=== PATIENT | male | born 1960 | race Caucasian/White ===

== ENCOUNTER 2023-11-17 15:07 | Outpatient (RCR) | payer MEDICARE, OTHER, SELFPAY | END 2023-12-16 15:54 | disposition home or self-care (01) | LOC: PT 15:07 | PROVIDERS: PCP Internal Medicine; Visit Provider Internal Medicine | DX: M54.50 Low back pain, unspecified (principal) | CPT/HCPCS: 97010; 97110; 97140; 97162; G0283 ==

== ENCOUNTER 2024-07-07 17:44 | Emergency (ER) | payer MEDICARE, OTHER, SELFPAY ==
[2024-07-07] VITALS (8 sets, daily range): BP systolic 131–182; BP diastolic 61–103; PULSE 93–104; TEMP 36.4; O2SAT 96; BMI 30.3
--- OUTSIDE RECORDS SUMMARY | 2024-07-07 17:51 | XMS_ITS | CCD ---
Author Organization [facility] CliniSynm Care Team Providers Care Range Ecologist Name Role Phone SHELTON FLORES (INSIDE WIREMAN) Unavailable Unavailabl e DEVAN GOODRICH Unavailable Unavailable DEVAN GOODRICH Unavailable Unavailable DEVAN GOODRICH Unavailable Unavailable Sarah Oneil Unavailable Cornel Avila Unavailable MD Haley Samson Primary Care Provider [phone] MD Cornel Avila Attending Provider MD Haley Samson Primary Care Provider [phone] MD Cornel Avila Attending Provider FAWWAD, DE LEON H Admitting Unavailable FAWWAD, DE LEON H Attending Unavailable FAWWAD, DE LEON H Primary Care Unavailable FAWWAD, DE LEON H Primary Care Unavailable FAWWAD, DE LEON H Attending Unavailable FAWWAD, DE LEON H Consulting Unavailable FAWWAD, DE LEON H Admitting Unavailable FAWWAD, DE LEON H Attending Unavailable FAWWAD, DE LEON H Consulting Unavailable FAWWAD, DE LEON H Primary Care Unavailable FAWWAD, DE LEON H Admitting Unavailable FAWWAD, DE LEON H Attending Unavailable FAWWAD, DE LEON H Consulting Unavailable FAWWAD, DE LEON H Admitting Unavailable FAWWAD, DE LEON H Primary Care Unavailable FAWWAD, DE LEON H Consulting Unavailable FAWWAD, DE LEON H Primary Care Unavailable FAWWAD, DE LEON H Admitting Unavailable FAWWAD, DE LEON H Attending Unavailable FAWWAD, DE LEON H Primary Care Unavailable DR HARIKA LAUREANO V Consulting Unavailable FAWWAD, DE LEON H Admitting Unavailable FAWWAD, DE LEON H Attending Unavailable MALI, DE LEON H Consulting Unavailable FAWWAD, DE LEON H Admitting Unavailable FAWWAD, DE LEON H Attending Unavailable FAWWAPrasanth, DE LEON H Primary Care Unavailable WEST, DR HARIKA Pulido Consulting Unavailable MALI, H Consulting Unavailable MD Haley Samson Primary Care Provider MD Haley Samosn Attending Provider MD Haley Samson Primary Care Provider MD Haley Samson Attending Provider Cassidy Salazar Unavailable Shaikh Samson MD Primary Care Provider DANNY Salazar Attending Provider MD Haley Samson Primary Care Provider DANNY Salazar Attending Provider MD Haley Samson Primary Care Provider DANNY Salazar Attending Provider MD Haley Samson Attending Provider DANNY Morales Primary Care Provider DANNY Morales Attending Provider DANNY Morales Referring Provider DANNY Hernandez Attending Provider Shaikh Samson MD Primary Care Provider DANNY Morales Primary Care Provider DANNY Morales Attending Provider DANNY Morales Referring Provider DANNY Hernandez Attending Provider DO Debi Beltre L Attending Provider [phone] Mikeyrbacher Robyn DELGADO Primary Care Provider Robyn Moarles APRN Attending Provider Trinityacher Robyn DELGADO Referring Provider Karo Hernandez APRN Attending Provider Ly DO, Debi Cisneros Attending Provider SHAIKH SAMSON Attending Unavailable OSMAN ALVARADO Attending Unavailable OSMAN ALVARADO Attending Unavailable LENNY MALLORY Attending Unavailable Trinityacher DANNY, Robyn Primary Care Provider Devan Bob APRN Emergency Provider [phone] Robyn Morales Primary Care Unavailable Robyn Morales Attending Unavailable Robyn Morales Admitting Unavailable Ly, Debi L Admitting Unavailable Ly, Debi L Attending Unavailable Trinityacher, Robyn Primary Care Unavailable Ly, Debi L Admitting Unavailable Ly, Debi L Attending Unavailable Mikeyrbacher, Robyn Primary Care Unavailable Rohrbacher, Robyn Primary Care Unavailable Ly, Debi L Admitting Unavailable Ly, Debi L Attending Unavailable Devan Bob Admitting Unavailable Devan Bob Attending Unavailable Mikeyrbacher, Robyn Primary Care Unavailable Cassidy Salazar Attending Unavailable Shaikh Samson Primary Care Unavailable Cassidy Salazar Admitting Unavailable Shaikh Samson Admitting Unavailable Shaikh Samson Primary Care Unavailable Shaikh Samson Attending Unavailable Trinityacher, Robyn Primary Care Unavailable Robyn Morales Attending Unavailable Robyn Morales Admitting Unavailable Medications Current Medications Medication Drug Class(es) Dates Sig (Normalized) Sig (Original) 3 ML insulin glargine-yfgn 100 UNT/ML Pen Injector (6 sources) Insulin Glargine-yfgn 100 UNIT/ML INJECT 20 UNITS SUBCUTANEOUSLY NIGHTLY Subcutaneous for 75 Days Active aspirin 81 mg delayed release oral tablet (20 sources) Platelet Aggregation Inhibitor, Nonsteroidal Anti-inflammatory Drug Start: 11-03-2021 Aspirin (Alis Low Dose Aspirin) 81 mg Tablet,Delayed Release (Dr/Ec) Active 81 MG PO Daily November 02, 2021 11:00pm atorvastatin 40 mg oral tablet (20 sources) HMG-CoA Reductase Inhibitor Start: 09-16-2020 End: 06-05-2024 take 1 tablet by mouth once daily Atorvastatin 40 mg tablet Active 40 MG PO Daily 90 June 05, 2024 1:59pm azithromycin 250 mg oral tablet (1 source) Macrolide Antimicrobial Start: 06-29-2024 Azithromycin 250 mg tablet Active 0 PO daily 6 June 29, 2024 12:00am Take 2 on day 1 and then take 1 for the next 4 days (days 2-5) Blood-Glucose Meter (Onetouch Ultra2 Meter) misc (18 sources) Start: 08-10-2023 Blood-Glucose Meter (Onetouch Ultra2 Meter) misc Active EACH .ROUTE .MEDSUPPLY August 10, 2023 12:00am As directed Start: 08-10-2023 Blood-Glucose Meter (Onetouch Ultra2 Meter) misc Active EACH .ROUTE .MEDSUPPLY August 10, 2023 1:00am As directed cephalexin 500 mg oral capsule (20 sources) Cephalosporin Antibacterial Start: 02-24-2024 End: 03-05-2024 take 1 capsule by mouth in the morning, then take 1 capsule by mouth in the evening, then take 1 capsule by mouth at bedtime, then take 1 capsule by mouth three times daily cephalexin (Keflex) 500 MG capsule Indications: Paronychia, toe, left Take 1 capsule (500 mg) by mouth in the morning and 1 capsule (500 mg) in the evening and 1 capsule (500 mg) before bedtime. Do all this for 10 days. Take one tablet by mouth three times daily. 30 capsule 02/24/2024 03/05/2024 Active Start: 11-18-2021 End: 07-28-2023 take 1 capsule by mouth three times daily Cephalexin 500 mg capsule Discontinued 500 MG PO Three times daily November 17, 2021 11:00pm July 28, 2023 1:35pm Co Q 10 (1 source) CoQ10 (2 sources) CoQ10 Active diclofenac sodium 0.01 mg/mg topical gel (1 source) Nonsteroidal Anti-inflammatory Drug Start: fluticasone propionate 0.05 mg/actuat metered dose nasal spray (20 sources) Corticosteroid Start: take 1 spray(s) nasal route twice daily Fluticasone Propionate 50 mcg/actuation spray,suspension Active 0 .ROUTE .COMPLEX 48 June 19, 2024 7:46am USE 1 SPRAY IN EACH NOSTRIL TWICE A DAY Start: 05-24-2024 take 1 spray(s) nasa l route twice daily fluticasone (Flonase) 50 MCG/ACT nasal spray USE 1 SPRAY IN EACH NOSTRIL TWICE A DAY 05/24/2024 Active Start: 07-28-2023 End: 06-19-2024 Fluticasone Propionate 50 mcg/actuation spray,suspension Discontinued 1 SPRAY INTRANASAL Twice daily May 24, 2024 12:59pm June 19, 2024 7:46am Start: 06-23-2023 take 1 spray(s) nasa l route twice daily Fluticasone Propionate 50 MCG/ACT 1 spray in each nostril Nasally bid for 30 days Jun, Active glipiZIDE 10 mg oral tablet (20 sources) Sulfonylurea Start: 02-07-2024 End: 06-02-2024 take 2 tablets by mouth once daily in the morning, then take 1 tablet by mouth in the evening Glipizide 10 mg tablet Active 0 PO Daily 120 90 June 02, 2024 8:10am orally daily; 2 tablets in AM and 1 tablet in PM Start: 01-19-2024 End: 02-07-2024 take 2 tablets by mouth twice daily in the morning, then take 1 tablet by mouth twice daily in the evening Glipizide 10 mg tablet Discontinued 0 PO Twice daily January 19, 2024 2:48pm February 07, 2024 3:38pm 2 tablets in AM and 1 tablet in PM orally twice daily; Start: 10-13-2023 End: 02-07-2024 take 1 tablet by mouth twice daily Glipizide 10 mg tablet Discontinued 10 MG PO Twice daily October 27, 2023 11:55am January 19, 2024 2:49pm Start: 09-16-2020 End: 10-27-2023 take 1 tablet by mouth once daily Glipizide 10 mg tablet Discontinued 10 MG PO Daily September 15, 2020 11:00pm October 27, 2023 11:56am hydroCHLOROthiazide 12.5 mg / losartan potassium 50 mg oral tablet (20 sources) Thiazide Diuretic, Angiotensin 2 Receptor Reggie Start: 03-10-2024 take 1 tablet by mouth once daily Losartan-Hydrochlorothiazide 50-12.5 mg tablet Active 0 .ROUTE .COMPLEX March 10, 2024 9:20am TAKE 1 TABLET BY MOUTH EVERY DAY Start: 07-28-2023 End: 03-10-2024 take 1 tablet by mouth once daily Losartan-Hydrochlorothiazide 50-12.5 mg tablet Discontinued 1 TAB PO Daily August 11, 2023 10:11am March 10, 2024 9:20am Start: 09-23-2022 take 1 tablet by aristeo th in the morning losartan-hydroCHLOROthiazide (Hyzaar) 50-12.5 MG tablet Take 1 tablet by mouth in the morning. 09/23/2022 Active take 1 tablet by aristeo th every twenty-four hours Losartan Potassium-HCTZ 50-12.5 MG 1 tab let Orally Once a day for 90 days Active 12 hr hyoscyamine sulfate 0.375 mg extended release oral tablet (1 source) Start: 12-30-2020 take 1 tablet by mouth every twelve hours ibuprofen 800 mg oral tablet (4 sources) Nonsteroidal Anti-inflammatory Drug Start: 05-11-2024 take 1 tablet by mouth three times daily as needed for pain Ibuprofen 800 mg tablet Active 800 MG PO Three times daily as needed for pain May 11, 2024 10:53am Start: 03-19-2021 3 ml insulin glargine 100 unt/ml pen injector (20 sources) Insulin Analog Start: 06-05-2024 Insulin Glargi ne (Lantus Solostar U-100 Insulin) 100 unit/mL (3 mL) insulin pen Active 30 UNIT SUBCUT Daily at bedtime June 05, 2024 1:51pm Start: 11-10-2023 End: 05-08-2024 insulin glargine (Lantus Deborah oStar) 100 UNIT/ML pen Indications: Type 2 diabetes mellitus without complication, without long-term current use of insulin ([facility]) Inject 30 Units under the skin at bedtime 27 mL 1 11/10/2023 Active Start: 10-27-2023 End: 06-05-2024 Insulin Glargine (Lantus Deborah ostar U-100 Insulin) 100 unit/mL (3 mL) insulin pen Discontinued 30 UNIT SUBCUT Daily at bedtime October 27, 2023 11:55am June 05, 2024 1:51pm FreeTextSig: INJECT 25 UNITS SUBCUTANEOUSLY NIGHTLY Subcutaneous; Note: Source Status: Taking; Refills: 1; Qty: 15 Milliliter; Provider: Mali De Leon Start: 07-28-2023 End: 10-27-2023 Insulin Glargine (Lantus Deborah ostar U-100 Insulin) 100 unit/mL (3 mL) insulin pen Discontinued 25 UNIT SUBCUT Daily July 28, 2023 12:00am October 27, 2023 11:56am FreeTextSig: INJECT 25 UNITS SUBCUTANEOUSLY NIGHTLY Subcutaneous; Note: Source Status: Taking; Refills: 1; Qty: 15 Milliliter; Provider: Mali De Leon Start: 07-26-2023 End: 10-24-2023 insulin glargine (Lantus Deborah oStar) 100 UNIT/ML pen Indications: Type 2 diabetes mellitus without complication, without long-term current use of insulin ([facility]) Inject 25 Units under the skin at bedtime 23 mL 0 07/26/2023 10/24/2023 Active Start: 03-22-2023 End: 07-26-2023 Lantus SoloStar 100 UNIT/ML pen Inject 30 Units under the skin at bedtime 0 03/22/2023 07/26/2023 Discontinued (Reorder) Lantus SoloStar 100 UNIT/ML INJECT 25 UNITS SUBCUTANEOUSLY NIGHTLY Subcutaneous for 60 days Active Insulin Glargine-yfgn 100 UNIT/ML (1 source) Insulin Glargine -yfgn 100 UNIT/ML INJECT 20 UNITS SUBCUTANEOUSLY NIGHTLY Subcutaneous for 75 Days Active loperamide hydrochloride 2 mg oral tablet (1 source) Opioid Agonist Start: 1 osmotic 24 hr metFORMIN hydrochloride 1000 mg extended release oral tablet (20 sources) Biguanide Start: 4 take 1 tablet by mouth twice daily Metformin 1,000 mg tablet extended release 24hr Active 1000 MG PO Twice daily May 30, 2024 12:00am Start: 12-15-2023 End: 05-30-2024 take 1 tablet by mouth twice daily Metformin 1,000 mg tablet Discontinued 1000 MG PO Twice daily May 26, 2024 10:18am May 30, 2024 10:36am Start: 10-27-2023 End: 12-15-2023 take 2 tablets by mouth twice daily Metformin 500 mg tablet Discontinued 1000 MG PO Twice daily October 27, 2023 11:54am December 15, 2023 2:06pm Start: 10-27-2023 End: 12-15-2023 take 1000 mg by mouth twice daily Metformin Discontinued 1000 MG PO Twice daily October 27, 2023 11:54am December 15, 2023 2:06pm Start: 10-13-2023 End: 04-10-2024 take 1 tablet by mouth once metFORMIN (Glucophage) 100 0 MG tablet Indications: Type 2 diabetes mellitus without complication, with long-term current use of insulin ([facility]) Take 1 tablet (1,000 mg) by mouth every 12 (twelve) hours 180 tablet 1 10/13/2023 Active Start: 09-16-2020 End: 10-27-2023 take 1 tablet by mouth twice daily Metformin 500 mg tablet Discontinued 500 MG PO Twice daily September 15, 2020 11:00pm October 27, 2023 11:56am metFORMIN HCl 50 0 MG TAKE 1 TABLET BY MOUTH EVERY 12 HOURS Oral bid for 90 days Active Multivitamin preparation (20 sources) Start: 07-28-2023 take 1 tablet by mouth once daily Multivitamin Active 1 TAB PO Daily July 28, 2023 1:00am Start: 07-28-2023 take 1 tablet by aristeo once daily Multivitamin Active 1 TAB PO Daily July 28, 2023 12:00am Multivitamin Act ting Multivitamin tablet (2 sources) Start: 07-28-2023 take 1 tablet by mouth once daily Multivitamin tablet Active 1 TAB PO Daily July 28, 2023 12:00am omeprazole 40 mg delayed release oral capsule (20 sources) Proton Pump Inhibitor Start: 04-12-2024 take 1 capsule by mouth once daily Omeprazole 40 mg capsule,delayed release(DR/EC) Active 40 MG PO Daily April 11, 2024 11:00pm Start: 03-19-2023 take 1 tablet by aristeo th in the morning Omeprazole 20 MG tablet delayed-release Take 1 tablet by mouth in the morning. 03/19/2023 Active Start: 09-16-2020 End: 05-09-2024 take 1 capsule by mouth once daily Omeprazole 20 mg capsule,delayed release(DR/EC) Discontinued 20 MG PO Daily March 28, 2024 10:42am May 09, 2024 12:28pm One A Day Mens VitaCraves (1 source) Semaglutide (1 source) Start: 06-29-2024 Semaglutide (O zempic) 0.25 mg or 0.5 mg (2 mg/3 mL) pen injector Active 0.25 MG SUBCUT every week June 29, 2024 12:00am for 4 weeks ubidecarenone 200 mg oral ca psule (20 sources) Start: 11-03-2021 Coenzyme Q10 ( Co Q-10) 200 mg Capsule Active 200 MG PO Daily November 02, 2021 11:00pm Vitamin D3 (1 source) Completed/Discontinued Medications Medication Drug Class(es) Dates Sig (Normalized) Sig (Original) acetaminophen 325 mg oral tablet (20 sources) Start: 11-03-2021 End: 07-28-2023 take 2 tablets by mouth every six hours as needed for pain Acetaminophen (Tylenol) 325 mg Tablet Discontinued 650 MG PO Q6H as needed for Pain, Mild November 02, 2021 11:00pm July 28, 2023 1:34pm cholecalciferol 0.025 mg oral capsule (20 sources) Vitamin D Start: 11-03-2021 End: 07-28-2023 take 1 capsule by mouth once daily Cholecalciferol (Vitamin D3) (Vitamin D3) 25 mcg (1,000 unit) Capsule Discontinued 25 MCG PO Daily November 02, 2021 11:00pm July 28, 2023 1:35pm cyclobenzaprine hydrochloride 10 mg oral tablet (20 sources) Muscle Relaxant Start: 11-18-2021 End: 07-28-2023 take 1 tablet by mouth three times daily as needed for muscle spasms Cyclobenzaprine 10 mg tablet Discontinued 10 MG PO Three times daily as needed for back spasms 40 November 17, 2021 11:00pm July 28, 2023 1:35pm dapagliflozin 10 mg oral tablet (20 sources) Sodium-Glucose Cotransporter 2 Inhibitor Start: 09-16-2020 End: 07-28-2023 Dapagliflozin Propanediol (Farxiga) 10 mg tablet Discontinued 10 MG PO Daily September 15, 2020 11:00pm July 28, 2023 1:35pm Instructed per anesthesia guidelines to stop 3 days prior to surgery dicyclomine hydrochloride 20 mg oral tablet (20 sources) Anticholinergic Start: 09-16-2020 End: 11-03-2021 take 1 tablet by mouth once daily Dicyclomine 20 mg tablet Discontinued 20 MG PO Daily September 15, 2020 11:00pm November 03, 2021 10:29am doxycycline monohydrate 100 mg oral capsule (4 sources) Tetracycline-class Drug Start: 06-05-2024 End: 06-29-2024 take 1 capsule by mouth twice daily Doxycycline Monohydrate 100 mg capsule Discontinued 100 MG PO Twice daily 14 June 05, 2024 12:00am June 29, 2024 2:04pm Start: 05-30-2024 End: 06-06-2024 doxycycline (Vibramycin) 100 MG capsule Indications: Cellulitis, penis Take 1 capsule (100 mg) by mouth in the morning and 1 capsule (100 mg) before bedtime. Do all this for 7 days. Take with at least 8 ounces (large glass) of water, do not lie down for 30 minutes after. 14 capsule 05/30/2024 06/06/2024 Start: 01-31-2021 take 1 capsule by [facility] every twelve hours fexofenadine hydrochloride 180 mg oral tablet (20 sources) Histamine-1 Receptor Antagonist Start: 03-19-2023 End: 05-31-2024 take 1 tablet by mouth once daily Fexofenadine 180 mg tablet Discontinued 180 MG PO Daily August 11, 2023 10:10am March 28, 2024 10:43am gabapentin 100 mg oral capsule (9 sources) Anti-epileptic Agent Gabapentin 100 MG Not Available Oral for 30 Days Not-Taking/PRN Insulin Glargine-Yfgn (20 sources) Start: 11-03-2021 End: 07-28-2023 Insulin Glargine-Yfgn 100 unit/mL (3 mL) insulin pen Discontinued 20 UNIT SUBCUT Bedtime November 02, 2021 11:00pm July 28, 2023 1:36pm Start: 11-03-2021 End: 07-28-2023 inject 20 [IU] by subcutaneous injection at bedtime Insulin Glargine-Yfgn Discontinued 20 UNIT SUBCUT Bedtime November 03, 2021 12:00am July 28, 2023 2:36pm Start: 11-03-2021 End: 07-28-2023 inject 20 [IU] by subcutaneous injection at bedtime Insulin Glargine-Yfgn Discontinued 20 UNIT SUBCUT Bedtime November 02, 2021 11:00pm July 28, 2023 1:36pm Start: 11-03-2021 inject 20 [IU] by miramontes bcutaneous injection at bedtime Insulin Glargine-Yfgn Active 20 UNIT SUBCUT Bedtime November 02, 2021 11:00pm Start: 11-03-2021 inject 20 [IU] by miramontes bcutaneous injection at bedtime Insulin Glargine-Yfgn Active 20 UNIT SUBCUT Bedtime November 03, 2021 12:00am insulin glargine-yfgn 100 unit/ml solution pen-injector (2 sources) Insulin Glargine -yfgn 100 UNIT/ML INJECT 20 UNITS SUBCUTANEOUSLY NIGHTLY Subcutaneous for 75 Days Not-Taking/PRN lisinopril 10 mg oral tablet (20 sources) Angiotensin Converting Enzyme Inhibitor Start: 09-17-19 End: 07-28-19 take 1 tablet by mouth once daily Lisinopril 10 mg tablet Discontinued 10 MG PO Daily September 15, 2020 11:00pm July 28, 2023 1:36pm loratadine 10 mg oral tablet (20 sources) Start: 11-03-2021 End: 07-28-2023 Loratadine 10 mg Tablet Discontinued 10 MG PO As Directed November 02, 2021 11:00pm July 28, 2023 1:43pm losartin (3 sources) losartin Not-Leandro ing/PRN losartin Active 24 hr nicotine 0.875 mg/hr transdermal system (20 sources) Cholinergic Nicotinic Agonist Start: 07-28-2023 End: 09-01-2023 apply 1 dose transdermal route once daily Nicotine Discontinued 1 PATCH TRANSDERML Daily July 28, 2023 12:00am September 01, 2023 9:36am FreeTextSi patch to skin Transdermal Once a day; Note: Source Status: Start; Refills: 0; Provider: Martin Benjamin Start: 06-25-2023 Nicotine Step 1 21 MG/24HR 1 patch to skin Transdermal Once a day for 30 days Jun, Active Start: 05-26-2023 nicotine polac rilex (Commit) 4 MG lozenge Indications: Tobacco dependency Dissolve 1 lozenge (4 mg) in the mouth every 2 (two) hours if needed for smoking cessation 30 lozenge 1 05/26/2023 Active Start: 05-26-2023 End: 09-01-2023 apply 1 dose transdermal route every twenty-four hours Nicotine 21 mg/24 hr patch 24 hour Discontinued 1 PATCH TRANSDERML Daily July 28, 2023 12:00am September 01, 2023 9:36am FreeTextSi patch to skin Transdermal Once a day; Note: Source Status: Start; Refills: 0; Provider: Martin Benjamin ondansetron 4 mg oral tablet (20 sources) Serotonin-3 Receptor Antagonist Start: 09-16-2020 End: 11-03-2021 take 1 tablet by mouth every six hours as needed for nausea Ondansetron Hcl 4 mg tablet Discontinued 4 MG PO Q6H as needed for Nausea September 15, 2020 11:00pm November 03, 2021 10:28am oxyCODONE hydrochloride 5 mg oral tablet (20 sources) Opioid Agonist Start: 11-18-2021 End: 07-28-2023 take 5-10 mg by mouth every six hours as needed for pain Oxycodone 5 mg Tablet Discontinued 5 - 10 MG PO Q6H as needed for Pain 30 8 November 18, 2021 July 28, 2023 1:37pm pantoprazole 40 mg delayed release oral tablet (20 sources) Proton Pump Inhibitor Start: 09-16-2020 End: 11-03-2021 take 1 tablet by mouth once daily Pantoprazole 40 mg tablet,delayed release (DR/EC) Discontinued 40 MG PO Daily September 15, 2020 11:00pm November 03, 2021 10:29am varenicline 1 mg oral tablet (20 sources) Partial Cholinergic Nicotinic Agonist Start: 09-01-2023 End: 05-30-2024 take 1 tablet by mouth once daily Varenicline Tartrate 1 mg tablet Discontinued 1 MG PO Daily 30 October 11, 2023 1:25pm December 15, 2023 2:02pm Start: 07-28-2023 End: 09-01-2023 take 1 tablet by mouth twice daily Varenicline Tartrate 1 mg tablet Discontinued 1 MG PO Twice daily 60 July 28, 2023 3:28pm September 01, 2023 9:21am Varenicline Tart rate 1 MG half tab once daily for three days, half tab twice daily for four days, then 1 tab twice daily Orally Twice a day for 30 days Ok to dispense Chantix starter pack if available and covered by insurance Active Problems Active Problems Problem Classification Problem Date Documented Da te Episodic/Chronic Abdominal pain (20 sources) Epigastric pain; Translations: [Epigastric pain] Onset: 4 11-06-2020 Episodic Comment on above: Problem List clean-u p per request of Phys. EHR Cmte Coagulation and hemorrhagic disorders (20 sources) Platelet count below reference range; Translations: [Thrombocytopenia, unspecified] 02-22-2024 Chronic Diabetes mellitus with complications (20 sources) Type II diabetes mellitus uncontrolled; Translations: [Uncontrolled type 2 diabetes mellitus] 07-28-2023 Chronic Diabetes mellitus without complication (20 sources) Type 2 diabetes mellitus without complications; Translations: [Type 2 diabetes mellitus without complication] Onset: Chronic Disorders of lipid metabolism (20 sources) Hyperlipidemia, unspecified; Translations: [Hyperlipidemia] Onset: 2 05-26-2023 Chronic Esophageal disorders (20 sources) Gastroesophageal reflux disease; Translations: [Gastro-esophageal reflux disease without esophagitis] 01-13-2024 Chronic Essential hypertension (20 sources) Essential (primary) hypertension; Translations: [Essential hypertension] Onset: 4 05-26-2023 Chronic Fracture of lower limb (2 sources) Fracture of phalanx of foot; Translations: [Unspecified fracture of unspecified toe(s), initial encounter for closed fracture] Onset: 4 05-19-2024 Episodic Inflammatory conditions of male genital organs (4 sources) Cellulitis of penis; Translations: [Cellulitis of corpus cavernosum and penis] 05-30-2024 Chronic Mood disorders (11 sources) Single episode of major depression in full remission; Translations: [Major depressive disorder, single episode, in full remission] Onset: 3 05-26-2023 Chronic Mycoses (2 sources) Onychomycosis; Translations: [Tinea unguium] 02-24-2024 Episodic Nausea and vomiting (20 sources) Vomiting; Translations: [Vomiting, unspecified] Onset: 4 11-06-2020 Episodic Comment on above: Problem List clean-u p per request of Phys. EHR Cmte Noninfectious gastroenteritis (20 sources) Enterocolitis; Translations: [Noninfective gastroenteritis and colitis, unspecified] 09-16-2020 Episodic Comment on above: Problem List clean-u p per request of Phys. EHR Cmte Other bone disease and musculoskeletal deformities (7 sources) Lesion of lumbar spine; Translations: [Disorder of bone, unspecified] 03-06-2024 Episodic Other connective tissue disease (4 sources) Pain of toe of left foot; Translations: [Pain in left toe(s)] 02-24-2024 Episodic Other gastrointestinal disorders (10 sources) Diarrhea; Translations: [Diarrhea, unspecified] Episodic Other liver diseases (20 sources) Lesion of liver; Translations: [Liver disease, unspecified] 12-13-2023 Chronic Other liver diseases (4 sources) Steatosis of liver; Translations: [Fatty (change of) liver, not elsewhere classified] 04-12-2024 Chronic Comment on above: Problem List clean-u p per request of Phys. EHR Cmte Other liver diseases (4 sources) Fatty (change of) liver, not elsewhere classified; Translations: [Other chronic nonalcoholic liver disease] Onset: 4 04-12-2024 Chronic Other nervous system disorders (12 sources) Paresthesia; Translations: [Paresthesia of skin] 01-12-2024 Episodic Other screening for suspected conditions (not mental disorders or infectious disease) (20 sources) CT of abdomen abnormal; Translations: [Abnormal findings on diagnostic imaging of other abdominal regions, including retroperitoneum] Onset: 4 09-16-2020 Episodic Comment on above: Problem List clean-u p per request of Phys. EHR Cmte Other skin disorders (4 sources) Ingrowing nail; Translations: [Ingrowing nail] 02-24-2024 Episodic Residual codes; unclassified (20 sources) Other specified personal risk factors, not elsewhere classified; Translations: [Other specified personal history presenting hazards to health] Episodic Residual codes; unclassified (7 sources) At risk of disease; Translations: [Other specified personal risk factors, not elsewhere classified] 07-28-2023 Episodic Residual codes; unclassified (13 sources) Cardiovascular event risk; Translations: [Other specified personal risk factors, not elsewhere classified] 07-28-2023 Episodic Screening and history of mental health and substance abuse codes (18 sources) Ex-smoker; Translations: [Personal history of nicotine dependence] 01-13-2024 Episodic Skin and subcutaneous tissue infections (5 sources) Local infection of the skin and subcutaneous tissue, unspecified; Translations: [Paronychia of toe of left foot] Onset: 1 Resolved: 1 Episodic Spondylosis; intervertebral disc disorders; other back problems (20 sources) Cervical spondylosis without myelopathy; Translations: [Spondylosis without myelopathy or radiculopathy, cervical region] Onset: 2 05-26-2023 Chronic Spondylosis; intervertebral disc disorders; other back problems (20 sources) Cervical disc disorder at C5-C6 level with radiculopathy; Translations: [Cervical disc disorder at C6-C7 level with radiculopathy] Onset: 2 Resolved: 2 Episodic Comment on above: Problem List clean-u p per request of Phys. EHR Cmte Substance-related disorders (20 sources) Tobacco user; Translations: [Nicotine dependence, cigarettes, uncomplicated] Onset: 3 Chronic Unclassified (1 source) Unknown / UNK(Unknown) Onset: 8 Unclassified (3 sources) CONTACT W/AND (SUSP) EXPOS COVID-19; Translations: [CONTACT W/AND (SUSP) EXPOS COVID-19] Onset: 2 Unclassified (1 source) Low back pain, unspecified; Translations: [Low back pain, unspecified] Onset: 4 Past or Other Problems Problem Classification Problem Date Documented Da te Episodic/Chronic Coagulation and hemorrhagic disorders (1 source) Other secondary thrombocytopenia; Translations: [Other secondary thrombocytopenia] Onset: 07-05-2017 Episodic E Codes: Natural/environment (1 source) Bitten by dog, subsequent encounter Onset: 04-16-2021 Resolved: 04-16-2021 Episodic Other connective tissue disease (1 source) Pain in left arm; Translations: [PAIN IN LEFT ARM] Onset: 08-26-2021 Episodic Other connective tissue disease (1 source) Abnormal posture; Translations: [ABNORMAL POSTURE] Onset: 08-26-2021 Episodic Other nervous system disorders (9 sources) Paresthesia of skin; Translations: [Disturbance of skin sensation] Onset: 03-04-2024 01-12-2024 Episodic Unclassified (1 source) CONTACT W/AND (SUSP) EXPOS COVID-19; Translations: [CONTACT W/AND (SUSP) EXPOS COVID-19] Onset: 06-05-2022 Results Test Name Value Interpretation Reference Range Facility Glucose Glucometer (BldC) [M ass/Vol]Ordered By: Debi Beltre on 05-18-2024 Glucose [Mass/Vol] Capillary blood gluc ose measurement by glucometer (mass/volume) [facility] Comment on above: Random Glucose Refer ence Range is dependent on time and content of last meal. Glucose of more than 200 mg/dL in a nonstressed, ambulatory subject supports the diagnosis of Diabetes Mellitus. Glucose Poct Glucometerson 1 07-19-2023 Commemt1 Glu2: Cleaned Meter Normal [facility] Comment on above: Result Comment: PERF ORMED BY: [facility] [address] [place] [address] PATHOLOGIST CHOCOLATE TEMPERER RITA DEGROOT M.D. Performed By: #### G CONNORLS #### Point of Care testing , Glucose [Mass/Vol] 198 mg/dL Normal [facility] Comment on above: Result Comment: [place] Glucose Reference Range is dependent on time and content of last meal. Glucose of more than 200 mg/dL in a nonstressed, ambulatory subject supports the diagnosis of Diabetes Mellitus. Performed By: #### G LULS #### Point of Care testing , Joe 05-18-2024 L --- Specimen: [id number] Received: 05/18/24 Status: JANNET Cummings Num: [id number] Spec Type: Surgical Subm Dr: Debi Beltre DO Tissues: A Small Intestine - Biopsy/Polyp (SMALL BOWEL R/O CELIAC) B GASTRIC FOR HP (GASTRIC R/O H PYLORI) C Colon Biopsy (VIVIENNE RT COLON BX R/O MICRO) D Colon Biopsy (RANDOM LT COLON BX R/O MICRO) Procedures: ALESSIO/Azalia, Gross/Micro L4/4, H PYLORI Age/ Patient Sex Location Account Attending Physician Lew Obregon/[facility] [id number] Debi Beltre DO SPEC NUM: [id number] RECD: 05/18/24 STATUS: JANNET CUMMINGS NUM: [id number] RICARDO: 05/18/[address]: Debi Beltre DO ENTERED: 05/18/24-1036 [facility] DR: SPEC TYPE: Surgical DEPT: S ENTERED BY: [id number] RECV BY: [id number] ORDERED: HE/8, Gross/Micro L4/4, H PYLORI ORDERED: HE/8, Gross/Micro L4/4, H PYLORI Pathological Diagnosis A. Small bowel, biopsy: - Small bowel mucosa with a small lymphoid aggregate. - No evidence of celiac disease identified. B. Stomach, biopsy: - Antral and oxyntic-type gastric mucosa with reactive gastritis. - No Helicobacter pylori microorganisms identified with immunohistochemical stain. C. Colon, right, random biopsy: - Benign colonic mucosa with no significant histopathology - No evidence of chronic, active or microscopic colitis identified. D. Colon, left, random biopsy: - Benign colonic mucosa with no significant histopathology - No evidence of chronic, active or microscopic colitis identified. Clinical Information Abdominal pain, nausea, diarrhea, rule out celiac, H. pylori, rule out microscopic colitis. Specimen: [id number] Received: 05/18/24 Status: JANNET Cummings Num: [id number] Spec Type: Surgical Subm Dr: Debi Beltre DO Tissues: A Small Intestine - Biopsy/Polyp (SMALL BOWEL R/O CELIAC) B GASTRIC FOR HP (GASTRIC R/O H PYLORI) C Colon Biopsy (VIVIENNE RT COLON BX R/O MICRO) D Colon Biopsy (RANDOM LT COLON BX R/O MICRO) Procedures: HE/8, Gross/Micro L4/4, H PYLORI Patient: Lew Obregon [id number] (Continued) Specimen: [id number] Received: 05/18/24 (Continued) Signed (signature on file) Jeramie Gonzalez MD 05/19/24 1534 Specimen: [id number] Received: 05/18/24 Status: JANNET Cummings Num: [id number] Spec Type: Surgical Subm Dr: Debi Beltre DO Tissues: A Small Intestine - Biopsy/Polyp (SMALL BOWEL R/O CELIAC) B GASTRIC FOR HP (GASTRIC R/O H PYLORI) C Colon Biopsy (VIVIENNE RT COLON BX R/O MICRO) D Colon Biopsy (RANDOM LT COLON BX R/O MICRO) Procedures: HE/Azalia, Gross/Micro L4/4, H PYLORI Patient: Lew Obregon [id number] (Continued) Specimen: [id number] Received: 05/18/24 (Continued) Gross Description Part A is received in formalin labeled with the patients name, date of , and small bowel BX are two kulkarni-summers, focally erythematous, friable, 0.3 cm in greatest dimension each tissue bits. The specimen is entirely submitted in a single cassette. (1, ns, [id number] A) JG Part B is received in formalin labeled with the patients name, date of , and gastric BX are two kulkarni-summers, focally erythematous, friable, 0.3 and 0.5 cm in greatest dimension tissue bits. The specimen is entirely submitted in a single cassette. (1, ns, [id number] B) JG Part C is received in formalin labeled with the patients name, date of , and random right colon BX are five kulkarni-summers, focally erythematous, friable, 0.2 to 0.3 cm in greatest dimension tissue bits. The specimen is entirely submitted in a single cassette. (1, ns, [id number] C) JG Part D is received in formalin labeled with the patients name, date of , and random left colon BX are three kulkarni-summers, focally erythematous, friable, 0.2, 0.3 and 0.3 cm in greatest dimension tissue bits. The specimen is entirely submitted in a single cassette. (1, ns, [id number] D) Microscopic Description A-D: Microscopic examination is performed. CPT Codes 21662 x4, 45332 (more content not included)... Normal [facility] No Panel InformationOrdered By: Debi Ly on 05-18-2024 Bedside Glucose Comment Glu2: cleaned meter [facility] XR foot LT min 3V*on 024 XR foot LT min 3V* [facility] [address] [address] XRay Report Signed Patient: Lew Obregon MR#: [id number] : 1960 Acct:[id number] Age/Sex: 64 / M ADM Date: 05/11/24 Loc: ER Room: Type: [facility] ER Attending Dr: Copies to: Devan Bob APRN Ordering Provider: Devan Bob APRN Date of Service: 05/11/24 XR/XR foot LT min 3V*: Extremity Injury, Lower LEFT FOOT - 3 VIEWS CLINICAL DATA: Patient dropped a cart onto left foot yesterday. Bruising at the distal first toe. COMPARISON: None AP, lateral and oblique views were obtained. A nondisplaced fracture is visualized at the distal shaft of the distal phalanx of the first toe. There is no additional fracture or dislocation. Calcaneal spurs are noted. There are no significant soft tissue abnormalities. XR/XR foot LT min 3V* IMPRESSION: NONDISPLACED FRACTURE AT THE DISTAL PHALANX OF THE FIRST TOE. Impression dictated by: Carmencita Hernandez M.D.05/11/2024 11:33 AM Dictation Location: [place] [address] Transcribed By: [facility] 05/11/24 1133 Dictated By: Carmencita Hernandez MD 05/11/24 1130 Signed By: 05/11/24 1133 Normal [facility] NM hepatobiliary w pharmon 1 06-26-2023 NM hepatobiliary w pharm [facility] [address] [address] Nuclear Medicine Report Signed Patient: Lew Obregon MR#: [id number] : 1960 Acct:[id number] Age/Sex: 64 / M ADM Date: 04/26/24 Loc: [place] [facility]: [facility]: Debi Beltre DO Copies to: DO Howard Small II, MD Ordering Provider: Debi Beltre DO Date of Service: 04/26/24 NM/NM hepatobiliary w pharm: R10.9 - Unspecified abdominal pain NM hepatobiliary w pharm 04/26/2024 6:50 AM SIGN AND SYMPTOMS: Right upper quadrant pain with nausea PROTOCOL: Following IV administration of Tc-99m mebrofenin 1 hour of dynamic imaging of gallbladder and liver. Following IV administration of CCK, 30 minutes of dynamic imaging obtained. RADIOPHARMACEUTICAL: 6.2 mCi of intravenous technetium 99m mebrofenin COMPARISON: 02/16/2024 and 10/07/2020 FINDINGS: Normal hepatic transit time. Prompt excretion into the small bowel. Prompt excretion into the gallbladder. There is a similar gallbladder ejection fraction at 86.8%. NM/NM hepatobiliary w pharm IMPRESSION: No evidence of acute cholecystitis. Normal gallbladder ejection fraction at 86.8%. Impression dictated by: Howard Cordero M.D.04/26/2024 10:19 AM Dictation Location: [place] [address] Transcribed By: DEACON 04/26/24 1019 Dictated By: Howard Cordero II, MD 04/26/24 1017 Signed By: 04/26/24 1019 Normal [facility] Alanine aminotransferase [En zymatic activity/volume] in Serum or PlasmaOrdered By: Karo Hernandez on 03-15-2024 ALT [Catalytic activity/Vol] 31 U/L Normal [facility] Comment on above: Performed By: #### C BC, CMP ####[facility] [place] [id number] [facility] ALT [Catalytic activity/Vol] Alanine aminotransferase [Enzymatic activity/volume] in Serum or Plasma [facility] Albumin [Mass/volume] in Ser um or Plasma by Bromocresol green (BCG) dye binding methoOrdered By: Karo Hernandez on 03-15-2024 Albumin BCG dye [Mass/Vol] 4.5 g/dL 3.5-5.7 [facility] Albumin BCG dye [Mass/Vol] Albumin [Mass/volume] in Serum or Plasma by Bromocresol green (BCG) dye binding metho 3.5-5.7 [facility] Alkaline phosphatase [Enzyma tic activity/volume] in Serum or PlasmaOrdered By: Karo Hernandez on 03-15-2024 ALP [Catalytic activity/Vol] 60 U/L Normal [facility] Comment on above: Performed By: #### C BC, CMP ####[address] ALP [Catalytic activity/Vol] Alkaline phosphatase [Enzymatic activity/volume] in Serum or Plasma [facility] Aspartate aminotransferase [ Enzymatic activity/volume] in Serum or PlasmaOrdered By: Karo Venturasergio on 03-15-2024 AST [Catalytic activity/Vol] 21 U/L Normal [facility] Comment on above: Performed By: #### C BC, CMP ####[address] AST [Catalytic activity/Vol] Aspartate aminotransferase [Enzymatic activity/volume] in Serum or Plasma [facility] Automated basophil %Ordered By: Karo Venturasergio on 03-15-2024 Basophils/100 WBC (Bld) 0.5 % Normal . [facility] Comment on above: Performed By: #### C BC, CMP #### [address] Automated basophil countOrde red By: Karo Venturasergio on 03-15-2024 Basophils (Bld) [#/Vol] 0.0 10*3/uL Normal 0.0-0.2 [facility] Comment on above: Result Comment: PERF ORMED BY: [place] [address] PATHOLOGIST CHOCOLATE TEMPERER RONI MASON M.D. Performed By: #### C BC, CMP #### [address] Automated blood monocyte cou ntOrdered By: Karo Venturasergio on 03-15-2024 Monocytes (Bld) [#/Vol] 0.5 10*3/uL Normal 0.0-0.8 [facility] Comment on above: Performed By: #### C BC, CMP #### [address] Automated eosinophil %Ordere d By: Karo David on 03-15-2024 Eosinophils/100 WBC (Bld) 2.2 % Normal . [facility] Comment on above: Performed By: #### C BC, CMP #### [address] Automated eosinophil countOr dered By: Karo David on 03-15-2024 Eosinophils (Bld) [#/Vol] 0.1 10*3/uL Normal 0.0-0.45 [facility] Comment on above: Performed By: #### C BC, CMP #### [address] Automated monocyte %Ordered By: Karo David on 03-15-2024 Monocytes/100 WBC (Bld) 8.9 % Normal . [facility] Comment on above: Performed By: #### C BC, CMP #### [address] Automated neutrophil %Ordere d By: Karo David on 03-15-2024 Neutrophils/100 WBC (Bld) 65.0 % Normal . [facility] Comment on above: Performed By: #### C BC, CMP #### [address] Basophils Auto (Bld) [#/Vol] Ordered By: Karo Hernandez on 03-15-2024 Basophils (Bld) [#/Vol] Automated basoph il count 0.0-0.2 [facility] Basophils/100 WBC Auto (Bld) Ordered By: Karo Hernandez on 03-15-2024 Basophils/100 WBC (Bld) Automated basophil % . [facility] Bilirubin.total [Mass/volume ] in Serum or PlasmaOrdered By: Karo Hernandez on 03-15-2024 Bilirubin [Mass/Vol] 1.0 mg/dL Normal 0.3-1.0 [facility] Comment on above: Performed By: #### C BC, CMP ####[facility] [id number] [place] [address] [facility] Bilirubin [Mass/Vol] Bilirubin.total [Mass/volume] in Serum or Plasma 0.3-1.0 [facility] CBC W Auto Differential pane l (Bld)on 03-15-2024 Basophils (Bld) [#/Vol] 0.0 10*3/uL 0.0 - 0.2 10*3/uL [facility] Basophils/100 WBC Manual cnt (Syn fld) 0.5 % . [facility] Eosinophils (Bld) [#/Vol] 0.1 10*3/uL 0.0 - 0.45 10*3/uL [facility] Eosinophils/100 WBC Manual cnt (Syn fld) 2.2 % . [facility] Erythrocyte distribution width (RBC) [Ratio] 13.6 % 12.0 - 14.8 % [facility] Hematocrit (Bld) [Volume fraction] 41.8 % 38.8 - 50.0 % [facility] Hemoglobin (Bld) [Mass/Vol] 14.1 g/dL 13.0 - 17.0 g/dL [facility] Interpretation and review of laboratory results Abnormal [facility] Lymphocytes (Bld) [#/Vol] 1.4 10*3/uL 1.00 - 4.8 10*3/uL [facility] Lymphocytes/100 WBC Manual cnt (Syn fld) 23.4 % . [facility] MCH (RBC) [Entitic mass] 28.0 pg 27.5 - 35.2 pg [facility] MCHC (RBC) [Mass/Vol] 33.7 g/dL 32.5 - 35.6 g/dL [facility] MCV (RBC) [Entitic vol] 83.1 fL Low 83.5 - 101 fL [facility] Monocytes (Bld) [#/Vol] 0.5 10*3/uL 0.0 - 0.8 10*3/uL [facility] Monocytes+Macrophages/1 00 WBC Manual cnt (Syn fld) 8.9 % . [facility] Neutrophils (Bld) [#/Vol] 3.9 10*3/uL 1.8 - 7.7 10*3/uL [facility] Neutrophils/100 WBC Manual cnt (Syn fld) 65.0 % . [facility] NRBC 0.1 /100{WBC} 0 - 0.5 /100{WBC} [facility] Platelet mean volume (Bld) [Entitic vol] 9.2 fL 6.6 - 10.1 fL [facility] Platelets (Bld) [#/Vol] 131 10*3/uL Low 150 - 450 10*3/uL [facility] RBC LM.HPF (Urine sed) [#/Area] 5.04 /[HPF] 3.90 - 5.60 [facility] WBC (Bld) [#/Vol] 6.0 10*3/uL 4.1 - 10.5 10*3/uL [facility] WBC LM.HPF (Urine sed) [#/Area] 6.0 10*3/uL 4.1 - 10.5 10*3/uL [facility] Calcium [Mass/volume] in Ser um or PlasmaOrdered By: Karo Hernandez on 03-15-2024 Calcium [Mass/Vol] 9.7 mg/dL Normal 8.6-10.3 [facility] Comment on above: Performed By: #### C BC, CMP ####[place] [id number] [place] [id number] [facility] Calcium [Mass/Vol] Calcium [Mass/volume ] in Serum or Plasma 8.6-10.3 [facility] Carbon dioxide, total [Moles /volume] in Serum or PlasmaOrdered By: Karo Hernandez on 03-15-2024 CO2 [Moles/Vol] 31.4 mmol/L High 21.0-31.0 [facility] Comment on above: Performed By: #### C BC, CMP ####[place] [id number] [place] [id number] [facility] CO2 [Moles/Vol] Carbon dioxide, tota l [Moles/volume] in Serum or Plasma High 21.0-31.0 [facility] Chloride [Moles/volume] in S jacob or PlasmaOrdered By: Karo Hernandez on 03-15-2024 Chloride [Moles/Vol] 100 mmol/L Normal 98-107 [facility] Comment on above: Performed By: #### C BC, CMP ####[facility] [address] Chloride [Moles/Vol] Chloride [Moles/vol ume] in Serum or Plasma 98-107 [facility] Complete Blood Count Auto Di ffon 03-15-2024 Mean Corpuscular HGB Conc 33.7 g/dL Normal 32.5-35.6 [facility] Comment on above: Performed By: #### C BC, CMP #### [facility] [address] NRBC% 0.1 /100{WBC} Normal 0-0.5 [facility] Comment on above: Performed By: #### C BC, CMP #### [facility] [address] Comprehensive Metabolic Pane joe 03-15-2024 Albumin [Mass/Vol] 4.5 g/dL Normal 3.5-5.7 [facility] Comment on above: Performed By: #### C BC, CMP ####[address] Creatinine Clr Calc Pharmacy 82.71 Normal [facility] Comment on above: Result Comment: PERF ORMED BY: [place] [address] PATHOLOGIST CHOCOLATE TEMPERER RONI MASON M.D. Performed By: #### C BC, CMP ####[address] GFR/1.73 sq M.predicted MDRD (S/P/Bld) [Vol rate/Area] mL/min/{1.73_m2} Normal [facility] Comment on above: Performed By: #### C BC, CMP ####[address] Comprehensive metabolic pane joe 03-15-2024 Albumin [Mass/Vol] 4.5 g/dL 3.5 - 5.7 g/dL [facility] Albumin/Globulin [Mass ratio] 2.3 {ratio} [facility] ALP [Catalytic activity/Vol] 60 U/L 34 - 104 U/L [facility] ALT [Catalytic activity/Vol] 31 U/L 7 - 52 U/L [facility] Anion gap [Moles/Vol] 11.4 mmol/L 6.0 - 15.0 [facility] AST [Catalytic activity/Vol] 21 U/L 13 - 39 U/L [facility] Bilirubin [Mass/Vol] 1.0 mg/dL 0.3 - 1 .0 mg/dL [facility] Calcium [Mass/Vol] 9.7 mg/dL 8.6 - 10. 3 mg/dL [facility] Chloride [Moles/Vol] 100 mmol/L 98 - 10 7 mmol/L [facility] CO2 [Moles/Vol] 31.4 mmol/L High 21.0 - 31.0 mmol/L [facility] Creatinine (U) [Mass/Vol] 0.96 mg/dL 0.70 - 1.30 mg/dL [facility] CREATININE CLR CALC PHARMACY 82.71 [facility] GFR/1.73 sq M.predicted MDRD (S/P/Bld) [Vol rate/Area] mL/min/{1.73_m2} [facility] Globulin (S) [Mass/Vol] 2.0 g/dL [facility] Glucose [Mass/Vol] 149 mg/dL High 70 - 100 mg/dL [facility] Comment on above: Random Glucose Refer ence Range is dependent on time and content of last meal. Glucose of more than 200 mg/dL in a nonstressed, ambulatory subject supports the diagnosis of Diabetes Mellitus. ADA recommended reference range Interpretation and review of laboratory results Abnormal [facility] Potassium [Moles/Vol] 4.8 mmol/L 3.5 - 5.1 mmol/L [facility] Protein [Mass/Vol] 6.5 g/dL 6.4 - 8.9 g/dL [facility] Sodium [Moles/Vol] 138 mmol/L 136 - 145 mmol/L [facility] Urea nitrogen [Mass/Vol] 15 mg/dL 7 - 25 mg/dL [facility] Creatinine [Mass/volume] in Serum or PlasmaOrdered By: Karo Hernandez on 03-15-2024 Creatinine [Mass/Vol] 0.96 mg/dL Normal 0.70-1.30 [facility] Comment on above: Performed By: #### C BC, CMP ####[facility] [id number] Creatinine [Mass/Vol] Creatinine [Mass/volume] in Serum or Plasma 0.70-1.30 [facility] Eosinophils Auto (Bld) [#/Vo l]Ordered By: Karo Hernandez on 03-15-2024 Eosinophils (Bld) [#/Vol] Automated eosinophil count 0.0-0.45 [facility] Eosinophils/100 WBC Auto (Bl d)Ordered By: Karo Hernandez on 03-15-2024 Eosinophils/100 WBC (Bld) Automated eosinophil % . [facility] Erythrocyte distribution wid th Auto (RBC) [Ratio]Ordered By: Karo Hernandez on 03-15-2024 Erythrocyte distribution width (RBC) [Ratio] Erythrocyte distribution width [Ratio] by Automated count 12.0-14.8 [facility] Erythrocyte distribution wid th [Ratio] by Automated countOrdered By: Karo Hernandez on 03-15-2024 Erythrocyte distribution width (RBC) [Ratio] 13.6 % Normal 12.0-14.8 [facility] Comment on above: Performed By: #### C BC, CMP #### [facility] [address] Erythrocytes [#/volume] in B lood by Automated countOrdered By: Karo Hernandez on 03-15-2024 RBC (Bld) [#/Vol] 5.04 10*6/uL Normal 3.90-5.[address] [facility] Comment on above: Performed By: #### C BC, CMP #### [facility] [address] Globulin Calc (S) [Mass/Vol] Ordered By: Karo Hernandez on 03-15-2024 Globulin (S) [Mass/Vol] Serum globulin measurement by calculation (mass/volume) [facility] Glucose [Mass/volume] in Ser um or PlasmaOrdered By: Karo Hernandez on 03-15-2024 Glucose [Mass/Vol] 149 mg/dL High 70-100 [facility] Comment on above: ADA recommended refe rence rangeRandom Glucose Reference Range is dependent on time and content of last meal. Glucose of more than 200 mg/dL in a nonstressed, ambulatory subject supports the diagnosis of Diabetes Mellitus. Result Comment: [place] om Glucose Reference Range is dependent on time and content of last meal. Glucose of more than 200 mg/dL in a nonstressed, ambulatory subject supports the diagnosis of Diabetes Mellitus. ADA recommended reference range Performed By: #### C BC, CMP ####[facility] [id number] Glucose [Mass/Vol] Glucose [Mass/volume ] in Serum or Plasma High 70-100 [facility] Comment on above: ADA recommended refe rence rangeRandom Glucose Reference Range is dependent on time and content of last meal. Glucose of more than 200 mg/dL in a nonstressed, ambulatory subject supports the diagnosis of Diabetes Mellitus. Hematocrit Auto (Bld) [Volum e fraction]Ordered By: Karo Hernandez on 03-15-2024 Hematocrit (Bld) [Volume fraction] Hematocrit [Volume Fraction] of Blood by Automated count 38.8-50.0 [facility] Hematocrit [Volume Fraction] of Blood by Automated countOrdered By: Karo Hernandez on 03-15-2024 Hematocrit (Bld) [Volume fraction] 41.8 % Normal 38.8-50.0 [facility] Comment on above: Performed By: #### C ABI, CMP #### [facility] [address] Hemoglobin [Mass/volume] in BloodOrdered By: Karo Hernandez on 03-15-2024 Hemoglobin (Bld) [Mass/Vol] 14.1 g/dL Normal 13.0-17.0 [facility] Comment on above: Performed By: #### C BC, CMP #### [facility] [address] Hemoglobin (Bld) [Mass/Vol] Hemoglobin [Mass/volume] in Blood 13.0-17.0 [facility] Leukocytes [#/volume] correc oralia for nucleated erythrocytes in Blood by Automated counOrdered By: Karo Hernandez on 03-15-2024 WBC corrected for nucl RBC Auto (Bld) [#/Vol] 6.0 10*3/uL 4.1-10.5 [facility] WBC corrected for nucl RBC Auto (Bld) [#/Vol] Leukocytes [#/volume] corrected for nucleated erythrocytes in Blood by Automated coun 4.1-10.5 [facility] Leukocytes [#/volume] in Blo od by Automated countOrdered By: Karo Hernandez on 03-15-2024 WBC (Bld) [#/Vol] 6.0 10*3/uL Normal 4.1-10.5 [facility] Comment on above: Performed By: #### C BC, CMP #### [facility] [address] Lymphocytes Auto (Bld) [#/Vo l]Ordered By: Karo Hernandez on 03-15-2024 Lymphocytes (Bld) [#/Vol] Lymphocytes [#/volume] in Blood by Automated count 1.00-4.8 [facility] Lymphocytes [#/volume] in Bl ood by Automated countOrdered By: Karo Hernandez on 03-15-2024 Lymphocytes (Bld) [#/Vol] 1.4 10*3/uL Normal 1.00-4.8 [facility] Comment on above: Performed By: #### C BC, CMP #### [address] Lymphocytes/100 WBC Auto (Bl d)Ordered By: Karo Hernandez on 03-15-2024 Lymphocytes/100 WBC (Bld) Lymphocytes/100 leukocytes in Blood by Automated count . [facility] Lymphocytes/100 leukocytes i n Blood by Automated countOrdered By: Karo Hernandez on 03-15-2024 Lymphocytes/100 WBC (Bld) 23.4 % Normal . [facility] Comment on above: Performed By: #### C BC, CMP #### [facility] [address] [place] [address] MCH Auto (RBC) [Entitic mass ]Ordered By: Karo Hernandez on 03-15-2024 MCH (RBC) [Entitic mass] MCH [Entitic mass] by Automated count 27.5-35.2 [facility] MCH [Entitic mass] by Automa oralia countOrdered By: Karo Hernandez on 03-15-2024 MCH (RBC) [Entitic mass] 28.0 pg Normal 27.5-35.2 [facility] Comment on above: Performed By: #### C ABI, CMP #### [facility] [address] MCHC Auto (RBC) [Mass/Vol]Or dered By: Karo Hernandez on 03-15-2024 MCHC (RBC) [Mass/Vol] 33.7 g/dL 32.5-35.6 [facility] MCHC (RBC) [Mass/Vol] MCHC [Mass/volume] by Automated count 32.5-35.6 [facility] MCV Auto (RBC) [Entitic vol] Ordered By: Karo Hernandez on 03-15-2024 MCV (RBC) [Entitic vol] MCV [Entitic vol ume] by Automated count Low 83.5-101 [facility] MCV [Entitic volume] by Auto mated countOrdered By: Karo Hernandez on 03-15-2024 MCV (RBC) [Entitic vol] 83.1 fL Low 83.5-101 [facility] Comment on above: Performed By: #### C ABI, CMP #### [facility] [address] [place] [address] Monocytes Auto (Bld) [#/Vol] Ordered By: Karo Hernandez on 03-15-2024 Monocytes (Bld) [#/Vol] Automated blood monocyte count 0.0-0.8 [facility] Monocytes/100 WBC Auto (Bld) Ordered By: Karo Hernandez on 03-15-2024 Monocytes/100 WBC (Bld) Automated monocyte % . [facility] Neutrophils Auto (Bld) [#/Vo l]Ordered By: Karo Hernandez on 03-15-2024 Neutrophils (Bld) [#/Vol] Neutrophils [#/volume] in Blood by Automated count 1.8-7.7 [facility] Neutrophils [#/volume] in Bl ood by Automated countOrdered By: Karo Hernandez on 03-15-2024 Neutrophils (Bld) [#/Vol] 3.9 10*3/uL Normal 1.8-7.7 [facility] Comment on above: Performed By: #### C BC, CMP #### [facility] [address] Neutrophils/100 WBC Auto (Bl d)Ordered By: Karo David on 03-15-2024 Neutrophils/100 WBC (Bld) Automated neutrophil % . [facility] No Panel InformationOrdered By: Karo Hernandez on 03-15-2024 Estimated GFR (CKD-EPI) > 60.0 mL/Min [facility] Creatinine Clearance (Chem 82.71 [facility] Nucleated erythrocytes [Pres ence] in Blood by Automated countOrdered By: Karo Hernandez on 03-15-2024 Nucleated RBC Auto Ql (Bld) 0.1 /100{WBC} 0-0.5 [facility] Nucleated RBC Auto Ql (Bld) Nucleated erythrocytes [Presence] in Blood by Automated count 0-0.5 [facility] Platelet mean volume Auto (B ld) [Entitic vol]Ordered By: Karo Hernandez on 03-15-2024 Platelet mean volume (Bld) [Entitic vol] Platelet mean volume [Entitic volume] in Blood by Automated count 6.6-10.1 [facility] Platelet mean volume [Entiti c volume] in Blood by Automated countOrdered By: Karo Hernandez on 03-15-2024 Platelet mean volume (Bld) [Entitic vol] 9.2 fL Normal 6.6-10.1 [facility] Comment on above: Performed By: #### C BC, CMP #### [facility] [address] [place] [address] [place] Platelets Auto (Bld) [#/Vol] Ordered By: Karo Hernandez on 03-15-2024 Platelets (Bld) [#/Vol] Platelets [#/vol ume] in Blood by Automated count Low 150-450 [facility] Platelets [#/volume] in Bloo d by Automated countOrdered By: Karo Hernandez on 03-15-2024 Platelets (Bld) [#/Vol] 131 10*3/uL Low 150-450 [facility] Comment on above: Performed By: #### C BC, CMP #### [facility] [address] [place] [address] Potassium [Moles/volume] in Serum or PlasmaOrdered By: Karo Hernandez on 03-15-2024 Potassium [Moles/Vol] 4.8 mmol/L Normal 3.5-5.1 [facility] Comment on above: Performed By: #### C BC, CMP ####[place] [id number] [facility] Potassium [Moles/Vol] Potassium [Moles/volume] in Serum or Plasma 3.5-5.1 [facility] Protein [Mass/volume] in Ser um or PlasmaOrdered By: Karo Hernandez on 03-15-2024 Protein [Mass/Vol] 6.5 g/dL Normal 6.4-8.9 [facility] Comment on above: Performed By: #### C BC, CMP ####[place] [id number] [facility] Protein [Mass/Vol] Protein [Mass/volume ] in Serum or Plasma 6.4-8.9 [facility] RBC Auto (Bld) [#/Vol]Ordere d By: Karo Hernandez on 03-15-2024 RBC (Bld) [#/Vol] Erythrocytes [#/volu me] in Blood by Automated count 3.90-5.60 [facility] Serum globulin measurement b y calculation (mass/volume)Ordered By: Karo Hernandez on 03-15-2024 Globulin (S) [Mass/Vol] 2.0 g/dL Normal [facility] Comment on above: Performed By: #### C BC, CMP ####[place] [id number] [facility] Serum or plasma albumin/glob ulin mass ratioOrdered By: Karo Hernandez on 03-15-2024 Albumin/Globulin [Mass ratio] 2.3 {ratio} Normal [facility] Comment on above: Performed By: #### C BC, CMP ####[place] [id number] [facility] Albumin/Globulin [Mass ratio] Serum or plasma albumin/globulin mass ratio [facility] Serum or plasma anion gap de terminationOrdered By: Karo Hernandez on 03-15-2024 Anion gap [Moles/Vol] 11.4 mmol/L Normal 6.0-15.0 [facility] Comment on above: Performed By: #### C BC, CMP ####[place] [id number] [place] [id number] [facility] Anion gap [Moles/Vol] Serum or plasma an ion gap determination 6.0-15.0 [facility] Sodium [Moles/volume] in Ser um or PlasmaOrdered By: Karo David on 03-15-2024 Sodium [Moles/Vol] 138 mmol/L Normal 136-145 [facility] Comment on above: Performed By: #### C BC, CMP ####[place] [id number] [place] [id number] [facility] Sodium [Moles/Vol] Sodium [Moles/volume ] in Serum or Plasma 136-145 [facility] Urea nitrogen [Mass/volume] in Serum or PlasmaOrdered By: Karo David on 03-15-2024 Urea nitrogen [Mass/Vol] 15 mg/dL Normal 7-25 [facility] Comment on above: Performed By: #### C BC, CMP ####[place] [id number] [facility] Urea nitrogen [Mass/Vol] Urea nitrogen [Mass/volume] in Serum or Plasma 7-25 [facility] WBC Auto (Bld) [#/Vol]Ordere d By: Karo David on 03-15-2024 WBC (Bld) [#/Vol] Leukocytes [#/volume ] in Blood by Automated count 4.1-10.5 [facility] Creatinine (Bld) [Mass/Vol]O rdered By: Robyn Morales on 03-04-2024 Creatinine [Mass/Vol] Whole blood creati nine measurement 0.6-1.3 [facility] Comment on above: ER/ESD physician is notified/shown all ISTAT results.Critical values may be confirmed by laboratory testing ifdeemed necessary by ER attending doctor. ISTAT XRay CREon 03-04-2024 ISTAT GFR > 60.0 Normal [facility] Comment on above: Result Comment: PERF ORMED BY: [place] [address] PATHOLOGIST [employer]OCOLATE TEMPERER RONI MASON M.D. Performed By: #### I SCRE #### [address] MR lumbar spine wo/w conon 0 03-04-2024 MR lumbar spine wo/w con [facility] [address] [place] [address] MRI Report Signed Patient: Lew Obregon MR#: [id number] 1341 : 1960 Acct:[id number] Age/Sex: 64 / M ADM Date: 03/04/24 Loc: Room: Type: [facility] Attending Dr: Robyn Morales APRN [employer]TER[employer] TECHNICIAN-C Copies to: Robyn Morales APRN, CNP Ordering Provider: Robyn Morales APRN, CNP Date of Service: 03/04/24 MR/MR lumbar spine wo/w con: M54.50 - Low back pain, unspecified MRI of the lumbar spine with and without IV contrast. Reason for exam: Low back pain radiating to left hip and down left leg for 6 months. No known injury. COMPARISON: Lumbar spine series 10/13/2023. TECHNIQUE: Multisequence, multiplanar imaging of the lumbar spine was obtained before and after the use of IV contrast. FINDINGS: Vertebral body heights appear maintained. T1/T2 hypointense lesion is seen involving the superior endplate of the L2 vertebral body with surrounding edema and postcontrast enhancement. No bony destruction is seen. No significant vertebral body height loss. Spinal cord terminates in normal position without abnormal cord signal or enhancement. No paraspinal mass is noted. Visualized retroperitoneum demonstrates no acute findings. L1-L2: No posterior disc pathology. Mild facet joint degenerative changes. Findings are causing mild canal and bilateral neural foraminal stenosis. L2-L3: Diffuse broad-based disc bulge is present with mild facet joint degenerative changes. Findings are causing mild canal and bilateral neural foraminal stenosis. L3-L4: Diffuse broad-based disc bulge is present with minimal anterolisthesis. Facet joint degenerative changes malignant flavum hypertrophy. Findings are causing severe canal and mild bilateral neural foraminal stenosis. L4-L5: Diffuse broad-based disc bulge is present with facet joint degenerative changes and ligamentum flavum hypertrophy causing moderate canal and right-sided neural foraminal stenosis. L5-S1: No posterior disc pathology. Mild facet joint degenerative changes. No significant canal or neural foraminal stenosis. MR/MR lumbar spine wo/w con IMPRESSION: A T1/T2 hypointense lesion is seen involving the superior endplate of L2 with associated surrounding bone marrow edema and enhancement. No aggressive bony destruction is seen to suggest osteomyelitis. Findings nonspecific and may relate to degenerative change. No definite correlate is seen on the plain film study. Follow-up is recommended to ensure stability. Multilevel degenerative disc disease as described above worst at L3-L4. Impression dictated by: Sterling Campoverde Jr., D.OMikayla03/04/2024 10:49 AM Dictation Location: [place] [address] Transcribed By: [facility] 03/04/24 1049 Dictated By: Sterling Campoverde Jr, DO 03/04/24 1036 Signed By: 03/04/24 1049 Normal [facility] No Panel InformationOrdered By: Robyn Morales on 03-04-2024 Bedside Estimated GFR (eGFR) > 60.0 [facility] Whole blood creatinine measu rementOrdered By: Robyn Morales on 03-04-2024 Creatinine [Mass/Vol] 1.0 mg/dL Normal 0.6-1.3 [facility] Comment on above: ER/ESD physician is notified/shown all ISTAT results.Critical values may be confirmed by laboratory testing ifdeemed necessary by ER attending doctor. Result Comment: ER/E SD physician is notified/shown all ISTAT results. Critical values may be confirmed by laboratory testing if deemed necessary by ER attending doctor. Performed By: #### I SCRE #### [address] US gall bladderon 02-16-2024 US gall bladder [facility] [address] [place] [address] Ultrasound Report Signed Patient: Lew Obregon MR#: [id number] 1341 : 1960 Acct:[id number] Age/Sex: 64 / M ADM Date: 02/16/24 Loc: Room: Type: [facility] Attending Dr: TRAVIS Keita APRN Ordering Provider: Robyn Morales APRN, CNP Date of Service: 02/16/24 US/US gall bladder: R10.11 - Right upper quadrant pain Copies to: Robyn Morales APRN, CNP LIMITED ABDOMINAL ULTRASOUND: CLINICAL HISTORY: Right upper quadrant pain for years. COMPARISON: None TECHNIQUE: Grayscale and color Doppler images of the right upper quadrant organs were obtained. FINDINGS: Pancreas: Visualized portions appear unremarkable. Liver: Fatty infiltration. Gallbladder: Unremarkable. CBD: 2.8 mm. US/US gall bladder IMPRESSION: FATTY INFILTRATION OF THE LIVER. NO ACUTE PROCESS.. Impression dictated by: Sterling Campoverde Jr., D.O.02/16/2024 10:08 AM Dictation Location: [place] [address] Tech: Lashaun Medina Transcribed By: DEACON 02/16/24 1008 Dictated By: Sterling Campoverde Jr, DO 02/16/24 1007 Signed By: 02/16/24 1008 Normal [facility] HbA1c HPLC (Bld) [Mass fract ion]on 01-19-2024 HbA1c (Bld) [Mass fraction] 8.6 % [facility] A1C with Estimated Average G luon 10-13-2023 Glucose [Mass/Vol] 200 mg/dL Normal [facility] Comment on above: Result Comment: PERF ORMED BY: [place] [address] PATHOLOGIST [employer]OLATE TEMPERER RONI MASON M.D. Performed By: #### C BC, CMP, LIPID, A1C [facility] eA #### [address] Alanine aminotransferase [En zymatic activity/volume] in Serum or PlasmaOrdered By: Shaikh Mali on 10-13-2023 ALT [Catalytic activity/Vol] 22 U/L Normal [facility] Comment on above: Performed By: #### C BC, CMP, LIPID, A1C [facility] eA #### [address] Albumin [Mass/volume] in Ser um or Plasma by Bromocresol green (BCG) dye binding methoOrdered By: Shaikh Mali on 10-13-2023 Albumin BCG dye [Mass/Vol] 4.4 g/dL 3.5-5.7 [facility] Alkaline phosphatase [Enzyma tic activity/volume] in Serum or PlasmaOrdered By: Shaikh Mali on 10-13-2023 ALP [Catalytic activity/Vol] 60 U/L Normal 34-104 [facility] Comment on above: Performed By: #### C BC, CMP, LIPID, A1C WTH eA #### [address] Aspartate aminotransferase [ Enzymatic activity/volume] in Serum or PlasmaOrdered By: Shaikh Mali on 10-13-2023 AST [Catalytic activity/Vol] 17 U/L Normal 13-39 [facility] Comment on above: Performed By: #### C BC, CMP, LIPID, A1C W[facility] eA #### [address] Automated basophil %Ordered By: Shaikh Mali on 10-13-2023 Basophils/100 WBC (Bld) 0.7 % Normal . [facility] Comment on above: Performed By: #### C BC, CMP, LIPID, A1C WTH eA #### [address] Automated basophil countOrde red By: Shaikh Mali on 10-13-2023 Basophils (Bld) [#/Vol] 0.0 10*3/uL Normal 0.0-0.2 [facility] Comment on above: Result Comment: PERF ORMED BY: [place] [address] PATHOLOGIST CHOCOLATE TEMPERER RONI MASON M.D. Performed By: #### C BC, CMP, LIPID, A1C WTH eA #### [address] Automated blood monocyte cou ntOrdered By: Shaikh Mali on 10-13-2023 Monocytes (Bld) [#/Vol] 0.6 10*3/uL Normal 0.0-0.8 [facility] Comment on above: Performed By: #### C BC, CMP, LIPID, A1C WTH eA #### [address] Automated eosinophil %Ordere d By: Shaikh Mali on 10-13-2023 Eosinophils/100 WBC (Bld) 3.2 % Normal . [facility] Comment on above: Performed By: #### C BC, CMP, LIPID, A1C WTH eA #### [address] Automated eosinophil countOr dered By: Shaikh Mali on 10-13-2023 Eosinophils (Bld) [#/Vol] 0.2 10*3/uL Normal 0.0-0.45 [facility] Comment on above: Performed By: #### C BC, CMP, LIPID, A1C WTH eA #### [address] Automated monocyte %Ordered By: Shaikh Mali on 10-13-2023 Monocytes/100 WBC (Bld) 9.0 % Normal . [facility] Comment on above: Performed By: #### C BC, CMP, LIPID, A1C WTH eA #### [address] Automated neutrophil %Ordere d By: Shaikh Mali on 10-13-2023 Neutrophils/100 WBC (Bld) 61.8 % Normal . [facility] Comment on above: Performed By: #### C BC, CMP, LIPID, A1C WTH eA #### [address] Bilirubin.total [Mass/volume ] in Serum or PlasmaOrdered By: Shaikh Mali on 10-13-2023 Bilirubin [Mass/Vol] 0.9 mg/dL Normal 0.3-1.0 [facility] Comment on above: Performed By: #### C BC, CMP, LIPID, A1C WT eA #### [facility] [address] [place] [address] [place] Calcium [Mass/volume] in Ser um or PlasmaOrdered By: Shaikh Mali on 10-13-2023 Calcium [Mass/Vol] 9.5 mg/dL Normal 8.6-10.3 [facility] Comment on above: Performed By: #### C BC, CMP, LIPID, A1C WTH eA #### [facility] [address] [place] [address] [place] Carbon dioxide, total [Moles /volume] in Serum or PlasmaOrdered By: Shaikh Mali on 10-13-2023 CO2 [Moles/Vol] 32.9 mmol/L High 21.0-31.0 [facility] Comment on above: Performed By: #### C BC, CMP, LIPID, A1C WT eA #### [facility] [address] [place] [address] [place] Chloride [Moles/volume] in S jacob or PlasmaOrdered By: Shaikh Mali on 10-13-2023 Chloride [Moles/Vol] 100 mmol/L Normal 98-107 [facility] Comment on above: Performed By: #### C BC, CMP, LIPID, A1C WTH eA #### [facility] [address] [place] [address] [place] Cholesterol [Mass/volume] in Serum or PlasmaOrdered By: Shaikh Mali on 10-13-2023 Cholesterol [Mass/Vol] 120 mg/dL Low 140-200 [facility] Comment on above: Chol less than 200 m g/dl low riskChol 201-239 mg/dl borderline riskChol 240 mg/dl and greater high risk Result Comment: Chol less than 200 mg/dl low risk Chol 201-239 mg/dl borderline risk Chol 240 mg/dl and greater high risk Performed By: #### C BC, CMP, LIPID, A1C WT eA #### [facility] [address] [place] [id number] [place] Cholesterol in LDL Calc [Mas s/Vol]Ordered By: Shaikh Mali on 10-13-2023 Cholesterol in LDL [Mass/Vol] 60 mg/dL 0-100 [facility] Comment on above: LDL ATP III CLASSIFI CATIONLDL less than 100 mg/dL OptimalLDL 100-129 mg/dL Near or above optimalLDL 130-159 mg/dL Borderline highLDL 160-189 mg/dL HighLDL greater than 189 mg/dL Very high Cholesterol in VLDL Calc [Ma ss/Vol]Ordered By: Shaikh Mali on 10-13-2023 Cholesterol in VLDL [Mass/Vol] 30 mg/dL [facility] Complete Blood Count Auto Di ffon 10-13-2023 Mean Corpuscular HGB Conc 34.0 g/dL Normal 32.5-35.6 [facility] Comment on above: Performed By: #### C BC, CMP, LIPID, A1C WTH eA #### [address] NRBC% 0.2 /100{WBC} Normal 0-0.5 [facility] Comment on above: Performed By: #### C BC, CMP, LIPID, A1C WTH eA #### [address] Comprehensive Metabolic Pane joe 10-13-2023 Albumin [Mass/Vol] 4.4 g/dL Normal 3.5-5.7 [facility] Comment on above: Performed By: #### C BC, CMP, LIPID, A1C WTH eA #### [address] GFR/1.73 sq M.predicted MDRD (S/P/Bld) [Vol rate/Area] mL/min/{1.73_m2} Normal [facility] Comment on above: Performed By: #### C BC, CMP, LIPID, A1C WTH eA #### [address] Creatinine [Mass/volume] in Serum or PlasmaOrdered By: Shaikh Mali on 10-13-2023 Creatinine [Mass/Vol] 1.03 mg/dL Normal 0.70-1.30 [facility] Comment on above: Performed By: #### C BC, CMP, LIPID, A1C WT eA #### [facility] [address] Creatinine [Mass/volume] in UrineOrdered By: Shaikh Mali on 10-13-2023 Creatinine (U) [Mass/Vol] 174.0 mg/dL [facility] Comment on above: No reference range e stablished Erythrocyte distribution wid th [Ratio] by Automated countOrdered By: Shaikh Mali on 10-13-2023 Erythrocyte distribution width (RBC) [Ratio] 12.9 % Normal 12.0-14.8 [facility] Comment on above: Performed By: #### C BC, CMP, LIPID, A1C WTH eA #### [address] Erythrocytes [#/volume] in B lood by Automated countOrdered By: Shaikh Mali on 10-13-2023 RBC (Bld) [#/Vol] 5.17 10*6/uL Normal 3.90-5.[address] [facility] Comment on above: Performed By: #### C BC, CMP, LIPID, A1C WT eA #### [address] Glucose [Mass/volume] in Ser um or PlasmaOrdered By: Shaikh Mali on 10-13-2023 Glucose [Mass/Vol] 173 mg/dL High 70-100 [facility] Comment on above: ADA recommended refe rence rangeRandom Glucose Reference Range is dependent on time and content of last meal. Glucose of more than 200 mg/dL in a nonstressed, ambulatory subject supports the diagnosis of Diabetes Mellitus. Result Comment: [place] om Glucose Reference Range is dependent on time and content of last meal. Glucose of more than 200 mg/dL in a nonstressed, ambulatory subject supports the diagnosis of Diabetes Mellitus. ADA recommended reference range Performed By: #### C BC, CMP, LIPID, A1C WTH eA #### [address] Glucose mean value [Mass/vol ume] in Blood Estimated from glycated hemoglobinOrdered By: Shaikh Mali on 10-13-2023 Average glucose Estimated from glycated hemoglobin (Bld) [Mass/Vol] 200 mg/dL [facility] Hematocrit [Volume Fraction] of Blood by Automated countOrdered By: Shaikh Mali on 10-13-2023 Hematocrit (Bld) [Volume fraction] 44.0 % Normal 38.8-50.0 [facility] Comment on above: Performed By: #### C BC, CMP, LIPID, A1C WT eA #### [facility] [address] Hemoglobin A1c percentageOrd ered By: Shaikh Mali on 10-13-2023 HbA1c (Bld) [Mass fraction] 8.6 % High 4.3-5.6 [facility] Comment on above: Increased risk for d iabetes: 5.7 - 6.4diabetes: >6.4glycemic control for adults with diabetes: <7.0 Result Comment: Incr eased risk for diabetes: 5.7 - 6.4 diabetes: >6.4 glycemic control for adults with diabetes: <7.0 Performed By: #### C BC, CMP, LIPID, A1C WT eA #### [facility] [address] Hemoglobin [Mass/volume] in BloodOrdered By: Shaikh Mali on 10-13-2023 Hemoglobin (Bld) [Mass/Vol] 14.9 g/dL Normal 13.0-17.0 [facility] Comment on above: Performed By: #### C BC, CMP, LIPID, A1C WT eA #### [facility] [address] Leukocytes [#/volume] correc oralia for nucleated erythrocytes in Blood by Automated counOrdered By: Shaikh Mali on 10-13-2023 WBC corrected for nucl RBC Auto (Bld) [#/Vol] 6.5 10*3/uL 4.1-10.5 [facility] Leukocytes [#/volume] in Blo od by Automated countOrdered By: Shaikh Mali on 10-13-2023 WBC (Bld) [#/Vol] 6.5 10*3/uL Normal 4.1-10.5 [facility] Comment on above: Performed By: #### C BC, CMP, LIPID, A1C WTH eA #### [address] Lipid Panelon 10-13-2023 LDL Cholesterol,Calculated 60 mg/dL Normal 0-100 [facility] Comment on above: Result Comment: LDL ATP III CLASSIFICATION LDL less than 100 mg/dL Optimal LDL 100-129 mg/dL Near or above optimal LDL 130-159 mg/dL Borderline high LDL 160-189 mg/dL High LDL greater than 189 mg/dL Very high Performed By: #### C BC, CMP, LIPID, A1C WTH eA #### [address] Triglyceride w/Reflex 154 mg/dL High 0-149 [facility] Comment on above: Result Comment: TRIG ATP III CLASSIFICATION TRIG less than 150 mg/dL Normal TRIG 150-199 mg/dL Borderline high TRIG 200-500 mg/dL High TRIG greater than 500 mg/dL Very high Standard traceable to the Center for Disease Conrtrol and Prevention (CDC) test method. Performed By: #### C BC, CMP, LIPID, A1C WTH eA #### [place] [id number] [facility] VLDL CHOLESTEROL 30 mg/dL Normal [facility] Comment on above: Performed By: #### C BC, CMP, LIPID, A1C WTH eA #### [place] [address] [place] Lymphocytes [#/volume] in Bl ood by Automated countOrdered By: Shaikh Mali on 10-13-2023 Lymphocytes (Bld) [#/Vol] 1.6 10*3/uL Normal 1.00-4.8 [facility] Comment on above: Performed By: #### C BC, CMP, LIPID, A1C WTH eA #### [place] [id number] [place] Lymphocytes/100 leukocytes i n Blood by Automated countOrdered By: Shaikh Mali on 10-13-2023 Lymphocytes/100 WBC (Bld) 25.3 % Normal . [facility] Comment on above: Performed By: #### C BC, CMP, LIPID, A1C WTH eA #### [place] [address] [place] MCH [Entitic mass] by Automa oralia countOrdered By: Shaikh Mali on 10-13-2023 MCH (RBC) [Entitic mass] 28.9 pg Normal 27.5-35.2 [facility] Comment on above: Performed By: #### C BC, CMP, LIPID, A1C WT eA #### [address] MCHC Auto (RBC) [Mass/Vol]Or dered By: Shaikh Mali on 10-13-2023 MCHC (RBC) [Mass/Vol] 34.0 g/dL 32.5-35.6 [facility] MCV [Entitic volume] by Auto mated countOrdered By: Shaikh Mali on 10-13-2023 MCV (RBC) [Entitic vol] 85.0 fL Normal 83.5-[address] [facility] Comment on above: Performed By: #### C BC, CMP, LIPID, A1C WT eA #### [address] MicroAlb Creat Ratio,Uon Creatinine, Urine (Random) 174.0 mg/dL Normal [facility] Comment on above: Result Comment: No r eference range established Performed By: #### U RMACRERAT #### [address] Microalbumin/Creatinine Ratio 4.0 mg/g Normal 0.0-30.0 [facility] Comment on above: Result Comment: 30-3 00 mg/g indicates an increased risk for diabetic nephropathy. Greater than 300 mg/g is consistent with clinical nephropathy. (Am. J. Kidney Disease 1994, 25:107) PERFORMED BY: [place] [address] PATHOLOGIST CHOCOLATE TEMPERER RONI MASON M.D. Performed By: #### U RMACRERAT #### [address] Microalbumin [Mass/volume] i n UrineOrdered By: Shaikh Mali on 10-13-2023 Albumin DL <= 20 mg/L (U) [Mass/Vol] 0.8 mg/dL Normal 0.0-1.8 [facility] Comment on above: Performed By: #### U RMACRERAT #### [address] Neutrophils [#/volume] in Bl ood by Automated countOrdered By: Shaikh Mali on 10-13-2023 Neutrophils (Bld) [#/Vol] 4.0 10*3/uL Normal 1.8-7.7 [facility] Comment on above: Performed By: #### C BC, CMP, LIPID, A1C WT eA #### [address] No Panel InformationOrdered By: Shaikh Mali on 10-13-2023 Estimated GFR (CKD-EPI) > 60.0 mL/Min [facility] Creatinine Clearance (Chem N/A [facility] Nucleated erythrocytes [Pres ence] in Blood by Automated countOrdered By: Shaikh Mali on 10-13-2023 Nucleated RBC Auto Ql (Bld) 0.2 /100{WBC} 0-0.5 [facility] Platelet mean volume [Entiti c volume] in Blood by Automated countOrdered By: Shaikh Mali on 10-13-2023 Platelet mean volume (Bld) [Entitic vol] 9.4 fL Normal 6.6-10.1 [facility] Comment on above: Performed By: #### C BC, CMP, LIPID, A1C WTH eA #### [address] Platelets [#/volume] in Bloo d by Automated countOrdered By: Shaikh Mali on 10-13-2023 Platelets (Bld) [#/Vol] 126 10*3/uL Low 150-450 [facility] Comment on above: Performed By: #### C BC, CMP, LIPID, A1C WTH eA #### [facility] [address] Potassium [Moles/volume] in Serum or PlasmaOrdered By: Shaikh Mali on 10-13-2023 Potassium [Moles/Vol] 4.5 mmol/L Normal 3.5-5.1 [facility] Comment on above: Performed By: #### C BC, CMP, LIPID, A1C WT eA #### [facility] [address] [place] [address] Protein [Mass/volume] in Ser um or PlasmaOrdered By: Shaikh Mali on 10-13-2023 Protein [Mass/Vol] 6.4 g/dL Normal 6.4-8.9 [facility] Comment on above: Performed By: #### C BC, CMP, LIPID, A1C WTH eA #### [facility] [address] [place] [address] Serum globulin measurement b y calculation (mass/volume)Ordered By: Shaikh Mali on 10-13-2023 Globulin (S) [Mass/Vol] 2.0 g/dL Normal [facility] Comment on above: Performed By: #### C BC, CMP, LIPID, A1C WT eA #### [facility] [address] Serum or plasma albumin/glob ulin mass ratioOrdered By: Shaikh Mali on 10-13-2023 Albumin/Globulin [Mass ratio] 2.2 {ratio} Normal [facility] Comment on above: Performed By: #### C BC, CMP, LIPID, A1C WTH eA #### [facility] [address] [place] [address] Serum or plasma anion gap de terminationOrdered By: Shaikh Mali on 10-13-2023 Anion gap [Moles/Vol] 11.6 mmol/L Normal 6.0-15.0 [facility] Comment on above: Performed By: #### C BC, CMP, LIPID, A1C WT eA #### [facility] [address] Serum or plasma high density lipoprotein (HDL) cholesterol measurementOrdered By: Shaikh Mali on 10-13-2023 Cholesterol in HDL [Mass/Vol] 29 mg/dL Normal 23-92 [facility] Comment on above: HDL CHOL ATP-III CLA SSIFICATION Cardiovascular RiskHDL > or equal to 60 mg/dL LOWHDL < 40 mg/dL HIGH Result Comment: HDL CHOL ATP-III CLASSIFICATION Cardiovascular Risk HDL > or equal to 60 mg/dL LOW HDL < 40 mg/dL HIGH Performed By: #### C BC, CMP, LIPID, A1C WT eA #### [address] Serum or plasma total choles terol/high density lipoprotein (HDL) cholesterol mass ratOrdered By: Shaikh Mali on 10-13-2023 Cholesterol.total/Glenny sterol in HDL [Mass ratio] 4.1 {ratio} Normal <5.0 [facility] Comment on above: Result Comment: PERF ORMED BY: [place] [address] PATHOLOGIST CHOCOLATE TEMPERER RONI MASON M.D. Performed By: #### C BC, CMP, LIPID, A1C WT eA #### [facility] [address] [place] [address] Sodium [Moles/volume] in Ser um or PlasmaOrdered By: Shaikh Mali on 10-13-2023 Sodium [Moles/Vol] 140 mmol/L Normal 136-145 [facility] Comment on above: Performed By: #### C BC, CMP, LIPID, A1C WT eA #### [address] Triglyceride [Mass/volume] i n Serum or PlasmaOrdered By: Shaikh Mali on 10-13-2023 Triglyceride [Mass/Vol] 154 mg/dL High 0-149 [facility] Comment on above: TRIG ATP III CLASSIF ICATIONTRIG less than 150 mg/dL NormalTRIG 150-199 mg/dL Borderline highTRIG 200-500 mg/dL High TRIG greater than 500 mg/dL Very highStandard traceable to the Center for Disease Conrtrol and Prevention (CDC) test method. Urea nitrogen [Mass/volume] in Serum or PlasmaOrdered By: Shaikh Mali on 10-13-2023 Urea nitrogen [Mass/Vol] 16 mg/dL Normal 7-25 [facility] Comment on above: Performed By: #### C BC, CMP, LIPID, A1C WT eA #### [address] Urine microalbumin/creatinin e mass ratioOrdered By: Shaikh Mali on 10-13-2023 Albumin/Creatinine DL <= 20 mg/L (U) [Mass ratio] 4.0 mg/g 0.0-30.0 [facility] Comment on above: 30-300 mg/g indicate s an increased risk for diabetic nephropathy. Greater than 300 mg/g is consistent with clinical nephropathy. (Am. J. Kidney Disease 1995, 25:107) XR lumbar spine 2-3V*on XR lumbar spine 2-3V* [facility] [address] [place] [address] XRay Report Signed Patient: Lew Obregon MR#: [id number] : 1960 Acct:[id number] Age/Sex: 63 / M ADM Date: 10/13/23 Loc: XD Room: Type: [facility] Attending Dr: Shaikh Mali OJEDA Copies to: Shaikh Mali MD Ordering Provider: Shaikh Mali MD Date of Service: 10/13/23 XR/XR lumbar spine 2-3V*: M54.50 LUMBAR SPINE - 2 views COMPARISON: None CLINICAL DATA: Low back and left hip pain. No injury. AP and lateral standing views were obtained. There is osteopenia. There is subtle levoscoliotic curvature. There is minimal retrolisthesis of L1 on L2 and L2 on L3. There is subtle anterol isthesis of L3 on L4. No acute fractures are identified. There is mild disc space narrowing at L4- 5. Small endplate spurs are present throughout. There is moderate mid to lower lumbar facet hypertrophy. The SI joints are intact. There is atherosclerotic plaque at the aorta and iliac arteries. XR/XR lumbar spine 2-3V* IMPRESSION: OSTEOPENIA, SUBTLE SCOLIOSIS AND DEGENERATIVE CHANGES DESCRIBED. Impression dictated by: Carmencita Hernandez M.D.10/13/2023 8:25 AM Dictation Location: [facility]--10 Transcribed By: [facility] 10/13/23824 Dictated By: Carmencita Hernandez MD 10/13/23822 Signed By: 10/13/23824 Normal [facility] CT lung screeningon 09-21-19 CT lung screening [facility] [address] [place] [address] CT Scan Report Signed Patient: Lew Obregon MR#: [id number] : 1960 Acct:[id number] Age/Sex: 63 / M ADM Date: 09/21/23 Loc: [facility] Room: Type: [facility] Attending Dr: Cassidy Salazar APRN Copies to: Cassidy Salazar APRN Ordering Provider: Csasidy Salazar APRN Date of Service: 09/21/23 CT/CT lung screening: [id number] CT CHEST WITHOUT CONTRAST, LOW DOSE SCREENING: CLINICAL DATA: A 63-year old current smoker, smoking for 94 pack-years. COMPARISON: None TECHNIQUE: Noncontrast axial CT scan images of the chest were obtained under the low dose screening CT protocol. Coronal and sagittal reconstructed images were also submitted. FINDINGS: Mediastinum : Suboptimal evaluation due to low-dose technique. Thoracic aorta appears normal in caliber. Pulmonary trunk appears nondilated. No pericardial effusion. No lymphadenopathy. The esophagus is grossly unremarkable. Lungs: No focal consolidation, pneumothorax or pleural effusion. Trachea and distal airways appear patent. Dependent atelectatic changes. Calcified granulomas. No suspicious noncalcified pulmonary nodule or mass. Upper abdomen: No acute findings. Bony thorax and chest wall: Soft tissues surrounding the chest wall demonstrate no acute findings. Osseous structures demonstrate degenerative change. CT/CT lung screening IMPRESSION: NO SUSPICIOUS PULMONARY NODULE. LUNG - RADS Version 1.0 Assessment: Category 1, Negative (No nodules and definitely benign nodules). Management: Continue annual lung screening with LDCT in 12 months. Impression dictated by: Sterling Campoverde Jr., D.OMikayla09/21/2023 3:02 PM Dictation Location: [place] [address] Transcribed By: [facility] 09/21/23 1502 Dictated By: Sterling Campoverde Jr, DO 09/21/23 1458 Signed By: 09/21/23 1502 Normal [facility] Glucose mean value [Mass/vol ume] in Blood Estimated from glycated hemoglobinOrdered By: Shaikh Mali on 06-02-2023 Average glucose Estimated from glycated hemoglobin (Bld) [Mass/Vol] 212 mg/dL [facility] Hemoglobin A1c percentageOrd ered By: Shaikh Mali on 06-02-2023 HbA1c (Bld) [Mass fraction] 9.0 % 4.3-5.6 [facility] Comment on above: Increased risk for d iabetes: 5.7 - 6.4diabetes: >6.4glycemic control for adults with diabetes: <7.0 Alanine aminotransferase [En zymatic activity/volume] in Serum or PlasmaOrdered By: Shaikh Mali on 2023 ALT [Catalytic activity/Vol] 14 U/L 7-52 [facility] Albumin [Mass/volume] in Ser um or Plasma by Bromocresol green (BCG) dye binding methoOrdered By: Shaikh Mali on 2023 Albumin BCG dye [Mass/Vol] 4.3 g/dL 3.5-5.7 [facility] Alkaline phosphatase [Enzyma tic activity/volume] in Serum or PlasmaOrdered By: Shaikh Mali on 2023 ALP [Catalytic activity/Vol] 56 U/L 34-104 [facility] Aspartate aminotransferase [ Enzymatic activity/volume] in Serum or PlasmaOrdered By: Shaikh Mali on 2023 AST [Catalytic activity/Vol] 11 U/L 13-39 [facility] Basophils Auto (Bld) [#/Vol] Ordered By: Shaikh Mali on 2023 Basophils (Bld) [#/Vol] 0.0 10*3/uL 0.0-0.2 [facility] Basophils/100 WBC Auto (Bld) Ordered By: Shaikh Mali on 2023 Basophils/100 WBC (Bld) 0.6 % . [facility] Bilirubin.total [Mass/volume ] in Serum or PlasmaOrdered By: Shaikh Mali on 2023 Bilirubin [Mass/Vol] 0.7 mg/dL 0.3-1.0 [facility] Calcium [Mass/volume] in Ser um or PlasmaOrdered By: Shaikh Mali on 2023 Calcium [Mass/Vol] 9.2 mg/dL 8.6-10.3 [facility] Carbon dioxide, total [Moles /volume] in Serum or PlasmaOrdered By: Shaikh Mali on 2023 CO2 [Moles/Vol] 29.6 mmol/L 21.0-31.0 [facility] Chloride [Moles/volume] in S jacob or PlasmaOrdered By: Shaikh Mali on 2023 Chloride [Moles/Vol] 102 mmol/L 98-107 [facility] Cholesterol [Mass/volume] in Serum or PlasmaOrdered By: Shaikh Mali on 2023 Cholesterol [Mass/Vol] 114 mg/dL 140-200 [facility] Comment on above: Chol less than 200 m g/dl low riskChol 201-239 mg/dl borderline riskChol 240 mg/dl and greater high risk Cholesterol in LDL Calc [Mas s/Vol]Ordered By: Shaikh Mali on 2023 Cholesterol in LDL [Mass/Vol] 58 mg/dL 0-100 [facility] Comment on above: LDL ATP III CLASSIFI CATIONLDL less than 100 mg/dL OptimalLDL 100-129 mg/dL Near or above optimalLDL 130-159 mg/dL Borderline highLDL 160-189 mg/dL HighLDL greater than 189 mg/dL Very high Cholesterol in VLDL Calc [Ma ss/Vol]Ordered By: Shaikh Mali on 2023 Cholesterol in VLDL [Mass/Vol] 24 mg/dL [facility] Creatinine [Mass/volume] in Serum or PlasmaOrdered By: Shaikh Mali on 2023 Creatinine [Mass/Vol] 0.92 mg/dL 0.70-1.30 [facility] Creatinine [Mass/volume] in UrineOrdered By: Shaikh Mali on 2023 Creatinine (U) [Mass/Vol] 127.0 mg/dL 14.0-26.0 [facility] Eosinophils Auto (Bld) [#/Vo l]Ordered By: Shaikh Mali on 2023 Eosinophils (Bld) [#/Vol] 0.1 10*3/uL 0.0-0.45 [facility] Eosinophils/100 WBC Auto (Bl d)Ordered By: Shaikh Mali on 2023 Eosinophils/100 WBC (Bld) 2.0 % . [facility] Erythrocyte distribution wid th Auto (RBC) [Ratio]Ordered By: Shaikh Mali on 2023 Erythrocyte distribution width (RBC) [Ratio] 13.4 % 12.0-14.8 [facility] Globulin Calc (S) [Mass/Vol] Ordered By: Shaikh Mali 2023 Globulin (S) [Mass/Vol] 1.9 g/dL [facility] Glucose [Mass/volume] in Ser um or PlasmaOrdered By: Shaikh Mali on 2023 Glucose [Mass/Vol] 165 mg/dL 70-100 [facility] Comment on above: ADA recommended refe rence rangeRandom Glucose Reference Range is dependent on time and content of last meal. Glucose of more than 200 mg/dL in a nonstressed, ambulatory subject supports the diagnosis of Diabetes Mellitus. Glucose mean value [Mass/vol ume] in Blood Estimated from glycated hemoglobinOrdered By: Shaikh Mali on 2023 Average glucose Estimated from glycated hemoglobin (Bld) [Mass/Vol] 192 mg/dL [facility] Hematocrit Auto (Bld) [Volum e fraction]Ordered By: Shaikh Mali on 2023 Hematocrit (Bld) [Volume fraction] 44.2 % 38.8-50.0 [facility] Hemoglobin A1c percentageOrd ered By: Shaikh Mali on 2023 HbA1c (Bld) [Mass fraction] 8.3 % 4.3-5.6 [facility] Comment on above: Increased risk for d iabetes: 5.7 - 6.4diabetes: >6.4glycemic control for adults with diabetes: <7.0 Hemoglobin [Mass/volume] in BloodOrdered By: Shaikh Mali on 2023 Hemoglobin (Bld) [Mass/Vol] 14.8 g/dL 13.0-17.0 [facility] Leukocytes [#/volume] correc oralia for nucleated erythrocytes in Blood by Automated counOrdered By: Shaikh Mali on 2023 WBC corrected for nucl RBC Auto (Bld) [#/Vol] 6.3 10*3/uL 4.1-10.5 [facility] Lymphocytes Auto (Bld) [#/Vo l]Ordered By: Shaikh Mali on 2023 Lymphocytes (Bld) [#/Vol] 1.4 10*3/uL 1.00-4.8 [facility] Lymphocytes/100 WBC Auto (Bl d)Ordered By: Shaikh Mali on 2023 Lymphocytes/100 WBC (Bld) 21.3 % . [facility] MCH Auto (RBC) [Entitic mass ]Ordered By: Shaikh Mali on 2023 MCH (RBC) [Entitic mass] 28.7 pg 27.5-35.2 [facility] MCHC Auto (RBC) [Mass/Vol]Or dered By: Shaikh Mali on 2023 MCHC (RBC) [Mass/Vol] 33.3 g/dL 32.5-35.6 [facility] MCV Auto (RBC) [Entitic vol] Ordered By: Shaikh Mali on 2023 MCV (RBC) [Entitic vol] 86.0 fL 83.5-[address] [facility] Microalbumin [Mass/volume] i n UrineOrdered By: Shaikh Mali on 2023 Albumin DL <= 20 mg/L (U) [Mass/Vol] mg/dL 0.0-1.8 [facility] Monocytes Auto (Bld) [#/Vol] Ordered By: Shaikh Mali on 2023 Monocytes (Bld) [#/Vol] 0.4 10*3/uL 0.0-0.8 [facility] Monocytes/100 WBC Auto (Bld) Ordered By: Shaikh Mali on 2023 Monocytes/100 WBC (Bld) 7.0 % . [facility] Neutrophils Auto (Bld) [#/Vo l]Ordered By: Shaikh Mali on 2023 Neutrophils (Bld) [#/Vol] 4.4 10*3/uL 1.8-7.7 [facility] Neutrophils/100 WBC Auto (Bl d)Ordered By: Shaikh Mali on 2023 Neutrophils/100 WBC (Bld) 69.1 % . [facility] No Panel InformationOrdered By: Shaikh Mali on 2023 Estimated GFR (CKD-EPI) > 60.0 mL/Min [facility] Creatinine Clearance (Chem N/A [facility] Nucleated erythrocytes [Pres ence] in Blood by Automated countOrdered By: Shaikh Mali on 2023 Nucleated RBC Auto Ql (Bld) 0.1 /100{WBC} 0-0.5 [facility] Platelet mean volume Auto (B ld) [Entitic vol]Ordered By: Shaikh Mali on 2023 Platelet mean volume (Bld) [Entitic vol] 9.5 fL 6.6-10.1 [facility] Platelets Auto (Bld) [#/Vol] Ordered By: Shaikh Mali on 2023 Platelets (Bld) [#/Vol] 116 10*3/uL 150-450 [facility] Potassium [Moles/volume] in Serum or PlasmaOrdered By: Shaikh Mali on 2023 Potassium [Moles/Vol] 4.2 mmol/L 3.5-5.1 [facility] Protein [Mass/volume] in Ser um or PlasmaOrdered By: Shaikh Mali on 2023 Protein [Mass/Vol] 6.2 g/dL 6.4-8.9 [facility] RBC Auto (Bld) [#/Vol]Ordere d By: Shaikh Mali on 2023 RBC (Bld) [#/Vol] 5.15 10*6/uL 3.90-5.[address] [facility] Serum or plasma albumin/glob ulin mass ratioOrdered By: Shaikh Mali on 2023 Albumin/Globulin [Mass ratio] 2.3 {ratio} [facility] Serum or plasma anion gap de terminationOrdered By: Shaikh Mali on 2023 Anion gap [Moles/Vol] 10.6 mmol/L 6.0-15.0 [facility] Serum or plasma high density lipoprotein (HDL) cholesterol measurementOrdered By: Shaikh Mali on 2023 Cholesterol in HDL [Mass/Vol] 32 mg/dL 23-92 [facility] Comment on above: HDL CHOL ATP-III CLA SSIFICATION Cardiovascular RiskHDL > or equal to 60 mg/dL LOWHDL < 40 mg/dL HIGH Serum or plasma total choles terol/high density lipoprotein (HDL) cholesterol mass ratOrdered By: Shaikh Mali on 2023 Cholesterol.total/Glenny sterol in HDL [Mass ratio] 3.6 {ratio} <5.0 [facility] Sodium [Moles/volume] in Ser um or PlasmaOrdered By: Shaikh Mali on 2023 Sodium [Moles/Vol] 138 mmol/L 136-145 [facility] Triglyceride [Mass/volume] i n Serum or PlasmaOrdered By: Shaikh Mali on 2023 Triglyceride [Mass/Vol] 122 mg/dL 0-[address] [facility] Comment on above: TRIG ATP III CLASSIF ICATIONTRIG less than 150 mg/dL NormalTRIG 150-199 mg/dL Borderline highTRIG 200-500 mg/dL High TRIG greater than 500 mg/dL Very highStandard traceable to the Center for Disease Conrtrol and Prevention (CDC) test method. Urea nitrogen [Mass/volume] in Serum or PlasmaOrdered By: Shaikh Mali on 2023 Urea nitrogen [Mass/Vol] 14 mg/dL 7-25 [facility] Urine microalbumin/creatinin e mass ratioOrdered By: Shaikh Mali on 2023 Albumin/Creatinine DL <= 20 mg/L (U) [Mass ratio] TNP [facility] Comment on above: Test not performed WBC Auto (Bld) [#/Vol]Ordere d By: Shaikh Mali on 2023 WBC (Bld) [#/Vol] 6.3 10*3/uL 4.1-10.5 [facility] Covid-19 PCR ([facility])on 05-15 SARS-CoV-2 (COVID-19) RNA MINA+probe Ql (Unsp spec) Not detected Normal NOT DETECTED [facility] Comment on above: Result Comment: This test is not yet approved or cleared by the [place] FDA. When there are no FDA-approved or cleared tests available, and other criteria are met, FDA can make tests available under an emergency access mechanism called an Emergency Use Authorization (EUA). The EUA for this test is supported by the [place] of Health and Human Service's (HHS's) declaration that circumstances exist to justify the emergency use of in vitro diagnostics for the detection and/or diagnosis of the virus that causes COVID-19. This EUA will remain in effect (meaning this test can be used) for the duration of the COVID-19 declaration justifying emergency of IVDs, unless it is terminated or revoked by FDA (after which the test may no longer be used). When diagnostic testing is negative, the possibility of a false negative should be considered in the context of a patient's recent exposures and the presence of clinical signs and symptoms consistent with SARS-CoV-2. Performed By: #### L IPID, CMP #### [facility] [address] [place] [address] Dr. Lucille Crow INFLUENZA A AND B AGon 06-05 INFLUBNEG SEE BELOW Normal [facility] Comment on above: Result Comment: Nega tive for Flu B protein antigen. Infection due to Flu B cannot be ruled out. Flu B antigen in the sample may be below the detection limit of the test. Performed By: #### L IPID, CMP #### [facility] [address] [place] [address] Dr. Lucille Crow INFLUENZA A AG Positive Abnormal NEGATIVE SEE COMMENT [facility] Comment on above: Performed By: #### L IPID, CMP #### [facility] [address] [place] [address] Dr. Lucille Crow INFLUENZA B AG Negative Normal NEGATIVE SEE COMMENT [facility] Comment on above: Performed By: #### L IPID, CMP #### [facility] [address] [place] [address] Dr. Lucille Crow INFLUPOS SEE BELOW Normal [facility] Comment on above: Result Comment: NOTE : Live attenuated influenzae vaccine viruses can cause a positive result for a rapid influenza diagnostic test if administered up to 7 days prior to rapid testing. Performed By: #### L IPID, CMP #### [facility] [address] [place] [address] Dr. Lucille Crow INTERNAL CONTROLS Within Normal Limits Normal Wi thin Normal Limits [facility] Comment on above: Performed By: #### L IPID, CMP #### [facility] [address] [place] [address] Dr. Lucille Crow GLYCOHEMOGLOBIN A1Con 2021 ADA RECOMMENDATION SEE BELOW Normal [facility] Comment on above: Result Comment: ADA RECOMMENDED LIMIT 4.0 - 6.0 ADA THERAPEUTIC TARGET < 7.0 ACTION SUGGESTED > 7.0 Performed By: #### A 1C #### [facility] [address] [place] [address] Dr. Lucille Crow Glucose [Mass/Vol] 194 mg/dL Normal [facility] Comment on above: Performed By: #### A 1C #### [facility] [address] [place] [address] [address] Lucille Crow HbA1c (Bld) [Mass fraction] 8.4 % Critically high 4.5-6.2 [facility] Comment on above: Performed By: #### A 1C #### [facility] [address] [place] [address] [address] Lucille Crow LIPID PROFILEon 06-04-2022 CHOL-HDL RATIO NORM SEE BELOW Normal [facility] Comment on above: Result Comment: 3.3 - 4.4 LOW RISK 4.4 - 7.1 AVERAGE RISK 7.1 - 11.0 MODERATE RISK >11.0 HIGH RISK Performed By: #### B MP, LIPID #### [facility] [address] [place] [address] [address] Lucille Crow Cholesterol [Mass/Vol] 124 mg/dL Normal <=200 [facility] Comment on above: Performed By: #### B MP, LIPID #### [facility] [address] [place] [address] [address] Lucille Crow Cholesterol in HDL [Mass/Vol] 39 mg/dL Critically low 40-60 [facility] Comment on above: Performed By: #### B MP, LIPID #### [facility] [address] [place] [address] [address] Lucille Crow Cholesterol in LDL [Mass/Vol] 67.6 mg/dL Normal [facility] [place] Comment on above: Performed By: #### B MP, LIPID #### [facility] [address] [address] [address] Lucille Crow Cholesterol.total/Glenny sterol in HDL [Mass ratio] 3.2 {ratio} Normal [facility] [place] Comment on above: Performed By: #### B MP, LIPID #### [facility] [address] [address] [address] Lucille Crow HDL NORMAL > or = 60 mg/dl - LO W CARDIOVASCULAR RISK <40 mg/dl - HIGH CARDIOVASCULAR RISK Normal [facility] [place] Comment on above: Performed By: #### B MP, LIPID #### [facility] [address] [address] [address] Lucille Crow LDL CALC NORMAL SEE BELOW Normal [facility] Comment on above: Result Comment: <100 mg/dl OPTIMAL 100 - 129 mg/dl NEAR OR ABOVE OPTIMAL 130 - 159 mg/dl BORDERLINE HIGH 160 - 189 mg/dl HIGH >190 mg/dl VERY HIGH Performed By: #### B MP, LIPID #### [facility] [address] [place] [address] Dr. Lucille Crow Triglyceride [Mass/Vol] 87 mg/dL Normal <=150 [facility] Comment on above: Performed By: #### B MP, LIPID #### [facility] [address] [place] [address] Dr. Lucille Crow VLDL CALC 17.4 mg/dL Normal [facility] [place] Comment on above: Performed By: #### B MP, LIPID #### [facility] [address] [address] [address] Lucille Crow PROF CHEM 8 (BAS METB)on Anion gap [Moles/Vol] 14.4 mmol/L Normal [facility] Comment on above: Performed By: #### B MP, LIPID #### [facility] [address] [address] [address] Lucille Crow Calcium [Mass/Vol] 9.1 mg/dL Normal 8.5-10.1 [facility] Comment on above: Performed By: #### B MP, LIPID #### [facility] [address] [place] [address] Dr. Lucille Crow Chloride [Moles/Vol] 95 mmol/L Critically low 98-107 [facility] [place] Comment on above: Performed By: #### B MP, LIPID #### [facility] [address] [place] [address] Dr. Lucille Crow CO2 [Moles/Vol] 27.7 mmol/L Normal 21.0-32.0 [facility] Comment on above: Performed By: #### B MP, LIPID #### [facility] [address] [address] [address] Lucille Crow Creatinine [Mass/Vol] 1.04 mg/dL Normal 0.70-1.30 [facility] [place] Comment on above: Performed By: #### B MP, LIPID #### [facility] [address] [address] [address] Lucille Crow EGFR-AF NIGERIEN >60 Normal >=60 [facility] Comment on above: Performed By: #### B MP, LIPID #### [facility] [address] [place] [address] Dr. Lucille Crow EGFR-NON AF NIGERIEN >60 Normal >=60 [facility] [place] Comment on above: Performed By: #### B MP, LIPID #### [facility] [address] [place] [address] Dr. Lucille Crow Glucose [Mass/Vol] 110 mg/dL Critically high 74-106 T [facility] Comment on above: Performed By: #### B MP, LIPID #### [facility] [address] [place] [address] Dr. Lucille Crow Potassium [Moles/Vol] 4.1 mmol/L Normal 3.5-5.1 [facility] [place] Comment on above: Performed By: #### B MP, LIPID #### [facility] [address] [place] [address] Dr. Lucille Crow Sodium [Moles/Vol] 133 mmol/L Critically low 136-145 Th [facility] Comment on above: Performed By: #### B MP, LIPID #### [facility] [address] [place] [address] Dr. Lucille Crow Urea nitrogen [Mass/Vol] 14.0 mg/dL Normal 7.0-18.0 [facility] [place] Comment on above: Performed By: #### B MP, LIPID #### [facility] [address] [place] [address] Dr. Lucille Crow Urea nitrogen/Creatinine [Mass ratio] 13.5 mg/mg Normal [facility] [place] Comment on above: Performed By: #### B MP, LIPID #### [facility] [address] [address] [address] Lucille Crow GLYCOHEMOGLOBIN A1Con 2021 ADA RECOMMENDATION SEE BELOW Normal [facility] Comment on above: Result Comment: ADA RECOMMENDED LIMIT 4.0 - 6.0 ADA THERAPEUTIC TARGET < 7.0 ACTION SUGGESTED > 7.0 Performed By: #### A 1C #### [facility] [address] [place] [address] Dr. Lucille Crow Glucose [Mass/Vol] 166 mg/dL Normal [facility] Comment on above: Performed By: #### A 1C #### [facility] [address] [place] [address] Dr. Lucille Crow HbA1c (Bld) [Mass fraction] 7.4 % Critically high 4.5-6.2 [facility] [place] Comment on above: Performed By: #### A 1C #### [facility] [address] [place] [address] Dr. uLcille Crow CBC AUTO DIFFon 09-22-2021 BASO # 0.1 103/ul Normal 0.0-0.1 [facility] [place] Comment on above: Performed By: #### C BC #### [facility] [address] [place] [address] Dr. Lucille Crow Basophils/100 WBC (Bld) 0.8 % Normal 0.2-2.0 [facility] Comment on above: Performed By: #### C BC #### [facility] [address] [place] [address] Dr. Lucille Crow EO # 0.2 103/ul Normal 0.0-0.7 [facility] [place] Comment on above: Performed By: #### C BC #### [facility] [address] [place] [address] Dr. Lucille Crow Eosinophils/100 WBC (Bld) 3.3 % Normal 0.9-7.0 [facility] [place] Comment on above: Performed By: #### C BC #### [facility] [address] [place] [address] Dr. Lucille Crow Erythrocyte distribution width (RBC) [Ratio] 12.7 % Normal 11.0-15.0 [facility] [place] Comment on above: Performed By: #### C BC #### [facility] [address] [place] [address] Dr. Lucille Crow Hematocrit (Bld) [Volume fraction] 48.0 % Normal 42.0-54.0 [facility] [place] Comment on above: Performed By: #### C BC #### [facility] [address] [place] [address] Dr. Lucille Crow Hemoglobin (Bld) [Mass/Vol] 15.9 g/dL Normal 14.0-18.0 [facility] [place] Comment on above: Performed By: #### C BC #### [facility] [address] [place] [address] Dr. Lucille Crow IG # 0.01 10e3/ul Normal 0.00-0.03 [facility] [place] Comment on above: Performed By: #### C BC #### [facility] [address] [place] [address] Dr. Lucille Crow IG % 0.2 % Normal 0.0-0.5 [facility] [place] Comment on above: Performed By: #### C BC #### [facility] [address] [place] [address] Dr. Lucille Crow LYMPH # 1.5 103/ul Normal 1.2-3.8 [facility] [place] Comment on above: Performed By: #### C BC #### [facility] [address] [place] [address] Dr. Lucille Crow Lymphocytes/100 WBC (Bld) 25.3 % Normal 20.5-60.0 [facility] [place] Comment on above: Performed By: #### C BC #### [facility] [address] [place] [address] Dr. Lucille Crow MANUAL DIFF REQ NO Normal [facility] Comment on above: Performed By: #### C BC #### [facility] [address] [place] [address] Dr. Lucille Crow MCH (RBC) [Entitic mass] 28.2 pg Normal 25.9-34.0 [facility] [place] Comment on above: Performed By: #### C BC #### [facility] [address] [address] [address] Lucille Crow MCHC (RBC) [Mass/Vol] 33.1 g/dL Normal 29.9-35.2 [facility] [place] Comment on above: Performed By: #### C BC #### [facility] [address] [address] [address] Lucille Crow MCV (RBC) [Entitic vol] 85.1 fL Normal 80.0-94.0 [facility] Comment on above: Performed By: #### C BC #### [facility] [address] [address] [address] Lucille Crow MONO # 0.5 103/ul Normal 0.3-0.8 [facility] [place] Comment on above: Performed By: #### C BC #### [facility] [address] [place] [address] Dr. Lucille Crow Monocytes/100 WBC (Bld) 8.4 % Normal 1.7-12.0 [facility] Comment on above: Performed By: #### C BC #### [facility] [address] [place] [address] Dr. Lucille Crow NEUT # 3.7 103/ul Normal 1.4-6.5 [facility] [place] Comment on above: Performed By: #### C BC #### [facility] [address] [place] [address] Dr. Lucille Crow Neutrophils/100 WBC (Bld) 62.0 % Normal 43.0-75.0 [facility] [place] Comment on above: Performed By: #### C BC #### [facility] [address] [place] [address] Dr. Lucille Crow Platelet mean volume (Bld) [Entitic vol] 11.1 fL Normal 9.5-13.5 [facility] [place] Comment on above: Performed By: #### C BC #### [facility] [address] [place] [address] Dr. Lucille Crow PLT 125 103/ul Critically low 150-450 [facility] Comment on above: Performed By: #### C BC #### [facility] [address] [address] [address] Lucille Crow RBC 5.64 106/ul Normal 4.70-6.10 [facility] [place] Comment on above: Performed By: #### C BC #### [facility] [address] [place] [address] Dr. Lucille Crow WBC 6.0 103/ul Normal 4.0-11.0 [facility] [place] Comment on above: Performed By: #### C BC #### [facility] [address] [place] [address] Dr. Lucille Crow GLYCOHEMOGLOBIN A1Con 2021 ADA RECOMMENDATION ADA THERAPEUTIC TARG ET 6.0 - 7.0 ACTION SUGGESTED > 7.0 Normal [facility] [place] Comment on above: Performed By: #### A 1C #### [facility] [address] [place] [address] Dr. Lucille Crow Glucose [Mass/Vol] 189 mg/dL Normal [facility] Comment on above: Performed By: #### A 1C #### [facility] [address] [place] [address] Dr. Lucille Crow HbA1c (Bld) [Mass fraction] 8.2 % Critically high <=6.0 [facility] [place] Comment on above: Performed By: #### A 1C #### [facility] [address] [place] [address] Dr. Lucille Crow LIPID PROFILEon 09-22-2021 CHOL-HDL RATIO NORM SEE BELOW Normal [facility] Comment on above: Result Comment: 3.3 - 4.4 LOW RISK 4.4 - 7.1 AVERAGE RISK 7.1 - 11.0 MODERATE RISK >11.0 HIGH RISK Performed By: #### L IPID, CMP #### [facility] [address] [place] [address] Dr. Lucille Crow Cholesterol [Mass/Vol] 116 mg/dL Normal <=200 [facility] Comment on above: Performed By: #### L IPID, CMP #### [facility] [address] [place] [address] Dr. Lucille Crow Cholesterol in HDL [Mass/Vol] 29 mg/dL Critically low 40-60 [facility] [place] Comment on above: Performed By: #### L IPID, CMP #### [facility] [address] [address] [address] Lucille Crow Cholesterol in LDL [Mass/Vol] 67.4 mg/dL Normal [facility] [place] Comment on above: Performed By: #### L IPID, CMP #### [facility] [address] [place] [address] Dr. Lucille Crow Cholesterol.total/Glenny sterol in HDL [Mass ratio] 4.0 {ratio} Normal [facility] [place] Comment on above: Performed By: #### L IPID, CMP #### [facility] [address] [place] [address] Dr. Lucille Crow HDL NORMAL > or = 60 mg/dl - LO W CARDIOVASCULAR RISK <40 mg/dl - HIGH CARDIOVASCULAR RISK Normal [facility] [place] Comment on above: Performed By: #### L IPID, CMP #### [facility] [address] [place] [address] Dr. Lucille Crow LDL CALC NORMAL SEE BELOW Normal [facility] Comment on above: Result Comment: <100 mg/dl OPTIMAL 100 - 129 mg/dl NEAR OR ABOVE OPTIMAL 130 - 159 mg/dl BORDERLINE HIGH 160 - 189 mg/dl HIGH >190 mg/dl VERY HIGH Performed By: #### L IPID, CMP #### [facility] [address] [place] [address] Dr. Lucille Crow Triglyceride [Mass/Vol] 98 mg/dL Normal <=150 T [facility] Comment on above: Performed By: #### L IPID, CMP #### [facility] [address] [place] [address] Dr. Lucille Crow VLDL CALC 19.6 mg/dL Normal [facility] [place] Comment on above: Performed By: #### L IPID, CMP #### [facility] [address] [place] [address] Dr. Lucille Crow MICROALBUMIN, RAND URon 04- mALB <1.3 Normal <=30.0 [facility] [place] Comment on above: Performed By: #### L IPID, CMP #### [facility] [address] [address] [address] Lucille Crow PROF 14(COMP METB)on 022 Albumin [Mass/Vol] 3.6 g/dL Normal 3.4-5.0 [facility] Comment on above: Performed By: #### L IPID, CMP #### [facility] [address] [address] [address] Lucille Crow Albumin/Globulin [Mass ratio] 1.2 {ratio} Normal [facility] [place] Comment on above: Performed By: #### L IPID, CMP #### [facility] [address] [address] [address] Lucille Crow ALP [Catalytic activity/Vol] 62 U/L Normal 46-116 [facility] [place] Comment on above: Performed By: #### L IPID, CMP #### [facility] [address] [place] [address] Dr. Lucille Crow ALT [Catalytic activity/Vol] 28 U/L Normal 16-63 [facility] [place] Comment on above: Performed By: #### L IPID, CMP #### [facility] [address] [place] [address] Dr. Lucille Crow Anion gap [Moles/Vol] 11.1 mmol/L Normal [facility] Comment on above: Performed By: #### L IPID, CMP #### [facility] [address] [address] [address] Lucille Crow AST [Catalytic activity/Vol] 14 U/L Critically low 15-37 [facility] [place] Comment on above: Performed By: #### L IPID, CMP #### [facility] [address] [address] [address] Lucille Crow Bilirubin [Mass/Vol] 0.5 mg/dL Normal 0.2-1.3 [facility] [place] Comment on above: Performed By: #### L IPID, CMP #### [facility] [address] [address] [address] Lucille Crow Calcium [Mass/Vol] 8.6 mg/dL Normal 8.5-10.1 [facility] Comment on above: Performed By: #### L IPID, CMP #### [facility] [address] [place] [address] Dr. Lucille Crow Chloride [Moles/Vol] 101 mmol/L Normal 98-107 [facility] [place] Comment on above: Performed By: #### L IPID, CMP #### [facility] [address] [place] [address] Dr. Lucille Crow CO2 [Moles/Vol] 29.7 mmol/L Normal 22.0-30.0 [facility] Comment on above: Performed By: #### L IPID, CMP #### [facility] [address] [place] [address] Dr. Lucille Crow Creatinine [Mass/Vol] 1.08 mg/dL Normal 0.66-1.25 [facility] [place] Comment on above: Performed By: #### L IPID, CMP #### [facility] [address] [place] [address] Dr. Lucille Crow EGFR-AF NIGERIEN >60 Normal >=60 [facility] Comment on above: Performed By: #### L IPID, CMP #### [facility] [address] [place] [address] Dr. Lcuille Crow EGFR-NON AF NIGERIEN >60 Normal >=60 [facility] [place] Comment on above: Performed By: #### L IPID, CMP #### [facility] [address] [place] [address] Dr. Lucille Crow Globulin (S) [Mass/Vol] 3.0 g/dL Normal [facility] Comment on above: Performed By: #### L IPID, CMP #### [facility] [address] [place] [address] Dr. Lucille Crow Glucose [Mass/Vol] 175 mg/dL Critically high 74-106 [facility] Comment on above: Performed By: #### L IPID, CMP #### [facility] [address] [place] [address] Dr. Lucille Crow Potassium [Moles/Vol] 4.8 mmol/L Normal 3.4-5.0 [facility] [place] Comment on above: Performed By: #### L IPID, CMP #### [facility] [address] [place] [address] Dr. Lucille Crow Protein [Mass/Vol] 6.6 g/dL Normal 6.1-8.2 [facility] Comment on above: Performed By: #### L IPID, CMP #### [facility] [address] [place] [address] Dr. Lucille Crow Sodium [Moles/Vol] 137 mmol/L Normal 137-145 [facility] Comment on above: Performed By: #### L IPID, CMP #### [facility] [address] [place] [address] Dr. Lucille Crow Urea nitrogen [Mass/Vol] 20.0 mg/dL Critically high 7.0-18.0 [facility] [place] Comment on above: Performed By: #### L IPID, CMP #### [facility] [address] [place] [address] Dr. Lucille Crow Urea nitrogen/Creatinine [Mass ratio] 18.5 mg/mg Normal [facility] [place] Comment on above: Performed By: #### L IPID, CMP #### [facility] [address] [place] [address] Dr. Lucille Crow MRI CSPINE WO CONon 09-17-19 MRI CSPINE WO CON EXAMINATION: MRI CSP INE WO CON HISTORY: Neck pain COMPARISON: No relevant comparison available. TECHNIQUE: A variety of imaging planes and parameters were utilized for visualization of suspected pathology. FINDINGS: CRANIOCERVICAL AREA: Normal foramen magnum with no Chiari malformation. PARASPINAL AREA: Normal with no visible mass. BONES: Loss of normal cervical lordosis. No acute fracture, dislocation or bone edema. CORD: Normal caliber, contour, and signal intensity. CERVICAL DISC LEVELS: C2-C3: No significant disc/facet abnormality, spinal stenosis, or foraminal stenosis. C3-C4: Early degenerative disc disease is present without focal protrusion or neural impingement. C4-C5: Disc space narrowing and disc desiccation. Mild diffuse disc/osteophyte complex and facet osteoarthropathy. Narrowing of the central canal to 8.1 mm. Mild bilateral foraminal stenosis C5-C6: Disc collapse with endplate sclerosis. Moderate diffuse disc/osteophyte complex and ligamentum flavum hypertrophy. Narrowing of the central canal right greater than left, 7.5 mm in AP dimension. Moderate to severe bilateral foraminal stenosis right greater than left C6-C7: Moderate disc space narrowing and disc desiccation. Mild to moderate diffuse disc/osteophyte complex narrowing the central canal to 6.6 mm in AP dimension. Mild to moderate bilateral foraminal stenosis C7-T1:. No significant disc/facet abnormality, spinal stenosis, or foraminal stenosis. IMPRESSION: Degenerative changes resulting in central and foraminal stenosis at multiple levels as detailed above, most significant at C5-C6 Electronically authenticated by: HARIKA LAUREANO Date: 2021-09-16 10:41 Normal [facility] XR CSPINE 2_3 VIEWSon 2021 XR CSPINE 2_3 VIEWS EXAMINATION: XR CSPI NE 2_3 VIEWS HISTORY: Neck pain COMPARISON: No relevant comparison available. FINDINGS:. BONES: Normal alignment with no acute fracture or spondylolisthesis. Degenerative spondylosis C4-C6 most significant at C5-C6 with anterior and posterior degenerative spondylosis DISC SPACES: Moderate to severe disc space narrowing and endplate sclerosis C5-C6 PARASPINOUS: Negative. No paraspinous abnormality is seen. OTHER: Negative. IMPRESSION: Moderate degenerative changes C5-C6 Electronically authenticated by: HARIKA LAUREANO Date: 2021-08-25 15:49 Normal [facility] [place] CNOVSPon 07-05-2017 CNOVSP Visit (SP) Office (RYAN) LEW SMITH ([id number]) 1960 MDate Time Provider Department07/05/17 10:30 AM DEVAN GOODRICH During your visit today, we recorded the following information about you: Temperature Pulse Respiration Blood pressure 98.5 degrees 72/minute 18/minute 116/74 Weight Height 88.5 kg 1.765 mTimsmooth Callejas DO Joleen 07/07/2017 2:43 PM SignedPATIENT NAME: Lew ObregonMRN: [id number] PHYSICIAN: REUBEN GIFFORD[address] [place] [id number] CARE PHYSICIAN: Reuben Rodríguez PHYSICIANS:CHIEF COMPLAINT: Primary thrombocytopenia (hcc) (primary encounter diagnosis)ASSESSMENT/PL AN:1. Primary thrombocytopenia, unspecified (HCC) - ICD9: 287.30, ICD10: D69.49His disease is mild and chronic. His platelet count has never fallen [id number]. Ultrasound of the liver from January 2016 shows increased hepaticechogenicity compatible with potentially hepatocellular disease or possiblycirrhosis.I suspect he has mild cirrhosis which causes his thrombocytopenia. Previouslyhas seen a hepatic subspecialist and US liver 10/2016 showed moderate fibrosislikely. We'll continue to monitor yearly for now.Offered him f/u yearly vs prn.(D69.49) Primary thrombocytopenia (HCC) (primary encounter diagnosis)Visit (SP) Office on 07/05/17-ezetimibe (ZETIA) 10 mg tablet-lisinopril (ZESTRIL, PRINIVIL) 20 mg tablet-metoprolol succinate ER (TOPROL XL) 25 mg 24 hr tablet Return in about 1 year (around 07/05/2018), or f/u 1 year or as needed.. -------HPI: This is a 57 year old malePast medical history of hypertension, current smoker, hyperlipidemia,depressi on, type 2 diabetes on multiple medications, seasonal allergies,gastroesophag eal reflux disease, current smoker, obesity referred forthrombocytopenia.We have recent platelet count from 12/24/14 which is 102. White blood cellcount 5.8, hemoglobin 15.3 with normal MCV. Normal white blood cell countdifferential. Triglycerides are slightly elevated but normal kidney functionand liver function. Hemoglobin A1c is 8.9. We have a previous result [id number] which showed a platelet count of 132.July 06, 2016 has some night sweats. These seem to happen quite a bit. Bed can be prettywet. Couple times a wek. Doesn't usually change sheets or clothes. Sweatsfor last year.Other than this he has no complaints.July 05, 2017Had a normal year. No hospitalizations. Only minor med changes. He changedfrom atenolol to another B reggie. Denies night sweats currently.Vitals: BP 116/74 Pulse 72 Temp (Src) 98.5 (Oral) Resp 18 Ht 5'9.488ANDquot; (1.77m) Wt 195 lb (88.5kg) BMI 28.39 kg/(m2). Body surfacearea is 2.08 meters squared. REVIEW OF SYSTEMS PHYSICAL EXAM ECOG PS: 0 NEGATIVES POSITIVES NEGATIVES POSITIVESGEN: fevers, sweats, chills. Overall feels well. Sweats seem improved thisyear. GEN: Well appearing, alert, in no acute distress, appears stated ageSKIN: lesions, rash, itching. SKIN: Normal color, texture, turgor, no rashesor lesionsHEENT: significant headaches, changes in hearing, changes in vision, nosebleeds. ENT: No scleral icterus. NECK: Supple, no thyromegaly, no JVD.: dysuria, frequency or incontinence. LYMPH: No cervical, supraclavicular,axillar y, inguinal adenopathy.RESP: dyspnea, cough, wheezing. LUNG: Clear to auscultation, no wheezing ralesor rhonchiCARD: chest pain, leg swelling, palpitations. HEART: Regular. No murmurs,gallop, or rubs. No ectopy.GI: abdominal pain, nausea, vomiting, diarrhea, constipation, melena,hematochezia. ABDM: Soft. Non-tender. Non-distended. Bowel sounds normal.No masses. No hepatosplenomegaly.HEME : prolonged bleeding, bruising, adenopathy. EXT: No clubbing, cyanosisor edema.MUSC: joint pain or swelling. MUSC: No joint swelling, deformity, ortenderness.NEURO: syncope, seizures, peripheral numbness or tingling. BACK: Notenderness to palpation. No flank tenderness.MEDICATIONS: ezetimibe (ZETIA) 10 mg tablet TK 1 T PO QAMlisinopril (ZESTRIL, PRINIVIL) 20 mg tablet TK 1 T PO D IN THE MORNINGmetoprolol succinate ER (TOPROL XL) 25 mg 24 hr tablet TK 1 T PO QD IN THE EVEatorvastatin (LIPITOR) 40 mg tablet Take 20 mg by mouth once daily.simvastatin (ZOCOR) 40 mg tablet Take 40 mg by mouth daily at bedtime.metFORMIN (GLUCOPHAGE) 500 mg tablet Take 500 mg by mouth daily with breakfast.glipiZIDE XL (GLUCOTROL XL) 10 mg 24 hr tablet Take 10 mg by mouth once daily.citalopram (CELEXA) 20 mg tablet Take 20 mg by mouth once daily.ALLERGIES: ALLERGIESNo Known AllergiesPAST MEDICAL HISTORYDiagnosis Date- Thrombocytopenia (HCC)No past surgical history on file.No family history on file.SOCIAL HISTORY:Social HistorySubstance Use Topics- Smoking status: Current Every Day Smoker Types: Cigarettes- Smokeless tobacco: Not on file- Alcohol use Yes Comment: rarelyLABS:RADIOLOGY/OT HER STUDIES:COUNSELING:I discussed with Lew the natural history, treated course, and prognosis ofPrimary thrombocytopenia (hcc) (primary encounter diagnosis); my impressionas well as the rationale, logistics, risks, benefits, and alternatives to themanagement options noted above; and my recommendations listed below. Thepatient Lew Obregon verbalized understanding and agreed with theserecommendations and plan. I answered all questions satisfactorily..Conrad Goodrich D.O.Medical OncologistWaverly, [place]Referring Provider: DEVAN GOODRICH [[id number]]Allergies As of Date: 07/05/2017(No Known Allergies)Date Reviewed: 07/05/2017Reviewed by: Lenora Retana - Fully AssessedReason for Visit: Primary thrombocytopenia [Other] Cmt: 1 year follow upPrimary Visit Diagnosis:Primary thrombocytopenia (HCC) [D69.49]Disposition: Return in about 1 year (around 07/05/2018), or f/u 1 year or as needed..Follow-up and Disposition History RecordedPrescriptions as of 07/05/2017 Sig: EZETIMIBE 10 MG TABLET TK 1 T PO QAM LISINOPRIL 20 MG TABLET TK 1 T PO D IN THE MORNING METOPROLOL SUCCINATE ER 25 MG* TK 1 T PO QD IN THE YURI ATORVASTATIN 40 MG TABLET Take 20 mg by mouth once roma* SIMVASTATIN 40 MG TABLET Take 40 mg by mouth daily at * METFORMIN 500 MG TABLET Take 500 mg by mouth daily wi* GLIPIZIDE ER 10 MG TABLET, EX* Take 10 mg by mouth once roma* CITALOPRAM 20 MG TABLET Take 20 mg by mouth once roma*Medication notes this encounter EZETIMIBE 10 MG TABLET >> Lenora Retana 07/05/2017 10:30 AM >> LENORA RETANA Jul 05, 2017 10:30 AM Received from: External Pharmacy >> Lenora Retana 07/05/2017 10:31 AM >> LENORA RETANA Jul 05, 2017 10:31 AM LISINOPRIL 20 MG TABLET >> Lenora Retana 07/05/2017 10:31 AM >> LENORA RETANA Jul 05, 2017 10:31 AM Received from: External Pharmacy >> Lenora Retana 07/05/2017 10:31 AM >> LENORA RETANA Jul 05, 2017 10:31 AM METOPROLOL SUCCINATE ER 25 MG TABLET,EXTENDED RELEASE 24 HR >> Lenora Retana 07/05/2017 10:31 AM >> LENORA RETANA Jul 05, 2017 10:31 AM Received from: External Pharmacy >> Lenora Retana 07/05/2017 10:31 AM >> LENORA RETANA Jul 05, 2017 10:31 AMProblem List As Of Date 07/05/2017 Noted Resolved Primary thrombocytopenia (HCC) [D69.49] INVALID FOR*Encounter Status:Closed by DEVAN GOODRICH DO on 07/07/17 Normal [facility] PROGRESSon 07-05-2017 PROGRESS HNO ID: [id number]: Devan William: (none)Author Type: PhysicianType: Progress NotesFiled: 07/07/2017 2:43 PMNote Text:PATIENT NAME: Lew ObregonMRN: [id number] PHYSICIAN: REUBEN GIFFORD [facility] [id number] CARE PHYSICIAN: Reuben Vaibhav AmburnOTHER PHYSICIANS:CHIEF COMPLAINT: Primary thrombocytopenia (hcc) (primary encounterdiagnosis)ASSE SSMENT/PLAN:1. Primary thrombocytopenia, unspecified (HCC) - ICD9: 287.30, ICD10:D69.49His disease is mild and chronic. His platelet count has never fallenbelow 100,000. Ultrasound of the liver from January 2016 shows increasedhepatic echogenicity compatible with potentially hepatocellular disease orpossibly cirrhosis.I suspect he has mild cirrhosis which causes his thrombocytopenia.Previo usly has seen a hepatic subspecialist and US liver 10/2016 showedmoderate fibrosis likely. We'll continue to monitor yearly for now.Offered him f/u yearly vs prn.(D69.49) Primary thrombocytopenia (HCC) (primary encounter diagnosis)Visit (SP) Office on 07/05/17-ezetimibe (ZETIA) 10 mg tablet-lisinopril (ZESTRIL, PRINIVIL) 20 mg tablet-metoprolol succinate ER (TOPROL XL) 25 mg 24 hr tablet Return in about 1 year (around 07/05/2018), or f/u 1 year or as needed.. -------HPI: This is a 57 year old malePast medical history of hypertension, current smoker, hyperlipidemia,depressi on, type 2 diabetes on multiple medications, seasonal allergies,gastroesophag eal reflux disease, current smoker, obesity referred forthrombocytopenia.We have recent platelet count from 12/24/14 which is 102. White blood cellcount 5.8, hemoglobin 15.3 with normal MCV. Normal white blood cell countdifferential. Triglycerides are slightly elevated but normal kidneyfunction and liver function. Hemoglobin A1c is 8.9. We have a previousresult from 2010 which showed a platelet count of 132.July 06, 2016 has some night sweats. These seem to happen quite a bit. Bed can bepretty wet. Couple times a wek. Doesn't usually change sheets orclothes. Sweats for last year.Other than this he has no complaints.July 05, 2017Had a normal year. No hospitalizations. Only minor med changes. Hechanged from atenolol to another B reggie. Denies night sweatscurrently.Vitals: BP 116/74 Pulse 72 Temp (Src) 98.5 (Oral) Resp 18 Ht 5'9.488 (1.77m) Wt 195 lb (88.5kg) BMI 28.39 kg/(m2). Body surfacearea is 2.08 meters squared. REVIEW OF SYSTEMS PHYSICAL EXAM ECOG PS: 0 NEGATIVES POSITIVES NEGATIVES POSITIVESGEN: fevers, sweats, chills. Overall feels well. Sweats seem improvedthis year. GEN: Well appearing, alert, in no acute distress, appearsstated ageSKIN: lesions, rash, itching. SKIN: Normal color, texture, turgor, norashes or lesionsHEENT: significant headaches, changes in hearing, changes in vision, nosebleeds. ENT: No scleral icterus. NECK: Supple, no thyromegaly, no JVD.: dysuria, frequency or incontinence. LYMPH: No cervical,supraclavicula r, axillary, inguinal adenopathy.RESP: dyspnea, cough, wheezing. LUNG: Clear to auscultation, no wheezingrales or rhonchiCARD: chest pain, leg swelling, palpitations. HEART: Regular. Nomurmurs, gallop, or rubs. No ectopy.GI: abdominal pain, nausea, vomiting, diarrhea, constipation, melena,hematochezia. ABDM: Soft. Non-tender. Non-distended. Bowel soundsnormal. No masses. No hepatosplenomegaly.HEME : prolonged bleeding, bruising, adenopathy. EXT: No clubbing,cyanosis or edema.MUSC: joint pain or swelling. MUSC: No joint swelling, deformity, ortenderness.NEURO: syncope, seizures, peripheral numbness or tingling. BACK: Notenderness to palpation. No flank tenderness.MEDICATIONS: ezetimibe (ZETIA) 10 mg tablet TK 1 T PO QAMlisinopril (ZESTRIL, PRINIVIL) 20 mg tablet TK 1 T PO D IN THE MORNINGmetoprolol succinate ER (TOPROL XL) 25 mg 24 hr tablet TK 1 T PO QD INTHE EVEatorvastatin (LIPITOR) 40 mg tablet Take 20 mg by mouth once daily.simvastatin (ZOCOR) 40 mg tablet Take 40 mg by mouth daily at bedtime.metFORMIN (GLUCOPHAGE) 500 mg tablet Take 500 mg by mouth daily withbreakfast.glipiZIDE XL (GLUCOTROL XL) 10 mg 24 hr tablet Take 10 mg by mouth oncedaily.citalopram (CELEXA) 20 mg tablet Take 20 mg by mouth once daily.ALLERGIES: ALLERGIESNo Known AllergiesPAST MEDICAL HISTORYDiagnosis Date- Thrombocytopenia (HCC)No past surgical history on file.No family history on file.SOCIAL HISTORY:Social HistorySubstance Use Topics- Smoking status: Current Every Day Smoker Types: Cigarettes- Smokeless tobacco: Not on file- Alcohol use Yes Comment: rarelyLABS:RADIOLOGY/OT HER STUDIES:COUNSELING:I discussed with Lwe the natural history, treated course, and prognosisof Primary thrombocytopenia (hcc) (primary encounter diagnosis); myimpression as well as the rationale, logistics, risks, benefits, andalternatives to the management options noted above; and my recommendationslisted below. The patient Lew Obregon verbalized understanding andagreed with these recommendations and plan. I answered all questionssatisfactorily ..Conrad Goodrich D.O.Medical OncologistW[place], [place] Normal [facility] Remote Abs Gran + CBC (for [facility] HC use only)on 07-05-2017 Absol Gran Count 4.43 k/uL Normal 1.45-7.50 [facility] Erythrocyte distribution width Auto Ratio (RBC) 12.4 % Normal 11.5-15.0 [facility] Erythrocytes (RBC) 5.16 10*6/uL Normal 4.20-6.00 [facility] Hematocrit (HCT) 43.3 % Normal 39.0-51.0 [facility] Hemoglobin mass conc (Bld) 15.0 g/dL Normal 13.0-17.0 [facility] MCH 29.1 pG Normal 26.0-34.0 [facility] MCHC mass conc (RBC) 34.6 g/dL Normal 30.5-36.0 [facility] MCV 83.9 fL Normal 80.0-100.0 [facility] Platelet mean volume (PMV) 11.4 fL Normal 9.0-12.7 [facility] Platelets 110 10*3/uL Low 150-400 [facility] WBC (Leukocytes) 6.67 10*3/uL Normal 3.70-11.00 [facility] Remote iSTAT BMP (for [facility] us e only)on 07-05-2017 Anion gap 12 mmol/L Normal 0-15 [facility] BUN (urea nitrogen) 17 mg/dL Normal 10-25 [facility] Chloride 99 mmol/L Normal 98-110 [facility] CO2 25 mmol/L Normal 23-32 [facility] Creatinine 1.00 mg/dL Normal 0.70-1.40 [facility] eGFR (non-black) mL/min/{1.73_m2} Normal Cl [facility] Comment on above: Result Comment: eGFR (Estimated GFR) Units of measure: mL/min/1.73 meters squaredeGFR is derived from the reexpressed MDRD Study equation using the following parameters: serum creatinine, age, gender and race. The creatinine assay has been calibrated to be traceable to IDMS.An eGFR <60 mL/min/1.73m2 for >3 months is consistent with chronic kidney disease. Refer to KDOQI guidelines for clinical interpretation.In patients with unstable renal function, e.g. those with acute kidney injury, the eGFR may not accurately reflect actual GFR. Glucose mass conc 211 mg/dL High 65-100 [facility] Ionized Calcium, WB 1.14 mmol/L Normal 1.08-1.30 [facility] Comment on above: Result Comment: Plea se note: This value represents ionized calcium not total calcium. Potassium molar conc 4.6 mmol/L Normal 3.5-5.0 [facility] Sodium 136 mmol/L Normal 135-146 [facility] Vital Signs Date Time Vital Sign Value Performing Clinician Facility 06-29-2024 13:45-0500 Body height 175.26 cm Robyn Morales APRN Work Phone: [facility] [place] [facility] 06-29-2024 13:45-0500 Body mass index (BMI) [Ratio] 30 kg/m2 Robyn Morales APRN Work Phone: [facility] [place] [facility] 06-29-2024 13:45-0500 Body temperature 97.4 [degF] Robyn Andrew BED MANAGER Work Phone: [facility] [place] [facility] 06-29-2024 13:45-0500 Body weight 92.24 kg Robyn Jensensylviaayankimberlee BED MANAGER Work Phone: [facility] [place] [facility] 06-29-2024 13:45-0500 Diastolic blood pressure 82 mm[Hg] Rboyn Andrew BED MANAGER Work Phone: [facility] [place] [facility] 06-29-2024 13:45-0500 Heart rate 82 /min Robyn Jensenahsan BED MANAGER Work Phone: [facility] [place] [facility] 06-29-2024 13:45-0500 SaO2% (BldA) [Mass fraction] 97 % Robyn Jensenahsan BED MANAGER Work Phone: [facility] [place] [facility] 06-29-2024 13:45-0500 Systolic blood pressure 138 mm[Hg] Robyn Andrew BED MANAGER Work Phone: [facility] [place] [facility] 06-05-2024 13:27-0500 Body height 175.26 cm Robyn Jensenahsan BED MANAGER Work Phone: [facility] [place] [facility] 06-05-2024 13:27-0500 Body mass index (BMI) [Ratio] 29.4 kg/m2 Robyn Jensenahsan ABREUN Work Phone: [facility] [place] [facility] 06-05-2024 13:27-0500 Body temperature 97.3 [degF] Robyn Andrew BED MANAGER Work Phone: [facility] [place] [facility] 06-05-2024 13:27-0500 Body weight 90.32 kg Robyn Andrew BED MANAGER Work Phone: [facility] [place] [facility] 06-05-2024 13:27-0500 Diastolic blood pressure 78 mm[Hg] Robyn Morales APRN Work Phone: [facility] [place] [facility] 06-05-2024 13:27-0500 Heart rate 80 /min Robyn Jensenahsan BED MANAGER Work Phone: [facility] [place] [facility] 06-05-2024 13:27-0500 SaO2% (BldA) [Mass fraction] 95 % Robyn Jensenahsan BED MANAGER Work Phone: [facility] [place] [facility] 06-05-2024 13:27-0500 Systolic blood pressure 130 mm[Hg] Robyn Jensensylviaayankimberlee BED MANAGER Work Phone: [facility] [place] [facility] 05-31-2024 14:00-0500 Diastolic blood pressure 85 mm[Hg] Robyn Jensenahsan BED MANAGER Work Phone: [facility] [place] [facility] 05-31-2024 14:00-0500 Systolic blood pressure 122 mm[Hg] Robyn Andrew BED MANAGER Work Phone: [facility] [place] [facility] 05-31-2024 13:23-0500 Body height 175.26 cm Robyn Jensensylviaayankimberlee BED MANAGER Work Phone: [facility] [place] [facility] 05-31-2024 13:23-0500 Body mass index (BMI) [Ratio] 28.8 kg/m2 Robyn Jensensylviaayankimberlee BED MANAGER Work Phone: [facility] [place] [facility] 05-31-2024 13:23-0500 Body weight 88.62 kg Robyn Jensenahsan BED MANAGER Work Phone: [facility] [place] [facility] 05-31-2024 13:23-0500 Heart rate 78 /min Robyn Andrew BED MANAGER Work Phone: [facility] [place] [facility] 05-31-2024 13:23-0500 Respiratory rate 16 /min Robyn Andrew BED MANAGER Work Phone: [facility] [place] [facility] 05-31-2024 13:23-0500 SaO2% (BldA) [Mass fraction] 99 % Robyn Andrew BED MANAGER Work Phone: [facility] [place] [facility] 05-30-2024 14:47-0500 Body mass index (BMI) [Ratio] 28.5 kg/m2 Lenny Mallory DO Work Phone: [facility] 05-30-2024 14:47-0500 Body temperature 97.3 [degF] Lenny Mallory DO Work Phone: [facility] 05-30-2024 14:47-0500 Body weight 87.54 kg Lenny Mallory DO Work Phone: [facility] 05-30-2024 14:47-0500 Diastolic blood pressure 78 mm[Hg] Lenny Mallory DO Work Phone: [facility] 05-30-2024 14:47-0500 Heart rate 78 /min Lenny Mallory DO Work Phone: [facility] 05-30-2024 14:47-0500 SaO2% (BldA) [Mass fraction] 96 % Lenny Mallory DO Work Phone: [facility] 05-30-2024 14:47-0500 Systolic blood pressure 130 mm[Hg] Lenny Mallory DO Work Phone: [facility] 05-18-2024 08:59-0500 Diastolic blood pressure 90 mm[Hg] Robyn Morales APRN Work Phone: [facility] [place] [facility] 05-18-2024 08:59-0500 Heart rate 84 /min Robyn Morales APRN Work Phone: [facility] [place] [facility] 05-18-2024 08:59-0500 Respiratory rate 18 /min Robyn Morales BED MANAGER Work Phone: [facility] [place] [facility] 05-18-2024 08:59-0500 SaO2% (BldA) [Mass fraction] 97 % Robyn Morales APRN Work Phone: [facility] [place] [facility] 05-18-2024 08:59-0500 Systolic blood pressure 150 mm[Hg] Robyn Morales APRN Work Phone: [facility] [place] [facility] 05-18-2024 07:20-0500 Body height 175.26 cm Robyn Jensensylviaayankimberlee BED MANAGER Work Phone: [facility] 05-18-2024 07:20-0500 Body weight 88.45 kg Robyn Jensensylviaayankimberlee BED MANAGER Work Phone: [facility] 05-11-2024 10:25-0500 Body height 175.26 cm Robyn Jensensylviaayankimberlee BED MANAGER Work Phone: [facility] 05-11-2024 10:25-0500 Body temperature 97.5 [degF] Robyn Andrew BED MANAGER Work Phone: [facility] [place] [facility] 05-11-2024 10:25-0500 Body weight 90.1 kg Robyn Jensensylviaayankimberlee BED MANAGER Work Phone: [facility] 05-11-2024 10:25-0500 Diastolic blood pressure 77 mm[Hg] Robyn Jensenahsan BED MANAGER Work Phone: [facility] [place] [facility] 05-11-2024 10:25-0500 Heart rate 81 /min Robyn Jensenahsan BED MANAGER Work Phone: [facility] [place] [facility] 05-11-2024 10:25-0500 Respiratory rate 20 /min Robyn Jensenahsan BED MANAGER Work Phone: [facility] [place] [facility] 05-11-2024 10:25-0500 SaO2% (BldA) [Mass fraction] 96 % Robyn Andrew BED MANAGER Work Phone: [facility] [place] [facility] 05-11-2024 10:25-0500 Systolic blood pressure 152 mm[Hg] Robyn Andrew BED MANAGER Work Phone: [facility] [place] [facility] 04-26-2024 07:29-0500 Body height 175.26 cm Robyn Andrew BED MANAGER Work Phone: [facility] [place] [facility] 04-26-2024 07:29-0500 Body weight 88.45 kg Robyn Morales BED MANAGER Work Phone: [facility] [place] [facility] 04-12-2024 08:53-0400 Body height 176.53 cm BED MANAGER Robyn Jensenrbacher Work Phone: [facility] [place] [facility] 04-12-2024 08:53-0400 Body mass index (BMI) [Ratio] 28.3 kg/m2 BED MANAGER Robyn Mikeyrbacher Work Phone: [facility] [place] [facility] 04-12-2024 08:53-0400 Body weight 88.45 kg BED MANAGER Robyn Mikeyrbacher Work Phone: [facility] 03-23-2024 14:50-0400 Body height 175.26 cm BED MANAGER Robyn Mikeyrbacher Work Phone: [facility] 03-23-2024 14:50-0400 Body mass index (BMI) [Ratio] 28.3 kg/m2 BED MANAGER Robyn Mikeyrbacher Work Phone: [facility] [place] [facility] 03-23-2024 14:50-0400 Body weight 87.14 kg BED MANAGER Robyn Jensenrbacher Work Phone: [facility] [place] [facility] 03-15-2024 08:42-0400 Body height 175.26 cm BED MANAGER Robyn Mikeyrbacher Work Phone: [facility] [place] [facility] 03-15-2024 08:42-0400 Body mass index (BMI) [Ratio] 28.3 kg/m2 BED MANAGER Robyn Mikeyrbacher Work Phone: [facility] [place] [facility] 03-15-2024 08:42-0400 Body temperature 97.2 [degF] BED MANAGER Robyn Mikeyrbacher Work Phone: [facility] 03-15-2024 08:42-0400 Body weight 87.08 kg BED MANAGER Robyn Mikeyrbacher Work Phone: [facility] 03-15-2024 08:42-0400 Diastolic blood pressure 78 mm[Hg] BED MANAGERRanjan Jensenrbacher Work Phone: [facility] [place] [facility] 03-15-2024 08:42-0400 Heart rate 73 /min BED MANAGERRanjan MuellerRobyn Mikeyrbacher Work Phone: [facility] [place] [facility] 03-15-2024 08:42-0400 Respiratory rate 16 /min BED MANAGERRanjan MuellerRobyn Mikeyrbacher Work Phone: [facility] 03-15-2024 08:42-0400 SaO2% (BldA) [Mass fraction] 98 % BED MANAGERRanjan Petersenacher Work Phone: [facility] [place] [facility] 03-15-2024 08:42-0400 Systolic blood pressure 120 mm[Hg] BED MANAGERRanjan Jensenrbacher Work Phone: [facility] [place] [facility] 03-09-2024 15:06-0400 Body height 175.3 cm Osman Alvarado DPM Work Phone: [facility] 03-09-2024 15:06-0400 Body mass index (BMI) [Ratio] 28.5 kg/m2 Osman Alvarado DPM Work Phone: [facility] 03-09-2024 15:06-0400 Body weight 87.54 kg Osman Alvarado DPM Work Phone: [facility] 03-09-2024 15:06-0400 Diastolic blood pressure 80 mm[Hg] Osman Alvarado DPM Work Phone: [facility] 03-09-2024 15:06-0400 Heart rate 75 /min Osman Alvarado DPM Work Phone: [facility] 03-09-2024 15:06-0400 Systolic blood pressure 126 mm[Hg] Osman Alvarado DPM Work Phone: [facility] 03-08-2024 12:48-0400 Body height 175.26 cm BED MANAGER Robyn Rohrbacher Work Phone: [facility] [place] [facility] 03-08-2024 12:48-0400 Body mass index (BMI) [Ratio] 28.4 kg/m2 BED MANAGERRanjan Petersenacher Work Phone: [facility] 03-08-2024 12:48-0400 Body weight 87.31 kg BED MANAGERRanjan Carlson Mikeyrbacher Work Phone: [facility] 03-08-2024 12:48-0400 Diastolic blood pressure 71 mm[Hg] BED MANAGERRanjan Carlson Mikeyrbacher Work Phone: [facility] 03-08-2024 12:48-0400 Heart rate 89 /min BED MANAGERRanjan Carlson Mikeyrbacher Work Phone: [facility] 03-08-2024 12:48-0400 Respiratory rate 18 /min BED MANAGERRanjan Carlson Mikeyrbacher Work Phone: [facility] 03-08-2024 12:48-0400 SaO2% (BldA) [Mass fraction] 97 % BED MANAGERRanjan Carlson Mikeyrbacher Work Phone: [facility] [place] [facility] 03-08-2024 12:48-0400 Systolic blood pressure 129 mm[Hg] DANNY Jensenrbacher Work Phone: [facility] 02-24-2024 14:39-0400 Body height 175.3 cm Osman Alvarado DPM Work Phone: [facility] 02-24-2024 14:39-0400 Body mass index (BMI) [Ratio] 28.5 kg/m2 Osman Alvarado DPM Work Phone: [facility] 02-24-2024 14:39-0400 Body weight 87.54 kg Osman Alvarado DPM Work Phone: [facility] 02-24-2024 14:39-0400 Diastolic blood pressure 77 mm[Hg] Osman Alvarado DPM Work Phone: [facility] 02-24-2024 14:39-0400 Heart rate 75 /min Osman Alvarado DPM Work Phone: [facility] 02-24-2024 14:39-0400 Systolic blood pressure 126 mm[Hg] Osman Alvarado DPM Work Phone: [facility] 02-09-2024 09:58-0400 Body height 175.26 cm [facility] 02-09-2024 09:58-0400 Body mass index (BMI) [Ratio] 27 kg/m2 [facility] 02-09-2024 09:58-0400 Body weight 83 kg [facility] 02-09-2024 09:58-0400 Diastolic blood pressure 72 mm[Hg] [facility] 02-09-2024 09:58-0400 Heart rate 75 /min [facility] 02-09-2024 09:58-0400 SaO2% (BldA) [Mass fraction] 95 % [facility] [place] [facility] 02-09-2024 09:58-0400 Systolic blood pressure 138 mm[Hg] [facility] 01-12-2024 14:53-0400 Body height 175.26 cm [facility] 01-12-2024 14:53-0400 Body mass index (BMI) [Ratio] 28 kg/m2 [facility] 01-12-2024 14:53-0400 Body weight 86.18 kg [facility] 01-12-2024 14:53-0400 Diastolic blood pressure 70 mm[Hg] [facility] [place] [facility] 01-12-2024 14:53-0400 Heart rate 78 /min [facility] 01-12-2024 14:53-0400 SaO2% (BldA) [Mass fraction] 98 % [facility] [place] [facility] 01-12-2024 14:53-0400 Systolic blood pressure 132 mm[Hg] [facility] 12-15-2023 14:50-0400 Body height 175.26 cm MD Shaikh Samson Work Phone: [facility] [place] [facility] 12-15-2023 14:50-0400 Body mass index (BMI) [Ratio] 28.4 kg/m2 MD Shaikh Samson Work Phone: [facility] 12-15-2023 14:50-0400 Body weight 87.34 kg MD Shaikh Samson Work Phone: [facility] 12-15-2023 14:50-0400 Diastolic blood pressure 69 mm[Hg] MD Shaikh Samson Work Phone: [facility] 12-15-2023 14:50-0400 Heart rate 82 /min MD Shaikh Samson Work Phone: [facility] 12-15-2023 14:50-0400 Respiratory rate 18 /min MD Shaikh Samson Work Phone: [facility] 12-15-2023 14:50-0400 SaO2% (BldA) [Mass fraction] 98 % MD Shaikh Samson Work Phone: [facility] 12-15-2023 14:50-0400 Systolic blood pressure 127 mm[Hg] MD Shaikh Samson Work Phone: [facility] 11-10-2023 14:37-0400 Body height 175.26 cm MD Shaikh Samson [facility]: [facility] [facility]10-2023 14:37-0400 Body mass index (BMI) [Ratio] 28.5 kg/m2 MD Shaikh Samson Work Phone: [facility] 11-10-2023 14:37-0400 Body weight 87.79 kg MD Shaikh Samson Work Phone: [facility] 11-10-2023 14:37-0400 Diastolic blood pressure 66 mm[Hg] MD Shaikh Samson Work Phone: [facility] 11-10-2023 14:37-0400 Heart rate 95 /min MD Shaikh Samson Work Phone: [facility] 11-10-2023 14:37-0400 Respiratory rate 20 /min MD Shaikh Samson Work Phone: [facility] 11-10-2023 14:37-0400 SaO2% (BldA) [Mass fraction] 98 % MD Shaikh Samson Work Phone: [facility] 11-10-2023 14:37-0400 Systolic blood pressure 128 mm[Hg] MD Shaikh Samson Work Phone: [facility] 10-27-2023 12:49-0400 Body height 175.26 cm MD Shaikh Samson Work Phone: [facility] 10-27-2023 12:49-0400 Body mass index (BMI) [Ratio] 28 kg/m2 MD Shaikh Samson Work Phone: [facility] 10-27-2023 12:49-0400 Body weight 86.23 kg MD Shaikh Samson Work Phone: [facility] 10-27-2023 12:49-0400 Diastolic blood pressure 81 mm[Hg] MD Shaikh Samson Work Phone: [facility] 10-27-2023 12:49-0400 Heart rate 85 /min MD Shaikh Samson Work Phone: [facility] 10-27-2023 12:49-0400 Respiratory rate 18 /min MD Shaikh Samson Work Phone: [facility] 10-27-2023 12:49-0400 SaO2% (BldA) [Mass fraction] 98 % MD Shaikh Samson Work Phone: [facility] 10-27-2023 12:49-0400 Systolic blood pressure 126 mm[Hg] MD Shaikh Samson Work Phone: [facility] 10-11-2023 14:15-0400 Body height 175.26 cm MD Shaikh Samson Work Phone: [facility] 10-11-2023 14:15-0400 Body mass index (BMI) [Ratio] 27.9 kg/m2 MD Shaikh Samson Work Phone: [facility] 10-11-2023 14:15-0400 Body weight 85.92 kg MD Shaikh Samson Work Phone: [facility] 10-11-2023 14:15-0400 Diastolic blood pressure 78 mm[Hg] MD Shaikh Samson Work Phone: [facility] 10-11-2023 14:15-0400 Heart rate 98 /min MD Shaikh Samson Work Phone: [facility] 10-11-2023 14:15-0400 Respiratory rate 18 /min MD Shaikh Samson Work Phone: [facility] 10-11-2023 14:15-0400 SaO2% (BldA) [Mass fraction] 97 % MD Shaikh Samson Work Phone: [facility] 10-11-2023 14:15-0400 Systolic blood pressure 127 mm[Hg] MD Shaikh Samson Work Phone: [facility] 09-22-2023 12:55-0400 Body height 175.26 cm MD Shaikh Samson Work Phone: [facility] 09-22-2023 12:55-0400 Body mass index (BMI) [Ratio] 28.3 kg/m2 MD Shaikh Samson Work Phone: [facility] 09-22-2023 12:55-0400 Body weight 86.86 kg MD Shaikh Samson Work Phone: [facility] 09-22-2023 12:55-0400 Diastolic blood pressure 74 mm[Hg] MD Shaikh Samson Work Phone: [facility] 09-22-2023 12:55-0400 Heart rate 79 /min MD Shaikh Samson Work Phone: [facility] 09-22-2023 12:55-0400 Respiratory rate 18 /min MD Shaikh Samson Work Phone: [facility] 09-22-2023 12:55-0400 SaO2% (BldA) [Mass fraction] 99 % MD Shaikh Samson Work Phone: [facility] 09-22-2023 12:55-0400 Systolic blood pressure 121 mm[Hg] MD Shaikh Samson Work Phone: [facility] 09-01-2023 10:59-0400 Diastolic blood pressure 74 mm[Hg] MD Shaikh Samson Work Phone: [facility] 09-01-2023 10:59-0400 Systolic blood pressure 133 mm[Hg] MD Shaikh Samson Work Phone: [facility] 09-01-2023 10:26-0400 Diastolic blood pressure 85 mm[Hg] MD Shaikh Samson Work Phone: [facility] 09-01-2023 10:26-0400 Systolic blood pressure 139 mm[Hg] MD Shaikh Samson Work Phone: [facility] 09-01-2023 10:02-0400 Body height 175.26 cm MD Shaikh Samson Work Phone: [facility] 09-01-2023 10:02-0400 Body mass index (BMI) [Ratio] 28 kg/m2 MD Shaikh Samson Work Phone: [facility] 09-01-2023 10:02-0400 Body weight 86.18 kg MD Shaikh Samson Work Phone: [facility] 09-01-2023 10:02-0400 Heart rate 84 /min MD Shaikh Samson Work Phone: [facility] 09-01-2023 10:02-0400 Respiratory rate 20 /min MD Shaikh Samson Work Phone: [facility] 09-01-2023 10:02-0400 SaO2% (BldA) [Mass fraction] 97 % MD Shaikh Samson Work Phone: [facility] 08-11-2023 10:00-0500 Body height 175.26 cm MD Shaikh Samson Work Phone: [facility] 08-11-2023 10:00-0500 Body mass index (BMI) [Ratio] 27.8 kg/m2 MD Shaikh Samson Work Phone: [facility] 08-11-2023 10:00-0500 Body weight 85.44 kg MD Shaikh Samson Work Phone: [facility] 08-11-2023 10:00-0500 Diastolic blood pressure 73 mm[Hg] MD Shaikh Samson Work Phone: [facility] 08-11-2023 10:00-0500 Heart rate 99 /min MD Shaikh Samson Work Phone: [facility] 08-11-2023 10:00-0500 Respiratory rate 18 /min MD Shaikh Samson Work Phone: [facility] 08-11-2023 10:00-0500 SaO2% (BldA) [Mass fraction] 99 % MD Shaikh Samson Work Phone: [facility] 08-11-2023 10:00-0500 Systolic blood pressure 113 mm[Hg] MD Shaikh Samson Work Phone: [facility] 07-28-2023 13:26-0500 Body height 175.26 cm MD Shaikh Samson Work Phone: [facility] 07-28-2023 13:26-0500 Body mass index (BMI) [Ratio] 27.6 kg/m2 MD Shaikh Samson Work Phone: [facility] 07-28-2023 13:26-0500 Body weight 84.9 kg MD Shaikh Samson Work Phone: [facility] 07-28-2023 13:26-0500 Diastolic blood pressure 63 mm[Hg] MD Shaikh Samson Work Phone: [facility] 07-28-2023 13:26-0500 Heart rate 82 /min MD Shaikh Samson Work Phone: [facility] 07-28-2023 13:26-0500 Respiratory rate 18 /min MD Shaikh Samson Work Phone: [facility] 07-28-2023 13:26-0500 SaO2% (BldA) [Mass fraction] 99 % MD Shaikh Samson Work Phone: [facility] 07-28-2023 13:26-0500 Systolic blood pressure 113 mm[Hg] MD Shaikh Samson Work Phone: [facility] 06-23-2023 10:00-0500 Body height 175.26 cm Cassidy Salazar Other [facility] 06-23-2023 10:00-0500 Body mass index (BMI) [Ratio] 27.61 kg/m2 Cassidyher Rasheedler Other [employer] Other 06-23-2023 10:00-0500 Body weight 84.82 kg Cassidy Missler Other [facility] 06-23-2023 10:00-0500 Diastolic blood pressure 82 mm[Hg] Cassidy Missler Other [facility] 06-23-2023 10:00-0500 Respiratory rate 18 /min Cassidy Missler Other [facility] Other 06-23-2023 10:00-0500 SaO2% (BldA) [Mass fraction] 99 % Cassidy Missler Other [facility] [email or web address] Other 06-23-2023 10:00-0500 Systolic blood pressure 124 mm[Hg] Cassidy Missler Other [facility] 08-20-2022 09:00-0500 Body height 176.53 cm Cornel Avila Other [employer] [facility] Other 08-20-2022 09:00-0500 Body mass index (BMI) [Ratio] 27.65 kg/m2 Cornel Avila Other [facility] Other 08-20-2022 09:00-0500 Body weight 86.18 kg Cornel Avila Other [facility] Other 08-20-2022 09:00-0500 Diastolic blood pressure 72 mm[Hg] Cornel Avila Other [facility] Other 08-20-2022 09:00-0500 Systolic blood pressure 106 mm[Hg] Cornel Avila Other [facility] Other 05-19-2022 12:20-0500 Body height 176.53 cm Cornel Avila Other [facility] Other 05-19-2022 12:20-0500 Body mass index (BMI) [Ratio] 27.65 kg/m2 Cornel Avila Other [facility] Other 05-19-2022 12:20-0500 Body weight 86.18 kg Cornel Avila Other [facility] Other 02-17-2022 10:00-0400 Body height 176.53 cm Cornel Avila Other [facility] Other 02-17-2022 10:00-0400 Body mass index (BMI) [Ratio] 27.22 kg/m2 Cornel Avila Other [facility] Other 02-17-2022 10:00-0400 Body weight 84.82 kg Cornel Avila Other [facility] Other 11-04-2021 16:40-0400 Body height 176.53 cm Cornel Avila Other [facility] Other 11-04-2021 16:40-0400 Body mass index (BMI) [Ratio] 27.22 kg/m2 Cornel Avila Other [facility] Other 11-04-2021 16:40-0400 Body weight 84.82 kg Cornel Avila Other [facility] Other 09-30-2021 09:20-0400 Body height 176.53 cm Cornel Avila Other [facility] Other 09-30-2021 09:20-0400 Body mass index (BMI) [Ratio] 27.8 kg/m2 Cornel Avila Other [facility] Other 09-30-2021 09:20-0400 Body weight 86.64 kg Cornel Avila Other [facility] [email or web address] Other 04-16-2021 09:30-0400 Body weight 86.91 kg Sarah Oneil Other [facility] [email or web address] Other Encounters Encounter Date Encounter Type Care Provider Facility Start: 06-29-2024 End: 06-29-2024 ambulatory Robyn Morales APRN Work Phone: [facility] Work Phone: Start: 06-29-2024 End: 06-29-2024 Patient encounter procedure Robyn Morales APRN Work Phone: [facility] Work Phone: Start: 06-05-2024 End: 06-05-2024 Patient encounter procedure Robyn Morales APRN Work Phone: [facility] Work Phone: Start: 05-31-2024 End: 05-31-2024 Patient encounter procedure Robyn Morales APRN Work Phone: [facility] Work Phone: Start: 05-30-2024 End: 05-30-2024 ambulatory LENNY MALLORY Not Available Start: 05-30-2024 End: 05-30-2024 Office outpatient visit 25 minutes Lenny Mallory DO Work Phone: [facility] Comment on above: Cellulitis, penis (P rimary Dx) Start: 05-24-2024 Non-patient / Non-visit Juan Miguel Morales APRN Work Phone: [facility] Work Phone: Start: 05-18-2024 Non-patient / Non-visit Juan Miguel Morales APRN Work Phone: [facility] Work Phone: Start: 05-18-2024 End: 05-18-2024 Admission to same day surgery center Robyn Andrew BED MANAGER Work Phone: [facility] Work Phone: Start: 05-18-2024 End: 05-18-2024 ambulatory Robyn Morales Facility:[facility] Start: 05-11-2024 End: 05-11-2024 Emergency department patient visit Robyn Andrew BED MANAGER Work Phone: [facility] Work Phone: Start: 04-26-2024 End: 04-26-2024 Patient encounter procedure Robyn Andrew BED MANAGER Work Phone: [facility] Work Phone: Start: 04-26-2024 End: 04-26-2024 ambulatory Robyn Andrew BED MANAGER Work Phone: [facility] Work Phone: Start: 04-19-2024 End: 04-19-2024 Patient encounter procedure BED MANAGER Robyn Andrew Work Phone: [facility] Work Phone: Start: 04-19-2024 End: 04-19-2024 ambulatory BED MANAGER Robynsiobhan Morales Work Phone: [facility] Work Phone: Start: 04-12-2024 End: 04-12-2024 ambulatory BED MANAGER Robynsiobhan Petersenacher Work Phone: [facility] Work Phone: Start: 04-12-2024 End: 04-12-2024 Patient encounter procedure BED MANAGER Robynsiobhan Morales Work Phone: [facility] G[facility] Work Phone: Start: 03-23-2024 End: 03-23-2024 ambulatory BED MANAGERRanjan Morales Work Phone: [facility] Work Phone: Start: 03-23-2024 End: 03-23-2024 Patient encounter procedure BED MANAGERRanjan Morales Work Phone: [facility] Neuro[facility] Work Phone: Start: 03-15-2024 End: 03-15-2024 External Result Encounter Karo Silva David BATTERY TECHNICIAN Work Phone: [facility] External [facility] Unsolicited Start: 03-15-2024 End: 03-15-2024 External Result Encounter Karo Silva David BATTERY TECHNICIAN Work Phone: [facility] External Department Unsolicited Start: 03-15-2024 Registered Recurring BED MANAGER Linn [facility] [place] [facility] Work Phone: Start: 03-15-2024 End: 03-15-2024 ambulatory BED MANAGERRanjan Morales Work Phone: [facility] Work Phone: Start: 03-15-2024 End: 03-15-2024 Patient encounter procedure BED MANAGERRanjan Morales Work Phone: [facility] Work Phone: Start: 03-09-2024 End: 03-09-2024 Office outpatient visit 15 minutes Osman Alvarado DPM Work Phone: [facility] Comment on above: Paronychia, toe, lef t (Primary Dx); Onychocryptosis; Toe pain, left Start: 03-09-2024 End: 03-09-2024 ambulatory OSMAN ALVARADO Not Available Start: 03-09-2024 End: 03-09-2024 Bamboo flowsheet Osman Alvarado DPM Work Phone: [facility] Start: 03-09-2024 End: 03-09-2024 Bamboo flowsheet Osman Alvarado DPM Work Phone: [facility] Start: 03-08-2024 End: 03-08-2024 ambulatory BED MANAGERRanjan Morales Work Phone: [facility] Work Phone: Start: 03-08-2024 End: 03-08-2024 Patient encounter procedure BED MANAGERRanjan Morales Work Phone: [facility] Work Phone: Start: 03-04-2024 End: 03-04-2024 Patient encounter procedure BED MANAGERRanjan Morales Work Phone: [facility] [place] Work Phone: Start: 03-04-2024 End: 03-04-2024 ambulatory BED MANAGERRanjan Morales Work Phone: [facility] Work Phone: Start: 02-24-2024 End: 02-24-2024 Office outpatient new 30 minutes Osman Alvarado DPM Work Phone: [facility] Comment on above: Onychomycosis (Prima ry Dx); Onychocryptosis; Toe pain, left; Paronychia, toe, left Start: 02-24-2024 End: 02-24-2024 ambulatory OSMAN ALVARADO Not Available Start: 02-24-2024 End: 02-24-2024 Bamboo flowsheet Osman Alvarado DPM Work Phone: [facility] Start: 02-24-2024 End: 02-24-2024 Bamboo flowsheet Osman Alvarado DPM Work Phone: [facility] Start: 02-16-2024 End: 02-16-2024 Patient encounter procedure DANNY Robyn Andrew Work Phone: [facility] [place] Work Phone: Start: 02-16-2024 End: 02-16-2024 ambulatory DANNY Carlson Andrew Work Phone: [facility] Work Phone: Start: 02-09-2024 End: 02-09-2024 ambulatory [facility] [place] Work Phone: Start: 02-09-2024 End: 02-09-2024 Patient encounter procedure [facility] Work Phone: Start: 01-19-2024 End: 01-19-2024 ambulatory [facility] Work Phone: Start: 01-19-2024 End: 01-19-2024 Patient encounter procedure [facility] Work Phone: Start: 01-12-2024 End: 01-12-2024 ambulatory [facility] Work Phone: Start: 01-12-2024 End: 01-12-2024 Patient encounter procedure [facility] Work Phone: Start: 12-15-2023 End: 12-15-2023 ambulatory MD Shaikh Samson Work Phone: [facility] Work Phone: Start: 12-15-2023 End: 12-15-2023 Patient encounter procedure MD Shaikh Samson Work Phone: [facility] Work Phone: Start: 11-10-2023 End: 11-10-2023 ambulatory MD Shaikh Samson Work Phone: [facility] Work Phone: Start: 11-10-2023 End: 11-10-2023 Patient encounter procedure MD Shaikh Samson Work Phone: [facility] Work Phone: Start: 10-27-2023 End: 10-27-2023 Patient encounter procedure MD Shaikh Samson Work Phone: [facility] Work Phone: Start: 10-13-2023 End: 10-13-2023 Patient encounter procedure MD Shaikh Samson Work Phone: [facility] Work Phone: Start: 10-13-2023 End: 10-13-2023 ambulatory Shaikh Mali Facility:[facility] Start: 10-11-2023 End: 10-11-2023 ambulatory MD Shaikh Samson Work Phone: [facility] Work Phone: Start: 10-11-2023 End: 10-11-2023 Patient encounter procedure MD Shaikh Samson Work Phone: [facility] Work Phone: Start: 09-29-2023 End: 09-29-2023 ambulatory SHAIKH MALI Not Available Start: 09-22-2023 End: 09-22-2023 ambulatory MD Shaikh Samson Work Phone: [facility] Work Phone: Start: 09-22-2023 End: 09-22-2023 Patient encounter procedure MD Shaikh Samson Work Phone: [facility] Work Phone: Start: 09-21-2023 End: 09-21-2023 Patient encounter procedure MD Shaikh Samson Work Phone: [facility] [address] Work Phone: Start: 09-21-2023 End: 09-21-2023 ambulatory MD Shaikh Samson Work Phone: [facility] Work Phone: Start: 09-01-2023 End: 09-01-2023 ambulatory MD Shaikh Samson Work Phone: [facility] Work Phone: Start: 09-01-2023 End: 09-01-2023 Patient encounter procedure MD Shaikh Samson Work Phone: [facility] Work Phone: Start: 08-11-2023 End: 08-11-2023 Patient encounter procedure MD Shaikh Samson Work Phone: [facility] Work Phone: Start: 07-28-2023 End: 07-28-2023 ambulatory MD Shaikh Samson Work Phone: [facility] Work Phone: Start: 07-28-2023 End: 07-28-2023 Patient encounter procedure MD Shaikh Samson Work Phone: [facility] Work Phone: Start: 07-26-2023 Orders Only Shaikh Mali OJEDA Work Phone: [facility] Comment on above: Type 2 diabetes nena itus without complication, without long- term current use of insulin ([facility] (Primary Dx) Start: 06-30-2023 End: 06-30-2023 ambulatory Cassidy Salazar Other [employer] Other Start: 06-30-2023 Telephone encounter Cassidy Salazar [facility] Start: 01-10-2024 (Smoke Cess) Smoking Cessation [facility] Start: 06-23-2023 End: 06-23-2023 ambulatory MD Shaikh Samson Work Phone: [facility] [email or web address] Other Start: 06-23-2023 End: 06-23-2023 Discharged Recurring MD Shaikh Samson Work Phone: [facility] Work Phone: Start: 06-23-2023 Registered Recurring MD Shaikh Samson Work Phone: [facility] Work Phone: Start: 06-23-2023 End: 06-23-2023 Patient encounter procedure MD Shaikh Samson Work Phone: [facility] Work Phone: Start: 06-02-2023 End: 06-02-2023 ambulatory MD Shaikh Samson Work Phone: [facility] Work Phone: Start: 06-02-2023 End: 06-02-2023 Patient encounter procedure MD Shaikh Samson Work Phone: [facility] [place] Work Phone: Start: 05-26-2023 Patient encounter procedure Shaikh Mali OJEDA Work Phone: [facility] Start: 2023 End: 2023 ambulatory MD Shaikh Samson Work Phone: [facility] Work Phone: Start: 2023 End: 2023 Patient encounter procedure MD Shaikh Samson Work Phone: [facility] [place] Work Phone: Start: 08-20-2022 End: 08-20-2022 ambulatory Cornel Avila Other [employer] Other Start: 08-20-2022 Office outpatient vi sit 10 minutes Cornel Avila [facility] Neurosurgery Start: 06-05-2022 End: 06-06-2022 ambulatory SHAIKH Cayla MALI Facility:[facility] Start: 06-04-2022 End: 06-05-2022 ambulatory SHAIKH Cayla MALI Facility:[facility] Start: 05-19-2022 Office outpatient vi sit 15 minutes Cornel Avila [facility] Start: 05-19-2022 End: 05-19-2022 ambulatory MD Shaikh Samson Work Phone: [facility] Work Phone: Start: 05-19-2022 End: 05-19-2022 Patient encounter procedure MD Shaikh Samson Work Phone: [facility] Start: 02-17-2022 End: 02-17-2022 ambulatory Cornel Avila Other [facility] Other Start: 02-17-2022 Postop follow up vis it related to original px Cornel Avila [facility] Start: 02-17-2022 End: 02-17-2022 Patient encounter procedure MD Shaikh Samson Work Phone: [facility] Start: 01-08-2022 End: 01-09-2022 ambulatory SHAIKH Cayla MALI Facility:[facility] Start: 12-11-2021 End: 12-11-2021 Patient encounter procedure MD [facility] Start: 12-08-2021 End: 12-08-2021 ambulatory Cornel Avila Other [facility] Other Start: 12-08-2021 Telephone encounter Cornel Avila [facility] Start: 11-17-2021 Admission to same y surgery center Cornel Avila [facility] Start: 11-17-2021 End: 11-17-2021 ambulatory Cornel Avila Other [facility] Other Start: 11-04-2021 End: 11-04-2021 ambulatory Cornel Avila Other [facility] Other Start: 11-04-2021 Office outpatient vi sit 15 minutes Cornel Avila [facility] Neurosurgery Start: 09-30-2021 End: 09-30-2021 ambulatory Cornel Avila Other [facility] Other Start: 09-30-2021 Office outpatient ne w 60 minutes Cornel Avila [facility] Neurosurgery Start: 09-22-2021 End: 09-23-2021 ambulatory DE LEON H FAWWAD Facility:[facility] Start: 09-16-2021 End: 09-17-2021 ambulatory DE LEON H FAWWAD Facility:[facility] Start: 08-25-2021 End: 08-26-2021 ambulatory DE LEON H FAWWAD Facility:[facility] Start: 08-25-2021 End: 09-09-2021 ambulatory DE LEON H FAWWAD Facility:[facility] Start: 04-16-2021 End: 04-16-2021 ambulatory Sarah Oneil Other [facility] [facility] Other Start: 04-16-2021 Office outpatient vi sit 15 minutes Sarah Oneil [facility] Start: 07-05-2017 End: 07-07-2017 Ambulatory DEVAN GOODRICH [facility] Procedures Date Procedure Procedure Detail Performing Clinician Start: 05-18-2024 Esophagogastroduodenoscopy Robyn winkler APRN Work Phone: Start: 05-11-2024 X-ray of left foot Robyn Morales APRN Work Phone: Start: 04-26-2024 Radionuclide study of abdomen Robyn levy APRN Work Phone: Start: 04-19-2024 Ultrasound elastography of liver BED MANAGER Andrew morales Mikeyalexkimberlee Work Phone: Start: 03-15-2024 Complete blood count with white cell differential, automated Karo Hernandez BATTERY TECHNICIAN Work Phone: Start: 03-15-2024 Comprehensive metabolic panel Karo Freeman BATTERY TECHNICIAN Work Phone: Start: 03-04-2024 MRI of lumbar spine with contrast BED MANAGER Júnior song Andrew Work Phone: Start: 02-16-2024 US scan of gallbladder BED MANAGER Robyn Andrew Work Phone: Start: 10-13-2023 X-ray of lumbar spine, two or three views MD Shaikh Samson Work Phone: Start: 09-21-2023 CT of lungs MD Shaikh Samson Work Phone: Start: 06-02-2023 X-ray of cervical spine MD Shaikh Samson Work Phone: Start: 05-19-2022 X-ray of cervical spine MD Shaikh Samson Work Phone: Start: 02-17-2022 X-ray of cervical spine MD Shaikh Samson Work Phone: Start: 12-11-2021 X-ray of cervical spine MD Shaikh Samson Work Phone: Start: 01-12-2021 Colonoscopy Osman Alvarado DPM Work Phone: Start: 10-02-2013 Colonoscopy Shaikh Mali OJEDA Work Phone: Plan of Treatment Date Care Activity Detail Author Start: 01-12-2031 Screening for malign ant neoplasm of colon [facility] Start: 04-18-2027 Pneumococcal Vaccine : 65+ Years (3 - PPSV23 or PCV20) Pneumococcal Vaccine: 65+ Years (3 - PPSV23 or PCV20) [facility] Start: 04-18-2027 Pneumococcal Vaccine : 65+ Years (3 of 3 - PPSV23 or PCV20) Pneumococcal Vaccine: 65+ Years (3 of 3 - PPSV23 or PCV20) [facility] Start: 10-12-2024 Urine screening for protein Diabetes: Urine Protein Screening [facility] Start: 05-26-2024 Medicare Annual Well ness (AWV) Medicare Annual Wellness (AWV) [facility] Start: 05-18-2024 [facility] Start: 03-09-2024 End: 03-09-2024 Patient encounter procedure 03/09/2024 3:00 PM EDT Office Visit [facility] [address] [place] [id number] Osman Alvarado DPM [address] [id number] Paronychia, toe, left (Primary Dx); Onychocryptosis; Toe pain, left [facility] Comment on above: Paronychia, toe, lef t (Primary Dx); Onychocryptosis; Toe pain, left Start: 03-04-2024 MR Lumbar spine WO a nd W contrast IV [facility] Start: 03-04-2024 MRI of lumbar spine with contrast MR lumbar spine wo/w con [facility] Start: 02-24-2024 End: 02-24-2024 Patient encounter procedure 02/24/2024 3:00 PM EDT Office Visit [facility] [address] [facility] [address] [place] [id number] Osman Alvarado DPM [address] [address] Arrived [facility] Comment on above: Arrived Start: 02-13-2024 Influenza vaccination Influenza Vacc ine (#1) [facility] Start: 01-13-2024 Hemoglobin A1c measurement Diabetes: Hemoglobin A1C [facility] Start: 01-13-2024 Urine screening for protein Diabetes: Urine Protein Screening [facility] Start: 10-03-2023 Screening for malign ant neoplasm of colon [facility] Start: 09-29-2023 End: 09-29-2023 Patient encounter procedure 09/29/2023 1:00 PM EDT Office Visit [facility] [address] [place] [address] Shaikh Samson MD [address] [place] [address] [facility] Start: 09-01-2023 Hemoglobin A1c measurement Diabetes: Hemoglobin A1C [facility] Start: 01-22-1968 Glaucoma screening Diabetes: R etinopathy Screening [facility] Start: 1960 Screening for malign ant neoplasm of colon [facility] Comprehensive metabo lic 2000 panel - Serum or Plasma [facility] MR Abdomen [facility] MR Lumbar spine WO a nd W contrast IV [facility] Patient Education [facility] Work Phone: Patient referral [facility] Work Phone: Radionuclide study o f abdomen [facility] US Gallbladder [facility] Immunizations Immunization Date Immunization Notes Care Provider Fa cility 04-13-2023 COVID-19 (PFIZER) 12Y and older [facility] 03-31-2023 ABRYSVO - Respirator y syncytial virus (RSV), vaccine, bivalent, protein subunit RSV prefusion F, diluent reconstituted, 0.5 mL, PF Shaikh Mali OJEDA Work Phone: [facility] 03-17-2023 Influenza, High-dose Seasonal, Quadrivalent, Preservative Free Shaikh Mali OJEDA Work Phone: [facility] 03-17-2023 influenza virus vacc ine, unspecified formulation Osman SHORTM Work Phone: [facility] 11-05-2022 tetanus toxoid, redu batsheva diphtheria toxoid, and acellular pertussis vaccine, adsorbed Shaikh Mali OJEDA Work Phone: [facility] 04-25-2022 COVID-19 mRNA Bivale nt Booster (Pfizer) [facility] 04-18-2022 pneumococcal polysaccharide vaccine, 23 valkennedy Samson MD Work Phone: [facility] 04-12-2022 influenza, injectabl e, quadrivalent, preservative free Shaikh Mali OJEDA Work Phone: [facility] 11-04-2021 COVID-19 Comirnaty (Pfizer) Tri-Sucrose 12+ [facility] 11-04-2021 COVID-19 mRNA, Comir giuliana (Pfizer) MD Shaikh Samson Work Phone: [facility] 05-25-2021 COVID-19 mRNA, Comir giuliana (Pfizer) MD Shaikh Samson Work Phone: [facility] 04-19-2021 influenza, injectabl e, quadrivalent, preservative free Shaikh Mali OJEDA Work Phone: [facility] 01-13-2021 pneumococcal conjuga te vaccine, 13 valent Shaikh Mali OJEDA Work Phone: [facility] 01-13-2021 tetanus toxoid, redu batsheva diphtheria toxoid, and acellular pertussis vaccine, adsorbed Shaikh Mali OJEDA Work Phone: [facility] 09-18-2020 COVID-19 mRNA, Comir giuliana (Pfizer) MD Shaikh Samson Work Phone: [facility] 08-29-2020 COVID-19 mRNA, Comir giuliana (Pfizer) [facility] 08-28-2020 COVID-19 mRNA, Comir giuliana (Pfizer) MD Shaikh Samson Work Phone: [facility] 03-29-2017 influenza, injectabl e, quadrivalent, contains preservative Shaikh Mali OJEDA Work Phone: [facility] 03-06-2015 influenza, seasonal, injectable, preservative free Shaikh Mali OJEDA Work Phone: [facility] 04-13-2014 influenza, seasonal, injectable Shaikh Mali OJEDA Work Phone: [facility] 04-19-2013 influenza, seasonal, injectable Shaikh Mali OJEDA Work Phone: [facility] Payers Date Payer Category Payer Unknown [id number] 2024 Self-pay [id number] 2023 Medicare [id number] 2023 Medicare [id number] 2022 Worker's Compensation [facility] [address] [facility] [id number] 2022-Present [address]EDO [address] [address] [id number] 2022 Worker's Compensation [phone] 2022 Private Health Insurance [employer] [id number] 2022 Unknown [id number] [id number] .[id number] 2022 Unknown [id number] 2022 Unknown [id number] 1961 [facility] [id number] 1960 Unknown [id number] 2.16.840.1.876864.3.579 .2.593 1960 Unknown [id number] 2.16.840.1.260036.3.579 .2.593 1958 Unknown [id number] 2.16.840.1.280763.3.579 .2.593 1958 Unknown [id number] 2.16.840.1.989322.3.579 .2.593 1958 Unknown [id number] 2.16.840.1.729724.3.579 .2.593 1958 Unknown [id number] 2.16.840.1.952124.3.579 .2.593 1958 Unknown [id number] 2.16.840.1.179903.3.579 .2.593 1958 Unknown [id number] 2.16.840.1.100812.3.579 .2.1259 1958 Unknown [id number] 2.16.840.1.198506.3.579 .2.1259 1958 Unknown [id number] 2.16.840.1.188506.3.579 .2.1259 1958 Unknown [id number] 2.16.840.1.673790.3.579 .2.1259 1958 Unknown [id number] 2.16.840.1.725203.3.579 .2.1259 1958 Unknown [id number] 2.16.840.1.976396.3.579 .2.1259 1958 Unknown [id number] 2.16.840.1.408483.3.579 .2.1259 1958 Unknown [id number] 2.16.840.1.024897.3.579 .2.1259 Medicare [id number] 2.16.840.1.707782.19 Unknown [id number] 2.16.840.1.446200.3.579 .2.531 Unknown [id number] 2.16.840.1.558718.3.579 .2.531 Unknown [id number] 2.16.840.1.698083.3.579 .2.531 Social History Date Type Detail Facility Sex Assigned At [facility] Other Start: 05-26-2023 End: 09-29-2023 Sex Assigned At [facility] [employer] Other Start: 11-17-2021 End: 08-11-2023 Tobacco smoking status [facility] Smoker (finding) [facility] Start: 1960 Sex Assigned At Male [facility] Start: 05-26-2023 Tobacco smoking stat us [facility] Smokes tobacco daily [facility] History of tobacco use Cigarette Smoker [facility] Start: 05-26-2023 End: 09-29-2023 Cigarettes smoked current (pack per day) - Reported 1 [facility] Start: 05-26-2023 End: 02-24-2024 Tobacco use and exposure Smokeless tobacco non-user [facility] Start: 05-26-2023 End: 03-09-2024 Alcohol intake Lifetime non-drinker (finding) [facility] Within the last year , have you been afraid of your partner or ex-partner? No [facility] Are you now , , , , never or living with a partner? [facility] How often to you hav e a drink containing alcohol? Never [facility] How many standard drinks containing alcohol do you have on a typical day? Patient does not drink [facility] Do you feel stress - tense, restless, nervous, or anxious, or unable to sleep at night because your mind is troubled all the time - these days [OSQ] Not at all [facility] (I/We) worried wheth er (my/our) food would run out before (I/we) got money to buy more. Never true [facility] Start: 12-10-2022 Alcohol Comment caffeine intak e: 1-2 cups per day [facility] Start: 1960 Sex Assigned At Not on file [facility] Start: 12-15-2023 End: 05-18-2024 Tobacco smoking status NHIS Ex-smoker (finding) [facility] History of tobacco use Passive smoker [facility] Start: 04-27-2024 End: 06-29-2024 Sex Male (finding) [facility] Medical Equipment Procedure Code Equipment Code Equipment Origin al Text Equipment Identifier Dates [id number], [id number] Start: 07-12-2023 End: 11-09-2024 Spinal fixation plate, non-bioabsorbable ()[id number] FDA Start: 11-17-2021 Spinal fixation plate, non-bioabsorbable ()[id number] FDA Start: 11-17-2021 Intervertebral-b osbaldo internal spinal fixation system ()[id number] FDA Start: 11-17-2021 Intervertebral-b osbaldo internal spinal fixation system ()[id number] FDA Start: 11-17-2021 Blood Sugar Diagnostic (Onetouch Ultra Test) strip Start: 07-28-2023 Pen Needle, Diab etic (Unifine Pentips) 31 gauge x 1/4 needle Start: 07-28-2023 Blood Sugar Diagnostic (Onetouch Ultra Test) strip Start: 07-28-2023 Pen Needle, Diab etic (Unifine Pentips) 31 gauge x 1/4 needle Start: 07-28-2023 Blood Sugar Diagnostic (Onetouch Ultra Test) strip Start: 07-28-2023 Pen Needle, Diab etic (Unifine Pentips) 31 gauge x 1/4 needle Start: 07-28-2023 Blood Sugar Diagnostic (Onetouch Ultra Test) strip Start: 07-28-2023 Pen Needle, Diab etic (Unifine Pentips) 31 gauge x 1/4 needle Start: 07-28-2023 Blood Sugar Diagnostic (Onetouch Ultra Test) strip Start: 07-28-2023 Pen Needle, Diab etic (Unifine Pentips) 31 gauge x 1/4 needle Start: 07-28-2023 Blood Sugar Diagnostic (Onetouch Ultra Test) strip Start: 07-28-2023 Pen Needle, Diab etic (Unifine Pentips) 31 gauge x 1/4 needle Start: 07-28-2023 Blood Sugar Diagnostic (Onetouch Ultra Test) strip Start: 07-28-2023 Pen Needle, Diab etic (Unifine Pentips) 31 gauge x 1/4 needle Start: 07-28-2023 Blood Sugar Diagnostic (Onetouch Ultra Test) strip Start: 07-28-2023 Pen Needle, Diab etic (Unifine Pentips) 31 gauge x 1/4 needle Start: 07-28-2023 Blood Sugar Diagnostic (Onetouch Ultra Test) strip Start: 07-28-2023 Pen Needle, Diab etic (Unifine Pentips) 31 gauge x 1/4 needle Start: 07-28-2023 Blood Sugar Diagnostic (Onetouch Ultra Test) strip Start: 07-28-2023 Pen Needle, Diab etic (Unifine Pentips) 31 gauge x 1/4 needle Start: 07-28-2023 Blood Sugar Diagnostic (Onetouch Ultra Test) strip Start: 07-28-2023 Pen Needle, Diab etic (Unifine Pentips) 31 gauge x 1/4 needle Start: 07-28-2023 Blood Sugar Diagnostic (Onetouch Ultra Test) strip Start: 07-28-2023 Pen Needle, Diab etic (Unifine Pentips) 31 gauge x 1/4 needle Start: 07-28-2023 Blood Sugar Diagnostic (Onetouch Ultra Test) strip Start: 07-28-2023 Pen Needle, Diab etic (Unifine Pentips) 31 gauge x 1/4 needle Start: 07-28-2023 Blood Sugar Diagnostic (Onetouch Ultra Test) strip Start: 07-28-2023 Pen Needle, Diab etic (Unifine Pentips) 31 gauge x 1/4 needle Start: 07-28-2023 Blood Sugar Diagnostic (Onetouch Ultra Test) strip Start: 07-28-2023 Pen Needle, Diab etic (Unifine Pentips) 31 gauge x 1/4 needle Start: 07-28-2023 Blood Sugar Diagnostic (Onetouch Ultra Test) strip Start: 07-28-2023 Pen Needle, Diab etic (Unifine Pentips) 31 gauge x 1/4 needle Start: 07-28-2023 Blood Sugar Diagnostic (Onetouch Ultra Test) strip Start: 07-28-2023 Pen Needle, Diab etic (Unifine Pentips) 31 gauge x 1/4 needle Start: 07-28-2023 Blood Sugar Diagnostic (Onetouch Ultra Test) strip Start: 07-28-2023 Pen Needle, Diab etic (Unifine Pentips) 31 gauge x 1/4 needle Start: 07-28-2023 Blood Sugar Diagnostic (Onetouch Ultra Test) strip Start: 07-28-2023 Pen Needle, Diab etic (Unifine Pentips) 31 gauge x 1/4 needle Start: 07-28-2023 Blood Sugar Diagnostic (Onetouch Ultra Test) strip Start: 07-28-2023 Pen Needle, Diab etic (Unifine Pentips) 31 gauge x 1/4 needle Start: 05-30-2024 Pen Needle, Diab etic (Unifine Pentips) 31 gauge x 1/4 needle Start: 07-28-2023 End: 05-30-2024 Goals Date Patient Goal Desired Activity /State Clinical Notes 09-30-2021 to 05-30-2024 Lenny Mallory DO - 05/30/2024 2:40 PM EST Note Date & Type Note Facility 05-30-2024 History of Present illness Narrative HPI: Historian of HPI: patient Lew Obregon is a 64 y.o. male who presents today to the Urgent Care with the following complaints and denials due groin pain which has been present for 1 week(s). Uses an ED med that requires injection into penis. Believes the syringe moved during an injection 1 wk ago and is concerned about infection. C/O erythema and minimal tenderness. C/O Denies Symptom Comments [] [x] swelling [] [x] ecchymosis [] [x] erythema [] [x] tingling [] [x] numbness [] [x] Pain radiation [x] [] Pain [] [x] Decreased ROM [] [x] Trauma Additional Comments: pt has not taken any OTC medications Pt denies heat application to the affected area Pt denies cold application to the affected area ROS: A complete system ROS was performed and negative aside from the pertinent positives noted in the HPI and PE. Examination General Examination: General Examination: alert, oriented, normal affect, well appearing, in no acute distress, well developed, well nourished Head: normocephalic, atraumatic Eyes: sclera non-icteric Neck/Thyroid: no carotid bruit Lymph Nodes: no inguinal lymphadenopathy Skin: normal Heart: no murmurs, regular rate and rhythm, S1, S2 normal Lungs: clear to auscultation bilaterally, good air movement, no wheezes, rales, rhonchi Abdomen: soft, non-viviane, non-distended, no hepatosplenomegaly, no masses palpable Male Genitourinary: no penile discharge, Area of localized erythema and small pustule right shaft of penis at prior injection site. No drainage. no testicular mass Extremities: no edema, no cyanosis Neurologic: nonfocal Psych: alert, oriented, cognitive function intact, cooperative with exam HPI, ROS, and PE reviewed and amended by Dr. Lenny Mallory as necessary. Written by RAHUL Moctezuma 1. Cellulitis, penis (Primary) HX and Tx discussed with pt. Meds as directed. Must follow with PCP, to the ER for any worsening symptoms. - doxycycline (Vibramycin) 100 MG capsule; Take 1 capsule (100 mg) by mouth in the morning and 1 capsule (100 mg) before bedtime. Do all this for 7 days. Take with at least 8 ounces (large glass) of water, do not lie down for 30 minutes after. Dispense: 14 capsule; Refill: 0 documented in this encounter [facility] 04-26-2024 Nuclear medicine Diagnostic study note [place] [address] Nuclear Medicine Report Signed Patient: Lew Obregon MR#: [id number] : 1960 Acct:[id number] Age/Sex: 64 / M ADM Date: 4 Loc: [place] Room: Type: [facility] Attending Dr: Debi Beltre DO Copies to: DO Howard Small II, MD~ Ordering Provider: Debi Beltre DO Date of Service: 04/26/24 NM/NM hepatobiliary w pharm: R10.9 - Unspecified abdominal pain [place] hepatobiliary w pharm 04/26/2024 6:50 AM SIGN AND SYMPTOMS: Right upper quadrant pain with nausea PROTOCOL: Following IV administration of Tc-99m mebrofenin 1 hour of dynamic imaging of gallbladder and liver. Following IV administration of CCK, 30 minutesof dynamic imaging obtained. RADIOPHARMACEUTICAL: 6.2 mCi of intravenous technetium 99m mebrofenin COMPARISON: 02/16/2024 and 10/07/2020 FINDINGS: Normal hepatic transit time. Prompt excretion into the small bowel. Prompt excretion into the gallbladder. There is a similar gallbladder ejection fraction at 86.8%. NM/UT hepatobiliary w pharm IMPRESSION: No evidence of acute cholecystitis. Normal gallbladder ejection fraction at 86.8%. Impression dictated by: Howard Cordero M.D.04/26/2024 10:19 AM Dictation Location: [place] [address] Transcribed By: [facility] 04/26/24 1019 Dictated By: Howard Cordero II, MD 04/26/24 1017 Signed By: 04/26/24 1019 [facility] Work Phone: 04-12-2024 Evaluation note Diagnosis Onset Date Resolution Abdominal pain acute April 122023 8:43am Fatty liver acute April 12, 2024 8:43am Thrombocytopenia acute April 12, 2024 8:43am Cardiovascular risk factor acute May 31 024 1:05pm Cigarette nicotine dependence acute May 31 1:05pm Cellulitis of penis acute Decem 2023 1:22pm Hyperlipidemia acute May 152023 1:22pm Type 2 diabetes mellitus acute June 05, 2024 1:22pm Hyperlipidemia acute June 292024 1:45pm Hypertension acute June 1:45pm Type 2 diabetes mellitus acute June 29, 2024 1:45pm [facility] Work Phone: 1(140) 922-181809-26-2024 History of Present illness Narrative* Osman Alvarado, GLORIA - 03/09/2024 3:00 PM EDT Patient: Lew Obregon : 1960 PCP: Shaikh Mali MD SUBJECTIVE This is a 64 y.o. male that presents today 14 d s/p permanent nail avulsion to the left hallux Pt states that they have been following all post op instructions and have been taking antibiotic asprescribed. Pt denies n/f/v/c and has minimal pain at post op site with negative drainage. Pt presents today for post operative follow up. Patient is type 2 diabetic Allergies: No Known Allergies Past Medical History: Past Medical History: Diagnosis Date Diabetes mellitus (CMS/HCC) type II GERD (gastroesophageal reflux disease) Hyperlipidemia (CMS/HCC) Hypertension (CMS/[facility]) Medications: Current Outpatient Medications: aspirin 81 MG EC tablet, Take 81 mg by mouth in the morning., Disp: , Rfl: atorvastatin (Lipitor) 40 MG tablet, Take 40 mg by mouth in the morning., Disp: , Rfl: fexofenadine (Shayla) 180 MG tablet, Take 180 mg by mouth in the morning., Disp: , Rfl: glipiZIDE (Glucotrol) 10 MG tablet, Take 1 tablet (10 mg) by mouth in the morning and 1 tablet (10 mg) in the evening. Take before meals., Disp: 180 tablet, Rfl: 0 insulin glargine (Lantus SoloStar) 100 UNIT/ML pen, Inject 30 Units under the skin at bedtime, Disp: 27 mL, Rfl: 1 Insulin Pen Needle (pen needle 10/27 ) 30G x 8 mm mis, Use daily, Disp: 100 each, Rfl: 12 losartan-hydroCHLOROthiazide (Hyzaar) 50-12.5 MG tablet, Take 1 tablet by mouth in the morning., Disp: , Rfl: metFORMIN (Glucophage) 1000 MG tablet, Take 1 tablet (1,000 mg) by mouth every 12 (twelve) hours, Disp: 180 tablet, Rfl: 1 nicotine (Nicotine Step 1) 21 MG/24HR patch, Place 1 patch over 24 hours on the skin 1 (one) time each day at the same time, Disp: 30 patch, Rfl: 0 nicotine polacrilex (Commit) 4 MG lozenge, Dissolve 1 lozenge (4 mg) in the mouth every 2 (two) hours if needed for smoking cessation, Disp: 30 lozenge, Rfl: 1 omeprazole (PriLOSEC) [address] capsule, TAKE 1 CAPSULE BY MOUTH EVERY DAY, Disp: 90 capsule, Rfl: 1 Omeprazole 20 MG tablet delayed-release, Take 1 tablet by mouth in the morning., Disp: , Rfl: varenicline (Chantix) 1 MG tablet, Take 1 mg by mouth in the morning and 1 mg before bedtime., Disp: , Rfl: ROS: General: denies fever, chills, fatigue, malaise GI: denies loose or watery stool on antibiotic OBJECTIVE LE EXAM: DERM: Negative erythema, scant serous drainage from the left hallux. VASC: Palpable pedal pulses bilaterally NEURO: 5.07 [place] Kasia monofilament test intact to digits and forefoot bilaterally 125Hz tuning fork diminished to 1st MPJ bilaterally ORTHO: Minimal pain on palpation to the left hallux ASSESSMENT 14 d s/p Permanent nail avulsion to the left hallux 1. Paronychia, toe, left 2. Onychocryptosis 3. Toe pain, left PLAN Pt to d/c abx. Patient to continue with OTC oral anti - inflammatories as needed for pain. Pt to keep DSD on area of interest while in shoegear, otherwise may expose to air in a clean environment. Osman Alvarado DPM [id number] History of Present illness Narrative* Osman Alvarado DPM - 02/24/2024 3:00 PM EDT Patient: Lew Obregon : 1960 PCP: Shaikh Mali MD SUBJECTIVE This is a 64 y.o. male that presents today with a CC of ingrowing left hallux toenail Pt states problem has been present for the past few weeks. Pt has noticed negative drainage to the affected area and states pain is achey in nature. Treatments have consisted of soaking and trying to remove the ingrown nail on their own with no relief. 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 with no treatment at that time and states that he most likely would like to have toenail removed today Patient is type 2 diabetic with controlled sugars Allergies: No Known Allergies Past Medical History: Past Medical History: Diagnosis Date Diabetes mellitus ([facility]) type II GERD (gastroesophageal reflux disease) Hyperlipidemia ([facility]) Hypertension ([facility]) Medications: Current Outpatient Medications: aspirin 81 MG EC tablet, Take 81 mg by mouth in the morning., Disp: , Rfl: atorvastatin (Lipitor) 40 MG tablet, Take 40 mg by mouth in the morning., Disp: , Rfl: fexofenadine (Shayla) 180 MG tablet, Take 180 mg by mouth in the morning., Disp: , Rfl: glipiZIDE (Glucotrol) 10 MG tablet, Take 1 tablet (10 mg) by mouth in the morning and 1 tablet (10 mg) in the evening. Take before meals., Disp: 180 tablet, Rfl: 0 insulin glargine (Lantus SoloStar) 100 UNIT/ML pen, Inject 30 Units under the skin at bedtime, Disp: 27 mL, Rfl: 1 Insulin Pen Needle (pen needle 10/27 ) 30G x [address] [facility], Use daily, Disp: 100 each, Rfl: 12 losartan-hydroCHLOROthiazide (Hyzaar) 50-12.5 MG tablet, Take 1 tablet by mouth in the morning., Disp: , Rfl: metFORMIN (Glucophage) 1000 MG tablet, Take 1 tablet (1,000 mg) by mouth every 12 (twelve) hours, Disp: 180 tablet, Rfl: 1 nicotine (Nicotine Step 1) 21 MG/24HR patch, Place 1 patch over 24 hours on the skin 1 (one) time each day at the same time, Disp: 30 patch, Rfl: 0 nicotine polacrilex (Commit) 4 MG lozenge, Dissolve 1 lozenge (4 mg) in the mouth every 2 (two) hours if needed for smoking cessation, Disp: 30 lozenge, Rfl: 1 omeprazole (PriLOSEC) [address] capsule, TAKE 1 CAPSULE BY MOUTH EVERY DAY, Disp: 90 capsule, Rfl: 1 Omeprazole 20 MG tablet delayed-release, Take 1 tablet by mouth in the morning., Disp: , Rfl: varenicline (Chantix) 1 MG tablet, Take 1 mg by mouth in the morning and 1 mg before bedtime., Disp: , Rfl: Social History: Social History Socioeconomic History Marital status: Spouse name: Not on file Number of children: Not on file Years of education: Not on file Highest education level: Not on file Occupational History Not on file Tobacco Use Smoking status: Former Current packs/day: 1.00 Average packs/day: 1 pack/day for 45.0 years (45.0 ttl pk-yrs) Types: Cigarettes Passive exposure: Past Smokeless tobacco: Never Vaping Use Vaping status: Never Used Substance and Sexual Activity Alcohol use: Never Comment: caffeine intake: 1-2 cups per day Drug use: Never Sexual activity: Defer Other Topics Concern Not on file Social History Narrative Not on file Social Determinants of Health Financial Resource Strain: Low Risk (05/26/2023) Overall Financial Resource Strain (CARDIA) Difficulty of Paying Living Expenses: Not hard at all Food Insecurity: No Food Insecurity (05/26/2023) Hunger Vital Sign Worried About Running Out of Food in the Last Year: Never true Ran Out of Food in the Last Year: Never true Transportation Needs: No Transportation Needs (05/26/2023) PRAPARE - Transportation Lack of Transportation (Medical): No Lack of Transportation (Non-Medical): No Physical Activity: Sufficiently Active (05/26/2023) Exercise Vital Sign Days of Exercise per Week: 7 days Minutes of Exercise per Session: 40 min Stress: No Stress Concern Present (05/26/2023) [employer] [place] [employer] - Occupational Stress Questionnaire Feeling of Stress : Not at all Social Connections: Socially Isolated (05/26/2023) Social Connection and Isolation Panel [NHANES] Frequency of Communication with Friends and Family: Twice a week Frequency of Social Gatherings with Friends and Family: Three times a week Attends Yarsani Services: Never Active Member of Clubs or Organizations: No Attends Club or Organization Meetings: Never Marital Status: Intimate Partner Violence: Not At Risk (05/26/2023) Humiliation, Afraid, Rape, and Kick questionnaire Fear of Current or Ex-Partner: No Emotionally Abused: No Physically Abused: No Sexually Abused: No Housing Stability: Unknown (05/26/2023) Housing Stability Vital Sign Unable to Pay for Housing in the Last Year: No Number of Places Lived in the Last Year: Not on file Unstable Housing in the Last Year: No ROS: Gastrointestinal: denies abdominal pain, ulcers, or changes in appetite or bowel habits Musculoskeletal: Positive generalized arthritis to joints and denies loss of strength. Cardiovascular: denies CP, palpitations, irregular rhythms OBJECTIVE LE EXAM: DERM: Minimal erythema and negative drainage from the positive with hair growth noted to b/l feet. Elongated thick yellow crumbly nails to digits 1 through 10 with some leukoplakia to nails VASC: Palpable pedal pulsed b/l with warm to cool tibia to toes b/l NEURO: 5.07 [place] Kasia monofilament test intact to digits and forefoot bilaterally 125Hz tuning fork diminished to 1st MPJ bilaterally ORTHO: Ankle ROM less than 10 degrees b/l. Positive pain on palpation to left hallux nail ASSESSMENT 1. Onychomycosis 2. Onychocryptosis 3. Toe pain, left 4. Paronychia, toe, left PLAN Patient education today with discussing diagnosis and treatment options for patient including risksand benefits of lamisil medication including liver interactions, side effects, and possible non resolution of nail fungus. Discussed possible treatment options and patient would like to have total permanent nail avulsion today. Patient educated today on proper diabetic foot care including monitoring feet daily for any signs of infection openings in the skin or irregularities to both feet. Patient had a diabetic neurologicalexam today to both their feet and discussed proper shoe gear. Perfomed TPN avulsion to the left toenail. Informed pt of risks/ benefits of procedure including infection,reoccurance,pain, bleeding. Pt consents. 3cc of xylocaine 2% plain injected into the affected digit and tournicut applied to affected digit for 3 minutes. The affected toe was prepped/draped in a sterile manner and the offending nail border removed and 3phenol applications of 30 seconds a peice to nail matrix. Alcohol flush applied and tournicut released with prompt hyperemic response. Patient was given a prescription for an antibiotic Osman Alvarado DPM documented in this encounterKindred [id number] Evaluation note* Diagnosis Onset Date Resolution Status Admit Date Abdominal pain acute January 9:48am Chronic gastroesophageal ref lux disease acute February 08 9:48am Right upper quadrant abdomin al pain acute February 08 9:48am Type 2 diabetes mellitus acute February 09, 2024 9:48am Cardiovascular risk factor acute March 08, 2024 12:46pm Cigarette nicotine dependence acute March 08, 2024 12:46pm Thrombocytopenia acute March 15, 2024 8:39am Lumbar stenosis with neuroge tate claudication acute March 23 1:59pm Schmorl's nodes of lumbar region acu te March 23, 2024 1:59pm Abdominal pain acute April 122023 8:43am Fatty liver acute April 12, 2024 8:43am Thrombocytopenia acute April 12, 2024 8:43am [facility] Work Phone: 1(311) 651-586702-16-2024 Evaluation note* Author [facility] Authored July 30, 2023 1:39pm Continue Chantix plan for 3 months total started 06/23/2023. Second and third month refills sent to pharmacy today [facility] Work Phone: 1(542) 424-305102-16-2024 Evaluation note* Author [facility] Authored July 30, 2023 12:39pm Continue Chantix plan for 3 months total started 06/23/2023. Second and third month refills sent to pharmacy today [facility] Work Phone: 1(359) 558-915901-10-2024 Evaluation note* Encounter Date Diagnosis Assessment Notes Treatment Notes Treatment Clinical Notes Jun, Cigarette nicotine dependence (ICD-10 - F17.210) Jun, Cardiovascular risk factor (ICD-10 - Z91.89) Patient has multiple comorbidities putting him at high risk for cardiovascular disease including his smoking which is a modifiable risk factor. He also has elevated cholesterol currently on a statin to control. He is also diabetic with his most recent A1c at 9% which she recognizes is not good and is working on this with his PCP. We did discuss this as a significant risk factor for specifically stroke and heart attack Jun, Other Discussed the physical, mental, and social aspects of nicotine addiction. Discussed the health risks of smoking as well as the short-term and long-term benefits of cessation. Patient is aware that success is dependent upon motivation and effort put forth in making lifestyle changes in addition to counseling and NRT/pharmaceutical intervention. Encouraged to inform family and friends that they desire to stop smoking and ask for their support. Smoking cessation packet given to patient and appropriate pages reviewed today. Patient is currently in the Preparation (has set a date and is making preparations) phase. Plan 1. -Now ( ) patient to call due to multiple scam calls that clutter up his phone likely resulting in patient not being able to contact with the quit line calling him. Patient informed that this is a free service for counseling and they will also provide NRT in the form of patches at no cost to the patient every 2 weeks via [employer]. 2. Patient is to use smoking log to help identify when and where they smoke in addition to their mood to help identify patterns and bring with them for their follow-up visit. 3. Patient is to prepare for a quit day by delaying urge to smoke for 10 minutes/skipping 1 cigarette. Patient is also to prepare by having a plan in place for distractions exercise/game/smoke -free places/hobbies/frie nd. Patient is also to start gathering items to help deal with cravings including water bottle/healthy snacks/mint/gum/str aw/toothpicks.. 4. Discussed signs and symptoms of nicotine withdrawal including insomnia, irritability, headaches, cough, dry mouth, hunger, etc. 5. After discussion of smoking cessation aids patient desires to use Chantix in addition to patches. Informed of the mechanism of action and how to correctly use. Reinforced the need for counseling in addition to help improve outcome. Patient verbalizes understanding and agrees with plan of care. Follow-up in 2 weeks just after the quit date of July 15. Pt IS currently a candidate for low-dose CT scan for lung malignancy at this time. This note was completed with the assistance of voice recognition software for dictation purposes. Please excuse any grammatical errors that were not corrected during the review process. 45 minutes was spent with the patient today and greater than 50% of counseling and education was performed by myself JACINDA Tanner [facility] Other 03-09-2023 Evaluation note* Encounter Date Diagnosis Assessment Notes Treatment Notes Treatment Clinical Notes Aug, Cervical disc disorder at C5-C6 level with radiculopathy (ICD-10 - M50.122) I reviewed the x-ray report showing what appears to be a good fusion. The patient really has only occasional difficulties with swallowing; I think at some point this should be evaluated and could be easily done by his family physician. He is happy with his surgical outcome overall. I answered any questions I will see him on an as-needed basis Aug, Cervical disc disorder at C6-C7 level with radiculopathy (ICD-10 - M50.123) [facility] Other 12-06-2022 Evaluation note* Encounter Date Diagnosis Assessment Notes Treatment Notes Treatment Clinical Notes May, Cervical disc disorder at C5-C6 level with radiculopathy (ICD-10 - M50.122) I have independently reviewed the plain x-ray of the cervical spine and compared to previous. You can still see his grafts, it appears as though he is healing, but there is a chance of a nonunion. Plate is in good placement with no hardware abnormality. Clinically the patient is stable. His operation was done for cervical myelopathy not radiculopathy. We have discussed with the patient the need to use his bone stimulator which was provided. He has neglected to use this since going back to work as he did not think it was important. We have again emphasized the importance. I will see him back 1 more time with a flexion-extension view of the cervical spine in August.We talked to him about the importance of bone healing and that stimulator especially in the presence of smoking. May, Cervical disc disorder at C6-C7 level with radiculopathy (ICD-10 - M50.123) [facility] Other 09-06-2022 Evaluation note* Encounter Date Diagnosis Assessment Notes Treatment Notes Treatment Clinical Notes Feb, Cervical disc disorder at C5-C6 level with radiculopathy (ICD-10 - M50.122) I have independently looked at the plain x-ray of the cervical spine showing graft integration and a solid plate. I compared this to previous there has been slight subsidence but overall little changes. Clinically the patient has relief of his cervical radiculopathy. He still has neck pain. I recommended pain management. A referral will be sent. I will see him back in 3 months with another x-ray. He is back to full duty. Feb, Cervical disc disorder at C6-C7 level with radiculopathy (ICD-10 - M50.123) [facility] Other 05-24-2022 Evaluation note* Encounter Date Diagnosis Assessment Notes Treatment Notes Treatment Clinical Notes October, Cervical disc disorder at C5-C6 level with radiculopathy (ICD-10 - M50.122) MRI was again reviewed showing foraminal stenosis C5-6 and C6-7 with some cord compression. His symptoms have not changed. Patient had more questions regarding his surgery which is coming up soon, such as should he continue to work and general questions around surgery. I think all have been answered. He understands he will be in overnight and that he will not be instantly better after surgery but should probably feel slightly better than he does now. I believe we answered all of his questions and he is comfortable with proceeding. October, Cervical disc disorder at C6-C7 level with radiculopathy (ICD-10 - M50.123) [facility] Other 04-19-2022 Evaluation note* Encounter Date Diagnosis Assessment Notes Treatment Notes Treatment Clinical Notes Sep, Cervical disc disorder at C5-C6 level with radiculopathy (ICD-10 - M50.122) This is a gentleman with 6 to 12-month history of insidious onset of numbness and slight discomfort down the left arm with weakness of his left arm that been progressive. He cannot tolerate the symptoms would like them addressed. He has had multiple sessions of physical therapy was disengaged by therapy. I independently reviewed the MRI of the cervical spine and the plain x-ray of the cervical spine which shows a moderate degree of spondylitic changes. He has foraminal narrowing C5-6 and C6-7 on the left with significant canal narrowing and cord compression on the right at C5-6 and C6-7. With weakness pain and numbness in this distribution and obvious cord compression on MRI this gentleman is in need of an anterior cervical discectomy with structural allograft fusion C5-6 and C6-7 with an anterior plate. I have reviewed the imaging face to face with the patient and have given him a detailed discussion of treatment options and indication with operation postop course risk and benefit of surgery to include paralysis incompletely relief of symptoms weakness hoarseness swallowing difficulty and blood clot. Patient states he is aware and would like to proceed with surgical intervention. Sep, Cervical disc disorder at C6-C7 level with radiculopathy (ICD-10 - M50.123) [facility] [email or web address] Other chief complaint+Reason for visit Narrative* Chief Complaint [id number]/e11.[address] Samson Smoking Cessation Smoking Cessation follow up Reason for Visit Cardiovascular risk factor Cigarette nicotine dependence [facility] Work Phone: Chief complaint+Reason for visit Narrative* Chief Complaint Referral Dr. Samson Smoking Cessation Smoking Cessation follow up Reason for Visit Cardiovascular risk factor Cigarette nicotine dependence Cardiovascular risk factor Cigarette nicotine dependence Cardiovascular risk factor Cigarette nicotine dependence [facility] Work Phone: Evaluation noteNort [facility] Other Evaluation noteNo InformationNortSaint John [facility] [email or web address] Other evaluation noteNo assessment information available [facility] Work Phone: Evaluation note* Diagnosis Type 2 diabetes mellitus without complication, without long-term current use of insulin ([facility])- Primary documented [facility] this encounter [facility]* Diagnosis Onset Date Resolution Status Cardiovascular risk factor a cute Cigarette nicotine dependence acute [facility] Work Phone: Evaluation note* Diagnosis Onset Date Resolution Status Cardiovascular risk factor a cute Cigarette nicotine dependence acute Cardiovascular risk factor a cute Cigarette nicotine dependence acute Cardiovascular risk factor a cute Cigarette nicotine dependence acute Cardiovascular risk factor a cute Cigarette nicotine dependence acute Cardiovascular risk factor a cute Cigarette nicotine dependence acute [facility] Work Phone: Evaluation note* Diagnosis Onset Date Resolution Status Cardiovascular risk factor a cute Cigarette nicotine dependence acute Cardiovascular risk factor a cute Cigarette nicotine dependence acute Cardiovascular risk factor a cute Cigarette nicotine dependence acute Degenerative disc disease, lumbar acute Low back pain acute Paresthesia acute Right upper quadrant abdominal pain acute [facility] Work Phone: Evaluation note* Diagnosis Onset Date Resolution Status Cardiovascular risk factor a cute Cigarette nicotine dependence acute Cardiovascular risk factor a cute Cigarette nicotine dependence acute Cardiovascular risk factor a cute Cigarette nicotine dependence acute Chronic gastroesophageal reflux disease acute Degenerative disc disease, lumbar acute Diabetes type 2, uncontrolled acute Former smoker acute Hyperlipidemia acute Hypertension acute Low back pain acute Paresthesia acute Right upper quadrant abdominal pain acute [facility] Work Phone: Evaluation note* Diagnosis Onset Date Resolution Status Cardiovascular risk factor a cute Cigarette nicotine dependence acute Chronic gastroesophageal reflux disease acute Degenerative disc disease, lumbar acute Diabetes type 2, uncontrolled acute Former smoker acute Hyperlipidemia acute Hypertension acute Low back pain acute Paresthesia acute Right upper quadrant abdominal pain acute Type 2 diabetes mellitus acu te Abdominal pain acute Type 2 diabetes mellitus acu te [facility] Work Phone: Evaluation note* Diagnosis Onset Date Resolution Status Cardiovascular risk factor a cute Cigarette nicotine dependence acute Chronic gastroesophageal reflux disease acute Degenerative disc disease, lumbar acute Diabetes type 2, uncontrolled acute Former smoker acute Hyperlipidemia acute Hypertension acute Low back pain acute Paresthesia acute Right upper quadrant abdominal pain acute Type 2 diabetes mellitus acu te Abdominal pain acute Chronic gastroesophageal reflux disease acute Right upper quadrant abdominal pain acute Type 2 diabetes mellitus acu te [facility] Work Phone: Evaluation note* Diagnosis Onset Date Resolution Status Cardiovascular risk factor a cute Cigarette nicotine dependence acute Chronic gastroesophageal reflux disease acute Degenerative disc disease, lumbar acute Diabetes type 2, uncontrolled acute Former smoker acute Hyperlipidemia acute Hypertension acute Low back pain acute Paresthesia acute Right upper quadrant abdominal pain acute Type 2 diabetes mellitus acu te Abdominal pain acute Chronic gastroesophageal reflux disease acute Right upper quadrant abdominal pain acute Type 2 diabetes mellitus acu te Cardiovascular risk factor a cute Cigarette nicotine dependence acute [facility] Work Phone: Evaluation note* Diagnosis Onset Date Resolution Status Chronic gastroesophageal reflux disease acute Degenerative disc disease, lumbar acute Diabetes type 2, uncontrolled acute Former smoker acute Hyperlipidemia acute Hypertension acute Low back pain acute Paresthesia acute Right upper quadrant abdominal pain acute Type 2 diabetes mellitus acu te Abdominal pain acute Chronic gastroesophageal reflux disease acute Right upper quadrant abdominal pain acute Type 2 diabetes mellitus acu te Cardiovascular risk factor a cute Cigarette nicotine dependence acute Thrombocytopenia acute [facility] Work Phone: Evaluation note* Diagnosis Onset Date Resolution Status Type 2 diabetes mellitus acu te Abdominal pain acute Chronic gastroesophageal reflux disease acute Right upper quadrant abdominal pain acute Type 2 diabetes mellitus acu te Cardiovascular risk factor a cute Cigarette nicotine dependence acute Thrombocytopenia acute Lumbar stenosis with neurogenic claudication acute Schmorl's nodes of lumbar region acute [facility] Work Phone: Evaluation note* Diagnosis Onset Date Resolution Status Abdominal pain acute Chronic gastroesophageal reflux disease acute Right upper quadrant abdominal pain acute Type 2 diabetes mellitus acu te Cardiovascular risk factor a cute Cigarette nicotine dependence acute Thrombocytopenia acute Lumbar stenosis with neurogenic claudication acute Schmorl's nodes of lumbar region acute Abdominal pain acute Fatty liver acute Thrombocytopenia acute [facility] Work Phone: Evaluation note* Diagnosis Onychomycosis- Primary Dermatophytosis of nail Onychocryptosis Ingrowing nail Toe pain, left Pain in soft tissues of limb Paronychia, toe, left documented in this encounter [facility]* Diagnosis Paronychia, toe, left- Primary Onychocryptosis Ingrowing nail Toe pain, left Pain in soft tissues of limb documented in this encounter [facility]* Diagnosis Essential hypertension (CMS/HCC)- Primary Unspecified essential hypertension Type 2 diabetes mellitus without complication, without long-term current use of insulin (CMS/[facility]) Encounter for Medicare annual wellness exam Other hyperlipidemia (CMS/HCC) Cervical spondylosis without myelopathy Tobacco dependency Tobacco use disorder Essential hypertension (CMS/HCC)- Primary Unspecified essential hypertension Type 2 diabetes mellitus without complication, with long-term current use of insulin (CMS/HCC) Other hyperlipidemia (CMS/HCC) Type 2 diabetes mellitus without complication, without long-term current use of insulin ([facility]/HCC) Low back pain potentially associated with radiculopathy Cellulitis, penis- Primary Other inflammatory disorders of penis documented in this encounter [facility] general Narrative - ReportedNortSaint [facility] [email or web address] Other History general Narrative - Reported* Type Description Date Medical History DM II Medical History GERD Medical History hyperlipidemia [facility] [email or web address] Other History general Narrative - Reported* Type Description Date Medical History DM II Medical History GERD Medical History hyperlipidemia Surgical History [facility] Hospitalization History See Above [facility] Other History general Narrative - Reported* Type Description Date Medical History DM II Medical History GERD Medical History hyperlipidemia Medical History Hypertension Surgical History [facility] Surgical History [place] teeth extraction Surgical History Tonsillectomy Hospitalization History See Above [facility] Other Summary Purpose Family History No Family History Records Found Relationship Condition Age at Onset Recorded Date/T waldemar father Diabetes mellitus Unknown brother Diabetes mellitus Unknown Not Specified Diabetes mellitus Unknown Multiple sclerosis Unknown Relationship Condition Age at Onset Recorded Date/T waldemar brother Diabetes mellitus Unknown Not Specified Diabetes mellitus Unknown Multiple sclerosis Unknown brother Unknown Family history of other condition Unknown father History of stroke Unknown Hypertension Unknown Diabetes mellitus Unknown Unknown Relationship Condition Age at Onset Recorded Date/T waldemar brother Diabetes mellitus Unknown Hepatic cirrhosis Unknown Not Specified Diabetes mellitus Unknown Multiple sclerosis Unknown father History of stroke Unknown Hypertension Unknown Diabetes mellitus Unknown Unknown Relationship Condition Age at Onset Recorded Date/T waldemar brother Diabetes mellitus Unknown Hepatic cirrhosis Unknown mother Diabetes mellitus Unknown Multiple sclerosis Unknown father History of stroke Unknown Hypertension Unknown Diabetes mellitus Unknown Unknown Advance Directives No Advanced Directives Records Found Advance Directive Response Recorded Date/ Time Advance Directives No September 09 9:55am Advance Directive Response Recorded Date/ Time Advance Directives No September 09 8:55am Advance Directive Response Recorded Date/ Time Advance Directives No March 15, 2024 4:09pm Advance Directive Response Recorded Date/ Time Advance Directives No March 15, 2024 3:09pm Reason for Referral Reason Evaluate and Treat N jarrett Pain Diagnosis 1 Cervical disc disord er at C5-C6 level with radiculopathy (M50.122) Referral Organization [facility] Referring Provider First Name Cornel Referring Provider Last Name Margarita Referring Provider Specialty Neurologica l Surgery Referred Organization Unknown Facility Referred Provider Artur Maravilla Referred Provider Specialty Physical Med icine and Rehabilitation Referral Priority Routine Chief Complaint and Reason for Visit Chief Complaint M50.122 M50.123 Chief Complaint m50.123 Chief Complaint i10 e78.5 e11.9 Chief Complaint m47.812/e11.9 Chief Complaint Smoking Cessation fo llow up g02.97 Reason for Visit Cardiovascular risk factor Cigarette nicotine dependence Cardiovascular risk factor Cigarette nicotine dependence Cardiovascular risk factor Cigarette nicotine dependence Chief Complaint Smoking Cessation fo llow up g02.97 Smoking F/u Reason for Visit Cardiovascular risk factor Cigarette nicotine dependence Cardiovascular risk factor Cigarette nicotine dependence Cardiovascular risk factor Cigarette nicotine dependence Cardiovascular risk factor Cigarette nicotine dependence Chief Complaint Smoking Cessation fo llow up g02.97 Smoking F/u Reason for Visit Cardiovascular risk factor Cigarette nicotine dependence Cardiovascular risk factor Cigarette nicotine dependence Cardiovascular risk factor Cigarette nicotine dependence Cardiovascular risk factor Cigarette nicotine dependence Cardiovascular risk factor Cigarette nicotine dependence Chief Complaint g02.97 Smoking F/u M54.50;I10;E11.9;Z79.4;E78.49 Reason for Visit Cardiovascular risk factor Cigarette nicotine dependence Cardiovascular risk factor Cigarette nicotine dependence Cardiovascular risk factor Cigarette nicotine dependence Cardiovascular risk factor Cigarette nicotine dependence Cardiovascular risk factor Cigarette nicotine dependence Chief Complaint Establish care Reason for Visit Cardiovascular risk factor Cigarette nicotine dependence Cardiovascular risk factor Cigarette nicotine dependence Cardiovascular risk factor Cigarette nicotine dependence Degenerative disc disease, lumbar Low back pain Paresthesia Right upper quadrant abdominal pain Chief Complaint Establish care A1C Reason for Visit Cardiovascular risk factor Cigarette nicotine dependence Cardiovascular risk factor Cigarette nicotine dependence Cardiovascular risk factor Cigarette nicotine dependence Chronic gastroesophageal reflux disease Degenerative disc disease, lumbar Diabetes type 2, uncontrolled Former smoker Hyperlipidemia Hypertension Low back pain Paresthesia Right upper quadrant abdominal pain Chief Complaint Establish care A1C Discuss testing for pancreas Reason for Visit Cardiovascular risk factor Cigarette nicotine dependence Chronic gastroesophageal reflux disease Degenerative disc disease, lumbar Diabetes type 2, uncontrolled Former smoker Hyperlipidemia Hypertension Low back pain Paresthesia Right upper quadrant abdominal pain Type 2 diabetes mellitus Abdominal pain Type 2 diabetes mellitus Chief Complaint Establish care A1C Discuss testing for pancreas R10.11 R10.9 E11.96 Reason for Visit Cardiovascular risk factor Cigarette nicotine dependence Chronic gastroesophageal reflux disease Degenerative disc disease, lumbar Diabetes type 2, uncontrolled Former smoker Hyperlipidemia Hypertension Low back pain Paresthesia Right upper quadrant abdominal pain Type 2 diabetes mellitus Abdominal pain Chronic gastroesophageal reflux disease Right upper quadrant abdominal pain Type 2 diabetes mellitus Chief Complaint Establish care A1C Discuss testing for pancreas R10.11 R10.9 E11.96 M54.50 M51.36 R20.2 Reason for Visit Cardiovascular risk factor Cigarette nicotine dependence Chronic gastroesophageal reflux disease Degenerative disc disease, lumbar Diabetes type 2, uncontrolled Former smoker Hyperlipidemia Hypertension Low back pain Paresthesia Right upper quadrant abdominal pain Type 2 diabetes mellitus Abdominal pain Chronic gastroesophageal reflux disease Right upper quadrant abdominal pain Type 2 diabetes mellitus Chief Complaint Establish care A1C Discuss testing for pancreas R10.11 R10.9 E11.96 M54.50 M51.36 R20.2 2-3 month f/u Reason for Visit Cardiovascular risk factor Cigarette nicotine dependence Chronic gastroesophageal reflux disease Degenerative disc disease, lumbar Diabetes type 2, uncontrolled Former smoker Hyperlipidemia Hypertension Low back pain Paresthesia Right upper quadrant abdominal pain Type 2 diabetes mellitus Abdominal pain Chronic gastroesophageal reflux disease Right upper quadrant abdominal pain Type 2 diabetes mellitus Cardiovascular risk factor Cigarette nicotine dependence Chief Complaint Establish care A1C Discuss testing for pancreas R10.11 R10.9 E11.96 M54.50 M51.36 R20.2 2-3 month f/u NEW - Thrombocytosis Thrombocytosis Reason for Visit Chronic gastroesopha geal reflux disease Degenerative disc disease, lumbar Diabetes type 2, uncontrolled Former smoker Hyperlipidemia Hypertension Low back pain Paresthesia Right upper quadrant abdominal pain Type 2 diabetes mellitus Abdominal pain Chronic gastroesophageal reflux disease Right upper quadrant abdominal pain Type 2 diabetes mellitus Cardiovascular risk factor Cigarette nicotine dependence Thrombocytopenia Chief Complaint Establish care A1C Discuss testing for pancreas R10.11 R10.9 E11.96 M54.50 M51.36 R20.2 2-3 month f/u NEW - Thrombocytosis Thrombocytosis DISORDER OF BONE Reason for Visit Chronic gastroesopha geal reflux disease Degenerative disc disease, lumbar Diabetes type 2, uncontrolled Former smoker Hyperlipidemia Hypertension Low back pain Paresthesia Right upper quadrant abdominal pain Type 2 diabetes mellitus Abdominal pain Chronic gastroesophageal reflux disease Right upper quadrant abdominal pain Type 2 diabetes mellitus Cardiovascular risk factor Cigarette nicotine dependence Thrombocytopenia Chief Complaint A1C Discuss testing for pancreas R10.11 R10.9 E11.96 M54.50 M51.36 R20.2 2-3 month f/u NEW - Thrombocytosis Thrombocytosis DISORDER OF BONE abd. pain/nausea Reason for Visit Type 2 diabetes nena itus Abdominal pain Chronic gastroesophageal reflux disease Right upper quadrant abdominal pain Type 2 diabetes mellitus Cardiovascular risk factor Cigarette nicotine dependence Thrombocytopenia Lumbar stenosis with neurogenic claudication Schmorl's nodes of lumbar region Chief Complaint Discuss testing for pancreas R10.11 R10.9 E11.96 M54.50 M51.36 R20.2 2-3 month f/u NEW - Thrombocytosis Thrombocytosis DISORDER OF BONE abd. pain/nausea fatty liver Reason for Visit Abdominal pain Chronic gastroesophageal reflux disease Right upper quadrant abdominal pain Type 2 diabetes mellitus Cardiovascular risk factor Cigarette nicotine dependence Thrombocytopenia Lumbar stenosis with neurogenic claudication Schmorl's nodes of lumbar region Abdominal pain Fatty liver Thrombocytopenia Chief Complaint Admit Date Discuss testing for pancreas January 9:48am R10.11 R10.9 E11.96 February 16, 2024 7:07am M54.50 M51.36 R20.2 March 04, 2024 6:41am 2-3 month f/u March 08, 2024 12:46pm NEW - Thrombocytosis March 15, 2024 8 :39am Thrombocytosis March 15, 2024 8: 40am DISORDER OF BONE March 23, 2024 1 :59pm abd. pain/nausea April 12, 2024 8 :43am fatty liver April 19, 2024 1 2:25pm R10.9 R11.0 April 26, 2024 6:49am Reason for Visit Admit Date Abdominal pain February 09, 2024 9: 48am Chronic gastroesophageal reflux disease February 09, 2024 9:48am Right upper quadrant abdominal pain Augu 2023 9:48am Type 2 diabetes mellitus February 08 9:48am Cardiovascular risk factor February 12:46pm Cigarette nicotine dependence March 08, 2024 12:46pm Thrombocytopenia March 15, 2024 8: 39am Lumbar stenosis with neurogenic claudica tion March 23, 2024 1:59pm Schmorl's nodes of lumbar region March 23, 2024 1:59pm Abdominal pain April 12, 2024 8 :43am Fatty liver April 12, 2024 8 :43am Thrombocytopenia April 12, 2024 8 :43am Chief Complaint Admit Date abd. pain/nausea April 12, 2024 8 :43am fatty liver April 19, 2024 1 2:25pm R10.9 R11.0 April 26, 2024 6:49am L great toe injury, [facility] [place] Novemb er 2023 10:07am abd pain/nausea/diarrhea May 18 7:03am abd pain/nausea/diarrhea May 18 7:38am Amb Documentation May 24, 2024 3:05pm infection on genitals f/u June 05, 2024 1:22pm 4 month follow up June 29, 2024 1 :45pm Reason for Visit Admit Date Abdominal pain April 12, 2024 8 :43am Fatty liver April 12, 2024 8 :43am Thrombocytopenia April 12, 2024 8 :43am Cardiovascular risk factor May 1:05pm Cigarette nicotine dependence May 142023 1:05pm Cellulitis of penis June 05, 2024 1:22pm Hyperlipidemia June 05, 2024 1:22pm Type 2 diabetes mellitus June 05, 2024 1:22pm Hyperlipidemia June 29, 2024 1 :45pm Hypertension June 29, 2024 1 :45pm Type 2 diabetes mellitus June 29 1:45pm Additional Source Comments (unrecognized sect ion and content) No Status Records FoundNo Status Records FoundNo Status Records FoundNo Status Records Found INFORMATION SOURCE (unrecogn ized section and content) DATE CREATED AUTHOR 12/06/2017 [facility] DATE CREATED AUTHOR AUTHOR'S ORGANIZ ATION 06/11/2022 [facility] pital DATE CREATED AUTHOR AUTHOR'S ORGANIZ ATION 06/02/2024 [facility] EPIC DATE CREATED AUTHOR AUTHOR'S ORGANIZ ATION 07/03/2024 [facility] REASON FOR VISIT (unrecogniz ed section and content) Reason Comments Toenail Problem Nail fungus Reason Comments Follow-up 14d s/p tpn Care Teams (unrecognized sec tion and content) Team Status: Inactive Member Role Status Dates Shaikh Mali MD Primary Care Provider Active Cornel Avila MD Attending Provider Active Team Status: Active Member Role Status Dates Shaikh Mali MD Primary Care Provider Active Team Status: Inactive Member Role Status Dates Shaikh Mali MD Primary Care Provider, Attending Pr ovider Active Range Ecologist Relationship Specialty Start Date End Date Shaikh Samson MD [address] [place] [address] PCP - General Internal Medicine 07/12/23 Team Status: Inactive Member Role Status La Samson MD Primary Care Provide r, Attending Provider Active Start: June 02, 2023 End: June 02, 2023 Team Status: Inactive Member Role Status La Salazar APRN Attending Provider Active Start: June 23, 2023 End: June 23, 2023 Team Status: Active Member Role Status La Samson MD Primary Care Provider Active Start: June 23, 2023 Cassidy Salazar APRN Attending Provider Active Start: June 23, 2023 Team Status: Inactive Member Role Status La Samson MD Primary Care Provider Active Start: July 28, 2023 End: July 28, 2023 Cassidy Salazar APRN Attending Provider Active Start: July 28, 2023 End: July 28, 2023 Team Status: Inactive Member Role Status La Samson MD Primary Care Provider Active Start: June 23, 2023 End: June 23, 2023 Cassidy Salazar APRN Attending Provider Active Start: June 23, 2023 End: June 23, 2023 Team Status: Inactive Member Role Status La Samson MD Primary Care Provider Active Start: August 11, 2023 End: August 11, 2023 Cassidy Salazar APRN Attending Provider Active Start: August 11, 2023 End: August 11, 2023 Team Status: Inactive Member Role Status La Samson MD Primary Care Provider Active Start: September 01, 2023 End: September 01, 2023 Cassidy Salazar APRN Attending Provider Active Start: September 01, 2023 End: September 01, 2023 Team Status: Inactive Member Role Status La Samson MD Primary Care Provider Active Start: September 21, 2023 End: September 21, 2023 Cassidy Salazar APRN Attending Provider Active Start: September 21, 2023 End: September 21, 2023 Team Status: Inactive Member Role Status La Samson MD Primary Care Provider Active Start: September 22, 2023 End: September 22, 2023 Cassidy Salazar APRN Attending Provider Active Start: September 22, 2023 End: September 22, 2023 Team Status: Inactive Member Role Status Dates Shaikh Mali MD Primary Care Provider Active Start: October 11, 2023 End: October 11, 2023 Cassidy Salazar APRN Attending Provider Active Start: October 11, 2023 End: October 11, 2023 Team Status: Inactive Member Role Status Dates Shaikh Mali MD Primary Care Provide r, Attending Provider Active Start: October 13, 2023 End: October 13, 2023 Team Status: Inactive Member Role Status Dates Shaikh Mali MD Primary Care Provider Active Start: October 27, 2023 End: October 27, 2023 Cassidy Salazar APRN Attending Provider Active Start: October 27, 2023 End: October 27, 2023 Team Status: Inactive Member Role Status La Samson MD Primary Care Provider Active Start: November 10, 2023 End: November 10, 2023 Cassidy Salazar APRN Attending Provider Active Start: November 10, 2023 End: November 10, 2023 Team Status: Inactive Member Role Status La Samson MD Primary Care Provider Active Start: December 15, 2023 End: December 15, 2023 Cassidy Salazar APRN Attending Provider Active Start: December 15, 2023 End: December 15, 2023 Team Status: Active Member Role Status Dates Robyn Morales APRN BATTERY TECHNICIAN-C Primary Care Provider Active Team Status: Inactive Member Role Status Dates Robyn Morales APRN BATTERY TECHNICIAN-C Primary Care Provider, Attending Provider Active Start: January 12, 2024 End: January 12, 2024 Team Status: Inactive Member Role Status Dates Robyn Morales APRN BATTERY TECHNICIAN-C Primary Care Provider, Attending Provider Active Start: January 19, 2024 End: January 19, 2024 Team Status: Inactive Member Role Status Dates Robyn Morales APRN BATTERY TECHNICIAN-C Primary Care Provider, Attending Provider Active Start: February 09, 2024 End: February 09, 2024 Team Status: Inactive Member Role Status Dates Robyn Morales APRN BATTERY TECHNICIAN-C Primary Care Provider, Attending Provider Active Start: February 16, 2024 End: February 16, 2024 Team Status: Inactive Member Role Status Dates Robyn Morales APRN BATTERY TECHNICIAN-C Primary Care Provider, Attending Provider Active Start: March 04, 2024 End: March 04, 2024 Team Status: Inactive Member Role Status Dates Cassidy Salazar APRN Attending Provider Active Start: March 08, 2024 End: March 08, 2024 Robyn Morales APRN BATTERY TECHNICIAN-C Primary Care Provider Active Start: February 132023 End: March 08, 2024 Team Status: Inactive Member Role Status Dates Robyn Morales APRN BATTERY TECHNICIAN-C Primary Care Provider, Referring Provider Active Start: March 15, 2024 End: March 15, 2024 Karo Hernandez APRN Attending Provider Active Start: March 15, 2024 End: March 15, 2024 Team Status: Active Member Role Status Dates Robyn Morales APRN BATTERY TECHNICIAN-C Primary Care Provider, Referring Provider Active Start: March 15, 2024 Karo Hernandez APRN Attending Provider Active Start: March 15, 2024 Range Ecologist Relationship Specialty Start Date End Date Shaikh Samson MD [address] [place] [address] PCP - General Internal Medicine 07/12/23 Team Status: Inactive Member Role Status Dates Robyn Morales APRN BATTERY TECHNICIAN-C Primary Care Provider Active Start: March End: March 23, 2024 Cornel Avila MD Attending Provider Active Star t: March 23, 2024 End: March 23, 2024 Team Status: Inactive Member Role Status Dates Robyn Morales APRN BATTERY TECHNICIAN-C Primary Care Provider Active Start: March End: April 12, 2024 Debi Beltre DO Attending Provider Active St art: April 12, 2024 End: April 12, 2024 Team Status: Inactive Member Role Status Dates Robyn Morales APRN BATTERY TECHNICIAN-C Primary Care Provider Active Start: April End: April 19, 2024 Debi Beltre DO Attending Provider Active St art: April 19, 2024 End: April 19, 2024 Team Status: Inactive Member Role Status Dates Robyn Morales APRN BATTERY TECHNICIAN-C Primary Care Provider Active Start: April 262023 End: April 26, 2024 Debi Beltre DO Attending Provider Active St art: April 26, 2024 End: April 26, 2024 Range Ecologist Relationship Specialty Start Date End Date Shaikh Samson MD [address] [place] [id number] PCP - General Internal Medicine 07/12/23 Range Ecologist Relationship Specialty Start Date End Date Shaikh Samson MD [address] [place] [phone] PCP - General Internal Medicine 07/12/23 Range Ecologist Relationship Specialty Start Date End Date Shaikh Samson MD [address] [place] [phone] PCP - General Internal Medicine 07/12/23 Range Ecologist Relationship Specialty Start Date End Date Shaikh Samson MD [address] [place] [phone] PCP - General Internal Medicine 07/12/23 Team Status: Inactive Member Role Status Dates Robyn Morales APRN BATTERY TECHNICIAN-C Primary Care Provider Active Start: May 112023 End: May 11, 2024 Devan Bob APRN Emergency Provider Active Start: May 11, 2024 End: May 11, 2024 Team Status: Inactive Member Role Status Dates Robyn Morales APRN BATTERY TECHNICIAN-C Primary Care Provider Active Start: May End: May 18, 2024 Debi Beltre DO Attending Provider Active St art: May 18, 2024 End: May 18, 2024 Team Status: Active Member Role Status Dates Robyn Morales APRN BATTERY TECHNICIAN-C Primary Care Provider Active Start: May Debi Beltre DO Attending Provider, Other Provider Active Start: May 18, 2024 Team Status: Active Member Role Status Dates Robyn Morales APRN BATTERY TECHNICIAN-C Primary Care Provider Active Start: May 242023 RAHUL Lanier Attending Provider Active S tart: May 24, 2024 Team Status: Inactive Member Role Status Dates Robyn Morales APRN BATTERY TECHNICIAN-C Primary Care Provider Active Start: May 312023 End: May 31, 2024 Cassidy Salazar APRN Attending Provider Active Start: May 31, 2024 End: May 31, 2024 Team Status: Inactive Member Role Status Dates Robyn Morales APRN BATTERY TECHNICIAN-C Primary Care Provider, Attending Provider Active Start: June 05, 2024 End: June 05, 2024 Team Status: Inactive Member Role Status Dates Robyn Morales APRN BATTERY TECHNICIAN-C Primary Care Provider, Attending Provider Active Start: June 29, 2024 End: June 29, 2024 Goals (unrecognized section and content) Goals may be documented in a n alternate section FOR RECORDS PERTAINING TO PATIENTS WHO ARE OR HAVE BEEN ENROLLED IN A CHEMICAL DEPENDENCY/SUBSTANCEABUSE PROGRAM, SOME INFORMATION MAY BE OMITTED. This clinical summary was aggregated from multiple sources. Caution should be exercised in using it in the provision of clinical care. This summary normalizes information from multiple sources, and as a consequence, information in this document may materially change the coding, format and clinical context of patient data. In addition, data may be omitted in some cases. CLINICAL DECISIONS SHOULD BE BASED ON THE PRIMARY CLINICAL RECORDS. [employer] provides no warranty or guarantee of the accuracy or completeness of information in this document.
--- NOTE | 2024-07-07 17:53 | ED.GENADUL1 ---
HPI HPI - General Adult General Chief complaint: Fall Stated complaint: fall Time Seen by Provider: 07/07/24 17:44 Source: patient Mode of arrival: walk-in Limitations: no limitations History of Present Illness HPI narrative: Patient is a 64-year-old male who presents to the emergency department for elevated blood pressure that was noted after he became lightheaded and fell just prior to arrival. Patient states that he walks daily, he left a friend's home and was walking when he felt lightheaded and fell on his right side, he did hit his right restoration. He denies loss of consciousness, headache or visual changes. He states that his friend checked his blood pressure and it was noted to be elevated which is the patient's primary concern. He denies any areas of pain at this time. He has a history of neck surgery in the past so he has chronic minimal neck pain that is not worse or different since the fall. He has no peripheral paresthesias, chest pain or shortness of breath. No recent illness or flulike symptoms. He takes losartan for his blood pressure daily. He recently started Ozempic and wonders if this may be contributing to his symptoms. He had no syncope, loss of consciousness. Related Data Home Medications ?Medication ?Instructions ?Recorded ?Confirmed atorvastatin 40 mg tablet 40 mg PO DAILY 07/07/24 07/07/24 fexofenadine 180 mg tablet 180 mg PO DAILY 07/07/24 07/07/24 fluticasone propionate 50 1 spray intranasal Q12H 07/07/24 07/07/24 mcg/actuation nasal spray,suspension glipizide 10 mg tablet 20 mg PO DAILY 07/07/24 07/07/24 insulin glargine 100 unit/mL (3 30 unit subcut BEDTIME 07/07/24 07/07/24 mL) subcutaneous pen (Lantus Solostar U-100 Insulin) losartan 50 mg-hydrochlorothiazide 1 tab PO DAILY 07/07/24 07/07/24 12.5 mg tablet metformin 1,000 mg tablet 1,000 mg PO DAILY 07/07/24 07/07/24 omeprazole 40 mg capsule,delayed 40 mg PO DAILY 07/07/24 07/07/24 release semaglutide 0.25 mg or 0.5 mg (2 0.25 mg subcut QWEEK 07/07/24 07/07/24 mg/3 mL) subcutaneous pen injector (Ozempic) Allergies Allergy/AdvReac Type Severity Reaction Status Date / Time No Known Drug Allergies Allergy Verified 07/07/24 17:52 Opioid HPI Opioid Management Most Recent Opioid Data: No Data to Display Review of Systems ROS Constitutional Denies: fever or chills Ears, nose, mouth, and throat Denies: throat pain or nasal congestion Cardiovascular Reports: lightheadedness; Denies: chest pain Respiratory Denies: shortness of breath or cough Gastrointestinal Denies: nausea or vomiting Musculoskeletal Reports: neck pain; Denies: back pain, extremity pain, extremity swelling or joint pain Integumentary/Breast Denies: rash Neurological Denies: headache, numbness in extremities or weakness in extremities Hematologic/Lymphatic Denies: easy bruising or easy bleeding PFSH PFSH Social History Little interest or pleasure in doing things: not at all Feeling down, depressed, or hopeless: not at all Exam Narrative Exam Narrative: Gen.: Awake, alert, in no distress Head: Normocephalic, faint ecchymosis noted to the right restoration with no scalp hematoma or lacerations ENT: Moist mucous membranes, no dental injury or facial injury; C-spine nontender Respiratory: No respiratory distress, lungs clear bilaterally Cardio: Regular rate and rhythm Extremities: Moves extremities equally, no injuries noted Psych: Normal mood and affect Neuro: No focal neuro deficit Skin: Warm, dry, intact Constitutional Vital Signs, click to edit/add: Last Vital Signs Temp 97.6 F 07/07/24 17:46 Pulse 96 H 07/07/24 19:30 Resp 16 07/07/24 19:30 BP 135/68 07/07/24 19:30 Pulse Ox 96 07/07/24 17:46 O2 Del Method Room Air 07/07/24 17:46 Course Vital Signs Vital signs: Vital Signs Temperature 97.6 F 07/07/24 17:46 Pulse Rate 104 H 07/07/24 17:46 Respiratory Rate 20 07/07/24 17:46 Blood Pressure 180/100 H 07/07/24 17:46 Pulse Oximetry 96 07/07/24 17:46 Oxygen Delivery Method Room Air 07/07/24 17:46 Temperature 97.6 F 07/07/24 17:46 Pulse Rate 96 H 07/07/24 19:30 Respiratory Rate 16 07/07/24 19:30 Blood Pressure 135/68 07/07/24 19:30 Pulse Oximetry 96 07/07/24 17:46 Oxygen Delivery Method Room Air 07/07/24 17:46 Medical Decision Making MDM Narrative Medical decision making narrative: EKG, laboratory studies reviewed and noted within normal limits. CTs of the head, C-spine and chest x-ray are unremarkable. Blood pressure improved with IV labetalol. Patient was instructed to follow-up with his PCP for blood pressure recheck next week and return to the emergency department if symptoms change or worsen. SUPERVISED APC VISIT, PHYSICIAN ATTESTATION: Based on the medical record the care appears appropriate. ? Medical Records Medical records reviewed: Yes I reviewed the patient's medical records Lab Data Lab results reviewed: Yes I reviewed the patient's lab results Labs: Lab Results 07/07/24 Range/Units 17:57 WBC 6.9 (4.0-11.0) 10^3/uL RBC 5.06 (4.70-6.10) 10^6/uL Hgb 14.0 (14.0-18.0) g/dL Hct 41.2 L (42.0-54.0) % MCV 81.4 (80.0-94.0) fL MCH 27.7 (25.9-34.0) pg MCHC 34.0 (29.9-35.2) g/dL RDW 12.9 (11.0-15.0) % Plt Count 134 L (150-450) 10^3/uL MPV 11.4 (9.5-13.5) fL Neut % (Auto) 62.1 (43.0-75.0) % Lymph % (Auto) 26.9 (20.5-60.0) % [place] % (Auto) 8.1 (1.7-12.0) % Eos % (Auto) 1.9 (0.9-7.0) % Baso % (Auto) 0.7 (0.2-2.0) % Neut # (Auto) 4.3 (1.4-6.5) 10^3/uL Lymph # (Auto) 1.9 (1.2-3.8) 10^3/uL [place] # (Auto) 0.6 (0.3-0.8) 10^3/uL Eos # (Auto) 0.1 (0.0-0.7) 10^3/uL Baso # (Auto) 0.1 (0.0-0.1) 10^3/uL Abs Immat Gran (auto) 0.02 (0.00-0.03) 10^3/uL Imm/Tot Granulo (auto) 0.3 (0.0-0.5) % Sodium 139 (136-145) mmol/L Potassium 3.7 (3.5-5.1) mmol/L Chloride 102 (98-107) mmol/L Carbon Dioxide 29.1 (21.0-32.0) mmol/L Anion Gap 11.6 BUN 14.0 (7.0-18.0) mg/dL Creatinine 1.17 (0.70-1.30) mg/dL Est GFR ( Amer) >60 (>=60 mL/min/1.73m^2) Est GFR (Non-Af Amer) >60 (>=60 mL/min/1.73m^2) BUN/Creatinine Ratio 12.0 Glucose 184 H (74-106) mg/dL Calcium 9.2 (8.5-10.1) mg/dL Total Bilirubin 0.6 (0.2-1.0) mg/dL AST 19 (15-37) U/L ALT 39 (16-63) U/L Alkaline Phosphatase 62 (46-116) U/L Troponin I High Sens 19.0 (4.0-76.1) pg/mL Total Protein 7.0 (6.4-8.2) g/dL Albumin 4.0 (3.4-5.0) g/dL Globulin 3.0 g/dL Albumin/Globulin Ratio 1.3 TSH 3.854 H (0.358-3.740) uIU/mL Free T4 1.00 (0.76-1.46) ng/dL Free T3 2.91 (2.18-3.98) pg/mL Imaging Data CT scan - head: Attestation: I have reviewed the pertinent imaging results. Radiologist's impression: ITS Impressions Cervical Spine CT 07/07/24 18:08 IMPRESSION: No acute fracture or subluxation. Electronically authenticated by: DONNA BURCH Date: 07/07/2024 19:46 Chest X-Ray 07/07/24 18:08 IMPRESSION: No acute pulmonary disease. Electronically authenticated by: DONNA BURCH Date: 07/07/2024 19:[address] 07/07/24 18:08 IMPRESSION: No CT evidence of acute intracranial abnormality. Senescent changes, as described above. Electronically authenticated by: JAISON GAITAN Date: 07/07/2024 18:50 ECG Data Attestation: I personally reviewed and interpreted this ECG as follows: (Normal sinus rhythm at a rate of 95, no acute ST elevation or ectopy. EKG reviewed by attending physician) Discharge Plan Discharge Chief Complaint: Fall Clinical Impression: Hypertension, Closed head injury, Lightheadedness Patient Disposition: Home, Self-Care Time of Disposition Decision: 19:51 Condition: Good Prescriptions / Home Meds: No Action atorvastatin 40 mg tablet 40 mg PO DAILY fexofenadine 180 mg tablet 180 mg PO DAILY fluticasone propionate 50 mcg/actuation spray,suspension 1 spray INTRANASAL Q12H glipizide 10 mg tablet 20 mg PO DAILY insulin glargine [Lantus Solostar U-100 Insulin] 100 unit/mL (3 mL) insulin pen 30 unit SUBCUT BEDTIME losartan-hydrochlorothiazide 50-12.5 mg tablet 1 tab PO DAILY metformin 1,000 mg tablet 1,000 mg PO DAILY omeprazole 40 mg capsule,delayed release(DR/EC) 40 mg PO DAILY Ozempic 0.25 mg or 0.5 mg (2 mg/3 mL) pen injector 0.25 mg SUBCUT QWEEK Print Language: [place] Instructions: Head Injury (ED), Hypertension (ED), Lightheadedness (ED) Additional Instructions: Recheck your blood pressure next week with your doctor's office Referrals: Shaikh Samson MD [Physician] - 1 week Discharge Date/Time: 07/07/24 19:59
--- NOTE | 2024-07-07 17:56 | ECG_ITS ---
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
[2024-07-07 18:08] LABS: Basophils Absolute Auto 0.1 10^3/uL (0.0-0.1); Basophils Percent Auto 0.7 % (0.2-2.0); Eosinophils Absolute Auto 0.1 10^3/uL (0.0-0.7); Eosinophils Percent Auto 1.9 % (0.9-7.0); Hematocrit 41.2 % (42.0-54.0); Immature Granulocytes Abs Auto 0.02 10^3/uL (0.00-0.03); Immature Granulocytes Pct Auto 0.3 % (0.0-0.5); Lymphocytes Absolute Auto 1.9 10^3/uL (1.2-3.8); Lymphocytes Percent Auto 26.9 % (20.5-60.0); Mean Corpuscular Hemoglobin 27.7 pg (25.9-34.0); Mean Corpuscular Volume 81.4 fL (80.0-94.0); Mean Platelet Volume 11.4 fL (9.5-13.5); Monocytes Absolute Auto 0.6 10^3/uL (0.3-0.8); Monocytes Percent Auto 8.1 % (1.7-12.0); Neutrophils Absolute Auto 4.3 10^3/uL (1.4-6.5); Neutrophils Percent Auto 62.1 % (43.0-75.0); Platelet Count 134 10^3/uL (150-450); Red Blood Count 5.06 10^6/uL (4.70-6.10); Red Cell Distribution Width 12.9 % (11.0-15.0); White Blood Count 6.9 10^3/uL (4.0-11.0)
--- NOTE | 2024-07-07 18:08 | CT_ITS ---
The [address] [address] Patient Name: DONNA GARIBAY MRN: [id number] date: 1960 Sex: M Assigned Patient Location: ER Current Patient Location: Accession/Order Number: [id number] Exam Date: 07/07/2024 17:58 Report Date: 07/07/2024 18:50 At the request of: GILBERTO HULL Procedure: CT head/brain wo con EXAM: CT head/brain wo con HISTORY: fall, head injury COMPARISON: None. TECHNIQUE: Axial CT scans through the head were obtained without IV contrast administration. Dose reduction techniques were achieved by using: automated exposure control and/or adjustment of mA and /or kV according to patient size and/or use of iterative reconstruction technique. FINDINGS: There is no evidence of acute intracranial hemorrhage or abnormal extra-axial fluid collection. No mass effect or midline shift is seen. There is no evidence of large acute territorial infarction. There is no hydrocephalus. There is mild generalized cerebral atrophy and mild decreased attenuation of the supratentorial white matter, likely represents mild chronic microvascular ischemia. To the limit of CT, the posterior fossa appears unremarkable. No definite acute fracture is identified. Soft tissues are unremarkable. The visualized orbits show no abnormality. The visualized paranasal sinuses show no air-fluid level. Mastoid air cells are clear. CT/CT head/brain wo con IMPRESSION: No CT evidence of acute intracranial abnormality. Senescent changes, as described above. Electronically authenticated by: JAISON GAITAN Date: 07/07/2024 18:50
--- NOTE | 2024-07-07 18:08 | CT_ITS ---
[address] [address] Patient Name: DONNA GARIBAY MRN: [id number] date: 1960 Sex: M Assigned Patient Location: ER Current Patient Location: Accession/Order Number: [id number] Exam Date: 07/07/2024 17:58 Report Date: 07/07/2024 19:46 At the request of: GILBERTO HULL Procedure: CT cervical spine wo con EXAMINATION: CT cervical spine wo con TECHNIQUE: Axial CT images were obtained through the cervical spine. Sagittal and coronal reformatted images were also obtained. Dose reduction techniques were achieved by using automated exposure control and/or adjustment of mA and/or kV according to patient size and/or use of iterative reconstruction technique. HISTORY: fall. COMPARISON: MRI 09/16/2021 FINDINGS: Bones: No fracture. Anterior cervical fusion at C5-C7. Alignment: The alignment is anatomic. No acute subluxation. Arthritic changes: Severe arthritic change of the anterior C1 to articulation. Disc spaces: No gross disc herniation given limitation of CT scan. Soft tissues: No soft tissue mass or large hematoma. CT/CT cervical spine wo con IMPRESSION: No acute fracture or subluxation. Electronically authenticated by: DONNA BURCH Date: 07/07/2024 19:46
--- NOTE | 2024-07-07 18:08 | XR_ITS ---
The [address] [address] Patient Name: DONNA GARIBAY MRN: [id number] date: 1960 Sex: M Assigned Patient Location: ER Current Patient Location: ED.MAIN Accession/Order Number: [id number] Exam Date: 07/07/2024 17:58 Report Date: 07/07/2024 19:44 At the request of: GILBERTO HULL Procedure: XR chest 1V EXAM: XR chest 1V TECHNIQUE: Single AP view chest HISTORY: Hypertension COMPARISON: None. FINDINGS: The heart and mediastinum are unremarkable. The lung gayle are clear of any acute infiltrate, effusion or mass. No acute bony abnormality. XR/XR chest 1V IMPRESSION: No acute pulmonary disease. Electronically authenticated by: DONNA BURCH Date: 07/07/2024 19:44
[2024-07-07] MEDS: LABETALOL HCL 20 MG/4 ML SYRINGE 10 MG IVP (18:10)
[2024-07-07 18:32] LABS: Alanine Aminotransferase 39 U/L (16-63); Albumin Globulin Ratio 1.3; Alkaline Phosphatase 62 U/L (46-116); Anion Gap 11.6; Aspartate Amino Transferase 19 U/L (15-37); Bilirubin Total 0.6 mg/dL (0.2-1.0); Calcium 9.2 mg/dL (8.5-10.1); Carbon Dioxide 29.1 mmol/L (21.0-32.0); Chloride 102 mmol/L (98-107); Estimated GFR (African America >60 (>=60 mL/min/1.73m^2); Estimated GFR (Non-African Ame >60 (>=60 mL/min/1.73m^2); Glucose 184 mg/dL (74-106); Potassium 3.7 mmol/L (3.5-5.1); Sodium 139 mmol/L (136-145); Thyroid Stimulating Hormone 3.854 uIU/mL (0.358-3.740)
[2024-07-07 19:01] LABS: Free T3 2.91 pg/mL (2.18-3.98)
== END 2024-07-07 19:59 | disposition home or self-care (01) ==
PROVIDERS: Physician Assistant; Emergency Provider Emergency Medicine; PCP Nurse Practitioner Family
DX: S09.8XXA Other specified injuries of head, initial encounter (principal); I10 Essential (primary) hypertension; R42 Dizziness and giddiness; W18.39XA Other fall on same level, initial encounter
CPT/HCPCS: 36415; 70450; 71045; 72125; 80053; 81001; 84439; 84443; 84481; 84484; 85025; 85610; 93005; 96374; 99285; J1920

== ENCOUNTER 2024-07-08 20:54 | Emergency (ER) | payer MEDICARE, OTHER, SELFPAY ==
[2024-07-08] VITALS (9 sets, daily range): BP systolic 150–170; BP diastolic 70–94; PULSE 79–85; TEMP 36.8; O2SAT 93–97; BMI 30.3
--- OUTSIDE RECORDS SUMMARY | 2024-07-08 21:01 | XMS_ITS | CCD ---
Author Organization [facility] CliniSyde Care Team Providers Care Foil Operator Name Role Phone SHELTON FLORES (MANAGER EQUITY) Unavailable Unavailabl e DEVAN GOODRICH Unavailable Unavailable DEVAN GOODRICH Unavailable Unavailable DEVAN GOODRICH Unavailable Unavailable Sarah Oneil Unavailable Cornel Avila Unavailable MD Haley Samson Primary Care Provider MD Cornel Avila Attending Provider MD Haley Samson Primary Care Provider [phone] MD Cornel Avila Attending Provider [phone] FAWWAD, DE LEON H Admitting Unavailable FAWWAD, [...] Care Provider MD Haley Samson Attending Provider MD Haley Samson Primary Care [...] Primary Care Provider DANNY Morales Attending Provider [phone] DANNY Morales Referring Provider DANNY Hernandez Attending Provider DO Debi Beltre L Attending Provider Mikeyrbacher Robyn DELGADO Primary Care Provider Robyn Morales APRN Attending Provider Trinityacher Robyn DELGADO Referring Provider Karo Hernandez APRN Attending Provider Ly DO, Debi Cisneros Attending Provider SHAIKH SAMSON Attending Unavailable OSMAN ALVARADO Attending Unavailable OSMAN ALVARADO Attending Unavailable LENNY MALLORY Attending Unavailable Trinityacher DANNY, Robyn Primary Care Provider Devan Bob APRN Emergency Provider [phone] Robyn Morales Primary Care Unavailable Robyn Morales [...] complication, without long-term current use of insulin ([facility]) Inject 30 Units under the skin at [...] complication, without long-term current use of insulin ([facility]) Inject 25 Units under the skin at [...] complication, with long-term current use of insulin ([facility]) Take 1 tablet (1,000 mg) by mouth [...] 06/06/2024 Start: 01-31-2021 take 1 capsule by [facility] every twelve hours fexofenadine hydrochloride 180 mg [...] blood gluc ose measurement by glucometer (mass/volume) [facility] Comment on above: Random Glucose Refer ence Range is dependent on time and content of last meal. Glucose of more than 200 mg/dL in a nonstressed, ambulatory subject supports the diagnosis of Diabetes Mellitus. Glucose Poct Glucometerson 1 07-19-2023 Commemt1 Glu2: Cleaned Meter Normal [facility] Comment on above: Result Comment: PERF ORMED BY: [facility] [address] [place] [address] PATHOLOGIST PERCUSSION TUNER RITA DEGROOT M.D. Performed By: #### G CONNORLS #### Point of Care testing , Glucose [Mass/Vol] 198 mg/dL Normal [facility] Comment on above: Result Comment: [place] Glucose Reference Range is dependent on time and content of last meal. Glucose of more than 200 mg/dL in a nonstressed, ambulatory subject supports the diagnosis of Diabetes Mellitus. Performed By: #### G LULS #### Point of Care testing , Joe 05-18-2024 L --- Specimen: [id number] Received: 05/18/24 Status: JANNET Cummings Num: [id number] Spec Type: Surgical Subm Dr: Debi Beltre DO Tissues: A Small Intestine - Biopsy/Polyp (SMALL BOWEL R/O CELIAC) B GASTRIC FOR HP (GASTRIC R/O H PYLORI) C Colon Biopsy (VIVIENNE RT COLON BX R/O MICRO) D Colon Biopsy (RANDOM LT COLON BX R/O MICRO) Procedures: ALESSIO/Azalia, Gross/Micro L4/4, H PYLORI Age/ Patient Sex Location Account Attending Physician Lew Obregon/[facility] [id number] Debi Beltre DO SPEC NUM: [id number] RECD: 05/18/24 STATUS: JANNET CUMMINGS NUM: [id number] RICARDO: 05/18/[address]: Debi Beltre DO ENTERED: 05/18/24-1036 [facility] DR: SPEC TYPE: Surgical DEPT: S ENTERED BY: [id number] RECV BY: [id number] ORDERED: HE/8, Gross/Micro L4/4, H PYLORI ORDERED: [...] H. pylori, rule out microscopic colitis. Specimen: [id number] Received: 05/18/24 Status: JANNET Cummings Num: [id number] Spec Type: Surgical Subm Dr: Debi Beltre DO Tissues: A Small Intestine - Biopsy/Polyp (SMALL BOWEL R/O CELIAC) B GASTRIC FOR HP (GASTRIC R/O H PYLORI) C Colon Biopsy (VIVIENNE RT COLON BX R/O MICRO) D Colon Biopsy (RANDOM LT COLON BX R/O MICRO) Procedures: HE/8, Gross/Micro L4/4, H PYLORI Patient: Lew Obregon [id number] (Continued) Specimen: [id number] Received: 05/18/24 (Continued) Signed (signature on file) Jeramie Gonzalez MD 05/19/24 1534 Specimen: [id number] Received: 05/18/24 Status: JANNET Cummings Num: [id number] Spec Type: Surgical Subm Dr: Debi Beltre DO Tissues: A Small Intestine - Biopsy/Polyp (SMALL BOWEL R/O CELIAC) B GASTRIC FOR HP (GASTRIC R/O H PYLORI) C Colon Biopsy (VIVIENNE RT COLON BX R/O MICRO) D Colon Biopsy (RANDOM LT COLON BX R/O MICRO) Procedures: HE/Azalia, Gross/Micro L4/4, H PYLORI Patient: Lew Obregon [id number] (Continued) Specimen: [id number] Received: 05/18/24 (Continued) Gross Description Part A is received in formalin labeled with the patients name, date of , and small bowel BX are two kulkarni-summers, focally erythematous, friable, 0.3 cm in greatest dimension each tissue bits. The specimen is entirely submitted in a single cassette. (1, ns, [id number] A) JG Part B is received in formalin labeled with the patients name, date of , and gastric BX are two kulkarni-summers, focally erythematous, friable, 0.3 and 0.5 cm in greatest dimension tissue bits. The specimen is entirely submitted in a single cassette. (1, ns, [id number] B) JG Part C is received in formalin labeled with the patients name, date of , and random right colon BX are five kulkarni-summers, focally erythematous, friable, 0.2 to 0.3 cm in greatest dimension tissue bits. The specimen is entirely submitted in a single cassette. (1, ns, [id number] C) JG Part D is received in formalin labeled with the patients name, date of , and random left colon BX are three kulkarni-summers, focally erythematous, friable, 0.2, 0.3 and 0.3 cm in greatest dimension tissue bits. The specimen is entirely submitted in a single cassette. (1, ns, [id number] D) Microscopic Description A-D: Microscopic examination is performed. CPT Codes 99679 x4, 93251 (more content not included)... Normal [facility] No Panel InformationOrdered By: Debi Ly on 05-18-2024 Bedside Glucose Comment Glu2: cleaned meter [facility] XR foot LT min 3V*on 024 XR foot LT min 3V* [facility] [address] [address] XRay Report Signed Patient: Lew Obregon MR#: [id number] : 1960 Acct:[id number] Age/Sex: 64 / M ADM Date: 05/11/24 [...] Carmencita Hernandez M.D.05/11/2024 11:33 AM Dictation Location: [place] [address] Transcribed By: [facility] 05/11/24 1133 Dictated By: Carmencita Hernandez MD 05/11/24 1130 Signed By: 05/11/24 1133 Normal [facility] NM hepatobiliary w pharmon 1 06-26-2023 NM hepatobiliary w pharm [facility] [address] [address] Nuclear Medicine Report Signed Patient: Lew Obregon MR#: [id number] : 1960 Acct:[id number] Age/Sex: 64 / M ADM Date: 04/26/24 Loc: [place] [facility]: Debi Beltre DO Copies to: [...] Howard Cordero M.D.04/26/2024 10:19 AM Dictation Location: [place] [address] Transcribed By: DEACON 04/26/24 1019 Dictated By: Howard Cordero II, MD 04/26/24 1017 Signed By: 04/26/24 1019 Normal [facility] Alanine aminotransferase [En zymatic activity/volume] in Serum or PlasmaOrdered By: Karo Hernandez on 03-15-2024 ALT [Catalytic activity/Vol] 31 U/L Normal [facility] Comment on above: Performed By: #### C BC, CMP ####[facility] [place] [id number] [facility] ALT [Catalytic activity/Vol] Alanine aminotransferase [Enzymatic activity/volume] in Serum or Plasma [facility] Albumin [Mass/volume] in Ser um or Plasma by Bromocresol green (BCG) dye binding methoOrdered By: Karo Hernandez on 03-15-2024 Albumin BCG dye [Mass/Vol] 4.5 g/dL 3.5-5.7 [facility] Albumin BCG dye [Mass/Vol] Albumin [Mass/volume] in Serum or Plasma by Bromocresol green (BCG) dye binding metho 3.5-5.7 [facility] Alkaline phosphatase [Enzyma tic activity/volume] in Serum or PlasmaOrdered By: Karo Hernandez on 03-15-2024 ALP [Catalytic activity/Vol] 60 U/L Normal [facility] Comment on above: Performed By: #### C BC, CMP ####[address] ALP [Catalytic activity/Vol] Alkaline phosphatase [Enzymatic activity/volume] in Serum or Plasma [facility] Aspartate aminotransferase [ Enzymatic activity/volume] in Serum or PlasmaOrdered By: Karo Venturasergio on 03-15-2024 AST [Catalytic activity/Vol] 21 U/L Normal [facility] Comment on above: Performed By: #### C BC, CMP ####[address] AST [Catalytic activity/Vol] Aspartate aminotransferase [Enzymatic activity/volume] in Serum or Plasma [facility] Automated basophil %Ordered By: Karo Venturasergio on 03-15-2024 Basophils/100 WBC (Bld) 0.5 % Normal . [facility] Comment on above: Performed By: #### C BC, CMP #### [address] Automated basophil countOrde red By: Karo Venturasergio on 03-15-2024 Basophils (Bld) [#/Vol] 0.0 10*3/uL Normal 0.0-0.2 [facility] Comment on above: Result Comment: PERF ORMED BY: [place] [address] PATHOLOGIST PERCUSSION TUNER RONI MASON M.D. Performed By: #### C BC, CMP #### [address] Automated blood monocyte cou ntOrdered By: Karo Venturasergio on 03-15-2024 Monocytes (Bld) [#/Vol] 0.5 10*3/uL Normal 0.0-0.8 [facility] Comment on above: Performed By: #### C BC, CMP #### [address] Automated eosinophil %Ordere d By: Karo David on 03-15-2024 Eosinophils/100 WBC (Bld) 2.2 % Normal . [facility] Comment on above: Performed By: #### C BC, CMP #### [address] Automated eosinophil countOr dered By: Karo David on 03-15-2024 Eosinophils (Bld) [#/Vol] 0.1 10*3/uL Normal 0.0-0.45 [facility] Comment on above: Performed By: #### C BC, CMP #### [address] Automated monocyte %Ordered By: Karo David on 03-15-2024 Monocytes/100 WBC (Bld) 8.9 % Normal . [facility] Comment on above: Performed By: #### C BC, CMP #### [address] Automated neutrophil %Ordere d By: Karo David on 03-15-2024 Neutrophils/100 WBC (Bld) 65.0 % Normal . [facility] Comment on above: Performed By: #### C BC, CMP #### [address] Basophils Auto (Bld) [#/Vol] Ordered By: Krao Hernandez on 03-15-2024 Basophils (Bld) [#/Vol] Automated basoph il count 0.0-0.2 [facility] Basophils/100 WBC Auto (Bld) Ordered By: Karo Hernandez on 03-15-2024 Basophils/100 WBC (Bld) Automated basophil % . [facility] Bilirubin.total [Mass/volume ] in Serum or PlasmaOrdered By: Karo Hernandez on 03-15-2024 Bilirubin [Mass/Vol] 1.0 mg/dL Normal 0.3-1.0 [facility] Comment on above: Performed By: #### C BC, CMP ####[facility] [place] [address] [facility] Bilirubin [Mass/Vol] Bilirubin.total [Mass/volume] in Serum or Plasma 0.3-1.0 [facility] CBC W Auto Differential pane l (Bld)on 03-15-2024 Basophils (Bld) [#/Vol] 0.0 10*3/uL 0.0 - 0.2 10*3/uL [facility] Basophils/100 WBC Manual cnt (Syn fld) 0.5 % . [facility] Eosinophils (Bld) [#/Vol] 0.1 10*3/uL 0.0 - 0.45 10*3/uL [facility] Eosinophils/100 WBC Manual cnt (Syn fld) 2.2 % . [facility] Erythrocyte distribution width (RBC) [Ratio] 13.6 % 12.0 - 14.8 % [facility] Hematocrit (Bld) [Volume fraction] 41.8 % 38.8 - 50.0 % [facility] Hemoglobin (Bld) [Mass/Vol] 14.1 g/dL 13.0 - 17.0 g/dL [facility] Interpretation and review of laboratory results Abnormal [facility] Lymphocytes (Bld) [#/Vol] 1.4 10*3/uL 1.00 - 4.8 10*3/uL [facility] Lymphocytes/100 WBC Manual cnt (Syn fld) 23.4 % . [facility] MCH (RBC) [Entitic mass] 28.0 pg 27.5 - 35.2 pg [facility] MCHC (RBC) [Mass/Vol] 33.7 g/dL 32.5 - 35.6 g/dL [facility] MCV (RBC) [Entitic vol] 83.1 fL Low 83.5 - 101 fL [facility] Monocytes (Bld) [#/Vol] 0.5 10*3/uL 0.0 - 0.8 10*3/uL [facility] Monocytes+Macrophages/1 00 WBC Manual cnt (Syn fld) 8.9 % . [facility] Neutrophils (Bld) [#/Vol] 3.9 10*3/uL 1.8 - 7.7 10*3/uL [facility] Neutrophils/100 WBC Manual cnt (Syn fld) 65.0 % . [facility] NRBC 0.1 /100{WBC} 0 - 0.5 /100{WBC} [facility] Platelet mean volume (Bld) [Entitic vol] 9.2 fL 6.6 - 10.1 fL [facility] Platelets (Bld) [#/Vol] 131 10*3/uL Low 150 - 450 10*3/uL [facility] RBC LM.HPF (Urine sed) [#/Area] 5.04 /[HPF] 3.90 - 5.60 [facility] WBC (Bld) [#/Vol] 6.0 10*3/uL 4.1 - 10.5 10*3/uL [facility] WBC LM.HPF (Urine sed) [#/Area] 6.0 10*3/uL 4.1 - 10.5 10*3/uL [facility] Calcium [Mass/volume] in Ser um or PlasmaOrdered By: Karo Hernandez on 03-15-2024 Calcium [Mass/Vol] 9.7 mg/dL Normal 8.6-10.3 [facility] Comment on above: Performed By: #### C BC, CMP ####[place] [address] [place] [id number] [facility] Calcium [Mass/Vol] Calcium [Mass/volume ] in Serum or Plasma 8.6-10.3 [facility] Carbon dioxide, total [Moles /volume] in Serum or PlasmaOrdered By: Karo Hernandez on 03-15-2024 CO2 [Moles/Vol] 31.4 mmol/L High 21.0-31.0 [facility] Comment on above: Performed By: #### C BC, CMP ####[place] [address] [place] [id number] [facility] CO2 [Moles/Vol] Carbon dioxide, tota l [Moles/volume] in Serum or Plasma High 21.0-31.0 [facility] Chloride [Moles/volume] in S jacob or PlasmaOrdered By: Karo Hernandez on 03-15-2024 Chloride [Moles/Vol] 100 mmol/L Normal 98-107 [facility] Comment on above: Performed By: #### C BC, CMP ####[facility] [address] Chloride [Moles/Vol] Chloride [Moles/vol ume] in Serum or Plasma 98-107 [facility] Complete Blood Count Auto Di ffon 03-15-2024 Mean Corpuscular HGB Conc 33.7 g/dL Normal 32.5-35.6 [facility] Comment on above: Performed By: #### C BC, CMP #### [facility] [address] NRBC% 0.1 /100{WBC} Normal 0-0.5 [facility] Comment on above: Performed By: #### C BC, CMP #### [facility] [address] Comprehensive Metabolic Pane joe 03-15-2024 Albumin [Mass/Vol] 4.5 g/dL Normal 3.5-5.7 [facility] Comment on above: Performed By: #### C BC, CMP ####[address] Creatinine Clr Calc Pharmacy 82.71 Normal [facility] Comment on above: Result Comment: PERF ORMED BY: [place] [address] PATHOLOGIST PERCUSSION TUNER RONI MASON M.D. Performed By: #### C BC, CMP ####[address] GFR/1.73 sq M.predicted MDRD (S/P/Bld) [Vol rate/Area] mL/min/{1.73_m2} Normal [facility] Comment on above: Performed By: #### C BC, CMP ####[address] Comprehensive metabolic pane joe 03-15-2024 Albumin [Mass/Vol] 4.5 g/dL 3.5 - 5.7 g/dL [facility] Albumin/Globulin [Mass ratio] 2.3 {ratio} [facility] ALP [Catalytic activity/Vol] 60 U/L 34 - 104 U/L [facility] ALT [Catalytic activity/Vol] 31 U/L 7 - 52 U/L [facility] Anion gap [Moles/Vol] 11.4 mmol/L 6.0 - 15.0 [facility] AST [Catalytic activity/Vol] 21 U/L 13 - 39 U/L [facility] Bilirubin [Mass/Vol] 1.0 mg/dL 0.3 - 1 .0 mg/dL [facility] Calcium [Mass/Vol] 9.7 mg/dL 8.6 - 10. 3 mg/dL [facility] Chloride [Moles/Vol] 100 mmol/L 98 - 10 7 mmol/L [facility] CO2 [Moles/Vol] 31.4 mmol/L High 21.0 - 31.0 mmol/L [facility] Creatinine (U) [Mass/Vol] 0.96 mg/dL 0.70 - 1.30 mg/dL [facility] CREATININE CLR CALC PHARMACY 82.71 [facility] GFR/1.73 sq M.predicted MDRD (S/P/Bld) [Vol rate/Area] mL/min/{1.73_m2} [facility] Globulin (S) [Mass/Vol] 2.0 g/dL [facility] Glucose [Mass/Vol] 149 mg/dL High 70 - 100 mg/dL [facility] Comment on above: Random Glucose Refer ence Range is dependent on time and content of last meal. Glucose of more than 200 mg/dL in a nonstressed, ambulatory subject supports the diagnosis of Diabetes Mellitus. ADA recommended reference range Interpretation and review of laboratory results Abnormal [facility] Potassium [Moles/Vol] 4.8 mmol/L 3.5 - 5.1 mmol/L [facility] Protein [Mass/Vol] 6.5 g/dL 6.4 - 8.9 g/dL [facility] Sodium [Moles/Vol] 138 mmol/L 136 - 145 mmol/L [facility] Urea nitrogen [Mass/Vol] 15 mg/dL 7 - 25 mg/dL [facility] Creatinine [Mass/volume] in Serum or PlasmaOrdered By: Karo Hernandez on 03-15-2024 Creatinine [Mass/Vol] 0.96 mg/dL Normal 0.70-1.30 [facility] Comment on above: Performed By: #### C BC, CMP ####[facility] [address] Creatinine [Mass/Vol] Creatinine [Mass/volume] in Serum or Plasma 0.70-1.30 [facility] Eosinophils Auto (Bld) [#/Vo l]Ordered By: Karo Hernandez on 03-15-2024 Eosinophils (Bld) [#/Vol] Automated eosinophil count 0.0-0.45 [facility] Eosinophils/100 WBC Auto (Bl d)Ordered By: Karo Hernandez on 03-15-2024 Eosinophils/100 WBC (Bld) Automated eosinophil % . [facility] Erythrocyte distribution wid th Auto (RBC) [Ratio]Ordered By: Karo Hernandez on 03-15-2024 Erythrocyte distribution width (RBC) [Ratio] Erythrocyte distribution width [Ratio] by Automated count 12.0-14.8 [facility] Erythrocyte distribution wid th [Ratio] by Automated countOrdered By: Karo Hernandez on 03-15-2024 Erythrocyte distribution width (RBC) [Ratio] 13.6 % Normal 12.0-14.8 [facility] Comment on above: Performed By: #### C BC, CMP #### [facility] [address] Erythrocytes [#/volume] in B lood by Automated countOrdered By: Karo Hernandez on 03-15-2024 RBC (Bld) [#/Vol] 5.04 10*6/uL Normal 3.90-5.60 [facility] Comment on above: Performed By: #### C BC, CMP #### [facility] [address] Globulin Calc (S) [Mass/Vol] Ordered By: Karo Hernandez on 03-15-2024 Globulin (S) [Mass/Vol] Serum globulin measurement by calculation (mass/volume) [facility] Glucose [Mass/volume] in Ser um or PlasmaOrdered By: Karo Hernandez on 03-15-2024 Glucose [Mass/Vol] 149 mg/dL High 70-100 [facility] Comment on above: ADA recommended refe rence rangeRandom Glucose Reference Range is dependent on time and content of last meal. Glucose of more than 200 mg/dL in a nonstressed, ambulatory subject supports the diagnosis of Diabetes Mellitus. Result Comment: [place] om Glucose Reference Range is dependent on time and content of last meal. Glucose of more than 200 mg/dL in a nonstressed, ambulatory subject supports the diagnosis of Diabetes Mellitus. ADA recommended reference range Performed By: #### C BC, CMP ####[facility] [address] Glucose [Mass/Vol] Glucose [Mass/volume ] in Serum or Plasma High 70-100 [facility] Comment on above: ADA recommended refe rence rangeRandom Glucose Reference Range is dependent on time and content of last meal. Glucose of more than 200 mg/dL in a nonstressed, ambulatory subject supports the diagnosis of Diabetes Mellitus. Hematocrit Auto (Bld) [Volum e fraction]Ordered By: Karo Hernandez on 03-15-2024 Hematocrit (Bld) [Volume fraction] Hematocrit [Volume Fraction] of Blood by Automated count 38.8-50.0 [facility] Hematocrit [Volume Fraction] of Blood by Automated countOrdered By: Karo Hernandez on 03-15-2024 Hematocrit (Bld) [Volume fraction] 41.8 % Normal 38.8-50.0 [facility] Comment on above: Performed By: #### C ABI, CMP #### [facility] [address] Hemoglobin [Mass/volume] in BloodOrdered By: Karo Hernandez on 03-15-2024 Hemoglobin (Bld) [Mass/Vol] 14.1 g/dL Normal 13.0-17.0 [facility] Comment on above: Performed By: #### C BC, CMP #### [facility] [address] Hemoglobin (Bld) [Mass/Vol] Hemoglobin [Mass/volume] in Blood 13.0-17.0 [facility] Leukocytes [#/volume] correc oralia for nucleated erythrocytes in Blood by Automated counOrdered By: Karo Hernandez on 03-15-2024 WBC corrected for nucl RBC Auto (Bld) [#/Vol] 6.0 10*3/uL 4.1-10.5 [facility] WBC corrected for nucl RBC Auto (Bld) [#/Vol] Leukocytes [#/volume] corrected for nucleated erythrocytes in Blood by Automated coun 4.1-10.5 [facility] Leukocytes [#/volume] in Blo od by Automated countOrdered By: Karo Hernandez on 03-15-2024 WBC (Bld) [#/Vol] 6.0 10*3/uL Normal 4.1-10.5 [facility] Comment on above: Performed By: #### C BC, CMP #### [facility] [address] Lymphocytes Auto (Bld) [#/Vo l]Ordered By: Karo Hernandez on 03-15-2024 Lymphocytes (Bld) [#/Vol] Lymphocytes [#/volume] in Blood by Automated count 1.00-4.8 [facility] Lymphocytes [#/volume] in Bl ood by Automated countOrdered By: Karo Hernandez on 03-15-2024 Lymphocytes (Bld) [#/Vol] 1.4 10*3/uL Normal 1.00-4.8 [facility] Comment on above: Performed By: #### C BC, CMP #### [address] Lymphocytes/100 WBC Auto (Bl d)Ordered By: Karo Hernandez on 03-15-2024 Lymphocytes/100 WBC (Bld) Lymphocytes/100 leukocytes in Blood by Automated count . [facility] Lymphocytes/100 leukocytes i n Blood by Automated countOrdered By: Karo Hernandez on 03-15-2024 Lymphocytes/100 WBC (Bld) 23.4 % Normal . [facility] Comment on above: Performed By: #### C BC, CMP #### [facility] [address] [place] [address] MCH Auto (RBC) [Entitic mass ]Ordered By: Karo eHrnandez on 03-15-2024 MCH (RBC) [Entitic mass] MCH [Entitic mass] by Automated count 27.5-35.2 [facility] MCH [Entitic mass] by Automa oralia countOrdered By: Karo Hernandez on 03-15-2024 MCH (RBC) [Entitic mass] 28.0 pg Normal 27.5-35.2 [facility] Comment on above: Performed By: #### C ABI, CMP #### [facility] [address] MCHC Auto (RBC) [Mass/Vol]Or dered By: Karo Hernandez on 03-15-2024 MCHC (RBC) [Mass/Vol] 33.7 g/dL 32.5-35.6 [facility] MCHC (RBC) [Mass/Vol] MCHC [Mass/volume] by Automated count 32.5-35.6 [facility] MCV Auto (RBC) [Entitic vol] Ordered By: Karo Hernandez on 03-15-2024 MCV (RBC) [Entitic vol] MCV [Entitic vol ume] by Automated count Low 83.5-101 [facility] MCV [Entitic volume] by Auto mated countOrdered By: Karo Hernandez on 03-15-2024 MCV (RBC) [Entitic vol] 83.1 fL Low 83.5-101 [facility] Comment on above: Performed By: #### C ABI, CMP #### [facility] [address] [place] [address] Monocytes Auto (Bld) [#/Vol] Ordered By: Karo Hernandez on 03-15-2024 Monocytes (Bld) [#/Vol] Automated blood monocyte count 0.0-0.8 [facility] Monocytes/100 WBC Auto (Bld) Ordered By: Karo Hernandez on 03-15-2024 Monocytes/100 WBC (Bld) Automated monocyte % . [facility] Neutrophils Auto (Bld) [#/Vo l]Ordered By: Karo Hernandez on 03-15-2024 Neutrophils (Bld) [#/Vol] Neutrophils [#/volume] in Blood by Automated count 1.8-7.7 [facility] Neutrophils [#/volume] in Bl ood by Automated countOrdered By: Karo Hernandez on 03-15-2024 Neutrophils (Bld) [#/Vol] 3.9 10*3/uL Normal 1.8-7.7 [facility] Comment on above: Performed By: #### C BC, CMP #### [facility] [address] Neutrophils/100 WBC Auto (Bl d)Ordered By: Karo David on 03-15-2024 Neutrophils/100 WBC (Bld) Automated neutrophil % . [facility] No Panel InformationOrdered By: Karo Hernandez on 03-15-2024 Estimated GFR (CKD-EPI) > 60.0 mL/Min [facility] Creatinine Clearance (Chem 82.71 [facility] Nucleated erythrocytes [Pres ence] in Blood by Automated countOrdered By: Karo Hernandez on 03-15-2024 Nucleated RBC Auto Ql (Bld) 0.1 /100{WBC} 0-0.5 [facility] Nucleated RBC Auto Ql (Bld) Nucleated erythrocytes [Presence] in Blood by Automated count 0-0.5 [facility] Platelet mean volume Auto (B ld) [Entitic vol]Ordered By: Karo Hernandez on 03-15-2024 Platelet mean volume (Bld) [Entitic vol] Platelet mean volume [Entitic volume] in Blood by Automated count 6.6-10.1 [facility] Platelet mean volume [Entiti c volume] in Blood by Automated countOrdered By: Karo Hernandez on 03-15-2024 Platelet mean volume (Bld) [Entitic vol] 9.2 fL Normal 6.6-10.1 [facility] Comment on above: Performed By: #### C BC, CMP #### [facility] [address] [place] [address] [place] Platelets Auto (Bld) [#/Vol] Ordered By: Karo Hernandez on 03-15-2024 Platelets (Bld) [#/Vol] Platelets [#/vol ume] in Blood by Automated count Low 150-450 [facility] Platelets [#/volume] in Bloo d by Automated countOrdered By: Karo Hernandez on 03-15-2024 Platelets (Bld) [#/Vol] 131 10*3/uL Low 150-450 [facility] Comment on above: Performed By: #### C BC, CMP #### [facility] [address] [place] [address] Potassium [Moles/volume] in Serum or PlasmaOrdered By: Karo Hernandez on 03-15-2024 Potassium [Moles/Vol] 4.8 mmol/L Normal 3.5-5.1 [facility] Comment on above: Performed By: #### C BC, CMP ####[place] [id number] [facility] Potassium [Moles/Vol] Potassium [Moles/volume] in Serum or Plasma 3.5-5.1 [facility] Protein [Mass/volume] in Ser um or PlasmaOrdered By: Karo Hernandez on 03-15-2024 Protein [Mass/Vol] 6.5 g/dL Normal 6.4-8.9 [facility] Comment on above: Performed By: #### C BC, CMP ####[place] [id number] [facility] Protein [Mass/Vol] Protein [Mass/volume ] in Serum or Plasma 6.4-8.9 [facility] RBC Auto (Bld) [#/Vol]Ordere d By: Karo Hernandez on 03-15-2024 RBC (Bld) [#/Vol] Erythrocytes [#/volu me] in Blood by Automated count 3.90-5.60 [facility] Serum globulin measurement b y calculation (mass/volume)Ordered By: Karo Hernandez on 03-15-2024 Globulin (S) [Mass/Vol] 2.0 g/dL Normal [facility] Comment on above: Performed By: #### C BC, CMP ####[place] [id number] [facility] Serum or plasma albumin/glob ulin mass ratioOrdered By: Karo Hernandez on 03-15-2024 Albumin/Globulin [Mass ratio] 2.3 {ratio} Normal [facility] Comment on above: Performed By: #### C BC, CMP ####[place] [id number] [facility] Albumin/Globulin [Mass ratio] Serum or plasma albumin/globulin mass ratio [facility] Serum or plasma anion gap de terminationOrdered By: Karo Hernandez on 03-15-2024 Anion gap [Moles/Vol] 11.4 mmol/L Normal 6.0-15.0 [facility] Comment on above: Performed By: #### C BC, CMP ####[place] [id number] [place] [id number] [facility] Anion gap [Moles/Vol] Serum or plasma an ion gap determination 6.0-15.0 [facility] Sodium [Moles/volume] in Ser um or PlasmaOrdered By: Karo David on 03-15-2024 Sodium [Moles/Vol] 138 mmol/L Normal 136-145 [facility] Comment on above: Performed By: #### C BC, CMP ####[place] [id number] [place] [id number] [facility] Sodium [Moles/Vol] Sodium [Moles/volume ] in Serum or Plasma 136-145 [facility] Urea nitrogen [Mass/volume] in Serum or PlasmaOrdered By: Karo David on 03-15-2024 Urea nitrogen [Mass/Vol] 15 mg/dL Normal 7-25 [facility] Comment on above: Performed By: #### C BC, CMP ####[place] [id number] [facility] Urea nitrogen [Mass/Vol] Urea nitrogen [Mass/volume] in Serum or Plasma 7-25 [facility] WBC Auto (Bld) [#/Vol]Ordere d By: Karo David on 03-15-2024 WBC (Bld) [#/Vol] Leukocytes [#/volume ] in Blood by Automated count 4.1-10.5 [facility] Creatinine (Bld) [Mass/Vol]O rdered By: Robyn Morales on 03-04-2024 Creatinine [Mass/Vol] Whole blood creati nine measurement 0.6-1.3 [facility] Comment on above: ER/ESD physician is notified/shown all ISTAT results.Critical values may be confirmed by laboratory testing ifdeemed necessary by ER attending doctor. ISTAT XRay CREon 03-04-2024 ISTAT GFR > 60.0 Normal [facility] Comment on above: Result Comment: PERF ORMED BY: [place] [address] PATHOLOGIST PERCUSSION TUNER RONI MASON M.D. Performed By: #### I SCRE #### [address] MR lumbar spine wo/w conon 0 03-04-2024 MR lumbar spine wo/w con [facility] [place] [address] [place] [address] MRI Report Signed Patient: Lew Obregon MR#: [id number] : 1960 Acct:[id number] Age/Sex: 64 / M ADM Date: 03/04/24 Loc: Room: Type: [facility] Attending Dr: Robyn Morales APRN [employer]C Copies to: Robyn Morales APRN, CNP Ordering [...] Campoverde Jr., D.OMikayla03/04/2024 10:49 AM Dictation Location: [place] [address] Transcribed By: [facility] 03/04/24 1049 Dictated By: Sterling Campoverde Jr, DO 03/04/24 1036 Signed By: 03/04/24 1049 Normal [facility] No Panel InformationOrdered By: Robyn Morales on 03-04-2024 Bedside Estimated GFR (eGFR) > 60.0 [facility] Whole blood creatinine measu rementOrdered By: Robyn Morales on 03-04-2024 Creatinine [Mass/Vol] 1.0 mg/dL Normal 0.6-1.3 [facility] Comment on above: ER/ESD physician is notified/shown all ISTAT results.Critical values may be confirmed by laboratory testing ifdeemed necessary by ER attending doctor. Result Comment: ER/E [place] physician is notified/shown all ISTAT results. Critical values may be confirmed by laboratory testing if deemed necessary by ER attending doctor. Performed By: #### I SCRE #### [address] US gall bladderon 02-16-2024 US gall bladder [facility] [place] [address] [place] [address] Ultrasound Report Signed Patient: Lew Obregon MR#: [id number] : 1960 Acct:[id number] Age/Sex: 64 / M ADM Date: 02/16/24 Loc: Room: Type: [facility] Attending Dr: TRAVIS Keita APRN Ordering Provider: [...] Campoverde Jr., D.O.02/16/2024 10:08 AM Dictation Location: [place] [address] Tech: Lashaun Medina Transcribed By: DEACON 02/16/24 1008 Dictated By: Sterling Campoverde Jr, DO 02/16/24 1007 Signed By: 02/16/24 1008 Normal [facility] HbA1c HPLC (Bld) [Mass fract ion]on 01-19-2024 HbA1c (Bld) [Mass fraction] 8.6 % [facility] A1C with Estimated Average G luon 10-13-2023 Glucose [Mass/Vol] 200 mg/dL Normal [facility] Comment on above: Result Comment: PERF ORMED BY: [place] [address] PATHOLOGIST PERCUSSION TUNER RONI MASON M.D. Performed By: #### C BC, CMP, LIPID, A1C [facility] eA #### [address] Alanine aminotransferase [En zymatic activity/volume] in Serum or PlasmaOrdered By: Shaikh Mali on 10-13-2023 ALT [Catalytic activity/Vol] 22 U/L Normal [facility] Comment on above: Performed By: #### C BC, CMP, LIPID, A1C WTH eA #### [address] Albumin [Mass/volume] in Ser um or Plasma by Bromocresol green (BCG) dye binding methoOrdered By: Shaikh Mali on 10-13-2023 Albumin BCG dye [Mass/Vol] 4.4 g/dL 3.5-5.7 [facility] Alkaline phosphatase [Enzyma tic activity/volume] in Serum or PlasmaOrdered By: Shaikh Mali on 10-13-2023 ALP [Catalytic activity/Vol] 60 U/L Normal 34-104 [facility] Comment on above: Performed By: #### C BC, CMP, LIPID, A1C WTH eA #### [address] Aspartate aminotransferase [ Enzymatic activity/volume] in Serum or PlasmaOrdered By: Shaikh Mali on 10-13-2023 AST [Catalytic activity/Vol] 17 U/L Normal 13-39 [facility] Comment on above: Performed By: #### C BC, CMP, LIPID, A1C WTH eA #### [address] Automated basophil %Ordered By: Shaikh Mali on 10-13-2023 Basophils/100 WBC (Bld) 0.7 % Normal . [facility] Comment on above: Performed By: #### C BC, CMP, LIPID, A1C WTH eA #### [address] Automated basophil countOrde red By: Shaikh Mali on 10-13-2023 Basophils (Bld) [#/Vol] 0.0 10*3/uL Normal 0.0-0.2 [facility] Comment on above: Result Comment: PERF ORMED BY: [place] [address] PATHOLOGIST PERCUSSION TUNER RONI AMSON M.D. Performed By: #### C BC, CMP, LIPID, A1C WTH eA #### [address] Automated blood monocyte cou ntOrdered By: Shaikh Mali on 10-13-2023 Monocytes (Bld) [#/Vol] 0.6 10*3/uL Normal 0.0-0.8 [facility] Comment on above: Performed By: #### C BC, CMP, LIPID, A1C WTH eA #### [address] Automated eosinophil %Ordere d By: Shaikh Mali on 10-13-2023 Eosinophils/100 WBC (Bld) 3.2 % Normal . [facility] Comment on above: Performed By: #### C BC, CMP, LIPID, A1C WTH eA #### [address] Automated eosinophil countOr dered By: Shaikh Mali on 10-13-2023 Eosinophils (Bld) [#/Vol] 0.2 10*3/uL Normal 0.0-0.45 [facility] Comment on above: Performed By: #### C BC, CMP, LIPID, A1C WTH eA #### [address] Automated monocyte %Ordered By: Shaikh Mali on 10-13-2023 Monocytes/100 WBC (Bld) 9.0 % Normal . [facility] Comment on above: Performed By: #### C BC, CMP, LIPID, A1C WTH eA #### [address] Automated neutrophil %Ordere d By: Shaikh Mali on 10-13-2023 Neutrophils/100 WBC (Bld) 61.8 % Normal . [facility] Comment on above: Performed By: #### C BC, CMP, LIPID, A1C WTH eA #### [address] Bilirubin.total [Mass/volume ] in Serum or PlasmaOrdered By: Shaikh Mali on 10-13-2023 Bilirubin [Mass/Vol] 0.9 mg/dL Normal 0.3-1.0 [facility] Comment on above: Performed By: #### C BC, CMP, LIPID, A1C WT eA #### [facility] [address] [place] [address] [place] Calcium [Mass/volume] in Ser um or PlasmaOrdered By: Shaikh Mali on 10-13-2023 Calcium [Mass/Vol] 9.5 mg/dL Normal 8.6-10.3 [facility] Comment on above: Performed By: #### C BC, CMP, LIPID, A1C WTH eA #### [facility] [address] [place] [address] [place] Carbon dioxide, total [Moles /volume] in Serum or PlasmaOrdered By: Shaikh Mali on 10-13-2023 CO2 [Moles/Vol] 32.9 mmol/L High 21.0-31.0 [facility] Comment on above: Performed By: #### C BC, CMP, LIPID, A1C WT eA #### [facility] [address] [place] [address] [place] Chloride [Moles/volume] in S jacob or PlasmaOrdered By: Shaikh Mali on 10-13-2023 Chloride [Moles/Vol] 100 mmol/L Normal 98-107 [facility] Comment on above: Performed By: #### C BC, CMP, LIPID, A1C WTH eA #### [facility] [address] [place] [address] [place] Cholesterol [Mass/volume] in Serum or PlasmaOrdered By: Shaikh Mali on 10-13-2023 Cholesterol [Mass/Vol] 120 mg/dL Low 140-200 [facility] Comment on above: Chol less than 200 m g/dl low riskChol 201-239 mg/dl borderline riskChol 240 mg/dl and greater high risk Result Comment: Chol less than 200 mg/dl low risk Chol 201-239 mg/dl borderline risk Chol 240 mg/dl and greater high risk Performed By: #### C BC, CMP, LIPID, A1C WT eA #### [facility] [address] [place] [id number] [place] Cholesterol in LDL Calc [Mas s/Vol]Ordered By: Shaikh Mali on 10-13-2023 Cholesterol in LDL [Mass/Vol] 60 mg/dL 0-100 [facility] Comment on above: LDL ATP III CLASSIFI CATIONLDL less than 100 mg/dL OptimalLDL 100-129 mg/dL Near or above optimalLDL 130-159 mg/dL Borderline highLDL 160-189 mg/dL HighLDL greater than 189 mg/dL Very high Cholesterol in VLDL Calc [Ma ss/Vol]Ordered By: Shaikh Mali on 10-13-2023 Cholesterol in VLDL [Mass/Vol] 30 mg/dL [facility] Complete Blood Count Auto Di ffon 10-13-2023 Mean Corpuscular HGB Conc 34.0 g/dL Normal 32.5-35.6 [facility] Comment on above: Performed By: #### C BC, CMP, LIPID, A1C WTH eA #### [address] NRBC% 0.2 /100{WBC} Normal 0-0.5 [facility] Comment on above: Performed By: #### C BC, CMP, LIPID, A1C WTH eA #### [address] Comprehensive Metabolic Pane joe 10-13-2023 Albumin [Mass/Vol] 4.4 g/dL Normal 3.5-5.7 [facility] Comment on above: Performed By: #### C BC, CMP, LIPID, A1C WTH eA #### [address] GFR/1.73 sq M.predicted MDRD (S/P/Bld) [Vol rate/Area] mL/min/{1.73_m2} Normal [facility] Comment on above: Performed By: #### C BC, CMP, LIPID, A1C WTH eA #### [address] Creatinine [Mass/volume] in Serum or PlasmaOrdered By: Shaikh Mali on 10-13-2023 Creatinine [Mass/Vol] 1.03 mg/dL Normal 0.70-1.30 [facility] Comment on above: Performed By: #### C BC, CMP, LIPID, A1C WT eA #### [facility] [address] Creatinine [Mass/volume] in UrineOrdered By: Shaikh Mali on 10-13-2023 Creatinine (U) [Mass/Vol] 174.0 mg/dL [facility] Comment on above: No reference range e stablished Erythrocyte distribution wid th [Ratio] by Automated countOrdered By: Shaikh Mali on 10-13-2023 Erythrocyte distribution width (RBC) [Ratio] 12.9 % Normal 12.0-14.8 [facility] Comment on above: Performed By: #### C BC, CMP, LIPID, A1C WTH eA #### [address] Erythrocytes [#/volume] in B lood by Automated countOrdered By: Shaikh Mali on 10-13-2023 RBC (Bld) [#/Vol] 5.17 10*6/uL Normal 3.90-5.60 [facility] Comment on above: Performed By: #### C BC, CMP, LIPID, A1C WT eA #### [address] Glucose [Mass/volume] in Ser um or PlasmaOrdered By: Shaikh Mali on 10-13-2023 Glucose [Mass/Vol] 173 mg/dL High 70-100 [facility] Comment on above: ADA recommended refe rence rangeRandom Glucose Reference Range is dependent on time and content of last meal. Glucose of more than 200 mg/dL in a nonstressed, ambulatory subject supports the diagnosis of Diabetes Mellitus. Result Comment: [place] Glucose Reference Range is dependent on time and content of last meal. Glucose of more than 200 mg/dL in a nonstressed, ambulatory subject supports the diagnosis of Diabetes Mellitus. ADA recommended reference range Performed By: #### C BC, CMP, LIPID, A1C WTH eA #### [address] Glucose mean value [Mass/vol ume] in Blood Estimated from glycated hemoglobinOrdered By: Shaikh Mali on 10-13-2023 Average glucose Estimated from glycated hemoglobin (Bld) [Mass/Vol] 200 mg/dL [facility] Hematocrit [Volume Fraction] of Blood by Automated countOrdered By: Shaikh Mali on 10-13-2023 Hematocrit (Bld) [Volume fraction] 44.0 % Normal 38.8-50.0 [facility] Comment on above: Performed By: #### C BC, CMP, LIPID, A1C WT eA #### [facility] [address] Hemoglobin A1c percentageOrd ered By: Shaikh Mali on 10-13-2023 HbA1c (Bld) [Mass fraction] 8.6 % High 4.3-5.6 [facility] Comment on above: Increased risk for d iabetes: 5.7 - 6.4diabetes: >6.4glycemic control for adults with diabetes: <7.0 Result Comment: Incr eased risk for diabetes: 5.7 - 6.4 diabetes: >6.4 glycemic control for adults with diabetes: <7.0 Performed By: #### C BC, CMP, LIPID, A1C WT eA #### [facility] [address] Hemoglobin [Mass/volume] in BloodOrdered By: Shaikh Mali on 10-13-2023 Hemoglobin (Bld) [Mass/Vol] 14.9 g/dL Normal 13.0-17.0 [facility] Comment on above: Performed By: #### C BC, CMP, LIPID, A1C WT eA #### [facility] [address] Leukocytes [#/volume] correc oralia for nucleated erythrocytes in Blood by Automated counOrdered By: Shaikh Mali on 10-13-2023 WBC corrected for nucl RBC Auto (Bld) [#/Vol] 6.5 10*3/uL 4.1-10.5 [facility] Leukocytes [#/volume] in Blo od by Automated countOrdered By: Shaikh Mali on 10-13-2023 WBC (Bld) [#/Vol] 6.5 10*3/uL Normal 4.1-10.5 [facility] Comment on above: Performed By: #### C BC, CMP, LIPID, A1C WTH eA #### [address] Lipid Panelon 10-13-2023 LDL Cholesterol,Calculated 60 mg/dL Normal 0-100 [facility] Comment on above: Result Comment: LDL ATP III CLASSIFICATION LDL less than 100 mg/dL Optimal LDL 100-129 mg/dL Near or above optimal LDL 130-159 mg/dL Borderline high LDL 160-189 mg/dL High LDL greater than 189 mg/dL Very high Performed By: #### C BC, CMP, LIPID, A1C WTH eA #### [address] Triglyceride w/Reflex 154 mg/dL High 0-149 [facility] Comment on above: Result Comment: TRIG ATP III CLASSIFICATION TRIG less than 150 mg/dL Normal TRIG 150-199 mg/dL Borderline high TRIG 200-500 mg/dL High TRIG greater than 500 mg/dL Very high Standard traceable to the Center for Disease Conrtrol and Prevention (CDC) test method. Performed By: #### C BC, CMP, LIPID, A1C WTH eA #### [place] [id number] [facility] VLDL CHOLESTEROL 30 mg/dL Normal [facility] Comment on above: Performed By: #### C BC, CMP, LIPID, A1C WTH eA #### [place] [address] [place] Lymphocytes [#/volume] in Bl ood by Automated countOrdered By: Shaikh Mali on 10-13-2023 Lymphocytes (Bld) [#/Vol] 1.6 10*3/uL Normal 1.00-4.8 [facility] Comment on above: Performed By: #### C BC, CMP, LIPID, A1C WTH eA #### [place] [id number] [place] Lymphocytes/100 leukocytes i n Blood by Automated countOrdered By: Shaikh Mali on 10-13-2023 Lymphocytes/100 WBC (Bld) 25.3 % Normal . [facility] Comment on above: Performed By: #### C BC, CMP, LIPID, A1C WTH eA #### [place] [address] [place] MCH [Entitic mass] by Automa oralia countOrdered By: Shaikh Mali on 10-13-2023 MCH (RBC) [Entitic mass] 28.9 pg Normal 27.5-35.2 [facility] Comment on above: Performed By: #### C BC, CMP, LIPID, A1C WT eA #### [address] MCHC Auto (RBC) [Mass/Vol]Or dered By: Shaikh Mali on 10-13-2023 MCHC (RBC) [Mass/Vol] 34.0 g/dL 32.5-35.6 [facility] MCV [Entitic volume] by Auto mated countOrdered By: Shaikh Mali on 10-13-2023 MCV (RBC) [Entitic vol] 85.0 fL Normal 83.5-101 F [facility] Comment on above: Performed By: #### C BC, CMP, LIPID, A1C WT eA #### [address] MicroAlb Creat Ratio,Uon Creatinine, Urine (Random) 174.0 mg/dL Normal [facility] Comment on above: Result Comment: No r eference range established Performed By: #### U RMACRERAT #### [address] Microalbumin/Creatinine Ratio 4.0 mg/g Normal 0.0-30.0 [facility] Comment on above: Result Comment: 30-3 00 mg/g indicates an increased risk for diabetic nephropathy. Greater than 300 mg/g is consistent with clinical nephropathy. (Am. J. Kidney Disease 1994, 25:107) PERFORMED BY: [place] [address] PATHOLOGIST PERCUSSION TUNER RONI MASON M.D. Performed By: #### U RMACRERAT #### [address] Microalbumin [Mass/volume] i n UrineOrdered By: Shaikh Mali on 10-13-2023 Albumin DL <= 20 mg/L (U) [Mass/Vol] 0.8 mg/dL Normal 0.0-1.8 [facility] Comment on above: Performed By: #### U RMACRERAT #### [address] Neutrophils [#/volume] in Bl ood by Automated countOrdered By: Shaikh Mali on 10-13-2023 Neutrophils (Bld) [#/Vol] 4.0 10*3/uL Normal 1.8-7.7 [facility] Comment on above: Performed By: #### C BC, CMP, LIPID, A1C WT eA #### [address] No Panel InformationOrdered By: Shaikh Mali on 10-13-2023 Estimated GFR (CKD-EPI) > 60.0 mL/Min [facility] Creatinine Clearance (Chem N/A [facility] Nucleated erythrocytes [Pres ence] in Blood by Automated countOrdered By: Shaikh Mali on 10-13-2023 Nucleated RBC Auto Ql (Bld) 0.2 /100{WBC} 0-0.5 [facility] Platelet mean volume [Entiti c volume] in Blood by Automated countOrdered By: Shaikh Mali on 10-13-2023 Platelet mean volume (Bld) [Entitic vol] 9.4 fL Normal 6.6-10.1 [facility] Comment on above: Performed By: #### C BC, CMP, LIPID, A1C WTH eA #### [address] Platelets [#/volume] in Bloo d by Automated countOrdered By: Shaikh Mali on 10-13-2023 Platelets (Bld) [#/Vol] 126 10*3/uL Low 150-450 [facility] Comment on above: Performed By: #### C BC, CMP, LIPID, A1C WTH eA #### [facility] [address] Potassium [Moles/volume] in Serum or PlasmaOrdered By: Shaikh Mali on 10-13-2023 Potassium [Moles/Vol] 4.5 mmol/L Normal 3.5-5.1 [facility] Comment on above: Performed By: #### C BC, CMP, LIPID, A1C WT eA #### [facility] [address] [place] [address] Protein [Mass/volume] in Ser um or PlasmaOrdered By: Shaikh Mali on 10-13-2023 Protein [Mass/Vol] 6.4 g/dL Normal 6.4-8.9 [facility] Comment on above: Performed By: #### C BC, CMP, LIPID, A1C WTH eA #### [facility] [address] [place] [address] Serum globulin measurement b y calculation (mass/volume)Ordered By: Shaikh Mali on 10-13-2023 Globulin (S) [Mass/Vol] 2.0 g/dL Normal [facility] Comment on above: Performed By: #### C BC, CMP, LIPID, A1C WT eA #### [facility] [address] Serum or plasma albumin/glob ulin mass ratioOrdered By: Shaikh Mali on 10-13-2023 Albumin/Globulin [Mass ratio] 2.2 {ratio} Normal [facility] Comment on above: Performed By: #### C BC, CMP, LIPID, A1C WTH eA #### [facility] [address] [place] [address] Serum or plasma anion gap de terminationOrdered By: Shaikh Mali on 10-13-2023 Anion gap [Moles/Vol] 11.6 mmol/L Normal 6.0-15.0 [facility] Comment on above: Performed By: #### C BC, CMP, LIPID, A1C WT eA #### [facility] [address] Serum or plasma high density lipoprotein (HDL) cholesterol measurementOrdered By: Shaikh Mali on 10-13-2023 Cholesterol in HDL [Mass/Vol] 29 mg/dL Normal 23-92 [facility] Comment on above: HDL CHOL ATP-III CLA SSIFICATION Cardiovascular RiskHDL > or equal to 60 mg/dL LOWHDL < 40 mg/dL HIGH Result Comment: HDL CHOL ATP-III CLASSIFICATION Cardiovascular Risk HDL > or equal to 60 mg/dL LOW HDL < 40 mg/dL HIGH Performed By: #### C BC, CMP, LIPID, A1C WT eA #### [address] Serum or plasma total choles terol/high density lipoprotein (HDL) cholesterol mass ratOrdered By: Shaikh Mali on 10-13-2023 Cholesterol.total/Glenny sterol in HDL [Mass ratio] 4.1 {ratio} Normal <5.0 [facility] Comment on above: Result Comment: PERF ORMED BY: [place] [address] PATHOLOGIST PERCUSSION TUNER RONI MASON M.D. Performed By: #### C BC, CMP, LIPID, A1C WT eA #### [facility] [address] [place] [address] Sodium [Moles/volume] in Ser um or PlasmaOrdered By: Shaikh Mali on 10-13-2023 Sodium [Moles/Vol] 140 mmol/L Normal 136-145 [facility] Comment on above: Performed By: #### C BC, CMP, LIPID, A1C WT eA #### [address] Triglyceride [Mass/volume] i n Serum or PlasmaOrdered By: Shaikh Mali on 10-13-2023 Triglyceride [Mass/Vol] 154 mg/dL High 0-149 [facility] [facility] Comment on above: TRIG ATP III CLASSIF ICATIONTRIG less than 150 mg/dL NormalTRIG 150-199 mg/dL Borderline highTRIG 200-500 mg/dL High TRIG greater than 500 mg/dL Very highStandard traceable to the Center for Disease Conrtrol and Prevention (CDC) test method. Urea nitrogen [Mass/volume] in Serum or PlasmaOrdered By: Shaikh Mali on 10-13-2023 Urea nitrogen [Mass/Vol] 16 mg/dL Normal 7-25 [facility] Comment on above: Performed By: #### C BC, CMP, LIPID, A1C WT eA #### [address] Urine microalbumin/creatinin e mass ratioOrdered By: Shaikh Mali on 10-13-2023 Albumin/Creatinine DL <= 20 mg/L (U) [Mass ratio] 4.0 mg/g 0.0-30.0 [facility] Comment on above: 30-300 mg/g indicate s an increased risk for diabetic nephropathy. Greater than 300 mg/g is consistent with clinical nephropathy. (Am. J. Kidney Disease 1995, 25:107) XR lumbar spine 2-3V*on XR lumbar spine 2-3V* [facility] [place] [address] [place] [address] XRay Report Signed Patient: Lew Obregon MR#: [id number] : 1960 Acct:[id number] Age/Sex: 63 / M ADM Date: 10/13/23 Loc: XD Room: Type: [facility] Attending Dr: Shaikh Mali OJEDA Copies to: [...] Carmencita Hernandez M.D.10/13/2023 8:25 AM Dictation Location: [facility]10 Transcribed By: [facility] 10/13/23824 Dictated By: Carmencita Hernandez MD 10/13/23822 Signed By: 10/13/23824 Normal [facility] CT lung screeningon 09-21-19 CT lung screening [facility] [place] [address] [place] [address] CT Scan Report Signed Patient: Lew Obregon MR#: [id number] : 1960 Acct:[id number] Age/Sex: 63 / M ADM Date: 09/21/23 Loc: [facility] Room: Type: [facility] Attending Dr: Cassidy Salazar APRN Copies to: Cassidy Salazar APRN Ordering Provider: Cassidy Salazar APRN Date of Service: 09/21/23 CT/CT [...] Campoverde Jr., D.OMikayla09/21/2023 3:02 PM Dictation Location: [place] [address] Transcribed By: [facility] 09/21/23 1502 Dictated By: Sterling Campoverde Jr, DO 09/21/23 1458 Signed By: 09/21/23 1502 Normal [facility] Glucose mean value [Mass/vol ume] in Blood Estimated from glycated hemoglobinOrdered By: Shaikh Mali on 06-02-2023 Average glucose Estimated from glycated hemoglobin (Bld) [Mass/Vol] 212 mg/dL [facility] Hemoglobin A1c percentageOrd ered By: Shaikh Mali on 06-02-2023 HbA1c (Bld) [Mass fraction] 9.0 % 4.3-5.6 [facility] Comment on above: Increased risk for d iabetes: 5.7 - 6.4diabetes: >6.4glycemic control for adults with diabetes: <7.0 Alanine aminotransferase [En zymatic activity/volume] in Serum or PlasmaOrdered By: Shaikh Mali on 2023 ALT [Catalytic activity/Vol] 14 U/L 7-52 [facility] Albumin [Mass/volume] in Ser um or Plasma by Bromocresol green (BCG) dye binding methoOrdered By: Shaikh Mali on 2023 Albumin BCG dye [Mass/Vol] 4.3 g/dL 3.5-5.7 [facility] Alkaline phosphatase [Enzyma tic activity/volume] in Serum or PlasmaOrdered By: Shaikh Mali on 2023 ALP [Catalytic activity/Vol] 56 U/L 34-104 [facility] Aspartate aminotransferase [ Enzymatic activity/volume] in Serum or PlasmaOrdered By: Shaikh Mali on 2023 AST [Catalytic activity/Vol] 11 U/L 13-39 [facility] Basophils Auto (Bld) [#/Vol] Ordered By: Shaikh Mali on 2023 Basophils (Bld) [#/Vol] 0.0 10*3/uL 0.0-0.2 [facility] Basophils/100 WBC Auto (Bld) Ordered By: Shaikh Mali on 2023 Basophils/100 WBC (Bld) 0.6 % . [facility] Bilirubin.total [Mass/volume ] in Serum or PlasmaOrdered By: Shaikh Mali on 2023 Bilirubin [Mass/Vol] 0.7 mg/dL 0.3-1.0 [facility] Calcium [Mass/volume] in Ser um or PlasmaOrdered By: Shaikh Mali on 2023 Calcium [Mass/Vol] 9.2 mg/dL 8.6-10.3 [facility] Carbon dioxide, total [Moles /volume] in Serum or PlasmaOrdered By: Shaikh Mali on 2023 CO2 [Moles/Vol] 29.6 mmol/L 21.0-31.0 [facility] Chloride [Moles/volume] in S jacob or PlasmaOrdered By: Shaikh Mali on 2023 Chloride [Moles/Vol] 102 mmol/L 98-107 [facility] Cholesterol [Mass/volume] in Serum or PlasmaOrdered By: Shaikh Mali on 2023 Cholesterol [Mass/Vol] 114 mg/dL 140-200 [facility] Comment on above: Chol less than 200 m g/dl low riskChol 201-239 mg/dl borderline riskChol 240 mg/dl and greater high risk Cholesterol in LDL Calc [Mas s/Vol]Ordered By: Shaikh Mali on 2023 Cholesterol in LDL [Mass/Vol] 58 mg/dL 0-100 [facility] Comment on above: LDL ATP III CLASSIFI CATIONLDL less than 100 mg/dL OptimalLDL 100-129 mg/dL Near or above optimalLDL 130-159 mg/dL Borderline highLDL 160-189 mg/dL HighLDL greater than 189 mg/dL Very high Cholesterol in VLDL Calc [Ma ss/Vol]Ordered By: Shaikh Mali on 2023 Cholesterol in VLDL [Mass/Vol] 24 mg/dL [facility] Creatinine [Mass/volume] in Serum or PlasmaOrdered By: Shaikh Mali on 2023 Creatinine [Mass/Vol] 0.92 mg/dL 0.70-1.30 [facility] Creatinine [Mass/volume] in UrineOrdered By: Shaikh Mali on 2023 Creatinine (U) [Mass/Vol] 127.0 mg/dL 14.0-26.0 [facility] Eosinophils Auto (Bld) [#/Vo l]Ordered By: Shaikh Mali on 2023 Eosinophils (Bld) [#/Vol] 0.1 10*3/uL 0.0-0.45 [facility] Eosinophils/100 WBC Auto (Bl d)Ordered By: Shaikh Mali on 2023 Eosinophils/100 WBC (Bld) 2.0 % . [facility] Erythrocyte distribution wid th Auto (RBC) [Ratio]Ordered By: Shaikh Mali on 2023 Erythrocyte distribution width (RBC) [Ratio] 13.4 % 12.0-14.8 [facility] Globulin Calc (S) [Mass/Vol] Ordered By: Shaikh Mali 2023 Globulin (S) [Mass/Vol] 1.9 g/dL [facility] Glucose [Mass/volume] in Ser um or PlasmaOrdered By: Shaikh Mali on 2023 Glucose [Mass/Vol] 165 mg/dL 70-100 [facility] Comment on above: ADA recommended refe rence rangeRandom Glucose Reference Range is dependent on time and content of last meal. Glucose of more than 200 mg/dL in a nonstressed, ambulatory subject supports the diagnosis of Diabetes Mellitus. Glucose mean value [Mass/vol ume] in Blood Estimated from glycated hemoglobinOrdered By: Shaikh Mali on 2023 Average glucose Estimated from glycated hemoglobin (Bld) [Mass/Vol] 192 mg/dL [facility] Hematocrit Auto (Bld) [Volum e fraction]Ordered By: Shaikh Mali on 2023 Hematocrit (Bld) [Volume fraction] 44.2 % 38.8-50.0 [facility] Hemoglobin A1c percentageOrd ered By: Shaikh Mali on 2023 HbA1c (Bld) [Mass fraction] 8.3 % 4.3-5.6 [facility] Comment on above: Increased risk for d iabetes: 5.7 - 6.4diabetes: >6.4glycemic control for adults with diabetes: <7.0 Hemoglobin [Mass/volume] in BloodOrdered By: Shaikh Mali on 2023 Hemoglobin (Bld) [Mass/Vol] 14.8 g/dL 13.0-17.0 [facility] Leukocytes [#/volume] correc oralia for nucleated erythrocytes in Blood by Automated counOrdered By: Shaikh Mali on 2023 WBC corrected for nucl RBC Auto (Bld) [#/Vol] 6.3 10*3/uL 4.1-10.5 [facility] Lymphocytes Auto (Bld) [#/Vo l]Ordered By: Shaikh Mali on 2023 Lymphocytes (Bld) [#/Vol] 1.4 10*3/uL 1.00-4.8 [facility] Lymphocytes/100 WBC Auto (Bl d)Ordered By: Shaikh Mali on 2023 Lymphocytes/100 WBC (Bld) 21.3 % . [facility] MCH Auto (RBC) [Entitic mass ]Ordered By: Shaikh Mali on 2023 MCH (RBC) [Entitic mass] 28.7 pg 27.5-35.2 [facility] MCHC Auto (RBC) [Mass/Vol]Or dered By: Shaikh Mali on 2023 MCHC (RBC) [Mass/Vol] 33.3 g/dL 32.5-35.6 [facility] MCV Auto (RBC) [Entitic vol] Ordered By: Shaikh Mali on 2023 MCV (RBC) [Entitic vol] 86.0 fL 83.5-101 [facility] Microalbumin [Mass/volume] i n UrineOrdered By: Shaikh Mali on 2023 Albumin DL <= 20 mg/L (U) [Mass/Vol] mg/dL 0.0-1.8 [facility] Monocytes Auto (Bld) [#/Vol] Ordered By: Shaikh Mali on 2023 Monocytes (Bld) [#/Vol] 0.4 10*3/uL 0.0-0.8 [facility] Monocytes/100 WBC Auto (Bld) Ordered By: Shaikh Mali on 2023 Monocytes/100 WBC (Bld) 7.0 % . [facility] Neutrophils Auto (Bld) [#/Vo l]Ordered By: Shaikh Mali on 2023 Neutrophils (Bld) [#/Vol] 4.4 10*3/uL 1.8-7.7 [facility] Neutrophils/100 WBC Auto (Bl d)Ordered By: Shaikh Mali on 2023 Neutrophils/100 WBC (Bld) 69.1 % . [facility] No Panel InformationOrdered By: Shaikh Mali on 2023 Estimated GFR (CKD-EPI) > 60.0 mL/Min [facility] Creatinine Clearance (Chem N/A [facility] Nucleated erythrocytes [Pres ence] in Blood by Automated countOrdered By: Shaikh Mali on 2023 Nucleated RBC Auto Ql (Bld) 0.1 /100{WBC} 0-0.5 [facility] Platelet mean volume Auto (B ld) [Entitic vol]Ordered By: Shaikh Mali on 2023 Platelet mean volume (Bld) [Entitic vol] 9.5 fL 6.6-10.1 [facility] Platelets Auto (Bld) [#/Vol] Ordered By: Shaikh Mali on 2023 Platelets (Bld) [#/Vol] 116 10*3/uL 150-450 [facility] Potassium [Moles/volume] in Serum or PlasmaOrdered By: Shaikh Mali on 2023 Potassium [Moles/Vol] 4.2 mmol/L 3.5-5.1 [facility] Protein [Mass/volume] in Ser um or PlasmaOrdered By: Shaikh Mali on 2023 Protein [Mass/Vol] 6.2 g/dL 6.4-8.9 [facility] RBC Auto (Bld) [#/Vol]Ordere d By: Shaikh Mali on 2023 RBC (Bld) [#/Vol] 5.15 10*6/uL 3.90-5.60 [facility] Serum or plasma albumin/glob ulin mass ratioOrdered By: Shaikh Mali on 2023 Albumin/Globulin [Mass ratio] 2.3 {ratio} [facility] Serum or plasma anion gap de terminationOrdered By: Shaikh Mali on 2023 Anion gap [Moles/Vol] 10.6 mmol/L 6.0-15.0 [facility] Serum or plasma high density lipoprotein (HDL) cholesterol measurementOrdered By: Shaikh Mali on 2023 Cholesterol in HDL [Mass/Vol] 32 mg/dL 23-92 [facility] Comment on above: HDL CHOL ATP-III CLA SSIFICATION Cardiovascular RiskHDL > or equal to 60 mg/dL LOWHDL < 40 mg/dL HIGH Serum or plasma total choles terol/high density lipoprotein (HDL) cholesterol mass ratOrdered By: Shaikh Mali on 2023 Cholesterol.total/Glenny sterol in HDL [Mass ratio] 3.6 {ratio} <5.0 [facility] Sodium [Moles/volume] in Ser um or PlasmaOrdered By: Shaikh Mali on 2023 Sodium [Moles/Vol] 138 mmol/L 136-145 [facility] Triglyceride [Mass/volume] i n Serum or PlasmaOrdered By: Shaikh Mali on 2023 Triglyceride [Mass/Vol] 122 mg/dL 0-149 [facility] Comment on above: TRIG ATP III CLASSIF ICATIONTRIG less than 150 mg/dL NormalTRIG 150-199 mg/dL Borderline highTRIG 200-500 mg/dL High TRIG greater than 500 mg/dL Very highStandard traceable to the Center for Disease Conrtrol and Prevention (CDC) test method. Urea nitrogen [Mass/volume] in Serum or PlasmaOrdered By: Shaikh Mali on 2023 Urea nitrogen [Mass/Vol] 14 mg/dL 7-25 [facility] Urine microalbumin/creatinin e mass ratioOrdered By: Shaikh Mali on 2023 Albumin/Creatinine DL <= 20 mg/L (U) [Mass ratio] TNP [facility] Comment on above: Test not performed WBC Auto (Bld) [#/Vol]Ordere d By: Shaikh Mali on 2023 WBC (Bld) [#/Vol] 6.3 10*3/uL 4.1-10.5 [facility] Covid-19 PCR ([facility])on 05-15 SARS-CoV-2 (COVID-19) RNA MINA+probe Ql (Unsp spec) Not detected Normal NOT DETECTED [facility] Comment on above: Result Comment: This test is not yet approved or cleared by the [place] FDA. When there are no FDA-approved or cleared tests available, and other criteria are met, FDA can make tests available under an emergency access mechanism called an Emergency Use Authorization (EUA). The EUA for this test is supported by the [place] of Health and Human Service's (HHS's) declaration [...] Performed By: #### L IPID, CMP #### [facility] [address] [place] [address] Dr. Lucille Crow INFLUENZA A AND B AGon 06-05 INFLUBNEG SEE BELOW Normal [facility] Comment on above: Result Comment: Nega tive for Flu B protein antigen. Infection due to Flu B cannot be ruled out. Flu B antigen in the sample may be below the detection limit of the test. Performed By: #### L IPID, CMP #### [facility] [address] [place] [address] Dr. Lucille Crow INFLUENZA A AG Positive Abnormal NEGATIVE SEE COMMENT [facility] Comment on above: Performed By: #### L IPID, CMP #### [facility] [address] [place] [address] Dr. Lucille Crow INFLUENZA B AG Negative Normal NEGATIVE SEE COMMENT [facility] Comment on above: Performed By: #### L IPID, CMP #### [facility] [address] [place] [address] Dr. Lucille Crow INFLUPOS SEE BELOW Normal [facility] Comment on above: Result Comment: NOTE : Live attenuated influenzae vaccine viruses can cause a positive result for a rapid influenza diagnostic test if administered up to 7 days prior to rapid testing. Performed By: #### L IPID, CMP #### [facility] [address] [place] [address] Dr. Lucille Crow INTERNAL CONTROLS Within Normal Limits Normal Wi thin Normal Limits [facility] Comment on above: Performed By: #### L IPID, CMP #### [facility] [address] [place] [address] Dr. Lucille Crow GLYCOHEMOGLOBIN A1Con 2021 ADA RECOMMENDATION SEE BELOW Normal [facility] Comment on above: Result Comment: ADA RECOMMENDED LIMIT 4.0 - 6.0 ADA THERAPEUTIC TARGET < 7.0 ACTION SUGGESTED > 7.0 Performed By: #### A 1C #### [facility] [address] [place] [address] Dr. Lucille Crow Glucose [Mass/Vol] 194 mg/dL Normal [facility] Comment on above: Performed By: #### A 1C #### [facility] [address] [place] [address] [address] Lucille Crow HbA1c (Bld) [Mass fraction] 8.4 % Critically high 4.5-6.2 [facility] Comment on above: Performed By: #### A 1C #### [facility] [address] [place] [address] [address] Lucille Crow LIPID PROFILEon 06-04-2022 CHOL-HDL RATIO NORM SEE BELOW Normal [facility] Comment on above: Result Comment: 3.3 - 4.4 LOW RISK 4.4 - 7.1 AVERAGE RISK 7.1 - 11.0 MODERATE RISK >11.0 HIGH RISK Performed By: #### B MP, LIPID #### [facility] [address] [place] [address] [address] Lucille Crow Cholesterol [Mass/Vol] 124 mg/dL Normal <=200 [facility] Comment on above: Performed By: #### B MP, LIPID #### [facility] [address] [place] [address] [address] Lucille Crow Cholesterol in HDL [Mass/Vol] 39 mg/dL Critically low 40-60 [facility] Comment on above: Performed By: #### B MP, LIPID #### [facility] [address] [place] [address] [address] Lucille Crow Cholesterol in LDL [Mass/Vol] 67.6 mg/dL Normal [facility] Comment on above: Performed By: #### B MP, LIPID #### [facility] [address] [place] [address] [address] Lucille Crow Cholesterol.total/Glenny sterol in HDL [Mass ratio] 3.2 {ratio} Normal [facility] Comment on above: Performed By: #### B MP, LIPID #### [facility] [address] [place] [address] [address] Lucille Crow HDL NORMAL > or = 60 mg/dl - LO W CARDIOVASCULAR RISK <40 mg/dl - HIGH CARDIOVASCULAR RISK Normal [facility] Comment on above: Performed By: #### B MP, LIPID #### [facility] [address] [place] [address] [address] Lucille Crow LDL CALC NORMAL SEE BELOW Normal [facility] Comment on above: Result Comment: <100 mg/dl OPTIMAL 100 - 129 mg/dl NEAR OR ABOVE OPTIMAL 130 - 159 mg/dl BORDERLINE HIGH 160 - 189 mg/dl HIGH >190 mg/dl VERY HIGH Performed By: #### B MP, LIPID #### [facility] [address] [place] [address] Dr. Lucille Crow Triglyceride [Mass/Vol] 87 mg/dL Normal <=150 [facility] Comment on above: Performed By: #### B MP, LIPID #### [facility] [address] [place] [address] Dr. Lucille Crow VLDL CALC 17.4 mg/dL Normal [facility] Comment on above: Performed By: #### B MP, LIPID #### [facility] [address] [place] [address] [address] Lucille Crow PROF CHEM 8 (BAS METB)on Anion gap [Moles/Vol] 14.4 mmol/L Normal [facility] Comment on above: Performed By: #### B MP, LIPID #### [facility] [address] [place] [address] [address] Lucille Crow Calcium [Mass/Vol] 9.1 mg/dL Normal 8.5-10.1 [facility] Comment on above: Performed By: #### B MP, LIPID #### [facility] [address] [place] [address] Dr. Lucille Crow Chloride [Moles/Vol] 95 mmol/L Critically low 98-107 [facility] Comment on above: Performed By: #### B MP, LIPID #### [facility] [address] [place] [address] Dr. Lucille Crow CO2 [Moles/Vol] 27.7 mmol/L Normal 21.0-32.0 [facility] Comment on above: Performed By: #### B MP, LIPID #### [facility] [address] [place] [address] [address] Lucille Crow Creatinine [Mass/Vol] 1.04 mg/dL Normal 0.70-1.30 [facility] Comment on above: Performed By: #### B MP, LIPID #### [facility] [address] [place] [address] [address] Lucille Crow EGFR-AF P[place] >60 Normal >=60 [facility] Comment on above: Performed By: #### B MP, LIPID #### [facility] [address] [place] [address] Dr. Lucille Crow EGFR-NON AF [place] >60 Normal >=60 [facility] Comment on above: Performed By: #### B MP, LIPID #### [facility] [address] [place] [address] Dr. Lucille Crow Glucose [Mass/Vol] 110 mg/dL Critically high 74-106 [facility] Comment on above: Performed By: #### B MP, LIPID #### [facility] [address] [place] [address] Dr. Lucille Crow Potassium [Moles/Vol] 4.1 mmol/L Normal 3.5-5.1 [facility] Comment on above: Performed By: #### B MP, LIPID #### [facility] [address] [place] [address] Dr. Lucille Crow Sodium [Moles/Vol] 133 mmol/L Critically low 136-145 [facility] Comment on above: Performed By: #### B MP, LIPID #### [facility] [address] [place] [address] Dr. Lucille Crow Urea nitrogen [Mass/Vol] 14.0 mg/dL Normal 7.0-18.0 [facility] Comment on above: Performed By: #### B MP, LIPID #### [facility] [address] [place] [address] Dr. Lucille Crow Urea nitrogen/Creatinine [Mass ratio] 13.5 mg/mg Normal [facility] Comment on above: Performed By: #### B MP, LIPID #### [facility] [address] [place] [address] [address] Lucille Crow GLYCOHEMOGLOBIN A1Con 2021 ADA RECOMMENDATION SEE BELOW Normal [facility] Comment on above: Result Comment: ADA RECOMMENDED LIMIT 4.0 - 6.0 ADA THERAPEUTIC TARGET < 7.0 ACTION SUGGESTED > 7.0 Performed By: #### A 1C #### [facility] [address] [place] [address] Dr. Lucille Crow Glucose [Mass/Vol] 166 mg/dL Normal [facility] Comment on above: Performed By: #### A 1C #### [facility] [address] [place] [address] Dr. Lucille Crow HbA1c (Bld) [Mass fraction] 7.4 % Critically high 4.5-6.2 [facility] Comment on above: Performed By: #### A 1C #### [facility] [address] [place] [address] Dr. Lucille Crow CBC AUTO DIFFon 09-22-2021 BASO # 0.1 103/ul Normal 0.0-0.1 [facility] Comment on above: Performed By: #### C BC #### [facility] [address] [place] [address] Dr. Lucille Crow Basophils/100 WBC (Bld) 0.8 % Normal 0.2-2.0 [facility] Comment on above: Performed By: #### C BC #### [facility] [address] [place] [address] Dr. Lucille Crow EO # 0.2 103/ul Normal 0.0-0.7 [facility] Comment on above: Performed By: #### C BC #### [facility] [address] [place] [address] Dr. Lucille Crow Eosinophils/100 WBC (Bld) 3.3 % Normal 0.9-7.0 [facility] Comment on above: Performed By: #### C BC #### [facility] [address] [place] [address] Dr. Lucille Crow Erythrocyte distribution width (RBC) [Ratio] 12.7 % Normal 11.0-15.0 [facility] Comment on above: Performed By: #### C BC #### [facility] [address] [place] [address] Dr. Lucille Crow Hematocrit (Bld) [Volume fraction] 48.0 % Normal 42.0-54.0 [facility] Comment on above: Performed By: #### C BC #### [facility] [address] [place] [address] Dr. Lucille Crow Hemoglobin (Bld) [Mass/Vol] 15.9 g/dL Normal 14.0-18.0 [facility] Comment on above: Performed By: #### C BC #### [facility] [address] [place] [address] Dr. Lucille Crow IG # 0.01 10e3/ul Normal 0.00-0.03 [facility] Comment on above: Performed By: #### C BC #### [facility] [address] [place] [address] Dr. Lucille Crow IG % 0.2 % Normal 0.0-0.5 [facility] [facility] Comment on above: Performed By: #### C BC #### [facility] [address] [place] [address] Dr. Lucille Crow LYMPH # 1.5 103/ul Normal 1.2-3.8 [facility] Comment on above: Performed By: #### C BC #### [facility] [address] [place] [address] Dr. Lucille Crow Lymphocytes/100 WBC (Bld) 25.3 % Normal 20.5-60.0 [facility] Comment on above: Performed By: #### C BC #### [facility] [address] [place] [address] Dr. Lucille Crow MANUAL DIFF REQ NO Normal [facility] Comment on above: Performed By: #### C BC #### [facility] [address] [place] [address] Dr. Lucille Crow MCH (RBC) [Entitic mass] 28.2 pg Normal 25.9-34.0 [facility] Comment on above: Performed By: #### C BC #### [facility] [address] [address] [address] Lucille Crow MCHC (RBC) [Mass/Vol] 33.1 g/dL Normal 29.9-35.2 [facility] Comment on above: Performed By: #### C BC #### [facility] [address] [address] [address] Lucille Crow MCV (RBC) [Entitic vol] 85.1 fL Normal 80.0-94.0 [facility] Comment on above: Performed By: #### C BC #### [facility] [address] [address] [address] Lucille Crow MONO # 0.5 103/ul Normal 0.3-0.8 [facility] Comment on above: Performed By: #### C BC #### [facility] [address] [place] [address] Dr. Lucille Crow Monocytes/100 WBC (Bld) 8.4 % Normal 1.7-12.0 [facility] Comment on above: Performed By: #### C BC #### [facility] [address] [place] [address] Dr. Lucille Crow NEUT # 3.7 103/ul Normal 1.4-6.5 [facility] Comment on above: Performed By: #### C BC #### [facility] [address] [place] [address] Dr. Lucille Crow Neutrophils/100 WBC (Bld) 62.0 % Normal 43.0-75.0 [facility] Comment on above: Performed By: #### C BC #### [facility] [address] [place] [address] Dr. Lucille Crow Platelet mean volume (Bld) [Entitic vol] 11.1 fL Normal 9.5-13.5 [facility] Comment on above: Performed By: #### C BC #### [facility] [address] [place] [address] Dr. Lucille Crow PLT 125 103/ul Critically low 150-450 [facility] Comment on above: Performed By: #### C BC #### [facility] [address] [address] [address] Lucille Crow RBC 5.64 106/ul Normal 4.70-6.10 [facility] Comment on above: Performed By: #### C BC #### [facility] [address] [place] [address] Dr. Lucille Crow WBC 6.0 103/ul Normal 4.0-11.0 [facility] Comment on above: Performed By: #### C BC #### [facility] [address] [place] [address] Dr. Lucille Crow GLYCOHEMOGLOBIN A1Con 2021 ADA RECOMMENDATION ADA THERAPEUTIC TARG ET 6.0 - 7.0 ACTION SUGGESTED > 7.0 Normal [facility] Comment on above: Performed By: #### A 1C #### [facility] [address] [place] [address] Dr. Lucille Crow Glucose [Mass/Vol] 189 mg/dL Normal [facility] Comment on above: Performed By: #### A 1C #### [facility] [address] [place] [address] Dr. Lucille Crow HbA1c (Bld) [Mass fraction] 8.2 % Critically high <=6.0 [facility] Comment on above: Performed By: #### A 1C #### [facility] [address] [place] [address] Dr. Lucille Crow LIPID PROFILEon 09-22-2021 CHOL-HDL RATIO NORM SEE BELOW Normal [facility] Comment on above: Result Comment: 3.3 - 4.4 LOW RISK 4.4 - 7.1 AVERAGE RISK 7.1 - 11.0 MODERATE RISK >11.0 HIGH RISK Performed By: #### L IPID, CMP #### [facility] [address] [place] [address] Dr. Lucille Crow Cholesterol [Mass/Vol] 116 mg/dL Normal <=200 [facility] Comment on above: Performed By: #### L IPID, CMP #### [facility] [address] [place] [address] Dr. Lucille Crow Cholesterol in HDL [Mass/Vol] 29 mg/dL Critically low 40-60 [facility] Comment on above: Performed By: #### L IPID, CMP #### [facility] [address] [address] [address] Lucille Crow Cholesterol in LDL [Mass/Vol] 67.4 mg/dL Normal [facility] Comment on above: Performed By: #### L IPID, CMP #### [facility] [address] [place] [address] Dr. Lucille Crow Cholesterol.total/Glenny sterol in HDL [Mass ratio] 4.0 {ratio} Normal [facility] Comment on above: Performed By: #### L IPID, CMP #### [facility] [address] [place] [address] Dr. Lucille Crow HDL NORMAL > or = 60 mg/dl - LO W CARDIOVASCULAR RISK <40 mg/dl - HIGH CARDIOVASCULAR RISK Normal [facility] Comment on above: Performed By: #### L IPID, CMP #### [facility] [address] [place] [address] Dr. Lucille Crow LDL CALC NORMAL SEE BELOW Normal [facility] Comment on above: Result Comment: <100 mg/dl OPTIMAL 100 - 129 mg/dl NEAR OR ABOVE OPTIMAL 130 - 159 mg/dl BORDERLINE HIGH 160 - 189 mg/dl HIGH >190 mg/dl VERY HIGH Performed By: #### L IPID, CMP #### [facility] [address] [place] [address] Dr. Lucille Crow Triglyceride [Mass/Vol] 98 mg/dL Normal <=150 [facility] Comment on above: Performed By: #### L IPID, CMP #### [facility] [address] [place] [address] Dr. Lucille Crow VLDL CALC 19.6 mg/dL Normal [facility] Comment on above: Performed By: #### L IPID, CMP #### [facility] [address] [place] [address] Dr. Lucille Crow MICROALBUMIN, RAND URon 04- mALB <1.3 Normal <=30.0 [facility] Comment on above: Performed By: #### L IPID, CMP #### [facility] [address] [address] [address] Lucille Crow PROF 14(COMP METB)on 022 Albumin [Mass/Vol] 3.6 g/dL Normal 3.4-5.0 [facility] Comment on above: Performed By: #### L IPID, CMP #### [facility] [address] [address] [address] Lucille Crow Albumin/Globulin [Mass ratio] 1.2 {ratio} Normal [facility] Comment on above: Performed By: #### L IPID, CMP #### [facility] [address] [address] [address] Lucille Crow ALP [Catalytic activity/Vol] 62 U/L Normal 46-116 [facility] Comment on above: Performed By: #### L IPID, CMP #### [facility] [address] [place] [address] Dr. Lucille Crow ALT [Catalytic activity/Vol] 28 U/L Normal 16-63 [facility] Comment on above: Performed By: #### L IPID, CMP #### [facility] [address] [place] [address] Dr. Lucille Crow Anion gap [Moles/Vol] 11.1 mmol/L Normal [facility] Comment on above: Performed By: #### L IPID, CMP #### [facility] [address] [address] [address] Lucille Crow AST [Catalytic activity/Vol] 14 U/L Critically low 15-37 [facility] Comment on above: Performed By: #### L IPID, CMP #### [facility] [address] [address] [address] Lucille Crow Bilirubin [Mass/Vol] 0.5 mg/dL Normal 0.2-1.3 [facility] Comment on above: Performed By: #### L IPID, CMP #### [facility] [address] [address] [address] Lucille Crow Calcium [Mass/Vol] 8.6 mg/dL Normal 8.5-10.1 [facility] Comment on above: Performed By: #### L IPID, CMP #### [facility] [address] [place] [address] Dr. Lucille Crow Chloride [Moles/Vol] 101 mmol/L Normal 98-107 [facility] Comment on above: Performed By: #### L IPID, CMP #### [facility] [address] [place] [address] Dr. Lucille Crow CO2 [Moles/Vol] 29.7 mmol/L Normal 22.0-30.0 [facility] Comment on above: Performed By: #### L IPID, CMP #### [facility] [address] [place] [address] Dr. Lucille Crow Creatinine [Mass/Vol] 1.08 mg/dL Normal 0.66-1.25 [facility] Comment on above: Performed By: #### L IPID, CMP #### [facility] [address] [place] [address] Dr. Lucille Crow EGFR-AF [place] >60 Normal >=60 [facility] Comment on above: Performed By: #### L IPID, CMP #### [facility] [address] [place] [address] Dr. Lucille Crow EGFR-NON AF [place] >60 Normal >=60 [facility] Comment on above: Performed By: #### L IPID, CMP #### [facility] [address] [place] [address] Dr. Lucille Crow Globulin (S) [Mass/Vol] 3.0 g/dL Normal [facility] Comment on above: Performed By: #### L IPID, CMP #### [facility] [address] [place] [address] Dr. Lucille Crow Glucose [Mass/Vol] 175 mg/dL Critically high 74-106 [facility] Comment on above: Performed By: #### L IPID, CMP #### [facility] [address] [place] [address] Dr. Lucille Crow Potassium [Moles/Vol] 4.8 mmol/L Normal 3.4-5.0 [facility] Comment on above: Performed By: #### L IPID, CMP #### [facility] [address] [place] [address] Dr. Lucille Crow Protein [Mass/Vol] 6.6 g/dL Normal 6.1-8.2 [facility] Comment on above: Performed By: #### L IPID, CMP #### [facility] [address] [place] [address] Dr. Lucille Crow Sodium [Moles/Vol] 137 mmol/L Normal 137-145 [facility] Comment on above: Performed By: #### L IPID, CMP #### [facility] [address] [place] [address] Dr. Lucille Crow Urea nitrogen [Mass/Vol] 20.0 mg/dL Critically high 7.0-18.0 [facility] Comment on above: Performed By: #### L IPID, CMP #### [facility] [address] [place] [address] Dr. Lucille Crow Urea nitrogen/Creatinine [Mass ratio] 18.5 mg/mg Normal [facility] Comment on above: Performed By: #### L IPID, CMP #### [facility] [address] [place] [address] Dr. Lucille Crow MRI CSPINE WO CONon [...] by: HARIKA LAUREANO Date: 2021-09-16 10:41 Normal [facility] XR CSPINE 2_3 VIEWSon 2021 XR CSPINE [...] by: HARIKA LAUREANO Date: 2021-08-25 15:49 Normal [facility] CNOVSPon 07-05-2017 CNOVSP Visit (SP) Office (RYAN) LEW SMITH ([id number]) 1960 MDate Time Provider Department07/05/17 10:30 AM DEVAN GOODRICH During your visit today, we recorded the following information about you: Temperature Pulse Respiration Blood pressure 98.5 degrees 72/minute 18/minute 116/74 Weight Height 88.5 kg 1.765 mTimsmooth Callejas DO Joleen 07/07/2017 2:43 PM SignedPATIENT NAME: Lew ObregonMRN: [id number] PHYSICIAN: REUBEN GIFFORD[address] [place] [id number] CARE PHYSICIAN: Reuben Rodríguez PHYSICIANS:CHIEF COMPLAINT: Primary thrombocytopenia (hcc) (primary encounter diagnosis)ASSESSMENT/PL AN:1. Primary thrombocytopenia, unspecified (HCC) - ICD9: 287.30, ICD10: D69.49His disease is mild and chronic. His platelet count has never fallen [id number]. Ultrasound of the liver from January 2016 [...] is 8.9. We have a previous result [id number] which showed a platelet count of 132.July [...] I answered all questions satisfactorily..Conrad Goodrich D.O.Medical OncologistCre[place], [place]Referring Provider: DEVAN GOODRICH [[id number]]Allergies As of Date: 07/05/2017(No Known Allergies)Date Reviewed: [...] by DEVAN GOODRICH DO on 07/07/17 Normal [facility] PROGRESSon 07-05-2017 PROGRESS HNO ID: [id number]: Devan William: (none)Author Type: PhysicianType: Progress NotesFiled: 07/07/2017 2:43 PMNote Text:PATIENT NAME: Lew ObregonMRN: [id number] PHYSICIAN: REUBEN GIFFORD [facility] [id number] CARE PHYSICIAN: Reuben Vaibhav AmburnOTHER PHYSICIANS:CHIEF COMPLAINT: [...] Lew the natural history, treated course, and prognosisof Primary thrombocytopenia (hcc) (primary encounter diagnosis); myimpression as well as the rationale, logistics, risks, benefits, andalternatives to the management options noted above; and my recommendationslisted below. The patient Lew Obregon verbalized understanding andagreed with these recommendations and plan. I answered all questionssatisfactorily ..Conrad Goodrich D.O.Medical Oncologist[place], [place] Normal [facility] Remote Abs Gran + CBC (for [facility] use only)on 07-05-2017 Absol Gran Count 4.43 k/uL Normal 1.45-7.50 [facility] Erythrocyte distribution width Auto Ratio (RBC) 12.4 % Normal 11.5-15.0 [facility] Erythrocytes (RBC) 5.16 10*6/uL Normal 4.20-6.00 [facility] Hematocrit (HCT) 43.3 % Normal 39.0-51.0 [facility] Hemoglobin mass conc (Bld) 15.0 g/dL Normal 13.0-17.0 [facility] MCH 29.1 pG Normal 26.0-34.0 [facility] MCHC mass conc (RBC) 34.6 g/dL Normal 30.5-36.0 [facility] MCV 83.9 fL Normal 80.0-100.0 [facility] Platelet mean volume (PMV) 11.4 fL Normal 9.0-12.7 [facility] Platelets 110 10*3/uL Low 150-400 [facility] WBC (Leukocytes) 6.67 10*3/uL Normal 3.70-11.00 [facility] Remote iSTAT BMP (for [facility] us e only)on 07-05-2017 Anion gap 12 mmol/L Normal 0-15 [facility] BUN (urea nitrogen) 17 mg/dL Normal 10-25 [facility] Chloride 99 mmol/L Normal 98-110 [facility] CO2 25 mmol/L Normal 23-32 [facility] Creatinine 1.00 mg/dL Normal 0.70-1.40 [facility] eGFR (non-black) mL/min/{1.73_m2} Normal Cl [facility] Comment on above: Result Comment: eGFR (Estimated [...] Glucose mass conc 211 mg/dL High 65-100 [facility] Ionized Calcium, WB 1.14 mmol/L Normal 1.08-1.30 [facility] Comment on above: Result Comment: Plea se note: This value represents ionized calcium not total calcium. Potassium molar conc 4.6 mmol/L Normal 3.5-5.0 [facility] Sodium 136 mmol/L Normal 135-146 [facility] Vital Signs Date Time Vital Sign Value Performing Clinician Facility 06-29-2024 13:45-0500 Body height 175.26 cm Robyn Morales APRN Work Phone: [facility] 06-29-2024 13:45-0500 Body mass index (BMI) [Ratio] 30 kg/m2 Robyn Morales APRN Work Phone: [facility] 06-29-2024 13:45-0500 Body temperature 97.4 [degF] Robyn Andrew [employer] Work Phone: [facility] 06-29-2024 13:45-0500 Body weight 92.24 kg Robyn Jensensylviaayankimberlee [employer] Work Phone: [facility] 06-29-2024 13:45-0500 Diastolic blood pressure 82 mm[Hg] Robyn Andrew [employer] Work Phone: [facility] 06-29-2024 13:45-0500 Heart rate 82 /min Robyn Jensenahsan [employer] Work Phone: [facility] 06-29-2024 13:45-0500 SaO2% (BldA) [Mass fraction] 97 % Robyn Jensenahsan [employer] Work Phone: [facility] 06-29-2024 13:45-0500 Systolic blood pressure 138 mm[Hg] Robyn Andrew [employer] Work Phone: [facility] 06-05-2024 13:27-0500 Body height 175.26 cm Robyn Jensenahsan [employer] Work Phone: [facility] 06-05-2024 13:27-0500 Body mass index (BMI) [Ratio] 29.4 kg/m2 Robyn Jensenahsan ABREUN Work Phone: [facility] 06-05-2024 13:27-0500 Body temperature 97.3 [degF] Robyn Andrew [employer] Work Phone: [facility] 06-05-2024 13:27-0500 Body weight 90.32 kg Robyn Andrew [employer] Work Phone: [facility] 06-05-2024 13:27-0500 Diastolic blood pressure 78 mm[Hg] Robyn Morales APRN Work Phone: [facility] 06-05-2024 13:27-0500 Heart rate 80 /min Robyn Jensenahsan [employer] Work Phone: [facility] 06-05-2024 13:27-0500 SaO2% (BldA) [Mass fraction] 95 % Robyn Jensenahsan [employer] Work Phone: [facility] 06-05-2024 13:27-0500 Systolic blood pressure 130 mm[Hg] Robyn Jensensylviaayankimberlee [employer] Work Phone: [facility] 05-31-2024 14:00-0500 Diastolic blood pressure 85 mm[Hg] Robyn Jensenahsan [employer] Work Phone: [facility] 05-31-2024 14:00-0500 Systolic blood pressure 122 mm[Hg] Robyn Andrew [employer] Work Phone: [facility] 05-31-2024 13:23-0500 Body height 175.26 cm Robyn Jensensylviaayankimberlee [employer] Work Phone: [facility] 05-31-2024 13:23-0500 Body mass index (BMI) [Ratio] 28.8 kg/m2 Robyn Jensensylviaayankimberlee [employer] Work Phone: [facility] 05-31-2024 13:23-0500 Body weight 88.62 kg Robyn Jensenahsan [employer] Work Phone: [facility] 05-31-2024 13:23-0500 Heart rate 78 /min Robyn Andrew [employer] Work Phone: [facility] 05-31-2024 13:23-0500 Respiratory rate 16 /min Robyn Andrew [employer] Work Phone: [facility] 05-31-2024 13:23-0500 SaO2% (BldA) [Mass fraction] 99 % Robyn Andrew [employer] Work Phone: [facility] 05-30-2024 14:47-0500 Body mass index (BMI) [Ratio] 28.5 kg/m2 Lenny Mallory DO Work Phone: [facility] 05-30-2024 14:47-0500 Body temperature 97.3 [degF] Lenny Mallory DO Work Phone: [facility] 05-30-2024 14:47-0500 Body weight 87.54 kg Lenny Mallory DO Work Phone: [facility] 05-30-2024 14:47-0500 Diastolic blood pressure 78 mm[Hg] Lenny Mallory DO Work Phone: [facility] 05-30-2024 14:47-0500 Heart rate 78 /min Lenny Mallory DO Work Phone: [facility] 05-30-2024 14:47-0500 SaO2% (BldA) [Mass fraction] 96 % Lenny Mallory DO Work Phone: [facility] 05-30-2024 14:47-0500 Systolic blood pressure 130 mm[Hg] Lenny Mallory DO Work Phone: [facility] 05-18-2024 08:59-0500 Diastolic blood pressure 90 mm[Hg] Robyn Morales APRN Work Phone: [facility] 05-18-2024 08:59-0500 Heart rate 84 /min Robyn Morales APRN Work Phone: [facility] 05-18-2024 08:59-0500 Respiratory rate 18 /min Robyn Morales [employer] Work Phone: [facility] 05-18-2024 08:59-0500 SaO2% (BldA) [Mass fraction] 97 % Robyn Morales APRN Work Phone: [facility] 05-18-2024 08:59-0500 Systolic blood pressure 150 mm[Hg] Robyn Morales APRN Work Phone: [facility] 05-18-2024 07:20-0500 Body height 175.26 cm Robyn Jensensylviaayankimberlee [employer] Work Phone: [facility] 05-18-2024 07:20-0500 Body weight 88.45 kg Robyn Jensensylviaayankimberlee [employer] Work Phone: [facility] 05-11-2024 10:25-0500 Body height 175.26 cm Robyn Jensensylviaayankimberlee [employer] Work Phone: [facility] 05-11-2024 10:25-0500 Body temperature 97.5 [degF] Robyn Andrew [employer] Work Phone: [facility] 05-11-2024 10:25-0500 Body weight 90.1 kg Robyn Jensensylviaayankimberlee [employer] Work Phone: [facility] 05-11-2024 10:25-0500 Diastolic blood pressure 77 mm[Hg] Robyn Jensenahsan [employer] Work Phone: [facility] 05-11-2024 10:25-0500 Heart rate 81 /min Robyn Jensenahsan [employer] Work Phone: [facility] 05-11-2024 10:25-0500 Respiratory rate 20 /min Robyn Jensenahsan [employer] Work Phone: [facility] 05-11-2024 10:25-0500 SaO2% (BldA) [Mass fraction] 96 % Robyn Andrew [employer] Work Phone: [facility] 05-11-2024 10:25-0500 Systolic blood pressure 152 mm[Hg] Robyn Andrew [employer] Work Phone: [facility] 04-26-2024 07:29-0500 Body height 175.26 cm Robyn Andrew [employer] Work Phone: [facility] 04-26-2024 07:29-0500 Body weight 88.45 kg Robyn Morales [employer] Work Phone: [facility] 04-12-2024 08:53-0400 Body height 176.53 cm [employer] Robyn Jensenrbacher Work Phone: [facility] 04-12-2024 08:53-0400 Body mass index (BMI) [Ratio] 28.3 kg/m2 [employer] Robyn Mikeyrbacher Work Phone: [facility] 04-12-2024 08:53-0400 Body weight 88.45 kg [employer] Robyn Mikeyrbacher Work Phone: [facility] 03-23-2024 14:50-0400 Body height 175.26 cm [employer] Robyn Mikeyrbacher Work Phone: [facility] 03-23-2024 14:50-0400 Body mass index (BMI) [Ratio] 28.3 kg/m2 CROP [employer] GRAIN FARMER Robyn Mikeyrbacher Work Phone: [facility] 03-23-2024 14:50-0400 Body weight 87.14 kg CR[employer]ER Robyn Jensenrbacher Work Phone: [facility] 03-15-2024 08:42-0400 Body height 175.26 cm CR[employer] G[employer]IN FARMER Robyn Mikeyrbacher Work Phone: [facility] 03-15-2024 08:42-0400 Body mass index (BMI) [Ratio] 28.3 kg/m2 CR[employer]ARMER Robyn Mikeyrbacher Work Phone: [facility] 03-15-2024 08:42-0400 Body temperature 97.2 [degF] CR[employer] G[employer]IN FARMER Robyn Mikeyrbacher Work Phone: [facility] 03-15-2024 08:42-0400 Body weight 87.08 kg CROP [employer] G[employer]IN FARMER Robyn Mikeyrbacher Work Phone: [facility] 03-15-2024 08:42-0400 Diastolic blood pressure 78 mm[Hg] CROP OR GRAIN FARMERRanjan Jensenrbacher Work Phone: [facility] 03-15-2024 08:42-0400 Heart rate 73 /min CROP OR GRAIN FARMERaRnjan MuellerRobyn Mikeyrbacher Work Phone: [facility] 03-15-2024 08:42-0400 Respiratory rate 16 /min CROP OR GRAIN FARMERRanjan MuellerRobyn Mikeyrbacher Work Phone: [facility] 03-15-2024 08:42-0400 SaO2% (BldA) [Mass fraction] 98 % CROP OR GRAIN FARMERRanjan Petersenacher Work Phone: [facility] 03-15-2024 08:42-0400 Systolic blood pressure 120 mm[Hg] CROP OR GRAIN FARMERRanjan Jensenrbacher Work Phone: [facility] 03-09-2024 15:06-0400 Body height 175.3 cm Osman Alvarado DPM Work Phone: [facility] 03-09-2024 15:06-0400 Body mass index (BMI) [Ratio] 28.5 kg/m2 Osman Alvarado DPM Work Phone: [facility] 03-09-2024 15:06-0400 Body weight 87.54 kg Osman Alvarado DPM Work Phone: [facility] 03-09-2024 15:06-0400 Diastolic blood pressure 80 mm[Hg] Osman Alvarado DPM Work Phone: [facility] 03-09-2024 15:06-0400 Heart rate 75 /min Osman Alvarado DPM Work Phone: [facility] 03-09-2024 15:06-0400 Systolic blood pressure 126 mm[Hg] Osman Alvarado DPM Work Phone: [facility] 03-08-2024 12:48-0400 Body height 175.26 cm CR[employer] G[employer]IN FARMER Robyn Rohrbacher Work Phone: [facility] 03-08-2024 12:48-0400 Body mass index (BMI) [Ratio] 28.4 kg/m2 CROP OR GRAIN FARMERRanjan Petersenacher Work Phone: [facility] 03-08-2024 12:48-0400 Body weight 87.31 kg CROP OR GRAIN FARMERRanjan Carlson Mikeyrbacher Work Phone: [facility] 03-08-2024 12:48-0400 Diastolic blood pressure 71 mm[Hg] CROP OR GRAIN FARMERRanjan Carlson Mikeyrbacher Work Phone: [facility] 03-08-2024 12:48-0400 Heart rate 89 /min CROP OR GRAIN FARMERRanjan Carlson Mikeyrbacher Work Phone: [facility] 03-08-2024 12:48-0400 Respiratory rate 18 /min CROP OR GRAIN FARMERRanjan Carlson Mikeyrbacher Work Phone: [facility] 03-08-2024 12:48-0400 SaO2% (BldA) [Mass fraction] 97 % CROP OR GRAIN FARMERRanjan Carlson Mikeyrbacher Work Phone: [facility] 03-08-2024 12:48-0400 Systolic blood pressure 129 mm[Hg] DANNY Jensenrbacher Work Phone: [facility] 02-24-2024 14:39-0400 Body height 175.3 cm Osman Alvarado DPM Work Phone: [facility] 02-24-2024 14:39-0400 Body mass index (BMI) [Ratio] 28.5 kg/m2 Osman Alvarado DPM Work Phone: [facility] 02-24-2024 14:39-0400 Body weight 87.54 kg Osman Alvarado DPM Work Phone: [facility] 02-24-2024 14:39-0400 Diastolic blood pressure 77 mm[Hg] Osman Alvarado DPM Work Phone: [facility] 02-24-2024 14:39-0400 Heart rate 75 /min Osman Alvarado DPM Work Phone: [facility] 02-24-2024 14:39-0400 Systolic blood pressure 126 mm[Hg] Osman Alvarado DPM Work Phone: [facility] 02-09-2024 09:58-0400 Body height 175.26 cm [facility] 02-09-2024 09:58-0400 Body mass index (BMI) [Ratio] 27 kg/m2 [facility] 02-09-2024 09:58-0400 Body weight 83 kg [facility] 02-09-2024 09:58-0400 Diastolic blood pressure 72 mm[Hg] [facility] 02-09-2024 09:58-0400 Heart rate 75 /min [facility] 02-09-2024 09:58-0400 SaO2% (BldA) [Mass fraction] 95 % [facility] 02-09-2024 09:58-0400 Systolic blood pressure 138 mm[Hg] [facility] 01-12-2024 14:53-0400 Body height 175.26 cm [facility] 01-12-2024 14:53-0400 Body mass index (BMI) [Ratio] 28 kg/m2 [facility] 01-12-2024 14:53-0400 Body weight 86.18 kg [facility] 01-12-2024 14:53-0400 Diastolic blood pressure 70 mm[Hg] [facility] 01-12-2024 14:53-0400 Heart rate 78 /min [facility] 01-12-2024 14:53-0400 SaO2% (BldA) [Mass fraction] 98 % [facility] 01-12-2024 14:53-0400 Systolic blood pressure 132 mm[Hg] [facility] 12-15-2023 14:50-0400 Body height 175.26 cm MD Shaikh Samson Work Phone: [facility] 12-15-2023 14:50-0400 Body mass index (BMI) [Ratio] 28.4 kg/m2 MD Shaikh Samson Work Phone: [facility] 12-15-2023 14:50-0400 Body weight 87.34 kg MD Shaikh Samson Work Phone: [facility] 12-15-2023 14:50-0400 Diastolic blood pressure 69 mm[Hg] MD Shaikh Samson Work Phone: [facility] 12-15-2023 14:50-0400 Heart rate 82 /min MD Shaikh Samson Work Phone: [facility] 12-15-2023 14:50-0400 Respiratory rate 18 /min MD Shaikh Samson Work Phone: [facility] 12-15-2023 14:50-0400 SaO2% (BldA) [Mass fraction] 98 % MD Shaikh Samson Work Phone: [facility] 12-15-2023 14:50-0400 Systolic blood pressure 127 mm[Hg] MD Shaikh Samson Work Phone: [facility] 11-10-2023 14:37-0400 Body height 175.26 cm MD Shaikh Samson Work Phone: [facility] 11-10-2023 14:37-0400 Body mass index (BMI) [Ratio] 28.5 kg/m2 MD Shaikh Samson Work Phone: [facility] 11-10-2023 14:37-0400 Body weight 87.79 kg MD Shaikh Samson Work Phone: [facility] 11-10-2023 14:37-0400 Diastolic blood pressure 66 mm[Hg] MD Shaikh Samson Work Phone: [facility] 11-10-2023 14:37-0400 Heart rate 95 /min MD Shaikh Samson Work Phone: [facility] 11-10-2023 14:37-0400 Respiratory rate 20 /min MD Shaikh Samson Work Phone: [facility] 11-10-2023 14:37-0400 SaO2% (BldA) [Mass fraction] 98 % MD Shaikh Samson Work Phone: [facility] 11-10-2023 14:37-0400 Systolic blood pressure 128 mm[Hg] MD Shaikh Samson Work Phone: [facility] 10-27-2023 12:49-0400 Body height 175.26 cm MD Shaikh Samson Work Phone: [facility] 10-27-2023 12:49-0400 Body mass index (BMI) [Ratio] 28 kg/m2 MD Shaikh Samson Work Phone: [facility] 10-27-2023 12:49-0400 Body weight 86.23 kg MD Shaikh Samson Work Phone: [facility] 10-27-2023 12:49-0400 Diastolic blood pressure 81 mm[Hg] MD Shaikh Samson Work Phone: [facility] 10-27-2023 12:49-0400 Heart rate 85 /min MD Shaikh Samson Work Phone: [facility] 10-27-2023 12:49-0400 Respiratory rate 18 /min MD Shaikh Samson Work Phone: [facility] 10-27-2023 12:49-0400 SaO2% (BldA) [Mass fraction] 98 % MD Shaikh Samson Work Phone: [facility] 10-27-2023 12:49-0400 Systolic blood pressure 126 mm[Hg] MD Shaikh Samson Work Phone: [facility] 10-11-2023 14:15-0400 Body height 175.26 cm MD Shaikh Samson Work Phone: [facility] 10-11-2023 14:15-0400 Body mass index (BMI) [Ratio] 27.9 kg/m2 MD Shaikh Samson Work Phone: [facility] 10-11-2023 14:15-0400 Body weight 85.92 kg MD Shaikh Samson Work Phone: [facility] 10-11-2023 14:15-0400 Diastolic blood pressure 78 mm[Hg] MD Shaikh Samson Work Phone: [facility] 10-11-2023 14:15-0400 Heart rate 98 /min MD Shaikh Samson Work Phone: [facility] 10-11-2023 14:15-0400 Respiratory rate 18 /min MD Shaikh Samson Work Phone: [facility] 10-11-2023 14:15-0400 SaO2% (BldA) [Mass fraction] 97 % MD Shaikh Samson Work Phone: [facility] 10-11-2023 14:15-0400 Systolic blood pressure 127 mm[Hg] MD Shaikh Samson Work Phone: [facility] 09-22-2023 12:55-0400 Body height 175.26 cm MD Shaikh Samson Work Phone: [facility] 09-22-2023 12:55-0400 Body mass index (BMI) [Ratio] 28.3 kg/m2 MD Shaikh Samson Work Phone: [facility] 09-22-2023 12:55-0400 Body weight 86.86 kg MD Shaikh Samson Work Phone: [facility] 09-22-2023 12:55-0400 Diastolic blood pressure 74 mm[Hg] MD Shaikh Samson Work Phone: [facility] 09-22-2023 12:55-0400 Heart rate 79 /min MD Shaikh Samson Work Phone: [facility] 09-22-2023 12:55-0400 Respiratory rate 18 /min MD Shaikh Samson Work Phone: [facility] 09-22-2023 12:55-0400 SaO2% (BldA) [Mass fraction] 99 % MD Shaikh Samson Work Phone: [facility] 09-22-2023 12:55-0400 Systolic blood pressure 121 mm[Hg] MD Shaikh Samson Work Phone: [facility] 09-01-2023 10:59-0400 Diastolic blood pressure 74 mm[Hg] MD Shaikh Samson Work Phone: [facility] 09-01-2023 10:59-0400 Systolic blood pressure 133 mm[Hg] MD Shaikh Samson Work Phone: [facility] 09-01-2023 10:26-0400 Diastolic blood pressure 85 mm[Hg] MD Shaikh Samson Work Phone: [facility] 09-01-2023 10:26-0400 Systolic blood pressure 139 mm[Hg] MD Shaikh Samson Work Phone: [facility] 09-01-2023 10:02-0400 Body height 175.26 cm MD Shaikh Samson Work Phone: [facility] 09-01-2023 10:02-0400 Body mass index (BMI) [Ratio] 28 kg/m2 MD Shaikh Samson Work Phone: [facility] 09-01-2023 10:02-0400 Body weight 86.18 kg MD Shaikh Samson Work Phone: [facility] 09-01-2023 10:02-0400 Heart rate 84 /min MD Shaikh Samson Work Phone: [facility] 09-01-2023 10:02-0400 Respiratory rate 20 /min MD Shaikh Samson Work Phone: [facility] 09-01-2023 10:02-0400 SaO2% (BldA) [Mass fraction] 97 % MD Shaikh Samson Work Phone: [facility] 08-11-2023 10:00-0500 Body height 175.26 cm MD Shaikh Samson Work Phone: [facility] 08-11-2023 10:00-0500 Body mass index (BMI) [Ratio] 27.8 kg/m2 MD Shaikh Samson Work Phone: [facility] 08-11-2023 10:00-0500 Body weight 85.44 kg MD Shaikh Samson Work Phone: [facility] 08-11-2023 10:00-0500 Diastolic blood pressure 73 mm[Hg] MD Shaikh Samson Work Phone: [facility] 08-11-2023 10:00-0500 Heart rate 99 /min MD Shaikh Samson Work Phone: [facility] 08-11-2023 10:00-0500 Respiratory rate 18 /min MD Shaikh Samson Work Phone: [facility] 08-11-2023 10:00-0500 SaO2% (BldA) [Mass fraction] 99 % MD Shaikh Samson Work Phone: [facility] 08-11-2023 10:00-0500 Systolic blood pressure 113 mm[Hg] MD Shaikh Samson Work Phone: [facility] 07-28-2023 13:26-0500 Body height 175.26 cm MD Shaikh Samson Work Phone: [facility] 07-28-2023 13:26-0500 Body mass index (BMI) [Ratio] 27.6 kg/m2 MD Shaikh Samson Work Phone: [facility] 07-28-2023 13:26-0500 Body weight 84.9 kg MD Shaikh Samson Work Phone: [facility] 07-28-2023 13:26-0500 Diastolic blood pressure 63 mm[Hg] MD Shaikh Samson Work Phone: [facility] 07-28-2023 13:26-0500 Heart rate 82 /min MD Shaikh Samson Work Phone: [facility] 07-28-2023 13:26-0500 Respiratory rate 18 /min MD Shaikh Samson Work Phone: [facility] 07-28-2023 13:26-0500 SaO2% (BldA) [Mass fraction] 99 % MD Shaikh Samson Work Phone: [facility] 07-28-2023 13:26-0500 Systolic blood pressure 113 mm[Hg] MD Shaikh Samson Work Phone: [facility] 06-23-2023 10:00-0500 Body height 175.26 cm Cassidy Salazar Other [facility] 06-23-2023 10:00-0500 Body mass index (BMI) [Ratio] 27.61 kg/m2 Cassidyher Rasheedler Other [employer] Other 06-23-2023 10:00-0500 Body weight 84.82 kg Cassidy Missler Other [facility] 06-23-2023 10:00-0500 Diastolic blood pressure 82 mm[Hg] Cassidy Missler Other [facility] 06-23-2023 10:00-0500 Respiratory rate 18 /min Cassidy Missler Other [employer] Other 06-23-2023 10:00-0500 SaO2% (BldA) [Mass fraction] 99 % Cassidy Missler Other [facility] [employer] Other 06-23-2023 10:00-0500 Systolic blood pressure 124 mm[Hg] Cassidy Missler Other [facility] 08-20-2022 09:00-0500 Body height 176.53 cm Cornel Avila Other [employer] Other 08-20-2022 09:00-0500 Body mass index (BMI) [Ratio] 27.65 kg/m2 Cornel Avila Other [employer] Other 08-20-2022 09:00-0500 Body weight 86.18 kg Cornel Avila Other [employer] Other 08-20-2022 09:00-0500 Diastolic blood pressure 72 mm[Hg] Cornel Avila Other [employer] Other 08-20-2022 09:00-0500 Systolic blood pressure 106 mm[Hg] Cornel Avila Other [employer] Other 05-19-2022 12:20-0500 Body height 176.53 cm Cornel Avila Other [employer] Other 05-19-2022 12:20-0500 Body mass index (BMI) [Ratio] 27.65 kg/m2 Cornel Avila Other [employer] Other 05-19-2022 12:20-0500 Body weight 86.18 kg Cornel Avila Other [employer] Other 02-17-2022 10:00-0400 Body height 176.53 cm Cornel Avila Other [employer] Other 02-17-2022 10:00-0400 Body mass index (BMI) [Ratio] 27.22 kg/m2 Cornel Avila Other [employer] Other 02-17-2022 10:00-0400 Body weight 84.82 kg Cornel Avila Other [employer] Other 11-04-2021 16:40-0400 Body height 176.53 cm Cornel Avila Other [employer] Other 11-04-2021 16:40-0400 Body mass index (BMI) [Ratio] 27.22 kg/m2 Cornel Avila Other [employer] Other 11-04-2021 16:40-0400 Body weight 84.82 kg Cornel Avila Other [employer] Other 09-30-2021 09:20-0400 Body height 176.53 cm Cornel Avila Other [employer] Other 09-30-2021 09:20-0400 Body mass index (BMI) [Ratio] 27.8 kg/m2 Cornel Avila Other [employer] Other 09-30-2021 09:20-0400 Body weight 86.64 kg Cornel Avila Other [facility] [employer] Other 04-16-2021 09:30-0400 Body weight 86.91 kg Sarah Oneil Other [facility] [employer] Other Encounters Encounter Date Encounter Type Care Provider Facility Start: 06-29-2024 End: 06-29-2024 ambulatory Robyn Morales APRN Work Phone: [facility] Work Phone: Start: 06-29-2024 End: 06-29-2024 Patient encounter procedure Robyn Morales APRN Work Phone: [facility] Work Phone: Start: 06-05-2024 End: 06-05-2024 Patient encounter procedure Robyn Morales APRN Work Phone: [facility] Work Phone: Start: 05-31-2024 End: 05-31-2024 Patient encounter procedure Robyn Morales APRN Work Phone: [facility] Work Phone: Start: 05-30-2024 End: 05-30-2024 ambulatory LENNY MALLORY Not Available Start: 05-30-2024 End: 05-30-2024 Office outpatient visit 25 minutes Lenny Mallory DO Work Phone: [facility] Comment on above: Cellulitis, penis (P rimary Dx) Start: 05-24-2024 Non-patient / Non-visit Juan Miguel Morales APRN Work Phone: [facility] Work Phone: Start: 05-18-2024 Non-patient / Non-visit Juan Miguel Morales APRN Work Phone: [facility] Work Phone: Start: 05-18-2024 End: 05-18-2024 Admission to same day surgery center Robyn Andrew CROP OR GRAIN FARMER Work Phone: [facility] Work Phone: Start: 05-18-2024 End: 05-18-2024 ambulatory Robyn Morales Facility:[facility] Start: 05-11-2024 End: 05-11-2024 Emergency department patient visit Robyn Andrew CROP OR GRAIN FARMER Work Phone: [facility] Work Phone: Start: 04-26-2024 End: 04-26-2024 Patient encounter procedure Robyn Andrew CROP OR GRAIN FARMER Work Phone: [facility] Work Phone: Start: 04-26-2024 End: 04-26-2024 ambulatory Robyn Andrew CROP OR GRAIN FARMER Work Phone: [facility] Work Phone: Start: 04-19-2024 End: 04-19-2024 Patient encounter procedure CROP [employer] GRAIN FARMER Robyn Andrew Work Phone: [facility] Work Phone: Start: 04-19-2024 End: 04-19-2024 ambulatory CR[employer] OR GRAIN FARMER Robynsiobhan Morales Work Phone: [facility] Work Phone: Start: 04-12-2024 End: 04-12-2024 ambulatory CROP [employer] GRAIN FARMER Robynsiobhan Petersenacher Work Phone: [facility] Work Phone: Start: 04-12-2024 End: 04-12-2024 Patient encounter procedure CR[employer] GRAIN FARMER Robynsiobhan Morales Work Phone: [facility] G[facility] Work Phone: Start: 03-23-2024 End: 03-23-2024 ambulatory CROP OR GRAIN FARMERRanjan Morales Work Phone: [facility] Work Phone: Start: 03-23-2024 End: 03-23-2024 Patient encounter procedure CROP OR GRAIN FARMERRanjan Morales Work Phone: [facility] Neuro[facility] Work Phone: Start: 03-15-2024 End: 03-15-2024 External Result Encounter Karo Silva David GENERAL ASSEMBLER INSTALLER Work Phone: [facility] External Department Unsolicited Start: 03-15-2024 End: 03-15-2024 External Result Encounter Karo Silva David GENERAL ASSEMBLER INSTALLER Work Phone: [facility] External Department Unsolicited Start: 03-15-2024 Registered Recurring CROP OR GRAIN FARMER Linn Morales [facility] Work Phone: Start: 03-15-2024 End: 03-15-2024 ambulatory CROP OR GRAIN FARMERRanjan Morales Work Phone: [facility] Work Phone: Start: 03-15-2024 End: 03-15-2024 Patient encounter procedure CROP OR GRAIN FARMERRanjan Morales Work Phone: [facility] Work Phone: Start: 03-09-2024 End: 03-09-2024 [...] CI PODIATRY Start: 03-08-2024 End: 03-08-2024 ambulatory CROP OR GRAIN FARMERRanjan Morales Work Phone: [facility] Work Phone: Start: 03-08-2024 End: 03-08-2024 Patient encounter procedure CROP OR GRAIN FARMERRanjan Morales Work Phone: [facility] Work Phone: Start: 03-04-2024 End: 03-04-2024 Patient encounter procedure CROP OR GRAIN FARMERRanjan Morales Work Phone: [facility] [place] Work Phone: Start: 03-04-2024 End: 03-04-2024 ambulatory CROP OR GRAIN FARMERRanjan Morales Work Phone: [facility] Work Phone: Start: 02-24-2024 End: 02-24-2024 Office [...] encounter procedure DANNY Robyn Andrew Work Phone: [facility] [place] Work Phone: Start: 02-16-2024 End: 02-16-2024 ambulatory DANNY Carlson Andrew Work Phone: [facility] Work Phone: Start: 02-09-2024 End: 02-09-2024 ambulatory [facility] Work Phone: Start: 02-09-2024 End: 02-09-2024 Patient encounter procedure [facility] Work Phone: Start: 01-19-2024 End: 01-19-2024 ambulatory [facility] Work Phone: Start: 01-19-2024 End: 01-19-2024 Patient encounter procedure [facility] Work Phone: Start: 01-12-2024 End: 01-12-2024 ambulatory [facility] Work Phone: Start: 01-12-2024 End: 01-12-2024 Patient encounter procedure [facility] Work Phone: Start: 12-15-2023 End: 12-15-2023 ambulatory MD Shaikh Samson Work Phone: [facility] Work Phone: Start: 12-15-2023 End: 12-15-2023 Patient encounter procedure MD Shaikh Samson Work Phone: [facility] Work Phone: Start: 11-10-2023 End: 11-10-2023 ambulatory MD Shaikh Samson Work Phone: [facility] Work Phone: Start: 11-10-2023 End: 11-10-2023 Patient encounter procedure MD Shaikh Samson Work Phone: [facility] Work Phone: Start: 10-27-2023 End: 10-27-2023 Patient encounter procedure MD Shaikh Samson Work Phone: [facility] Work Phone: Start: 10-13-2023 End: 10-13-2023 Patient encounter procedure MD Shaikh Samson Work Phone: [facility] Work Phone: Start: 10-13-2023 End: 10-13-2023 ambulatory Shaikh Mali Facility:[facility] Start: 10-11-2023 End: 10-11-2023 ambulatory MD Shaikh Samson Work Phone: [facility] Work Phone: Start: 10-11-2023 End: 10-11-2023 Patient encounter procedure MD Shaikh Samson Work Phone: [facility] Work Phone: Start: 09-29-2023 End: 09-29-2023 ambulatory SHAIKH MALI Not Available Start: 09-22-2023 End: 09-22-2023 ambulatory MD Shaikh Samson Work Phone: [facility] Work Phone: Start: 09-22-2023 End: 09-22-2023 Patient encounter procedure MD Shaikh Samson Work Phone: [facility] Work Phone: Start: 09-21-2023 End: 09-21-2023 Patient encounter procedure MD Shaikh Samson Work Phone: [facility] [address] Work Phone: Start: 09-21-2023 End: 09-21-2023 ambulatory MD Shaikh Samson Work Phone: [facility] Work Phone: Start: 09-01-2023 End: 09-01-2023 ambulatory MD Shaikh Samson Work Phone: [facility] Work Phone: Start: 09-01-2023 End: 09-01-2023 Patient encounter procedure MD Shaikh Samson Work Phone: [facility] Work Phone: Start: 08-11-2023 End: 08-11-2023 Patient encounter procedure MD Shaikh Samson Work Phone: [facility] Work Phone: Start: 07-28-2023 End: 07-28-2023 ambulatory MD Shaikh Samson Work Phone: [facility] Work Phone: Start: 07-28-2023 End: 07-28-2023 Patient encounter procedure MD Shaikh Samson Work Phone: [facility] Work Phone: Start: 07-26-2023 Orders Only Shaikh Mali OJEDA Work Phone: [facility] Comment on above: Type 2 diabetes nena itus without complication, without long- term current use of insulin ([facility]) (Primary Dx) Start: 06-30-2023 End: 06-30-2023 ambulatory Cassidy Salazar Other [employer] Other Start: 06-30-2023 Telephone encounter Cassidy Salazar [facility] Start: 01-10-2024 (Smoke Cess) Smoking Cessation [facility] Start: 06-23-2023 End: 06-23-2023 ambulatory MD Shaikh Samson Work Phone: [facility] [employer] Other Start: 06-23-2023 End: 06-23-2023 Discharged Recurring MD Shaikh Samson Work Phone: [facility] Work Phone: Start: 06-23-2023 Registered Recurring MD Shaikh Samson Work Phone: [facility] Work Phone: Start: 06-23-2023 End: 06-23-2023 Patient encounter procedure MD Shaikh Samson Work Phone: [facility] Work Phone: Start: 06-02-2023 End: 06-02-2023 ambulatory MD Shaikh Samson Work Phone: [facility] Work Phone: Start: 06-02-2023 End: 06-02-2023 Patient encounter procedure MD Shaikh Samson Work Phone: [facility] [place] Work Phone: Start: 05-26-2023 Patient encounter procedure Shaikh Mali OJEDA Work Phone: [facility] Start: 2023 End: 2023 ambulatory MD Shaikh Samson Work Phone: [facility] Work Phone: Start: 2023 End: 2023 Patient encounter procedure MD Shaikh Samson Work Phone: [facility] [place] Work Phone: Start: 08-20-2022 End: 08-20-2022 ambulatory Cornel Avila Other [facility] Other Start: 08-20-2022 Office outpatient vi sit 10 minutes Cornel Avila [facility] Start: 06-05-2022 End: 06-06-2022 ambulatory SHAIKH Cayla MALI Facility:H1 Start: 06-04-2022 End: 06-05-2022 ambulatory SHAIKH Cayla MALI Facility:H1 Start: 05-19-2022 Office outpatient vi sit 15 minutes Cornel Avila [facility] Start: 05-19-2022 End: 05-19-2022 ambulatory MD Shaikh Samson Work Phone: [facility] Work Phone: Start: 05-19-2022 End: 05-19-2022 Patient encounter procedure MD Shaikh Samson Work Phone: [facility] Start: 02-17-2022 End: 02-17-2022 ambulatory Cornel Avila Other [facility] Other Start: 02-17-2022 Postop follow up vis it related to original px Cornel Avila [facility] Start: 02-17-2022 End: 02-17-2022 Patient encounter procedure MD Shaikh Samson Work Phone: [facility] Start: 01-08-2022 End: 01-09-2022 ambulatory SHAIKH Cayla MALI Facility:H1 Start: 12-11-2021 End: 12-11-2021 Patient encounter procedure MD Shaikh [facility] Start: 12-08-2021 End: 12-08-2021 ambulatory Cornel Avila Other [place] [employer] Other Start: 12-08-2021 Telephone encounter Cornel Avila [facility] Start: 11-17-2021 Admission to same y surgery center Cornel Avila [facility] Start: 11-17-2021 End: 11-17-2021 ambulatory Cornel Avila Other [facility] Other Start: 11-04-2021 End: 11-04-2021 ambulatory Cornel Avila Other [facility] Other Start: 11-04-2021 Office outpatient vi sit 15 minutes Cornel Avila [facility] Start: 09-30-2021 End: 09-30-2021 ambulatory Cornel Avila Other [place] [employer] Other Start: 09-30-2021 Office outpatient ne w 60 minutes Cornel Avila [facility] Start: 09-22-2021 End: 09-23-2021 ambulatory DE LEON H FAWWAD Facility:H1 Start: 09-16-2021 End: 09-17-2021 ambulatory DE LEON H FAWWAD Facility:H1 Start: 08-25-2021 End: 08-26-2021 ambulatory DE LEON H FAWWAD Facility:H1 Start: 08-25-2021 End: 09-09-2021 ambulatory DE LEON H FAWWAD Facility:H1 Start: 04-16-2021 End: 04-16-2021 ambulatory Sarah Oneil Other [place] [employer] Other Start: 04-16-2021 Office outpatient vi sit 15 minutes Sarah Oneil [facility] Start: 07-05-2017 End: 07-07-2017 Ambulatory DEVAN GOODRICH [facility] Procedures Date Procedure Procedure Detail Performing Clinician Start: 05-18-2024 Esophagogastroduodenoscopy Robyn winkler APRN Work Phone: Start: 05-11-2024 X-ray of left foot Robyn Morales APRN Work Phone: Start: 04-26-2024 Radionuclide study of abdomen Robyn levy APRN Work Phone: Start: 04-19-2024 Ultrasound elastography of liver CROP OR GRAIN FARMER Andrew morales Mikeyalexkimberlee Work Phone: Start: 03-15-2024 Complete blood count with white cell differential, automated Karo Hernandez GENERAL ASSEMBLER INSTALLER Work Phone: Start: 03-15-2024 Comprehensive metabolic panel Karo Freeman GENERAL ASSEMBLER INSTALLER Work Phone: Start: 03-04-2024 MRI of lumbar spine with contrast CROP OR GRAIN FARMER Júnior song Andrew Work Phone: Start: 02-16-2024 US scan of gallbladder CROP OR GRAIN FARMER Robyn Andrew Work Phone: Start: 10-13-2023 X-ray [...] Screening for malign ant neoplasm of colon [facility] Start: 04-18-2027 Pneumococcal Vaccine : 65+ Years (3 - PPSV23 or PCV20) Pneumococcal Vaccine: 65+ Years (3 - PPSV23 or PCV20) [facility] Start: 04-18-2027 Pneumococcal Vaccine : 65+ Years (3 of 3 - PPSV23 or PCV20) Pneumococcal Vaccine: 65+ Years (3 of 3 - PPSV23 or PCV20) [facility] Start: 10-12-2024 Urine screening for protein Diabetes: Urine Protein Screening [facility] Start: 05-26-2024 Medicare Annual Well ness (AWV) Medicare Annual Wellness (AWV) [facility] Start: 05-18-2024 [facility] Start: 03-09-2024 End: 03-09-2024 Patient encounter procedure 03/09/2024 3:00 PM EDT Office Visit [facility] [address] [place] [phone] Osman Alvarado DPM [address] [address] Paronychia, toe, left (Primary Dx); Onychocryptosis; Toe pain, left [facility] Comment on above: Paronychia, toe, lef t (Primary Dx); Onychocryptosis; Toe pain, left Start: 03-04-2024 MR Lumbar spine WO a nd W contrast IV [facility] Start: 03-04-2024 MRI of lumbar spine with contrast MR lumbar spine wo/w con [facility] Start: 02-24-2024 End: 02-24-2024 Patient encounter procedure 02/24/2024 3:00 PM EDT Office Visit [facility] [address] [facility] [address] [place] [phone] Osman Alvarado DPM [address] [address] Arrived [facility] Comment on above: Arrived Start: 02-13-2024 Influenza vaccination Influenza Vacc ine (#1) [facility] Start: 01-13-2024 Hemoglobin A1c measurement Diabetes: Hemoglobin A1C [facility] Start: 01-13-2024 Urine screening for protein Diabetes: Urine Protein Screening [facility] Start: 10-03-2023 Screening for malign ant neoplasm of colon [facility] Start: 09-29-2023 End: 09-29-2023 Patient encounter procedure 09/29/2023 1:00 PM EDT Office Visit [facility] [address] [place] [address] Shaikh Samson MD [address] [place] [address] [facility] Start: 09-01-2023 Hemoglobin A1c measurement Diabetes: Hemoglobin A1C [facility] Start: 01-22-1968 Glaucoma screening Diabetes: R etinopathy Screening [facility] Start: 1960 Screening for malign ant neoplasm of colon [facility] Comprehensive metabo lic 2000 panel - Serum or Plasma [facility] MR Abdomen [facility] MR Lumbar spine WO a nd W contrast IV [facility] Patient Education [facility] Work Phone: Patient referral [facility] Work Phone: Radionuclide study o f abdomen [facility] US Gallbladder [facility] Immunizations Immunization Date Immunization Notes Care Provider Fa cility 04-13-2023 COVID-19 (PFIZER) 12Y and older [facility] 03-31-2023 ABRYSVO - Respirator y syncytial virus (RSV), vaccine, bivalent, protein subunit RSV prefusion F, diluent reconstituted, 0.5 mL, PF Shaikh Mali OJEDA Work Phone: [facility] 03-17-2023 Influenza, High-dose Seasonal, Quadrivalent, Preservative Free Shaikh Mali OJEDA Work Phone: [facility] 03-17-2023 influenza virus vacc ine, unspecified formulation Osman SHORTM Work Phone: [facility] 11-05-2022 tetanus toxoid, redu batsheva diphtheria toxoid, and acellular pertussis vaccine, adsorbed Shaikh Mali OJEDA Work Phone: [facility] 04-25-2022 COVID-19 mRNA Bivale nt Booster (Pfizer) [facility] 04-18-2022 pneumococcal polysaccharide vaccine, 23 valkennedy Samson MD Work Phone: [facility] 04-12-2022 influenza, injectabl e, quadrivalent, preservative free Shaikh Mali OJEDA Work Phone: [facility] 11-04-2021 COVID-19 Comirnaty (Pfizer) Tri-Sucrose 12+ [facility] 11-04-2021 COVID-19 mRNA, Comir giuliana (Pfizer) MD Shaikh Samson Work Phone: [facility] 05-25-2021 COVID-19 mRNA, Comir giuliana (Pfizer) MD Shaikh Samson Work Phone: [facility] 04-19-2021 influenza, injectabl e, quadrivalent, preservative free Shaikh Mali OJEDA Work Phone: [facility] 01-13-2021 pneumococcal conjuga te vaccine, 13 valent Shaikh Mali OJEDA Work Phone: [facility] 01-13-2021 tetanus toxoid, redu batsheva diphtheria toxoid, and acellular pertussis vaccine, adsorbed Shaikh Mali OJEDA Work Phone: [facility] 09-18-2020 COVID-19 mRNA, Comir giuliana (Pfizer) MD Shaikh Samson Work Phone: [facility] 08-29-2020 COVID-19 mRNA, Comir giuliana (Pfizer) [facility] 08-28-2020 COVID-19 mRNA, Comir giuliana (Pfizer) MD Shaikh Samson Work Phone: [facility] 03-29-2017 influenza, injectabl e, quadrivalent, contains preservative Shaikh Mali OJEDA Work Phone: [facility] 03-06-2015 influenza, seasonal, injectable, preservative free Shaikh Mali OJEDA Work Phone: [facility] 04-13-2014 influenza, seasonal, injectable Shaikh Mali OJEDA Work Phone: [facility] 04-19-2013 influenza, seasonal, injectable Shaikh Mali OJEDA Work Phone: [facility] Payers Date Payer Category Payer Unknown [id number] 2024 Self-pay [id number] 2023 Medicare [id number] 2023 Medicare [id number] 2022 Worker's Compensation [facility] OF WORKERS' COMPENSATION [facility] [address] [facility] [id number] 2022-Present [address] [address] [id number] .[id number] 2022 Worker's Compensation [id number] 2022 Private Health Insurance [employer] [id number] .[id number] 2022 Unknown [id number]. 1.13.693 .[id number] 2022 Unknown [id number] 2022 Unknown [id number] 1961 [facility] [id number] 2.16.840.1.294808.19 1958 Unknown [id number] 2.16.840.1.920895.3.579 .2.593 1958 Unknown [id number] 2.16.840.1.215829.3.579 .2.593 1958 Unknown [id number] 2.16.840.1.120779.3.579 .2.593 1958 Unknown [id number] 2.16.840.1.806088.3.579 .2.593 1958 Unknown [id number] 2.16.840.1.098711.3.579 .2.593 1958 Unknown [id number] 2.16.840.1.788504.3.579 .2.593 1958 Unknown [id number] 2.16.840.1.934132.3.579 .2.593 1958 Unknown [id number] 2.16.840.1.642193.3.579 .2.1259 1958 Unknown [id number] 2.16.840.1.448796.3.579 .2.1259 1958 Unknown [id number] 2.16.840.1.576085.3.579 .2.1259 1958 Unknown [id number] 2.16.840.1.211912.3.579 .2.1259 1958 Unknown [id number] 2.16.840.1.325744.3.579 .2.1259 1958 Unknown [id number] 2.16.840.1.084085.3.579 .2.1259 1958 Unknown [id number] 2.16.840.1.116329.3.579 .2.1259 1958 Unknown [id number] 2.16.840.1.401887.3.579 .2.1259 Medicare [id number] 2.16.840.1.382934.19 Unknown [id number] 2.16.840.1.384212.3.579 .2.531 Unknown [id number] 2.16.840.1.394960.3.579 .2.531 Unknown [id number] 2.16.840.1.059169.3.579 .2.531 Social History Date Type Detail Facility Sex Assigned At [facility] Other Start: 05-26-2023 End: 09-29-2023 Sex Assigned At [facility] via[employer] Other Start: 11-17-2021 End: 08-11-2023 Tobacco smoking status [facility] Smoker (finding) [facility] Start: 1960 Sex Assigned At Male F [facility] Start: 05-26-2023 Tobacco smoking stat us [facility] Smokes tobacco daily [facility] History of [...] 05-18-2024 Tobacco smoking status NHIS Ex-smoker (finding) [facility] History of tobacco use Passive smoker [facility] Start: 04-27-2024 End: 06-29-2024 Sex Male (finding) [facility] Medical Equipment Procedure Code Equipment Code Equipment Origin al Text Equipment Identifier Dates [id number], [id number] Start: 07-12-2023 End: 11-09-2024 Spinal fixation plate, non-bioabsorbable ()[id number] FDA Start: 11-17-2021 Spinal fixation plate, non-bioabsorbable ()[id number] FDA Start: 11-17-2021 Intervertebral-b osbaldo internal spinal fixation system ()[id number] FDA Start: 11-17-2021 Intervertebral-b osbaldo internal spinal fixation system ()[id number] FDA Start: 11-17-2021 Blood Sugar Diagnostic [...] capsule; Refill: 0 documented in this encounter [facility] 04-26-2024 Nuclear medicine Diagnostic study note [facility] [place] [address] Nuclear Medicine Report Signed Patient: Lew Obregon MR#: [id number] : 1960 Acct:[id number] Age/Sex: 64 / M ADM Date: 4 Loc: ME Room: Type: [facility] Attending Dr: Debi Beltre DO Copies to: DO Howard Small II, MD~ Ordering Provider: Debi Beltre DO Date of Service: 04/26/24 NM/NM hepatobiliary w pharm: R10.9 - Unspecified abdominal pain [place] hepatobiliary w pharm 04/26/2024 6:50 AM SIGN [...] a similar gallbladder ejection fraction at 86.8%. NM/ME hepatobiliary w pharm IMPRESSION: No evidence of acute cholecystitis. Normal gallbladder ejection fraction at 86.8%. Impression dictated by: Howard Cordero M.D.04/26/2024 10:19 AM Dictation Location: [place] [address] Transcribed By: [facility] 04/26/24 1019 Dictated By: Howard Cordero II, MD 04/26/24 1017 Signed By: 04/26/24 1019 [facility] Work Phone: 04-12-2024 Evaluation note Diagnosis Onset [...] diabetes mellitus acute June 29, 2024 1:45pm [facility] Work Phone: 1(631) 505-911609-26-2024 History of Present illness Narrative* Osman Alvarado, [...] GERD (gastroesophageal reflux disease) Hyperlipidemia (CMS/HCC) Hypertension (CMS/[facility]) Medications: Current Outpatient Medications: aspirin 81 MG [...] VASC: Palpable pedal pulses bilaterally NEURO: 5.07 [place] Kasia monofilament test intact to digits and [...] environment. 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 with no treatment at that time and states that he most likely would like to have toenail removed today Patient is type 2 diabetic with controlled sugars Allergies: No Known Allergies Past Medical History: Past Medical History: Diagnosis Date Diabetes mellitus ([facility]) type II GERD (gastroesophageal reflux disease) Hyperlipidemia ([facility]) Hypertension ([facility]) Medications: Current Outpatient Medications: aspirin 81 MG [...] needle 10/27 ) 30G x 8 mm [facility], Use daily, Disp: 100 each, Rfl: 12 [...] min Stress: No Stress Concern Present (05/26/2023) [employer] - Occupational Stress Questionnaire Feeling of Stress : Not at all Social Connections: Socially Isolated (05/26/2023) Social Connection and Isolation Panel [NHANES] Frequency of Communication with Friends and Family: Twice a week Frequency of Social Gatherings with Friends and Family: Three times a week Attends Baptism Services: Never Active Member of Clubs or [...] cool tibia to toes b/l NEURO: 5.07 [place] Kasia monofilament test intact to digits and [...] antibiotic Osman Alvarado DPM documented in [facility] [id number] Evaluation note* Diagnosis Onset Date Resolution Status [...] 8:43am Thrombocytopenia acute April 12, 2024 8:43am [facility] Work Phone: 1(679) 262-991302-16-2024 Evaluation note* Author [facility] Authored July 30, 2023 1:39pm Continue Chantix plan for 3 months total started 06/23/2023. Second and third month refills sent to pharmacy today [facility] Work Phone: 1(815) 978-423902-16-2024 Evaluation note* Author [facility] Authored July 30, 2023 12:39pm Continue Chantix plan for 3 months total started 06/23/2023. Second and third month refills sent to pharmacy today [facility] Work Phone: 1(389) 667-625001-10-2024 Evaluation note* Encounter Date Diagnosis Assessment Notes [...] education was performed by myself JACINDA Tanner [facility] Other 03-09-2023 Evaluation note* Encounter Date Diagnosis [...] C6-C7 level with radiculopathy (ICD-10 - M50.123) [facility] Other 12-06-2022 Evaluation note* Encounter Date Diagnosis [...] C6-C7 level with radiculopathy (ICD-10 - M50.123) [facility] Other 09-06-2022 Evaluation note* Encounter Date Diagnosis [...] C6-C7 level with radiculopathy (ICD-10 - M50.123) [facility] Other 05-24-2022 Evaluation note* Encounter Date Diagnosis [...] C6-C7 level with radiculopathy (ICD-10 - M50.123) [facility] Other 04-19-2022 Evaluation note* Encounter Date Diagnosis [...] C6-C7 level with radiculopathy (ICD-10 - M50.123) [facility] [employer] Other chief complaint+Reason for visit Narrative* Chief Complaint m47.812/e11.[address] Samson Smoking Cessation Smoking Cessation follow up Reason for Visit Cardiovascular risk factor Cigarette nicotine dependence [facility] Work Phone: Chief complaint+Reason for visit Narrative* Chief Complaint Referral Dr. Samson Smoking Cessation Smoking Cessation follow up Reason for Visit Cardiovascular risk factor Cigarette nicotine dependence Cardiovascular risk factor Cigarette nicotine dependence Cardiovascular risk factor Cigarette nicotine dependence [facility] Work Phone: Evaluation noteNort [employer] Other Evaluation noteNo InformationNortKindred Hospital [place] [employer] Other evaluation noteNo assessment information available [facility] Work Phone: Evaluation note* Diagnosis Type 2 diabetes mellitus without complication, without long-term current use of insulin ([facility])- Primary [facility] encounter [facility]* Diagnosis Onset Date Resolution Status Cardiovascular risk factor a cute Cigarette nicotine dependence acute [facility] Work Phone: Evaluation note* Diagnosis Onset Date Resolution Status Cardiovascular risk factor a cute Cigarette nicotine dependence acute Cardiovascular risk factor a cute Cigarette nicotine dependence acute Cardiovascular risk factor a cute Cigarette nicotine dependence acute Cardiovascular risk factor a cute Cigarette nicotine dependence acute Cardiovascular risk factor a cute Cigarette nicotine dependence acute [facility] Work Phone: Evaluation note* Diagnosis Onset Date Resolution Status Cardiovascular risk factor a cute Cigarette nicotine dependence acute Cardiovascular risk factor a cute Cigarette nicotine dependence acute Cardiovascular risk factor a cute Cigarette nicotine dependence acute Degenerative disc disease, lumbar acute Low back pain acute Paresthesia acute Right upper quadrant abdominal pain acute [facility] Work Phone: Evaluation note* Diagnosis Onset Date [...] acute Right upper quadrant abdominal pain acute [facility] Work Phone: Evaluation note* Diagnosis Onset Date [...] acute Type 2 diabetes mellitus acu te [facility] Work Phone: Evaluation note* Diagnosis Onset Date [...] acute Type 2 diabetes mellitus acu te [facility] Work Phone: Evaluation note* Diagnosis Onset Date [...] factor a cute Cigarette nicotine dependence acute [facility] Work Phone: Evaluation note* Diagnosis Onset Date [...] cute Cigarette nicotine dependence acute Thrombocytopenia acute [facility] Work Phone: Evaluation note* Diagnosis Onset Date Resolution Status Type 2 diabetes mellitus acu te Abdominal pain acute Chronic gastroesophageal reflux disease acute Right upper quadrant abdominal pain acute Type 2 diabetes mellitus acu te Cardiovascular risk factor a cute Cigarette nicotine dependence acute Thrombocytopenia acute Lumbar stenosis with neurogenic claudication acute Schmorl's nodes of lumbar region acute [facility] Work Phone: Evaluation note* Diagnosis Onset Date Resolution Status Abdominal pain acute Chronic gastroesophageal reflux disease acute Right upper quadrant abdominal pain acute Type 2 diabetes mellitus acu te Cardiovascular risk factor a cute Cigarette nicotine dependence acute Thrombocytopenia acute Lumbar stenosis with neurogenic claudication acute Schmorl's nodes of lumbar region acute Abdominal pain acute Fatty liver acute Thrombocytopenia acute [facility] Work Phone: Evaluation note* Diagnosis Onychomycosis- Primary Dermatophytosis of nail Onychocryptosis Ingrowing nail Toe pain, left Pain in soft tissues of limb Paronychia, toe, left documented in this encounter [facility] Healthcare[facility]* Diagnosis Paronychia, toe, left- Primary Onychocryptosis Ingrowing nail Toe pain, left Pain in soft tissues of limb documented in this encounter [facility] Healthcare[facility] note* Diagnosis Essential hypertension (CMS/HCC)- Primary Unspecified essential hypertension Type 2 diabetes mellitus without complication, without long-term current use of insulin (CMS/[facility]) Encounter for Medicare annual wellness exam Other hyperlipidemia (CMS/HCC) Cervical spondylosis without myelopathy Tobacco dependency Tobacco use disorder Essential hypertension (CMS/HCC)- Primary Unspecified essential hypertension Type 2 diabetes mellitus without complication, with long-term current use of insulin (CMS/HCC) Other hyperlipidemia (CMS/HCC) Type 2 diabetes mellitus without complication, without long-term current use of insulin ([facility]/HCC) Low back pain potentially associated with radiculopathy Cellulitis, penis- Primary Other inflammatory disorders of penis documented in this encounter [facility] Narrative - ReportedNortKindred Hospital [place] [employer] Other History general Narrative - Reported* Type Description Date Medical History DM II Medical History GERD Medical History hyperlipidemia [facility] [employer] Other History general Narrative - Reported* Type Description Date Medical History DM II Medical History GERD Medical History hyperlipidemia Surgical History [facility]CD[facility]-Doctor Avila Hospitalization History See Above [facility] Other History general Narrative - Reported* Type Description Date Medical History DM II Medical History GERD Medical History hyperlipidemia Medical History Hypertension Surgical History [facility] Surgical History [place] teeth extraction Surgical History Tonsillectomy Hospitalization History See Above [facility] Other Summary Purpose Family History No Family [...] C5-C6 level with radiculopathy (M50.122) Referral Organization [facility] Referring Provider First Name Cornel [...] section and content) DATE CREATED AUTHOR 12/06/2017 [facility] DATE CREATED AUTHOR AUTHOR'S ORGANIZ ATION 06/11/2022 [facility] pital DATE CREATED AUTHOR AUTHOR'S ORGANIZ ATION 06/02/2024 [facility] EPIC DATE CREATED AUTHOR AUTHOR'S ORGANIZ ATION 07/03/2024 [facility] ysician Group REASON FOR VISIT (unrecogniz [...] Primary Care Provider, Attending Pr ovider Active Foil Operator Relationship Specialty Start Date End Date Shaikh Samson MD [address] [place] [address] PCP - General Internal Medicine 07/12/23 Team [...] Member Role Status Dates Robyn Morales APRN GENERAL ASSEMBLER INSTALLER-C Primary Care Provider Active Team Status: Inactive Member Role Status Dates Robyn Morales APRN GENERAL ASSEMBLER INSTALLER-C Primary Care Provider, Attending Provider Active Start: January 12, 2024 End: January 12, 2024 Team Status: Inactive Member Role Status Dates Robyn Morales APRN GENERAL ASSEMBLER INSTALLER-C Primary Care Provider, Attending Provider Active Start: January 19, 2024 End: January 19, 2024 Team Status: Inactive Member Role Status Dates Robyn Morales APRN GENERAL ASSEMBLER INSTALLER-C Primary Care Provider, Attending Provider Active Start: February 09, 2024 End: February 09, 2024 Team Status: Inactive Member Role Status Dates Robyn Morales APRN GENERAL ASSEMBLER INSTALLER-C Primary Care Provider, Attending Provider Active Start: February 16, 2024 End: February 16, 2024 Team Status: Inactive Member Role Status Dates Robyn Morales APRN GENERAL ASSEMBLER INSTALLER-C Primary Care Provider, Attending Provider Active Start: March 04, 2024 End: March 04, 2024 Team Status: Inactive Member Role Status Dates Cassidy Salazar APRN Attending Provider Active Start: March 08, 2024 End: March 08, 2024 Robyn Morales APRN GENERAL ASSEMBLER INSTALLER-C Primary Care Provider Active Start: February 132023 End: March 08, 2024 Team Status: Inactive Member Role Status Dates Robyn Morales APRN GENERAL ASSEMBLER INSTALLER-C Primary Care Provider, Referring Provider Active Start: March 15, 2024 End: March 15, 2024 Karo Hernandez APRN Attending Provider Active Start: March 15, 2024 End: March 15, 2024 Team Status: Active Member Role Status Dates Robyn Morales APRN GENERAL ASSEMBLER INSTALLER-C Primary Care Provider, Referring Provider Active Start: March 15, 2024 Karo Hernandez APRN Attending Provider Active Start: March 15, 2024 Foil Operator Relationship Specialty Start Date End Date Shaikh Samson MD [address] [place] [phone] PCP - General Internal Medicine 07/12/23 Team Status: Inactive Member Role Status Dates Robyn Morales APRN GENERAL ASSEMBLER INSTALLER-C Primary Care Provider Active Start: March End: March 23, 2024 Cornel Avila MD Attending Provider Active Star t: March 23, 2024 End: March 23, 2024 Team Status: Inactive Member Role Status Dates Robyn Morales APRN GENERAL ASSEMBLER INSTALLER-C Primary Care Provider Active Start: March End: April 12, 2024 Debi Beltre DO Attending Provider Active St art: April 12, 2024 End: April 12, 2024 Team Status: Inactive Member Role Status Dates Robyn Morales APRN GENERAL ASSEMBLER INSTALLER-C Primary Care Provider Active Start: April End: April 19, 2024 Debi Beltre DO Attending Provider Active St art: April 19, 2024 End: April 19, 2024 Team Status: Inactive Member Role Status Dates Robyn Morales APRN GENERAL ASSEMBLER INSTALLER-C Primary Care Provider Active Start: April [id number] End: April 26, 2024 Debi Beltre DO Attending Provider Active St art: April 26, 2024 End: April 26, 2024 Foil Operator Relationship Specialty Start Date End Date Shaikh Samson MD [address] [place] [phone] PCP - General Internal Medicine 07/12/23 Foil Operator Relationship Specialty Start Date End Date Shaikh Samson MD [address] [place] [phone] PCP - General Internal Medicine 07/12/23 Foil Operator Relationship Specialty Start Date End Date Shaikh Samson MD [address] [place] [phone] PCP - General Internal Medicine 07/12/23 Foil Operator Relationship Specialty Start Date End Date Shaikh Samson MD [address] [place] [phone] PCP - General Internal Medicine 07/12/23 Team Status: Inactive Member Role Status Dates Robyn Morales APRN GENERAL ASSEMBLER INSTALLER-C Primary Care Provider Active Start: May 112023 End: May 11, 2024 Devan Bob APRN Emergency Provider Active Start: May 11, 2024 End: May 11, 2024 Team Status: Inactive Member Role Status Dates Robyn Morales APRN GENERAL ASSEMBLER INSTALLER-C Primary Care Provider Active Start: May End: May 18, 2024 Debi Beltre DO Attending Provider Active St art: May 18, 2024 End: May 18, 2024 Team Status: Active Member Role Status Dates Robyn Morales APRN GENERAL ASSEMBLER INSTALLER-C Primary Care Provider Active Start: May Debi Beltre DO Attending Provider, Other Provider Active Start: May 18, 2024 Team Status: Active Member Role Status Dates Robyn Morales APRN GENERAL ASSEMBLER INSTALLER-C Primary Care Provider Active Start: May 242023 RAHUL Lanier Attending Provider Active S tart: May 24, 2024 Team Status: Inactive Member Role Status Dates Robyn Morales APRN GENERAL ASSEMBLER INSTALLER-C Primary Care Provider Active Start: May [id number] End: May 31, 2024 Cassidy Salazar APRN Attending Provider Active Start: May 31, 2024 End: May 31, 2024 Team Status: Inactive Member Role Status Dates Robyn Morales APRN GENERAL ASSEMBLER INSTALLER-C Primary Care Provider, Attending Provider Active Start: June 05, 2024 End: June 05, 2024 Team Status: Inactive Member Role Status Dates Robyn Morales APRN GENERAL ASSEMBLER INSTALLER-C Primary Care Provider, Attending Provider Active Start: [...] BE BASED ON THE PRIMARY CLINICAL RECORDS. [employer] provides no warranty or guarantee of the accuracy or completeness of information in this document.
--- NOTE | 2024-07-08 21:11 | ECG_ITS ---
[facility] Test Date: 2024-07-08 Pat Name: DONNA GARIBAY Department: Room: - Gender: Male Speech Correction Consultant: : [id number] Requested By: Robyn Morales Order Number: [id number] Reading MD: WAQAR BUNCH Measurements Intervals [place] Rate: 81 P: -30 ND: 130 QRS: 20 QRSD: 90 T: 54 QT: 372 QTc: 410 Interpretive Statements 1100 Sinus rhythm 9110 normal ECG Compared to ECG 07/07/2024 18:18:31 No significant changes Electronically Signed On 07-09-2024 8:13:48 EST by WAQAR BUNCH
--- NOTE | 2024-07-08 21:22 | ED_ITS ---
HPI HPI - General Adult General Chief complaint: Recheck/Abnormal Lab/Rx Stated complaint: blood pressure Time Seen by Provider: 07/08/24 20:55 Source: patient Mode of arrival: walk-in Limitations: no limitations History of Present Illness HPI narrative: This 64-year-old male with a history of hypertension who is on losartan and was seen yesterday after he had a fall while doing his evening walk presents for evaluation of ongoing elevated blood pressure. His blood pressure was in the 180s over 80s yesterday when he was in the emergency department he was given IV labetalol with clinical improvement. He states that he took his blood pressure again tonight and it was also in the 180s over 90s at home. He came to the emergency department for evaluation. He denies any headache, blurred vision, slurred speech or confusion. He has no chest pain or shortness of breath. He denies any abdominal pain or back pain. He denies any dizziness or syncope. He denies that he passed out yesterday while walking. He states he was walking and all the sudden he felt like he could not stop walking like he was running. He states he is too old to run and this was odd. He has no focal weakness numbness or tingling. Related Data Home Medications ?Medication ?Instructions ?Recorded ?Confirmed atorvastatin 40 mg tablet 40 mg PO DAILY 07/07/24 07/07/24 fexofenadine 180 mg tablet 180 mg PO DAILY 07/07/24 07/07/24 fluticasone propionate 50 1 spray intranasal Q12H 07/07/24 07/07/24 mcg/actuation nasal spray,suspension glipizide 10 mg tablet 20 mg PO DAILY 07/07/24 07/07/24 insulin glargine 100 unit/mL (3 30 unit subcut BEDTIME 07/07/24 07/07/24 mL) subcutaneous pen (Lantus Solostar U-100 Insulin) losartan 50 mg-hydrochlorothiazide 1 tab PO DAILY 07/07/24 07/07/24 12.5 mg tablet metformin 1,000 mg tablet 1,000 mg PO DAILY 07/07/24 07/07/24 omeprazole 40 mg capsule,delayed 40 mg PO DAILY 07/07/24 07/07/24 release semaglutide 0.25 mg or 0.5 mg (2 0.25 mg subcut QWEEK 07/07/24 07/07/24 mg/3 mL) subcutaneous pen injector (Ozempic) Allergies Allergy/AdvReac Type Severity Reaction Status Date / Time No Known Drug Allergies Allergy Verified 07/08/24 20:57 Opioid HPI Opioid Management Most Recent Opioid Data: No Data to Display Review of Systems ROS Narrative Vital signs and Nursing Notes reviewed: Patient is afebrile with a normal pulse, blood pressure is elevated at 170/70, he is not hypoxic with pulse ox of 97% on room air General: Awake, alert, oriented, no acute distress, lying comfortably on the stretcher HEENT: Normocephalic atraumatic, mucous membranes are moist and pink, eyes are clear, normal conjunctiva, vision is grossly intact, posterior pharynx is normal in appearance. Neck: Supple, no jvd Chest: Lungs are clear to auscultation with good air entry, there is no wheezing rhonchi or rales appreciated no accessory muscle use, patient is speaking in complete sentences-no chest wall tenderness to palpation CVS: Regular rate and rhythm S1-S2, no murmurs rubs or gallops, pulses are brisk and equal bilaterally ABD: Soft, nondistended, nontender, no rebound guarding or rigidity, bowel sounds are normal, no pulsatile masses appreciated Extremities: Moving all extremities, no lower extremity tenderness or swelling noted, negative Homans' sign, pulses are brisk and equal bilaterally Skin: Normal in appearance without rash,pallor, petechiae or purpura Neuro: No focal deficits, speech is clear, cognition is intact, guest services coordinator strength is intact, negative pronator drift, upper and lower extremity strength and sensation is intact NIH stroke scale is 0 PFSH PFSH Social History Little interest or pleasure in doing things: not at all Feeling down, depressed, or hopeless: not at all Exam Constitutional Vital Signs, click to edit/add: Last Vital Signs Temp 98.2 F 07/08/24 20:57 Pulse 85 07/08/24 22:00 Resp 16 07/08/24 21:36 BP 150/94 H 07/08/24 22:00 Pulse Ox 93 L 07/08/24 22:00 O2 Del Method Room Air 07/08/24 20:57 Course Vital Signs Vital signs: Vital Signs Temperature 98.2 F 07/08/24 20:57 Pulse Rate 81 07/08/24 20:57 Respiratory Rate 18 07/08/24 20:57 Blood Pressure 170/70 H 07/08/24 20:57 Pulse Oximetry 97 07/08/24 20:57 Oxygen Delivery Method Room Air 07/08/24 20:57 Temperature 98.2 F 07/08/24 20:57 Pulse Rate 85 07/08/24 22:00 Respiratory Rate 16 07/08/24 21:36 Blood Pressure 150/94 H 07/08/24 22:00 Pulse Oximetry 93 L 07/08/24 22:00 Oxygen Delivery Method Room Air 07/08/24 20:57 Medical Decision Making MDM Narrative Medical decision making narrative: This 64-year-old male who is on losartan for blood pressure presents for evaluation of elevated blood pressure. He was seen here yesterday after he was dizzy and fell while walking. CT scan of the head and neck was normal. It was noted that his blood pressure was high and he was given IV labetalol with recommendation for close follow-up with his family physician regarding the elevated blood pressure. He states he took his blood pressure again tonight and it was again high. He does not have any headache, chest pain, shortness of breath, dizziness abdominal pain or back pain. He has no focal neurologic symptoms. EKG done upon arrival was a sinus rhythm at 80 bpm with no acute changes. He was given 50 mg of oral Lopressor and his blood pressure has come down into the 150s over 80s. Cardiac workup including CBC with differential, comprehensive metabolic profile and troponin were ordered and are all normal with the exception of a mildly elevated glucose at 176. The results of his labs and EKG were discussed with him. He will be discharged home with a prescription for Toprol 50 mg to use until he can follow-up with his family physician. Medical Records Medical records reviewed: Yes I reviewed the patient's medical records Lab Data Lab results reviewed: Yes I reviewed the patient's lab results Labs: Lab Results 07/08/24 Range/Units 21:25 WBC 7.3 (4.0-11.0) 10^3/uL RBC 4.78 (4.70-6.10) 10^6/uL Hgb 13.1 L (14.0-18.0) g/dL Hct 39.3 L (42.0-54.0) % MCV 82.2 (80.0-94.0) fL MCH 27.4 (25.9-34.0) pg MCHC 33.3 (29.9-35.2) g/dL RDW 12.9 (11.0-15.0) % Plt Count 131 L (150-450) 10^3/uL MPV 11.6 (9.5-13.5) fL Neut % (Auto) 59.2 (43.0-75.0) % Lymph % (Auto) 29.5 (20.5-60.0) % Amelia % (Auto) 8.1 (1.7-12.0) % Eos % (Auto) 2.5 (0.9-7.0) % Baso % (Auto) 0.6 (0.2-2.0) % Neut # (Auto) 4.3 (1.4-6.5) 10^3/uL Lymph # (Auto) 2.1 (1.2-3.8) 10^3/uL Amelia # (Auto) 0.6 (0.3-0.8) 10^3/uL Eos # (Auto) 0.2 (0.0-0.7) 10^3/uL Baso # (Auto) 0.0 (0.0-0.1) 10^3/uL Abs Immat Gran (auto) 0.01 (0.00-0.03) 10^3/uL Imm/Tot Granulo (auto) 0.1 (0.0-0.5) % Sodium 141 (136-145) mmol/L Potassium 3.4 L (3.5-5.1) mmol/L Chloride 103 (98-107) mmol/L Carbon Dioxide 29.1 (21.0-32.0) mmol/L Anion Gap 12.3 BUN 14.0 (7.0-18.0) mg/dL Creatinine 1.02 (0.70-1.30) mg/dL Est GFR ( Amer) >60 (>=60 mL/min/1.73m^2) Est GFR (Non-Af Amer) >60 (>=60 mL/min/1.73m^2) BUN/Creatinine Ratio 13.7 Glucose 176 H (74-106) mg/dL Calcium 8.6 (8.5-10.1) mg/dL Total Bilirubin 0.4 (0.2-1.0) mg/dL AST 12 L (15-37) U/L ALT 31 (16-63) U/L Alkaline Phosphatase 62 (46-116) U/L Troponin I High Sens 12.4 (4.0-76.1) pg/mL Total Protein 6.7 (6.4-8.2) g/dL Albumin 3.6 (3.4-5.0) g/dL Globulin 3.1 g/dL Albumin/Globulin Ratio 1.2 ECG Data Attestation: I personally reviewed and interpreted this ECG as follows: (Sinus rhythm 80 bpm, normal axis, normal intervals, no acute ST segment elevation or T wave inversion) Discharge Plan Discharge Chief Complaint: Recheck/Abnormal Lab/Rx Clinical Impression: Hypertension Patient Disposition: Home, Self-Care Time of Disposition Decision: 22:12 Condition: Good Mode of Transportation: Private Vehicle Prescriptions / Home Meds: No Action atorvastatin 40 mg tablet 40 mg PO DAILY fexofenadine 180 mg tablet 180 mg PO DAILY fluticasone propionate 50 mcg/actuation spray,suspension 1 spray INTRANASAL Q12H glipizide 10 mg tablet 20 mg PO DAILY insulin glargine [Lantus Solostar U-100 Insulin] 100 unit/mL (3 mL) insulin pen 30 unit SUBCUT BEDTIME losartan-hydrochlorothiazide 50-12.5 mg tablet 1 tab PO DAILY metformin 1,000 mg tablet 1,000 mg PO DAILY omeprazole 40 mg capsule,delayed release(DR/EC) 40 mg PO DAILY Ozempic 0.25 mg or 0.5 mg (2 mg/3 mL) pen injector 0.25 mg SUBCUT QWEEK Print Language: Taiwanese Instructions: Heart Healthy Diet (ED), Hypertension (ED) Referrals: URBANO MEZA [Primary Care Provider] - 1 week Discharge Date/Time: 07/08/24 22:25
[2024-07-08 21:36] LABS: Basophils Percent Auto 0.6 % (0.2-2.0); Eosinophils Absolute Auto 0.2 10^3/uL (0.0-0.7); Eosinophils Percent Auto 2.5 % (0.9-7.0); Hematocrit 39.3 % (42.0-54.0); Hemoglobin 13.1 g/dL (14.0-18.0); Immature Granulocytes Abs Auto 0.01 10^3/uL (0.00-0.03); Immature Granulocytes Pct Auto 0.1 % (0.0-0.5); Lymphocytes Absolute Auto 2.1 10^3/uL (1.2-3.8); Lymphocytes Percent Auto 29.5 % (20.5-60.0); Mean Corpuscular HGB Conc 33.3 g/dL (29.9-35.2); Mean Corpuscular Hemoglobin 27.4 pg (25.9-34.0); Mean Corpuscular Volume 82.2 fL (80.0-94.0); Mean Platelet Volume 11.6 fL (9.5-13.5); Monocytes Absolute Auto 0.6 10^3/uL (0.3-0.8); Monocytes Percent Auto 8.1 % (1.7-12.0); Neutrophils Absolute Auto 4.3 10^3/uL (1.4-6.5); Neutrophils Percent Auto 59.2 % (43.0-75.0); Platelet Count 131 10^3/uL (150-450); Red Blood Count 4.78 10^6/uL (4.70-6.10); Red Cell Distribution Width 12.9 % (11.0-15.0); White Blood Count 7.3 10^3/uL (4.0-11.0)
[2024-07-08] MEDS: METOPROLOL TARTRATE 50 MG TABLET PO (21:39)
[2024-07-08 21:54] LABS: Alanine Aminotransferase 31 U/L (16-63); Albumin Globulin Ratio 1.2; Albumin Level 3.6 g/dL (3.4-5.0); Alkaline Phosphatase 62 U/L (46-116); Anion Gap 12.3; Aspartate Amino Transferase 12 U/L (15-37); BUN Creatinine Ratio 13.7; Bilirubin Total 0.4 mg/dL (0.2-1.0); Calcium 8.6 mg/dL (8.5-10.1); Carbon Dioxide 29.1 mmol/L (21.0-32.0); Chloride 103 mmol/L (98-107); Estimated GFR (African America >60 (>=60 mL/min/1.73m^2); Estimated GFR (Non-African Ame >60 (>=60 mL/min/1.73m^2); Globulin 3.1 g/dL; Glucose 176 mg/dL (74-106); Potassium 3.4 mmol/L (3.5-5.1); Sodium 141 mmol/L (136-145); Total Protein 6.7 g/dL (6.4-8.2); Troponin I High Sensitivity 12.4 pg/mL (4.0-76.1)
--- NOTE | 2024-07-10 07:06 | PC.NURSE ---
Prescription for Toprol Called in to [facility] pharmacy of [place].
== END 2024-07-08 22:25 | disposition home or self-care (01) ==
PROVIDERS: Emergency Provider Emergency Medicine; PCP Nurse Practitioner Family
DX: I10 Essential (primary) hypertension (principal)
CPT/HCPCS: 36415; 80053; 84484; 85025; 93005; 99284